=== PATIENT | female | born 1950 | race Caucasian/White ===

== ENCOUNTER 2018-07-04 13:58 | Inpatient (IN) | payer OTHER ==
--- NOTE | 2018-07-04 11:35 | R.PREADM ---
SCREENING DATE AND TIME 07/03/2018 14:09 (FORESTRY HUNTER) ANTICIPATED REHAB ADMISSION DATE 07/05/2018 REFERRING FACILITY [facility] REFERRAL DATE AND TIME 07/03/2018 14:09 (FORESTRY HUNTER) ACUTE ADMIT DATE 07/04/2018 Previous Rehabilitation(s): No. REFERRING PHYSICIAN Kosta Llanes REHAB FACILITY [facility] CLINICAL LIAISON Lisa Mojica PHYSICIAN REVIEWER Dr. Ramón Villafana M.D. MR# [id number] [id number] NAME RACHEL ROSA ADDRESS [address] [place] [address] [place] [address]IP [address] DATE OF 1950 AGE 68 SSN# [id number] GENDER female MARITAL STATUS RACE white ADMIT FROM 02 - [facility] PRE-HOSPITAL LIVING SETTING 01 - Home (private home/apt. board/care, assisted living, mcfp, transitional living) HOME TYPE AND DETAILS Type of home: single family house # of steps to enter the residence: 1 # of levels in the residence: 1 # of steps within the residence: 4 PRE-HOSPITAL LIVING WITH Other FAMILY SUPPORT No PHONE PRIMARY FAMILY CONTACT ON ADM.? no IS PRIMARY FAMILY CONTACT AUTH. REP.? no PHONE 1ST CONTACT ON ADM. no IS 1ST CONTACT AUTH. REP.? no PHONE 2ND CONTACT ON ADM.? no PATIENT EMPLOYMENT STATUS Retired (for age) PATIENT EMPLOYER No Employer PAYOR INFORMATION: 1ST PAYOR NAME MEDICARE 1ST PAYOR PHONE 1ST PAYOR INJURY/ILLNESS DUE TO ACCIDENT? No ANOTHER LIBERTARIAN RESPONSIBLE? 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 COMORBID REHAB/ACUTE DIAGNOSES: - N/A Anemia in Chronic illness SUMMARY OF ACUTE HOSPITALIZATION: Pt. is a 68 yo Right-handed white female. On 07/01/2018 Pt. presented to [facility] with sudden onset of left-side weakness. On 07/01/2018 she was admitted to [facility] with diagnosis right basal ganglia acute-subacute i nfarct involving the dorsal striatum. Her impairment category is Stroke 01 - Left Body (Right Brain) (01.1). Pre-morbidly, Pt. was independent/mod-I in Transfers Control, Communication, Social Cognition, Self-C are, Sphincter Control, and Locomotion; and she had good Sphincter Control. Currently, she has deficits of Transfers Control, Communication, Social Cognition, Balance, Self-Care , Endurance, Safety Awareness, and Locomotion. Pt. is now referred to [facility] for acute in-patient rehabilitation in order to maximize patient's functional independence in activities of daily living, strength, ROM, and mobi lity. Patient has realistic goal of being discharged at assistance level 6-Demario to reside at Home with [facility] er. PAST MEDICAL HISTORY Anemia in Chronic illness ovarian cancer PAST SURGICAL HISTORY: history of total hysterectomy MEDICATION ALLERGIES: adhesive tape-silicones and sulfa ENVIRONMENTAL ALLERGIES: - Substance Allergies None Known - Other Allergies None Known CODE STATUS: Full code WEIGHT/HEIGHT/BMI: WEIGHT 185 lbs HEIGHT 5' 7" BMI 29 DIET: - Diet Type Regular - Diet - Solid Texture Regular - Diet - Liquid Texture Regular - Tube Feed N/A REVIEW OF SYSTEMS: - Gen Alert and awake Lying in bed No apparent distress Oriented to: person, time, and place - CVS RRR VITAL SIGNS Temperature: 98.4 F SBP/DBP: 120/80 Pulse: 88 Resp: 20 Vital signs stable, afebrile CURRENT SPHINCTER CONTROL: Pre-hospital bladder status: continent # of bladder accidents in the last 7 days prior to screenin Pre-hospital bowel status: continent # of bowel accidents in the last 7 days prior to screenin Last Bowel Movement Date: 07/03/2018 DETAILED CURRENT FUNCTIONAL STATUS: - Bladder accident frequency: Ind - No accidents in the past 7 days - Bowel accident frequency: Ind - No accidents in the past 7 days - Walking score based on distance walked: 1(<=50ft) FUNCTIONAL STATUS: - Self-Care A. Eating Ind sup B. Grooming Ind sup C. Bathing Ind sup D. Dressing - Upper Ind sup E. Dressing - Lower Ind sup F. Toileting Ind sup - Sphincter Control G: Bladder control Ind Ind H: Bowel control Ind Ind - Transfers Control I. Bed/Chair/Wheelchair Ind Aliza J. Toilet Ind Aliza K. Tub/Shower Ind Aliza - Locomotion L. Walk/Wheelchair (B) Ind Dep M. Stairs Ind ADNO - Communication N. Comprehension (B) Ind sup O. Expression (B) Ind sup - Social Cognition P. Social Interaction Ind sup Q. Problem Solving Ind sup R. Memory Ind sup - Endurance Fair - Balance Fair - Safety Awareness Fair CURRENT FUNC. DEFICITS: Transfers Control, Communication, Social Cognition, Balance, Self-Care, Endurance, Safety Awareness, and Locomotion THERAPY NOTES FROM ACUTE CARE: Attached. SPECIAL NEEDS: - Safety Concerns Skin breakdown precautions needed due to skin breakdown risk PRECAUTIONS: - Weight Bearing Precaution WBAT left LE PATIENT NEEDS ACTIVE AND ONGOING THERAPEUTIC INTERVENTION OF MULTIPLE THERAPY DISCIPLINES, INCLUDING: - Occupational Therapy Evaluate and Treat. Cognitive Retraining. Visual Perceptual Training. - Speech Therapy Memory Strategies. Expressive Language Skills. Speech Intelligibility Training. Cognitive Training. R eceptive Language Skills. - Physical Therapy Evaluate and Treat. PATIENT NEEDS CLOSE MEDICAL SUPERVISION BY A REHABILITATION PHYSICIAN FOR: Bowel and Bladder Management Coordination of Treatment Team Medical and Co-Morbidity Management PATIENT REQUIRES 24X7 REHAB NURSING FOR MEDICAL AND FUNCTIONAL MGT. OF THE FOLLOWING DEFICITS: ADL's Ambulation Bowel and Bladder Management Cognition Communication Disease Management Medication Management Patient/Family Education Providing Safe Environment Transfers PATIENT REQUIRES INTENSIVE, COORDINATED INTERDISCIPLINARY APPROACH TO REHAB: Arranging Home Equipment/Services Discharge Planning Family Intervention/Training Foreign Language Stenographer/Case Management PATIENT REHAB POTENTIAL: Expected level of measurable improvement will be of a practical value to patient's functional capacit y or adaptations to impairments Has a viable Discharge Plan Medically appropriate; condition is sufficiently stable to participate in intensive rehab program Patient is able and expected to receive 3 hours of individualized therapy daily on at least 5 of ever y 7 days Patient's prognosis for significant practical improvement within a reasonable period of time appears Good DISCHARGE PLAN: - Estimated Length of Stay (days) 17. - Consensus on plan Discharge plan has been discussed with primary caregiver. Patient/Family is in agreement with the aaron n. Primary caregiver is in agreement with the plan. - Patient/Family Goals Return home with assistance. - Planned Living Setting Upon Discharge Home, to live with Other. RECOMMENDED CARE LEVEL: IRF RECOMMENDATION DETAILS: Recommended Admission to Comprehensive Rehabilitation Program to Increase Functional [place] SCREENER'S COMPLETENESS CONFIRMATION: - Screening Confirmation The patient data collection on this preadmission screening form is finished PHYSICIANS REVIEW AND ADMISSION DETERMINATION Admit - Based on my review of the Pre-Admission Screening results, in my medical judgment and experie nce, I concur with the findings and recommend admission to [facility], as this patient requires an IRF level of care. SIGNATURE PANEL: Clinical Liaison - [electronically] signed by Lisa Mojica on 07/04/2018 at 10:29 (FORESTRY HUNTER) Physician Reviewer - [electronically] signed by Dr. Ramón Villafana M.D. on 07/04/2018 at 11:35 (FORESTRY HUNTER )
--- OUTSIDE RECORDS SUMMARY | 2018-07-04 15:50 | XMS REPORT | Clinical Summary ---
:1950 Author Organization [facility] Address [address] [place] [id number] Care Team Providers Name Role Phone Asked, No Pcp Primary Care Provider Unavailable Allergies No Known Allergies Medications No known medications Active Problems Problem Noted Date Closed patellar sleeve fracture, right, with delayed healing, subsequent 10/01 encounter Closed displaced osteochondral fracture of right patella 05/06/2017 Encounters Date Type Specialty Care Team Description 10/01/2017 Office Visit Orthopedic Surgery Marty Rascon MD Chronic pain of right knee (Primary Dx); Impingement syndrome of left shoulder; Closed patellar sleeve fracture, right, with delayed healing, subsequent encounter 09/03/2017 Office Visit Orthopedic Surgery Marty Rascon MD Closed displaced osteochondral fracture of right patella with routine healing, subsequent encounter (Primary Dx) 08/06/2017 Office Visit Orthopedic Surgery Marty Rascon MD Closed displaced osteochondral fracture of right patella, initial encounter (Primary Dx ); Acute pain of right knee after 07/03/2017 Social History Tobacco Use Types Packs/Day Years Used Date Never Assessed Sex Assigned at Date Recorded Not on file Job Start Date Occupation Industry Not on file Not on file Not on file Travel History Travel Start Travel End No recent travel history available. Last Filed Vital Signs Not on file Plan of Treatment Health Maintenance Due Date Last Done Comments BREAST CANCER SCREENING 1999 COLON CANCER SCREENING 1999 SHINGLES VACCINES (1 of 2) 1999 PNEUMOCOCCAL POLYSACCHARIDE VACCINE AGE 65 AND OVER 2014 PNEUMOCOCCAL-13 2014 INFLUENZA VACCINE 02/05/2018 Procedures Procedure Name Priority Date/Time Associated Diagnosis Comments XR KNEE 1 OR 2 VW Routine 10/01/2017 1:49 Chronic pain of right Results for this RIGHT PM CDT knee procedure are in the results section. XR KNEE 1 OR 2 VW Routine 09/03/2017 1:16 Closed displaced Results for this RIGHT PM DECATIZER osteochondral fracture procedure are in of right patella with the results routine healing, section. subsequent encounter XR KNEE 4+ VW Routine 08/06/2017 1:11 Acute pain of right Results for this RIGHT PM DECATIZER knee procedure are in the results section. after 07/03/2017 Results XR Knee 1 Or 2 Vw Right (10/01/2017 1:49 PM CDT)Only the most recent of2 resultswithin the time period is included. 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 Performing Organization Address [facility] Phone Number [facility] [address] [place] [address] XR Knee 4+ Vw Right (08/06/2017 1:11 PM DECATIZER) Narrative Performed At [facility], lateral, oblique x-rays were done of the right knee.These x-rays [facility] demonstrate a delayed union, of the proximal transverse patella.There is some medial and lateral compartment arthritis. Performing Organization Address [facility] Phone Number [facility] [address] [place] [address] after 07/03/2017 Insurance Payer Benefit Plan / Group Subscriber ID Type Phone Address MEDICARE MEDICARE PART A AND B xxxxxxxxxx Medicare [place], [place] COMMERCIAL MISC MISC COMMERCIAL xxxxxxxx Commercial Advance Directives Patient has advance care planning documents on file. For more information, please contact:Hieu Cohen[address] [place] [address]
--- OUTSIDE RECORDS SUMMARY | 2018-07-04 15:50 | XMS REPORT ---
:1950 [facility] Address [address] [place] [address] Dr. Duron [address] [place] [id number] Care Team Providers Name Role Phone Unavailable Unavailable Unavailable Problems This patient has no known problems. Allergies, Adverse Reactions, Alerts This patient has no known allergies or adverse reactions. Medications This patient has no known medications.
[2018-07-04 16:16] LABS: Urine Appearance CLEAR; Urine Bilirubin NEGATIVE (NEG); Urine Blood NEGATIVE (NEG); Urine Color YELLOW; Urine Glucose NEGATIVE (NEG); Urine Protein NEGATIVE (NEG); Urine Specific Gravity <=1.005 (1.005-1.030); Urine Urobilinogen 0.2 mg/dL (0.2-1.0)
[2018-07-04 16:29] LABS: Urine RBC NONE SEEN /HPF (NONE SEEN)
[2018-07-04 16:30] LABS: Urine Bacteria NONE SEEN /HPF (<20); Urine Culture Reflex Order NOT NEEDED
[2018-07-04] MEDS: ENOXAPARIN 40 MG/0.4 ML SQ SCH (17:00)
--- NOTE | 2018-07-04 18:22 | R.HP ---
FACILITY: [facility] ENCOUNTER DATE AND TIME: 07/04/2018 18:16 (COORDINATOR OF PLACEMENT) MR#: [id number] NAME RACHEL ROSA ADDRESS: [address] [place] [address] RO[address] [facility] CITY: [place] ZIP [address] PHONE: DATE OF : 1950 AGE: 68 SSN# [id number] GENDER: Female DEXTERITY Right-handed MARITAL STATUS RACE White PRE-HOSPITAL LIVING SETTING 01 - Home (private home/apt. board/care, assisted living, chcf, transitional living) PRE-HOSPITAL LIVING WITH Other ENCOUNTER PHYSICIAN: Dr. Ramón Villafana M.D. 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 SECONDARY/COMORBID DIAGNOSES (TIERED): - N/A Anemia in Chronic illness HISTORY OF PRESENT ILLNESS (HPI): Pt. is a 68 yo Right-handed white female. On 07/01/2018 Pt. presented to [facility] with sudden onset of left-side weakness. On 07/01/2018 she was admitted to [facility] with diagnosis right basal ganglia acute-subacute i nfarct involving the dorsal striatum. Her impairment category is Stroke 01 - Left Body (Right Brain) (01.1). Pre-morbidly, Pt. was independent/mod-I in Transfers Control, Communication, Social Cognition, Self-C are, Sphincter Control, and Locomotion; and she had good Sphincter Control. Currently, she has deficits of Transfers Control, Communication, Social Cognition, Balance, Self-Care , Endurance, Safety Awareness, and Locomotion. Pt. is now referred to [facility] for acute in-patient rehabilitation in order to maximize patient's functional independence in activities of daily living, strength, ROM, and mobi lity. Patient has realistic goal of being discharged at assistance level 6-Demario to reside at Home with [facility] er. MEDICATION ALLERGIES: adhesive tape-silicones and sulfa ENVIRONMENTAL ALLERGIES: - Substance Allergies None Known - Other Allergies None Known PAST MEDICAL HISTORY: Anemia in Chronic illness ovarian cancer Nephrectomy 10 years ago. She has one kidney. PAST SURGICAL HISTORY: history of total hysterectomy FAMILY HISTORY: Family history is not contributory. REVIEW OF SYSTEMS: - Gen No Chills Fatigue No Fever - Eyes No Double Vision No itchiness - ENMT No Difficulty Swallowing - CVS No Chest Discomfort No Chest Pain Fatigue No Weight Gain - Resp No Cough No Shortness of Breath - GI Continent No Abdominal Pain No Constipation No Diarrhea - Continent No Kidney Pain No Painful Urination No Urinary Urgency - MSK No Joint Pain Muscle Cramps Stiffness - Skin No Itching No Rash No Suspicious Lesions - Neuro Coordination Difficulty No Difficulty with Concentration Memory Loss No Seizures Weakness - Psych No Anxiety No Depression No HIV Exposure No Persistent Infections No Seasonal Allergies - Endo No Cold/Heat Intolerance No Excessive Hunger No Excessive Thirst No Excessive Urination PHYSICAL EXAM - Gen Alert and awake Lying in bed No apparent distress Oriented to: person and place - Skin No breakdown Mild left facial numbness and weakness. - Eyes Right visual field deficit. - ENMT No abnormalities - Neck No abnormalities No cervical adenopathy - CVS RRR - Chest No abnormalities - Resp CTA bilaterally - Abd + bowel sounds - GI Soft Deferred - No abnormalities - Ext No significant edema. - MSK 4+/5 weakness in left upper and lower extremity - Neuro 4/5 strength left upper and lower extremities. - Psych No abnormalities VITAL SIGNS Temperature: 98.4 F SBP/DBP: 120/80 Pulse: 88 Resp: 20 NURSING: - Shower allowing shower - Bladder care per protocol - Skin care per protocol PRECAUTIONS: - Weight Bearing Precaution WBAT left LE ACTIVITIES OOB only with supervision FUNCTIONAL STATUS: - Self-Care A. Eating Ind sup B. Grooming Ind sup C. Bathing Ind sup D. Dressing - Upper Ind sup E. Dressing - Lower Ind sup F. Toileting Ind sup - Sphincter Control G: Bladder control Ind Ind H: Bowel control Ind Ind - Transfers Control I. Bed/Chair/Wheelchair Ind Aliza J. Toilet Ind Aliza K. Tub/Shower Ind Aliza - Locomotion L. Walk/Wheelchair (B) Ind Dep M. Stairs Ind ADNO - Communication N. Comprehension (B) Ind sup O. Expression (B) Ind sup - Social Cognition P. Social Interaction Ind sup Q. Problem Solving Ind sup R. Memory Ind sup - Endurance Fair - Balance Fair - Safety Awareness Fair CURRENT [facility]. DEFICITS: Transfers Control, Communication, Social Cognition, Balance, Self-Care, Endurance, Safety Awareness, and Locomotion ASSESSMENT: Pt. is a 68 yo Right-handed white female.On 07/01/2018 Pt. presented to [facility] with sudden o nset of left-side weakness.On 07/01/2018 she was admitted to [facility] with diagnosis right bas al ganglia acute-subacute infarct involving the dorsal striatum.Her impairment category is Stroke 01 - Left Body (Right Brain) (01.1).Pre-morbidly, Pt. was independent/mod-I in Transfers Control, Commu nication, Social Cognition, Self-Care, Sphincter Control, and Locomotion; and she had good Sphincter Control.Currently, she has deficits of Transfers Control, Communication, Social Cognition, Balance, S elf-Care, Endurance, Safety Awareness, and Locomotion.Pt. is now referred to [facility] for acute in-patient rehabilitation in order to maximize patient's functional independence in activities of daily living, strength, ROM, and mobility.- Rehab Goal Patient has realistic goal of being discharged at assistance level 6-Demario to reside at Home with [facility] er. REHAB PLAN: for Dementia, TBI, Stroke, or others - Physical Therapy Gait dysfunction - to improve, our physical therapists will perform initial evaluation of pt's status upon admission and devise an individualized program for Gait Training, and Wheel Chair mobility Inability to transfer - to improve, our physical therapists will perform initial evaluation of pt's s tatus upon admission and devise an individualized program for Bed mobility Need for home safety evaluation - to improve, our physical therapists will perform initial evaluation of pt's status upon admission and devise an individualized program for Home Evaluation Need in caregiver upon discharge - to improve, our physical therapists will perform initial evaluatio n of pt's status upon admission and devise an individualized program for Caregiver Training New precaution - to improve, our physical therapists will perform initial evaluation of pt's status u ana admission and devise an individualized program for Patient precaution education Edema - to improve, our physical therapists will perform initial evaluation of pt's status upon admi ssion and devise an individualized program for Elevation Training, and Lymphedema Therapy Poor balance - to improve, our physical therapists will perform initial evaluation of pt's status upo n admission and devise an individualized program for Balance Training Poor endurance - to improve, our physical therapists will perform initial evaluation of pt's status u ana admission and devise an individualized program for Endurance Training Weakness - to improve, our physical therapists will perform initial evaluation of pt's status upon ad mission and devise an individualized program for Aquatic Therapy, Neuromuscular Reeducation, and Stre ngthening Achieving independence - to improve, our physical therapists will perform initial evaluation of pt's status upon admission and devise an individualized program for Community Reintegration Activities - Occupational Therapy ADL deficits - to improve, our occupation therapists will perform initial evaluation of pt's status u ana admission and devise an individualized program for Bathing, Bed mobility, Community Reintegration , Cooking, Dressing, Eating, Fine Motor Skills, Grooming, Homemaking, Kitchen Mobility, Laundry, Linda ent Education, Safety Awareness, Splinting - Positioning, Transfers(Toilet, Tub, Shower), and Wheel C hair Management Cognitive deficits - to improve, our occupation therapists will perform initial evaluation of pt's st atus upon admission and devise an individualized program for Cognition - orientation Need for life care planner - to improve, our occupation therapists will perform initial evaluation of pt's s tatus upon admission and devise an individualized program for Caregiver Training Weakness - to improve, our occupation therapists will perform initial evaluation of pt's status upon admission and devise an individualized program for Aquatic Therapy, Balance, Endurance, UE ROM, and U E strengthening MEDICAL PLAN: - Diet Type Start Regular - Diet - Liquid Texture Start Regular - Tube Feed Start N/A - Bladder care per protocol - Weight Bearing Precaution WBAT left LE - Skin care per protocol - Diet - Solid Texture Regular - Shower shower DISCHARGE PLAN: - Estimated Length of Stay (days) 17. - Consensus on plan Discharge plan has been discussed with primary caregiver. Patient/Family is in agreement with the aaron n. Primary caregiver is in agreement with the plan. - Patient/Family Goals Return home with assistance. - Planned Living Setting Upon Discharge Home, to live with Other. SIGNATURE PANEL: (COORDINATOR OF PLACEMENT)
--- NOTE | 2018-07-04 18:23 | PAPE ---
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 Ramón Villafana M.D. 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 PATIENT NEEDS CLOSE MEDICAL SUPERVISION BY A REHABILITATION PHYSICIAN FOR: Bowel and Bladder Management Coordination of Treatment Team Medical and Co-Morbidity Management PATIENT REQUIRES 24X7 REHAB NURSING FOR MEDICAL AND FUNCTIONAL MGT. OF THE FOLLOWING DEFICITS: ADL's Ambulation Bowel and Bladder Management Cognition Communication Disease Management Medication Management Patient/Family Education Providing Safe Environment Transfers PATIENT REQUIRES INTENSIVE, COORDINATED INTERDISCIPLINARY APPROACH TO REHAB: Arranging Home Equipment/Services Discharge Planning Family Intervention/Training Box Car Bracer/Case Management LIST OF IDENTIFIED AND POTENTIAL PROBLEMS: Alteration in leisure activities Bladder, Incontinence Bowel, Incontinence Infection, Actual or Potential Mobility Impaired Pain, Alteration in Comfort Self Care Deficit Skin Integrity, Actual or Potential Urinary Tract Infection (UTI), Actual or Potential PATIENT COULD BE AT RISK FOR COMPLICATIONS FROM ADVERSE MEDICAL CONDITIONS DUE TO HIS/HER COMORBIDITI ES AND THE RIGORS OF THE INTENSIVE REHABILLITATION PROGRAM. METHODS OR INTERVENTIONS TO AVOID COMPLIC ATIONS INCLUDE: - Bleeding Stroke patients assessed for lethargy or change in status. - Infection Clinical staff to assess and manage the signs and symptoms of infection including fever, redness, war mth, etc. - Urinary Tract Infection - Aspiration Clinical staff will assess and manage coughing, drooling, congestion. - Falls Patient will be evaluated for Fall Precautions and will be placed on Fall Precautions as indicated pe r protocol. - Skin Breakdown Nursing will assess skin daily using assessment tool and will place on Skin Breakdown Precautions as indicated per protocol. - Pain Clinical staff may employ non-medication methods such as massage, distraction, decrease stimulus, etc . as needed. Clinical staff will assess patient's pain level every shift per protocol to assess and e nsure pain management effectiveness. Medications will be given and the pain level re-assessed. PRELIMINARY PLAN OF CARE: - Physical Therapy Patient needs Physical Therapy for a daily minimum of 1.5 hours at least 5 out of 7 days, to improve: Mobility, Strengthening, Transfers, Stretching, ROM, Endurance, Ability to manage stairs, Gait, and Balance. - Speech Therapy Patient needs Speech Therapy for a daily minimum of 0.5 hours at least 5 out of 7 days, to improve: S wallowing, Cognition, Language Skills, and Compensatory Strategies. - Rehabilitation Nursing Patient requires 24x7 Rehabilitation Nursing for: Pain Issues, Identifying and preventing risk factor s, Monitoring and reporting current medical conditions, Assisting with ambulation and transfer, Jevon ting with all ADL-s, Teaching patients about disease process and medications, Family teaching, Provid ing safe environment, Bowel and Bladder Issues, Skin Integrity, and Medication Management. Patient needs Box Car Bracer and/or Case Management for: Discharge Planning, Arranging Home Equipmen t or Services, and Family Interventions. - Dietary and Nutrition Services Patient needs Dietary and Nutrition Services for: Adequate Nutrition, Nutritional Supplements, and Nu tritional Education. - Occupational Therapy Patient needs Occupational Therapy for a daily minimum of 1.5 hours at least 5 out of 7 days, to impr ove Activities of Daily Living, including: Eating, Grooming, Bathing, Dressing, Toileting, Toilet Tra nsfers, Community Reintegration, Higher functional activities, Adaptive Equipment, Splinting, Househo ld Tasks, and Other activities as determined. POTENTIAL FUNCTIONAL GOALS FOR PATIENT TO ACHIEVE BY DISCHARGE: - Safety Precaution Patient will remain free from falls or injury at time of discharge. - Bed Mobility Patient will perform bed mobility at 4-Aliza level of assistance. - Transfers Patient will complete transfers from bed to chair at 4-Aliza level of assistance. - Mobility Patient will ambulate 150 ft with 4-Aliza level of assistance with RW. PATIENT REHAB POTENTIAL Expected level of measurable improvement will be of a practical value to patient's functional capacit y or adaptations to impairments Has a viable Discharge Plan Medically appropriate; condition is sufficiently stable to participate in intensive rehab program Patient is able and expected to receive 3 hours of individualized therapy daily on at least 5 of ever y 7 days Patient's prognosis for significant practical improvement within a reasonable period of time appears Good DISCHARGE PLAN: - Estimated Length of Stay (days) 17. - Consensus on plan Discharge plan has been discussed with primary caregiver. Patient/Family is in agreement with the aaron n. Primary caregiver is in agreement with the plan. - Patient/Family Goals Return home with assistance. - Planned Living Setting Upon Discharge Home, to live with Other. CONCLUSION ON REHABILITATION NECESSITY: I have evaluated patient's pre-admission functional status and, comparing it to the patient's post-ad mission functional status now, I conclude that the pre-admission assessment was accurate. Patient's c ondition on admission supports the medical necessity of admission to IRF. It is safe to proceed with patient's therapy program. SIGNATURE PANEL: (OPERATIONS EXPERT)
[2018-07-04] MEDS: MELATONIN 3 MG TABLET PO PRN (20:15)
[2018-07-04] MEDS: ATORVASTATIN 20 MG TAB PO SCH (20:15)
[2018-07-05 06:57] LABS: Absolute Lymphocytes (CBC) 0.5 K/uL (0.7-4.9); Absolute Monocytes 0.8 K/uL (0.1-1.3); Absolute Neutrophil 5.2 K/uL (1.8-8.0); Basophils % 0.6 % (0-1.3); Eosinophils % 0.1 % (0-4.4); Hematocrit 26.3 % (36.0-45.0); Lymphocytes % 8.1 % (15.3-44.8); MPV 8.2 fL (7.6-11.3); Monocytes % 12.7 % (3.3-12.3); RBC Red Blood Cell Count 3.68 M/uL (3.86-4.86)
[2018-07-05 07:06] LABS: Albumin 2.9 g/dL (3.4-5.0); Magnesium 2.3 mg/dL (1.8-2.4); Potassium 4.2 mmol/L (3.5-5.1); Prealbumin 10.1 mg/dL (20-40)
[2018-07-05] MEDS: FE SULF/FA/VIT B COMP & C TAB PO SCH (10:11)
[2018-07-05] MEDS: ASPIRIN 81 MG CHEWABLE TABLET PO SCH (10:11)
[2018-07-05] MEDS: AMLODIPINE 5 MG TAB PO SCH (10:11)
[2018-07-05] MEDS: FERROUS SULFATE 325 MG TAB PO SCH (10:11)
--- NOTE | 2018-07-05 14:49 | FAST ---
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 Ramón Villafana M.D. 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 EATING: EATING - STEP 1: Does the patient require the assistance of a person or device, or need extra time when eating? Yes. EATING - STEP 2: Does the patient require the assistance of a helper? Yes. EATING - STEP 3: Does the patient perform half or more of the eating tasks? Yes. EATING - STEP 4: Does the patient need only supervision, cuing, coaxing OR help to apply an orthosis OR help to cut fo od, open containers, pour liquids, or butter bread? Yes. EATING - SCORE: 5-SUP EATING - COMMENTS: Patient began coughing during lunch, nurse notified GROOMING: Comb/brush hair Oral care GROOMING - STEP 1: Does the patient require the assistance of a person or device, or need extra time when grooming? Yes. GROOMING - STEP 2: Does the patient require the assistance of a helper? No. The patient only requires an assistive devic e, OR takes more than reasonable time to groom, OR there is a concern for safety as the patient groom s GROOMING - SCORE: 6-TONNY BATHING: Activity did not occur on this shift BATHING - SCORE: 0-UNK DRESSING - UPPER BODY: Activity did not occur on this shift ARTICLES SCORE Total number of steps: 0 DRESSING - UPPER BODY - SCORE: 0-UNK DRESSING - LOWER BODY: Activity did not occur on this shift ARTICLES SCORE Total number of steps: 0 DRESSING - LOWER BODY - SCORE: 0-UNK TOILETING: TOILETING - STEP 1: Does the patient require the assistance of a person or device, or need extra time with toileting? Yes . TOILETING - STEP 2: Does the patient require the assistance of a helper? Yes. TOILETING - STEP 3: How much assistance does the patient require from the helper? Hands-on assistance from the helper TOILETING - STEP 4: Of the 3 tasks: 1) Adjusting clothing prior to use, 2) Cleansing of perineal area, 3) Adjusting clot rebekah after use; How many tasks does the patient perform WITHOUT assistance of the helper? Two tasks TOILETING - SCORE: 3-MOD BLADDER MANAGEMENT: Delton removes incontinent device (Depends, pull ups, etc.); cleans the patient after accident / inco ntinent episode; and, applies new incontinent device. BLADDER MANAGEMENT - SCORE: 1-DEP BLADDER MANAGEMENT - FREQUENCY OF ACCIDENTS: BLADDER MANAGEMENT(FA) - STEP 1: How many accidents has the patient had during the current shift? 2 BOWEL MANAGEMENT: Activity did not occur on this shift BOWEL MANAGEMENT - SCORE: 7-IND TRANSFERS: BED, CHAIR, WHEELCHAIR: TRANSFERS: BED, CHAIR, WHEELCHAIR - STEP 1: Does the patient require assistance of a person or device, or need extra time with bed, chair, or whe elchair transfers? Yes. TRANSFERS: BED, CHAIR, WHEELCHAIR - STEP 2: Does the patient require the assistance of a helper? Yes. TRANSFERS: BED, CHAIR, WHEELCHAIR - STEP 3: How much assistance does the patient require from the helper? Steadying/guiding assistance TRANSFERS: BED, CHAIR, WHEELCHAIR - SCORE: 4-MIN TRANSFERS: TOILET: TRANSFERS: TOILET - STEP 1: Does the patient require the assistance of a person or device, or need extra time with toilet transfe rs? Yes. TRANSFERS: TOILET - STEP 2: Does the patient require the assistance of a helper? Yes. TRANSFERS: TOILET - STEP 3: How much assistance does the patient require from the helper? Patient performs half or more of the tr ansferring tasks TRANSFERS: TOILET - STEP 4: Does the patient need only incidental help such as contact guard or steadying during toilet transfer? No. Patient needs more than incidental help TRANSFERS: TOILET - SCORE: 3-MOD TRANSFERS: SHOWER: Activity did not occur on this shift TRANSFERS: SHOWER - SCORE: 0-UNK TRANSFERS: TUB: Activity did not occur on this shift TRANSFERS: TUB - SCORE: 0-UNK LOCOMOTION: WALK: Activity did not occur on this shift LOCOMOTION: WALK - SCORE: 0-UNK LOCOMOTION: WHEELCHAIR: Activity did not occur on this shift LOCOMOTION: WHEELCHAIR - SCORE: 0-UNK COMPREHENSION: COMPREHENSION: TYPE: Both COMPREHENSION - STEP 1: Does the patient require help from a person or device, or need extra time to understand complex and a bstract ideas (such as current events, finances, discharge planning, medical issues, relationships, e tc)? Yes. COMPREHENSION - STEP 2: Does the patient require help to understand questions or statements about basic needs or ideas (such as hunger, thirst, sleep, safety, daily schedule, room location, or discomfort) half or more of the t agustin? Yes. COMPREHENSION - STEP 3: Is the patient basically able to understand and respond appropriately and consistently? Yes. COMPREHENSION - SCORE: 2-MAX EXPRESSION EXPRESSION: TYPE: Both EXPRESSION - STEP 1: Does the patient require help from a person or device, or need extra time expressing complex and abst ract ideas (such as current events, finances, discharge planning, medical issues, relationships, etc) ? Yes. EXPRESSION - STEP 2: Does the patient require help to express basic necessities or ideas (such as hunger, thirst, sleep, s afety, daily schedule, room location, or discomfort) half or more of the time? Yes. EXPRESSION - STEP 3: Is the patient basically unable to express or does s/he express inappropriately or inconsistently kellie pite prompting? No. EXPRESSION - SCORE: 2-MAX SOCIAL INTERACTION: SOCIAL INTERACTION - STEP 1: Does the patient require a helper to interact with others in social and therapeutic situations? Yes. SOCIAL INTERACTION - STEP 2: Does the patient interact appropriately half or more of the time? Yes. SOCIAL INTERACTION - STEP 3: How often does the patient need help to interact appropriately? 25-49% of the time SOCIAL INTERACTION - SCORE: 3-MOD PROBLEM SOLVING: PROBLEM SOLVING - STEP 1: Does the patient need help from a person or device, or need extra time to solve complex problems such as managing a checking account or confronting interpersonal problems? Yes. PROBLEM SOLVING - STEP 2: Does the patient solve basic routine problems half or more of the time? No. PROBLEM SOLVING - STEP 3: Does the patient need help to solve problems all the time or is s/he unable to solve problems? No. Pa tient can sometimes solve problems PROBLEM SOLVING - SCORE: 2-MAX MEMORY: MEMORY - STEP 1: Does the patient need help from a person or device, or need extra time to remember frequently encount ered people, daily routines, and executing requests? Yes. MEMORY - STEP 2: How often does the patient need help to remember frequently encountered people, daily routines, and e xecuting requests? More than 50% of the time MEMORY - STEP 3: Does the patient need help to remember all of the time OR does s/he not effectively recognize and rem ember? No. Patient does not need help all the time MEMORY - SCORE: 2-MAX SIGNATURE PANEL: The following modified sections: Eating - Score, Grooming - Score, Eating - Comments:, Bathing - Scor e, Dressing - Upper Body - Score, Dressing - Lower Body - Score, Toileting - Score, Bladder Managemen t - Score, Bowel Management - Score, Transfers: Bed, Chair, Wheelchair - Score, Transfers: Toilet - S core, Transfers: Shower - Score, Transfers: Tub - Score, Locomotion: Walk - Score, Locomotion: Wheelc hair - Score, Comprehension - Score, Expression - Score, Social Interaction - Score, Problem Solving - Score, Memory - Score were [electronically] signed by Scottie Mae on Sat Jul 05 2018 14:48:34 GMT-06 00 (Central Standard Time)
--- NOTE | 2018-07-05 16:00 | FAST ---
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 Ramón Villafana M.D. 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 EATING: Activity did not occur on this shift EATING - SCORE: 0-UNK GROOMING: Comb/brush hair Wash, rinse, and dry face Wash, rinse, and dry hands GROOMING - STEP 1: Does the patient require the assistance of a person or device, or need extra time when grooming? Yes. GROOMING - STEP 2: Does the patient require the assistance of a helper? Yes. GROOMING - STEP 3: How much assistance does the patient require from the helper? Incidental touching assistance from the helper while grooming GROOMING - SCORE: 4-MIN BATHING: Abdomen Buttocks Chest Left arm Left lower leg and foot Left upper leg Perineal area Right arm Right lower leg and foot Right upper leg BATHING - STEP 1: Does the patient require the assistance of a person or device, or need extra time when bathing? Yes. BATHING - STEP 2: Does the patient require the assistance of a helper? Yes. BATHING - STEP 3: How much assistance does the patient require from the helper? More than just incidental help BATHING - STEP 4: What percent of the body parts did the patient bathe WITHOUT the helper? Less than half of the body p arts BATHING - SCORE: 2-MAX DRESSING - UPPER BODY: Bra (three steps) T-shirt/pullover shirt (four steps) ARTICLES SCORE Total number of steps: 7 DRESSING - UPPER BODY - STEP 1: Does the patient require help from a person or device, or need extra time when dressing above the alejandra st? Yes. DRESSING - UPPER BODY - STEP 2: Does the patient require the assistance of a helper? Yes. DRESSING - UPPER BODY - STEP 3: Does the helper touch the patient while dressing? Yes. DRESSING - UPPER BODY - STEP 4: How many of the total steps does the patient complete on his/her own? 3 DRESSING - UPPER BODY - STEP 5: Does Patient require total assistance for dressing above the waist such as the helper holding clothin g and performing basically all the activities? No. DRESSING - UPPER BODY - SCORE: 2-MAX DRESSING - LOWER BODY: Elastic waist pants (three steps) Sock - Left foot (one step) Sock - Right foot (one step) Tied or buckled shoe - Left foot (two steps) Tied or buckled shoe - Right foot (two steps) Underwear (three steps) ARTICLES SCORE Total number of steps: 12 DRESSING - LOWER BODY - STEP 1: Does the patient require help from a person or device, or need extra time when dressing below the alejandra st? Yes. DRESSING - LOWER BODY - STEP 2: Does the patient require the assistance of a helper? Yes. DRESSING - LOWER BODY - STEP 3: Does the helper touch the patient while dressing? Yes. DRESSING - LOWER BODY - STEP 4: How many of the total steps does the patient complete on his/her own? 1 DRESSING - LOWER BODY - STEP 5: Does patient require total assistance for dressing below the waist such as the helper holding clothin g and performing basically all the activities? No. DRESSING - LOWER BODY - SCORE: 2-MAX TOILETING: Activity did not occur on this shift TOILETING - SCORE: 0-UNK BLADDER MANAGEMENT: Activity did not occur on this shift BLADDER MANAGEMENT - SCORE: 7-IND BOWEL MANAGEMENT: Activity did not occur on this shift BOWEL MANAGEMENT - SCORE: 7-IND TRANSFERS: BED, CHAIR, WHEELCHAIR: Activity did not occur on this shift TRANSFERS: BED, CHAIR, WHEELCHAIR - SCORE: 0-UNK TRANSFERS: TOILET: Activity did not occur on this shift TRANSFERS: TOILET - SCORE: 0-UNK TRANSFERS: SHOWER: TRANSFERS: SHOWER - STEP 1: Does the patient require the assistance of a person or device, or need extra time with shower transfe rs? Yes. TRANSFERS: SHOWER - STEP 2: Does the patient require the assistance of a helper? Yes. TRANSFERS: SHOWER - STEP 3: How much assistance does the patient require from the helper? More than incidental help TRANSFERS: SHOWER - STEP 4: How much more help does the patient require from the helper? Lifting the patient either up OR down fr om the wheelchair onto the shower chair TRANSFERS: SHOWER - SCORE: 3-MOD TRANSFERS: TUB: Activity did not occur on this shift TRANSFERS: TUB - SCORE: 0-UNK LOCOMOTION: WALK: Activity did not occur on this shift LOCOMOTION: WALK - SCORE: 0-UNK LOCOMOTION: WHEELCHAIR: Activity did not occur on this shift LOCOMOTION: WHEELCHAIR - SCORE: 0-UNK LOCOMOTION: STAIRS: Activity did not occur on this shift LOCOMOTION: STAIRS - SCORE: 0-UNK COMPREHENSION: COMPREHENSION: TYPE: Both COMPREHENSION - STEP 1: Does the patient require help from a person or device, or need extra time to understand complex and a bstract ideas (such as current events, finances, discharge planning, medical issues, relationships, e tc)? Yes. COMPREHENSION - STEP 2: Does the patient require help to understand questions or statements about basic needs or ideas (such as hunger, thirst, sleep, safety, daily schedule, room location, or discomfort) half or more of the t agustin? No. COMPREHENSION - STEP 3: How often does the patient need help to understand directions and conversation about basic needs? 10% - 24% of the time COMPREHENSION - SCORE: 4-MIN EXPRESSION EXPRESSION: TYPE: Vocal EXPRESSION - STEP 1: Does the patient require help from a person or device, or need extra time expressing complex and abst ract ideas (such as current events, finances, discharge planning, medical issues, relationships, etc) ? Yes. EXPRESSION - STEP 2: Does the patient require help to express basic necessities or ideas (such as hunger, thirst, sleep, s afety, daily schedule, room location, or discomfort) half or more of the time? No. EXPRESSION - STEP 3: How often does the patient need help to express directions and conversation about basic needs? 10-24% of the time EXPRESSION - SCORE: 4-MIN SOCIAL INTERACTION: SOCIAL INTERACTION - STEP 1: Does the patient require a helper to interact with others in social and therapeutic situations? No. SOCIAL INTERACTION - STEP 2: Does the patient need extra time in social situations, OR does s/he interact with staff, other patien ts, and family members ONLY in structured environments, OR does s/he require medication for social in teraction? No. SOCIAL INTERACTION - SCORE: 7-IND PROBLEM SOLVING: PROBLEM SOLVING - STEP 1: Does the patient need help from a person or device, or need extra time to solve complex problems such as managing a checking account or confronting interpersonal problems? Yes. PROBLEM SOLVING - STEP 2: Does the patient solve basic routine problems half or more of the time? Yes. PROBLEM SOLVING - STEP 3: How often does the patient need help to solve basic routine problems? 25%-49% of the time PROBLEM SOLVING - SCORE: 3-MOD MEMORY: MEMORY - STEP 1: Does the patient need help from a person or device, or need extra time to remember frequently encount ered people, daily routines, and executing requests? Yes. MEMORY - STEP 2: How often does the patient need help to remember frequently encountered people, daily routines, and e xecuting requests? 25% - 49% of the time MEMORY - SCORE: 3-MOD SIGNATURE PANEL: The following modified sections: Eating - Score, Grooming - Score, Bathing - Score, Dressing - Upper Body - Score, Dressing - Lower Body - Score, Toileting - Score, Transfers: Bed, Chair, Wheelchair - S core, Transfers: Toilet - Score, Transfers: Shower - Score, Transfers: Tub - Score, Comprehension - S core, Expression - Score, Social Interaction - Score, Problem Solving - Score, Memory - Score were [e lectronically] signed by Annie Real OT on Sat Jul 05 2018 15:59:22 GMT-0600 (Central Standard Ti ne)
[2018-07-05] MEDS: ENOXAPARIN 40 MG/0.4 ML SQ SCH (16:20)
[2018-07-05] MEDS: APIXABAN 2.5 MG TABLET PO SCH (20:33)
[2018-07-05] MEDS: ATORVASTATIN 20 MG TAB PO SCH (20:33)
[2018-07-05] MEDS: MELATONIN 3 MG TABLET PO PRN (20:33)
[2018-07-05] MEDS: ACETAMINOPHEN 500 MG TAB PO PRN (20:34)
[2018-07-06] MEDS: FE SULF/FA/VIT B COMP & C TAB PO SCH (08:01)
[2018-07-06] MEDS: ACETAMINOPHEN 500 MG TAB PO PRN ×2 (08:01→19:14)
[2018-07-06] MEDS: FERROUS SULFATE 325 MG TAB PO SCH (08:01)
[2018-07-06] MEDS: AMLODIPINE 5 MG TAB PO SCH (08:01)
[2018-07-06] MEDS: APIXABAN 2.5 MG TABLET PO SCH ×2 (08:02→20:34)
[2018-07-06] MEDS: ASPIRIN 81 MG CHEWABLE TABLET PO SCH (08:04)
[2018-07-06] MEDS: DULOXETINE 20 MG CAP PO SCH (11:00)
[2018-07-06] MEDS: CRANBERRY FRUIT EXTRACT 200 MG CAP PO SCH ×2 (11:00→20:34)
--- NOTE | 2018-07-06 12:17 | FAST ---
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 Ramón Villafana M.D. 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 EATING: EATING - STEP 1: Does the patient require the assistance of a person or device, or need extra time when eating? Yes. EATING - STEP 2: Does the patient require the assistance of a helper? Yes. EATING - STEP 3: Does the patient perform half or more of the eating tasks? Yes. EATING - STEP 4: Does the patient need only supervision, cuing, coaxing OR help to apply an orthosis OR help to cut fo od, open containers, pour liquids, or butter bread? Yes. EATING - SCORE: 5-SUP GROOMING: Comb/brush hair Oral care GROOMING - STEP 1: Does the patient require the assistance of a person or device, or need extra time when grooming? Yes. GROOMING - STEP 2: Does the patient require the assistance of a helper? No. The patient only requires an assistive devic e, OR takes more than reasonable time to groom, OR there is a concern for safety as the patient groom s GROOMING - SCORE: 6-TONNY BATHING: Activity did not occur on this shift BATHING - SCORE: 0-UNK DRESSING - UPPER BODY: T-shirt/pullover shirt (four steps) ARTICLES SCORE Total number of steps: 4 DRESSING - UPPER BODY - STEP 1: Does the patient require help from a person or device, or need extra time when dressing above the [address]? Yes. DRESSING - UPPER BODY - STEP 2: Does the patient require the assistance of a helper? Yes. DRESSING - UPPER BODY - STEP 3: Does the helper touch the patient while dressing? Yes. DRESSING - UPPER BODY - STEP 4: How many of the total steps does the patient complete on his/her own? 4 DRESSING - UPPER BODY - SCORE: 4-MIN DRESSING - LOWER BODY: ARTICLES SCORE Total number of steps: 3 DRESSING - LOWER BODY - STEP 1: Does the patient require help from a person or device, or need extra time when dressing below the [address]? Yes. DRESSING - LOWER BODY - STEP 2: Does the patient require the assistance of a helper? Yes. DRESSING - LOWER BODY - STEP 3: Does the helper touch the patient while dressing? Yes. DRESSING - LOWER BODY - STEP 4: How many of the total steps does the patient complete on his/her own? 3 DRESSING - LOWER BODY - SCORE: 4-MIN TOILETING: TOILETING - STEP 1: Does the patient require the assistance of a person or device, or need extra time with toileting? Yes . TOILETING - STEP 2: Does the patient require the assistance of a helper? Yes. TOILETING - STEP 3: How much assistance does the patient require from the helper? Hands-on assistance from the helper TOILETING - STEP 4: Of the 3 tasks: 1) Adjusting clothing prior to use, 2) Cleansing of perineal area, 3) Adjusting clot rebekah after use; How many tasks does the patient perform WITHOUT assistance of the helper? Two tasks TOILETING - SCORE: 3-MOD BLADDER MANAGEMENT: BLADDER MANAGEMENT - STEP 1: Does the patient control the bladder completely and intentionally without equipment or devices or med ications, and is always continent? No. BLADDER MANAGEMENT - STEP 2: Does the patient require the assistance of a helper? No, patient requires and independently uses an a ssistive device, such as a urinal, bedpan, bedside commode, catheter, absorbent pad, or collecting de vice BLADDER MANAGEMENT - SCORE: 6-TONNY BLADDER MANAGEMENT - FREQUENCY OF ACCIDENTS: BLADDER MANAGEMENT(FA) - STEP 1: How many accidents has the patient had during the current shift? 1 BOWEL MANAGEMENT: Activity did not occur on this shift BOWEL MANAGEMENT - SCORE: 7-IND TRANSFERS: BED, CHAIR, WHEELCHAIR: TRANSFERS: BED, CHAIR, WHEELCHAIR - STEP 1: Does the patient require assistance of a person or device, or need extra time with bed, chair, or whe elchair transfers? Yes. TRANSFERS: BED, CHAIR, WHEELCHAIR - STEP 2: Does the patient require the assistance of a helper? Yes. TRANSFERS: BED, CHAIR, WHEELCHAIR - STEP 3: How much assistance does the patient require from the helper? Steadying/guiding assistance TRANSFERS: BED, CHAIR, WHEELCHAIR - SCORE: 4-MIN TRANSFERS: TOILET: TRANSFERS: TOILET - STEP 1: Does the patient require the assistance of a person or device, or need extra time with toilet transfe rs? Yes. TRANSFERS: TOILET - STEP 2: Does the patient require the assistance of a helper? Yes. TRANSFERS: TOILET - STEP 3: How much assistance does the patient require from the helper? Patient performs half or more of the tr ansferring tasks TRANSFERS: TOILET - STEP 4: Does the patient need only incidental help such as contact guard or steadying during toilet transfer? Yes. TRANSFERS: TOILET - SCORE: 4-MIN TRANSFERS: SHOWER: Activity did not occur on this shift TRANSFERS: SHOWER - SCORE: 0-UNK TRANSFERS: TUB: Activity did not occur on this shift TRANSFERS: TUB - SCORE: 0-UNK LOCOMOTION: WALK: Activity did not occur on this shift LOCOMOTION: WALK - SCORE: 0-UNK LOCOMOTION: WHEELCHAIR: Activity did not occur on this shift LOCOMOTION: WHEELCHAIR - SCORE: 0-UNK COMPREHENSION: COMPREHENSION: TYPE: Both COMPREHENSION - STEP 1: Does the patient require help from a person or device, or need extra time to understand complex and a bstract ideas (such as current events, finances, discharge planning, medical issues, relationships, e tc)? Yes. COMPREHENSION - STEP 2: Does the patient require help to understand questions or statements about basic needs or ideas (such as hunger, thirst, sleep, safety, daily schedule, room location, or discomfort) half or more of the t agustin? No. COMPREHENSION - STEP 3: How often does the patient need help to understand directions and conversation about basic needs? 25% - 49% of the time COMPREHENSION - SCORE: 3-MOD EXPRESSION EXPRESSION: TYPE: Both EXPRESSION - STEP 1: Does the patient require help from a person or device, or need extra time expressing complex and abst ract ideas (such as current events, finances, discharge planning, medical issues, relationships, etc) ? Yes. EXPRESSION - STEP 2: Does the patient require help to express basic necessities or ideas (such as hunger, thirst, sleep, s afety, daily schedule, room location, or discomfort) half or more of the time? No. EXPRESSION - STEP 3: How often does the patient need help to express directions and conversation about basic needs? 25-49% of the time EXPRESSION - SCORE: 3-MOD SOCIAL INTERACTION: SOCIAL INTERACTION - STEP 1: Does the patient require a helper to interact with others in social and therapeutic situations? Yes. SOCIAL INTERACTION - STEP 2: Does the patient interact appropriately half or more of the time? Yes. SOCIAL INTERACTION - STEP 3: How often does the patient need help to interact appropriately? 25-49% of the time SOCIAL INTERACTION - SCORE: 3-MOD PROBLEM SOLVING: PROBLEM SOLVING - STEP 1: Does the patient need help from a person or device, or need extra time to solve complex problems such as managing a checking account or confronting interpersonal problems? Yes. PROBLEM SOLVING - STEP 2: Does the patient solve basic routine problems half or more of the time? Yes. PROBLEM SOLVING - STEP 3: How often does the patient need help to solve basic routine problems? 25%-49% of the time PROBLEM SOLVING - SCORE: 3-MOD MEMORY: MEMORY - STEP 1: Does the patient need help from a person or device, or need extra time to remember frequently encount ered people, daily routines, and executing requests? Yes. MEMORY - STEP 2: How often does the patient need help to remember frequently encountered people, daily routines, and e xecuting requests? More than 50% of the time MEMORY - STEP 3: Does the patient need help to remember all of the time OR does s/he not effectively recognize and rem ember? No. Patient does not need help all the time MEMORY - SCORE: 2-MAX SIGNATURE PANEL: The following modified sections: Eating - Score, Grooming - Score, Bathing - Score, Dressing - Upper Body - Score, Dressing - Lower Body - Score, Toileting - Score, Bladder Management - Score, Bowel Man agement - Score, Transfers: Bed, Chair, Wheelchair - Score, Transfers: Toilet - Score, Transfers: Lori wer - Score, Transfers: Tub - Score, Locomotion: Walk - Score, Locomotion: Wheelchair - Score, Compre hension - Score, Expression - Score, Social Interaction - Score, Problem Solving - Score, Memory - Sc ore were [electronically] signed by Scottie Mae on SatJul 06 2018 12:15:57 GMT-0600 (Central Standard Time)
[2018-07-06] MEDS: DOCUSATE NA/SENNA CONC 1 TAB PO PRN (20:34)
[2018-07-06] MEDS: MELATONIN 3 MG TABLET PO PRN (20:34)
[2018-07-06] MEDS: ATORVASTATIN 20 MG TAB PO SCH (20:34)
[2018-07-07] MEDS: DULOXETINE 20 MG CAP PO SCH (08:19)
[2018-07-07] MEDS: APIXABAN 2.5 MG TABLET PO SCH ×2 (08:20→19:19)
[2018-07-07] MEDS: ASPIRIN 81 MG CHEWABLE TABLET PO SCH (08:20)
[2018-07-07] MEDS: CRANBERRY FRUIT EXTRACT 200 MG CAP PO SCH ×2 (08:20→19:20)
[2018-07-07] MEDS: AMLODIPINE 5 MG TAB PO SCH (08:24)
[2018-07-07] MEDS: FERROUS SULFATE 325 MG TAB PO SCH (08:24)
[2018-07-07] MEDS: ACETAMINOPHEN 500 MG TAB PO PRN ×2 (08:24→19:20)
[2018-07-07] MEDS: FE SULF/FA/VIT B COMP & C TAB PO SCH (08:24)
--- NOTE | 2018-07-07 10:42 | RAD REPORT ---
EXAM DESCRIPTION: RAD - Chest Single View - 07/07/2018 7:15 am CLINICAL HISTORY: increase coughing Chest pain. COMPARISON: Chest Single View dated 07/18/2017 FINDINGS: Portable technique limits examination quality. The lungs are grossly clear. The heart is normal in size. No displaced fractures. IMPRESSION: No acute intrathoracic process suspected.
--- NOTE | 2018-07-07 14:25 | FAST ---
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 Ramón Villafana M.D. 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 EATING: Activity did not occur on this shift EATING - SCORE: 0-UNK GROOMING: Activity did not occur on this shift GROOMING - SCORE: 0-UNK BATHING: Activity did not occur on this shift BATHING - SCORE: 0-UNK DRESSING - UPPER BODY: Activity did not occur on this shift Patient is not dressing in public clothing ARTICLES SCORE Total number of steps: 0 DRESSING - UPPER BODY - SCORE: 0-UNK DRESSING - LOWER BODY: Activity did not occur on this shift Patient is not dressing in public clothing ARTICLES SCORE Total number of steps: 0 DRESSING - LOWER BODY - SCORE: 0-UNK TOILETING: Activity did not occur on this shift TOILETING - SCORE: 0-UNK BLADDER MANAGEMENT: Activity did not occur on this shift BLADDER MANAGEMENT - SCORE: 7-IND BOWEL MANAGEMENT: Activity did not occur on this shift BOWEL MANAGEMENT - SCORE: 7-IND TRANSFERS: BED, CHAIR, WHEELCHAIR: TRANSFERS: BED, CHAIR, WHEELCHAIR - STEP 1: Does the patient require assistance of a person or device, or need extra time with bed, chair, or whe elchair transfers? Yes. TRANSFERS: BED, CHAIR, WHEELCHAIR - STEP 2: Does the patient require the assistance of a helper? Yes. TRANSFERS: BED, CHAIR, WHEELCHAIR - STEP 3: How much assistance does the patient require from the helper? Only supervision TRANSFERS: BED, CHAIR, WHEELCHAIR - SCORE: 5-SUP TRANSFERS: TOILET: Activity did not occur on this shift TRANSFERS: TOILET - SCORE: 0-UNK TRANSFERS: SHOWER: Activity did not occur on this shift TRANSFERS: SHOWER - SCORE: 0-UNK TRANSFERS: TUB: Activity did not occur on this shift TRANSFERS: TUB - SCORE: 0-UNK LOCOMOTION: WALK: LOCOMOTION: WALK - STEP 1: Does the patient need help from a person or device, or need extra time to walk 150 feet? Yes. LOCOMOTION: WALK - STEP 2: How much assistance does the patient require to walk a minimum of 150 feet? Only supervision, cuing, or coaxing LOCOMOTION: WALK - SCORE: 5-SUP LOCOMOTION: WHEELCHAIR: Activity did not occur on this shift LOCOMOTION: WHEELCHAIR - SCORE: 0-UNK LOCOMOTION: STAIRS: LOCOMOTION: STAIRS - STEP 1: Does the patient need help to go up and down 12 to 14 stairs? Yes. LOCOMOTION: STAIRS - STEP 2: How much assistance does the patient need from the helper to go a minimum of 12 to 14 stairs? Only reece pervision, cuing, or coaxing LOCOMOTION: STAIRS - SCORE: 5-SUP COMPREHENSION: COMPREHENSION - SCORE: 0-UNK EXPRESSION EXPRESSION - SCORE: 0-UNK SOCIAL INTERACTION: SOCIAL INTERACTION - SCORE: 0-UNK PROBLEM SOLVING: PROBLEM SOLVING - SCORE: 0-UNK MEMORY: MEMORY - SCORE: 0-UNK SIGNATURE PANEL: The following modified sections: Transfers: Toilet - Score, Transfers: Bed, Chair, Wheelchair - Score , Locomotion: Walk - Score, Locomotion: Wheelchair - Score, Locomotion: Stairs - Score were [electron louie] signed by Rj Roe PT on SatJul 07 2018 14:25:01 GMT-0600 (Central Standard Time)
--- NOTE | 2018-07-07 16:54 | FAST ---
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 Ramón Villafana M.D. 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 EATING: EATING - STEP 1: Does the patient require the assistance of a person or device, or need extra time when eating? Yes. EATING - STEP 2: Does the patient require the assistance of a helper? Yes. EATING - STEP 3: Does the patient perform half or more of the eating tasks? Yes. EATING - STEP 4: Does the patient need only supervision, cuing, coaxing OR help to apply an orthosis OR help to cut fo od, open containers, pour liquids, or butter bread? Yes. EATING - SCORE: 5-SUP GROOMING: Comb/brush hair Wash, rinse, and dry face Wash, rinse, and dry hands GROOMING - STEP 1: Does the patient require the assistance of a person or device, or need extra time when grooming? Yes. GROOMING - STEP 2: Does the patient require the assistance of a helper? No. The patient only requires an assistive devic e, OR takes more than reasonable time to groom, OR there is a concern for safety as the patient groom s GROOMING - SCORE: 6-TONNY BATHING: Activity did not occur on this shift BATHING - SCORE: 0-UNK DRESSING - UPPER BODY: T-shirt/pullover shirt (four steps) ARTICLES SCORE Total number of steps: 4 DRESSING - UPPER BODY - STEP 1: Does the patient require help from a person or device, or need extra time when dressing above the [address]? Yes. DRESSING - UPPER BODY - STEP 2: Does the patient require the assistance of a helper? Yes. DRESSING - UPPER BODY - STEP 3: Does the helper touch the patient while dressing? Yes. DRESSING - UPPER BODY - STEP 4: How many of the total steps does the patient complete on his/her own? 3 DRESSING - UPPER BODY - SCORE: 4-MIN DRESSING - LOWER BODY: Elastic waist pants (three steps) ARTICLES SCORE Total number of steps: 3 DRESSING - LOWER BODY - STEP 1: Does the patient require help from a person or device, or need extra time when dressing below the [address]? Yes. DRESSING - LOWER BODY - STEP 2: Does the patient require the assistance of a helper? Yes. DRESSING - LOWER BODY - STEP 3: Does the helper touch the patient while dressing? Yes. DRESSING - LOWER BODY - STEP 4: How many of the total steps does the patient complete on his/her own? 3 DRESSING - LOWER BODY - SCORE: 4-MIN TOILETING: TOILETING - STEP 1: Does the patient require the assistance of a person or device, or need extra time with toileting? Yes . TOILETING - STEP 2: Does the patient require the assistance of a helper? Yes. TOILETING - STEP 3: How much assistance does the patient require from the helper? Hands-on assistance from the helper TOILETING - STEP 4: Of the 3 tasks: 1) Adjusting clothing prior to use, 2) Cleansing of perineal area, 3) Adjusting clot rebekah after use; How many tasks does the patient perform WITHOUT assistance of the helper? Two tasks TOILETING - SCORE: 3-MOD BLADDER MANAGEMENT: BLADDER MANAGEMENT - STEP 1: Does the patient control the bladder completely and intentionally without equipment or devices or med ications, and is always continent? No. BLADDER MANAGEMENT - STEP 2: Does the patient require the assistance of a helper? No, patient only requires extra time BLADDER MANAGEMENT - SCORE: 6-TONNY BLADDER MANAGEMENT - FREQUENCY OF ACCIDENTS: BLADDER MANAGEMENT(FA) - STEP 1: How many accidents has the patient had during the current shift? 0 BOWEL MANAGEMENT: Activity did not occur on this shift BOWEL MANAGEMENT - SCORE: 7-IND BOWEL MANAGEMENT - FREQUENCY OF ACCIDENTS: BOWEL MANAGEMENT(FA) - STEP 1: How many accidents has the patient had during the current shift? 0 TRANSFERS: BED, CHAIR, WHEELCHAIR: TRANSFERS: BED, CHAIR, WHEELCHAIR - STEP 1: Does the patient require assistance of a person or device, or need extra time with bed, chair, or whe elchair transfers? Yes. TRANSFERS: BED, CHAIR, WHEELCHAIR - STEP 2: Does the patient require the assistance of a helper? Yes. TRANSFERS: BED, CHAIR, WHEELCHAIR - STEP 3: How much assistance does the patient require from the helper? Steadying/guiding assistance TRANSFERS: BED, CHAIR, WHEELCHAIR - SCORE: 4-MIN TRANSFERS: TOILET: TRANSFERS: TOILET - STEP 1: Does the patient require the assistance of a person or device, or need extra time with toilet transfe rs? Yes. TRANSFERS: TOILET - STEP 2: Does the patient require the assistance of a helper? Yes. TRANSFERS: TOILET - STEP 3: How much assistance does the patient require from the helper? Patient performs half or more of the tr ansferring tasks TRANSFERS: TOILET - STEP 4: Does the patient need only incidental help such as contact guard or steadying during toilet transfer? Yes. TRANSFERS: TOILET - SCORE: 4-MIN TRANSFERS: SHOWER: Activity did not occur on this shift TRANSFERS: SHOWER - SCORE: 0-UNK TRANSFERS: TUB: Activity did not occur on this shift TRANSFERS: TUB - SCORE: 0-UNK LOCOMOTION: WALK: Activity did not occur on this shift LOCOMOTION: WALK - SCORE: 0-UNK LOCOMOTION: WHEELCHAIR: Activity did not occur on this shift LOCOMOTION: WHEELCHAIR - SCORE: 0-UNK COMPREHENSION: COMPREHENSION: TYPE: Both COMPREHENSION - STEP 1: Does the patient require help from a person or device, or need extra time to understand complex and a bstract ideas (such as current events, finances, discharge planning, medical issues, relationships, e tc)? Yes. COMPREHENSION - STEP 2: Does the patient require help to understand questions or statements about basic needs or ideas (such as hunger, thirst, sleep, safety, daily schedule, room location, or discomfort) half or more of the t agustin? No. COMPREHENSION - STEP 3: How often does the patient need help to understand directions and conversation about basic needs? 25% - 49% of the time COMPREHENSION - SCORE: 3-MOD EXPRESSION EXPRESSION: TYPE: Both EXPRESSION - STEP 1: Does the patient require help from a person or device, or need extra time expressing complex and abst ract ideas (such as current events, finances, discharge planning, medical issues, relationships, etc) ? Yes. EXPRESSION - STEP 2: Does the patient require help to express basic necessities or ideas (such as hunger, thirst, sleep, s afety, daily schedule, room location, or discomfort) half or more of the time? No. EXPRESSION - STEP 3: How often does the patient need help to express directions and conversation about basic needs? 25-49% of the time EXPRESSION - SCORE: 3-MOD SOCIAL INTERACTION: SOCIAL INTERACTION - STEP 1: Does the patient require a helper to interact with others in social and therapeutic situations? Yes. SOCIAL INTERACTION - STEP 2: Does the patient interact appropriately half or more of the time? Yes. SOCIAL INTERACTION - STEP 3: How often does the patient need help to interact appropriately? 25-49% of the time SOCIAL INTERACTION - SCORE: 3-MOD PROBLEM SOLVING: PROBLEM SOLVING - STEP 1: Does the patient need help from a person or device, or need extra time to solve complex problems such as managing a checking account or confronting interpersonal problems? Yes. PROBLEM SOLVING - STEP 2: Does the patient solve basic routine problems half or more of the time? Yes. PROBLEM SOLVING - STEP 3: How often does the patient need help to solve basic routine problems? 25%-49% of the time PROBLEM SOLVING - SCORE: 3-MOD MEMORY: MEMORY - STEP 1: Does the patient need help from a person or device, or need extra time to remember frequently encount ered people, daily routines, and executing requests? Yes. MEMORY - STEP 2: How often does the patient need help to remember frequently encountered people, daily routines, and e xecuting requests? More than 50% of the time MEMORY - STEP 3: Does the patient need help to remember all of the time OR does s/he not effectively recognize and rem ember? No. Patient does not need help all the time MEMORY - SCORE: 2-MAX SIGNATURE PANEL: The following modified sections: Eating - Score, Grooming - Score, Bathing - Score, Dressing - Upper Body - Score, Dressing - Lower Body - Score, Toileting - Score, Bladder Management - Score, Bowel Man agement - Score, Transfers: Bed, Chair, Wheelchair - Score, Transfers: Toilet - Score, Transfers: Lori wer - Score, Locomotion: Walk - Score, Locomotion: Wheelchair - Score, Comprehension - Score, Express ion - Score, Social Interaction - Score, Problem Solving - Score, Memory - Score, Transfers: Tub - Sc ore were [electronically] signed by Terri KirkNArnaldo on SatJul 07 2018 16:53:03 GMT-0600 (Cent[facility] [place] Standard Time)
[2018-07-07] MEDS ORDERED: TRAZODONE 50 MG TABLET PO PRN (17:42)
[2018-07-07 18:28] LABS: Absolute Lymphocytes (CBC) 0.7 K/uL (0.7-4.9); Absolute Monocytes 0.7 K/uL (0.1-1.3); Absolute Neutrophil 5.5 K/uL (1.8-8.0); Basophils % 0.7 % (0-1.3); Eosinophils % 0.5 % (0-4.4); Hematocrit 28.9 % (36.0-45.0); Lymphocytes % 9.7 % (15.3-44.8); MPV 7.9 fL (7.6-11.3); Monocytes % 9.6 % (3.3-12.3); RBC Red Blood Cell Count 3.98 M/uL (3.86-4.86)
[2018-07-07] MEDS: ATORVASTATIN 20 MG TAB PO SCH (19:19)
[2018-07-07] MEDS: MELATONIN 3 MG TABLET PO PRN (19:20)
--- NOTE | 2018-07-07 21:36 | RAD REPORT ---
EXAM DESCRIPTION: CT - Head Brain Wo Cont - 07/07/2018 8:16 pm CLINICAL HISTORY: Transient alteration of awareness COMPARISON: None. TECHNIQUE: Axial 5 mm thick images of the head were obtained without IV contrast. All CT scans are performed using dose optimization technique as appropriate and may include automated exposure control or mA/KV adjustment according to patient size. FINDINGS: No intracranial hemorrhage, mass, edema or shift of mid-line structures. No cortical edema or sulcal effacement. No acute cortical based infarction identifiable. Patient has moderate atrophy and prominent chronic ischemic change. There is prominent diminished attenuation in the right frontal deep periventricular white matter extending into the right basal ganglia. No history to indicate foc al neurologic deficit. No abnormal extra-axial fluid collections. Ventricles are in proportion to vol ume loss. Mastoid air cells are clear. No acute paranasal sinus finding. There is mucosal thickening or retenti on cyst along the floor the right maxillary sinus. No acute bony findings. IMPRESSION: No intracranial hemorrhage or mass. No edema seen. Moderate atrophy and prominent chronic ischemic changes are present with asymmetric diminished attenu ation in the right frontal lobe white matter extending into the right basal ganglia. No focal neurologic deficits history detailed. Nonhemorrhagic acute or subacute infarction is not exc luded. Follow-up MR imaging may be helpful. Chronic ischemic changes can mask nonhemorrhagic acute in farction.
[2018-07-08] MEDS ORDERED: TRAZODONE 50 MG TABLET PO ONE (00:30)
--- NOTE | 2018-07-08 01:06 | FAST ---
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 Ramón Villafana M.D. 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 EATING: Activity did not occur on this shift EATING - SCORE: 0-UNK GROOMING: Wash, rinse, and dry hands GROOMING - STEP 1: Does the patient require the assistance of a person or device, or need extra time when grooming? Yes. GROOMING - STEP 2: Does the patient require the assistance of a helper? Yes. GROOMING - STEP 3: How much assistance does the patient require from the helper? Cuing, coaxing, instructions, or encour agement for completion of grooming GROOMING - SCORE: 5-SUP BATHING: Activity did not occur on this shift BATHING - SCORE: 0-UNK DRESSING - UPPER BODY: Patient is not dressing in public clothing ARTICLES SCORE Total number of steps: 0 DRESSING - UPPER BODY - SCORE: 0-UNK DRESSING - LOWER BODY: Patient is not dressing in public clothing ARTICLES SCORE Total number of steps: 0 DRESSING - LOWER BODY - SCORE: 0-UNK TOILETING: TOILETING - STEP 1: Does the patient require the assistance of a person or device, or need extra time with toileting? Yes . TOILETING - STEP 2: Does the patient require the assistance of a helper? Yes. TOILETING - STEP 3: How much assistance does the patient require from the helper? Only supervision TOILETING - SCORE: 5-SUP BLADDER MANAGEMENT: BLADDER MANAGEMENT - STEP 1: Does the patient control the bladder completely and intentionally without equipment or devices or med ications, and is always continent? No. BLADDER MANAGEMENT - STEP 2: Does the patient require the assistance of a helper? Yes. BLADDER MANAGEMENT - STEP 3: How much assistance does the patient require from the helper? Only supervision, stand-by, cuing, or c oaxing BLADDER MANAGEMENT - SCORE: 5-SUP BOWEL MANAGEMENT: Activity did not occur on this shift BOWEL MANAGEMENT - SCORE: 7-IND TRANSFERS: BED, CHAIR, WHEELCHAIR: TRANSFERS: BED, CHAIR, WHEELCHAIR - STEP 1: Does the patient require assistance of a person or device, or need extra time with bed, chair, or whe elchair transfers? Yes. TRANSFERS: BED, CHAIR, WHEELCHAIR - STEP 2: Does the patient require the assistance of a helper? Yes. TRANSFERS: BED, CHAIR, WHEELCHAIR - STEP 3: How much assistance does the patient require from the helper? Steadying/guiding assistance TRANSFERS: BED, CHAIR, WHEELCHAIR - SCORE: 4-MIN TRANSFERS: TOILET: TRANSFERS: TOILET - STEP 1: Does the patient require the assistance of a person or device, or need extra time with toilet transfe rs? Yes. TRANSFERS: TOILET - STEP 2: Does the patient require the assistance of a helper? Yes. TRANSFERS: TOILET - STEP 3: How much assistance does the patient require from the helper? Only supervision, cuing, coaxing, OR he lp to set out transfer equipment or to lock brakes and/or lift foot rests TRANSFERS: TOILET - SCORE: 5-SUP TRANSFERS: SHOWER: Activity did not occur on this shift TRANSFERS: SHOWER - SCORE: 0-UNK TRANSFERS: TUB: Activity did not occur on this shift TRANSFERS: TUB - SCORE: 0-UNK LOCOMOTION: WALK: Activity did not occur on this shift LOCOMOTION: WALK - SCORE: 0-UNK LOCOMOTION: WHEELCHAIR: Activity did not occur on this shift LOCOMOTION: WHEELCHAIR - SCORE: 0-UNK COMPREHENSION: COMPREHENSION: TYPE: Both COMPREHENSION - STEP 1: Does the patient require help from a person or device, or need extra time to understand complex and a bstract ideas (such as current events, finances, discharge planning, medical issues, relationships, e tc)? Yes. COMPREHENSION - STEP 2: Does the patient require help to understand questions or statements about basic needs or ideas (such as hunger, thirst, sleep, safety, daily schedule, room location, or discomfort) half or more of the t agustin? No. COMPREHENSION - STEP 3: How often does the patient need help to understand directions and conversation about basic needs? 25% - 49% of the time COMPREHENSION - SCORE: 3-MOD EXPRESSION EXPRESSION: TYPE: Both EXPRESSION - STEP 1: Does the patient require help from a person or device, or need extra time expressing complex and abst ract ideas (such as current events, finances, discharge planning, medical issues, relationships, etc) ? Yes. EXPRESSION - STEP 2: Does the patient require help to express basic necessities or ideas (such as hunger, thirst, sleep, s afety, daily schedule, room location, or discomfort) half or more of the time? No. EXPRESSION - STEP 3: How often does the patient need help to express directions and conversation about basic needs? 25-49% of the time EXPRESSION - SCORE: 3-MOD SOCIAL INTERACTION: SOCIAL INTERACTION - STEP 1: Does the patient require a helper to interact with others in social and therapeutic situations? No. SOCIAL INTERACTION - STEP 2: Does the patient need extra time in social situations, OR does s/he interact with staff, other patien ts, and family members ONLY in structured environments, OR does s/he require medication for social in teraction? Yes, patient needs extra time SOCIAL INTERACTION - SCORE: 6-TONNY PROBLEM SOLVING: Patient requires bed/chair alarms due to attempts to get up unassisted when helper is needed. PROBLEM SOLVING - STEP 1: How often do the bed/chair alarms go off? All the time - the alarms are constantly going off PROBLEM SOLVING - SCORE: 1-DEP MEMORY: MEMORY - STEP 1: How often do the bed/chair alarms go off? All of the time - the alarms are constantly going off MEMORY - SCORE: 1-DEP SIGNATURE PANEL: The following modified sections: Eating - Score, Grooming - Score, Dressing - Upper Body - Score, Tommy ssing - Lower Body - Score, Toileting - Score, Bladder Management - Score, Bowel Management - Score, Transfers: Bed, Chair, Wheelchair - Score, Transfers: Toilet - Score, Transfers: Shower - Score, Andrews sfers: Tub - Score, Locomotion: Walk - Score, Locomotion: Wheelchair - Score, Comprehension - Score, Expression - Score, Social Interaction - Score, Problem Solving - Score, Memory - Score were [electro nically] signed by Indiana Méndez CNA on SatJul 08 2018 01:01:18 GMT-0600 (Central Standard Time)
[2018-07-08] MEDS: DULOXETINE 20 MG CAP PO SCH (08:55)
[2018-07-08] MEDS: FERROUS SULFATE 325 MG TAB PO SCH (08:55)
[2018-07-08] MEDS: ASPIRIN 81 MG CHEWABLE TABLET PO SCH (08:55)
[2018-07-08] MEDS: FE SULF/FA/VIT B COMP & C TAB PO SCH (08:56)
[2018-07-08] MEDS: ACETAMINOPHEN 500 MG TAB PO PRN ×2 (08:57→20:42)
[2018-07-08] MEDS: AMLODIPINE 5 MG TAB PO SCH (08:59)
[2018-07-08] MEDS: APIXABAN 2.5 MG TABLET PO SCH ×2 (09:01→20:40)
--- NOTE | 2018-07-08 09:56 | FAST ---
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 Ramón Villafana M.D. 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 EATING: EATING - STEP 1: Does the patient require the assistance of a person or device, or need extra time when eating? No. EATING - SCORE: 7-IND GROOMING: Comb/brush hair Oral care Wash, rinse, and dry face Wash, rinse, and dry hands GROOMING - STEP 1: Does the patient require the assistance of a person or device, or need extra time when grooming? No. GROOMING - SCORE: 7-IND BATHING: Abdomen Buttocks Chest Left arm Left lower leg and foot Left upper leg Perineal area Right arm Right lower leg and foot Right upper leg BATHING - STEP 1: Does the patient require the assistance of a person or device, or need extra time when bathing? Yes. BATHING - STEP 2: Does the patient require the assistance of a helper? Yes. BATHING - STEP 3: How much assistance does the patient require from the helper? Only incidental help such as placement of a wash cloth in his/her hand a few times as s/he bathes OR help to bathe just one or two areas of the body BATHING - SCORE: 4-MIN DRESSING - UPPER BODY: T-shirt/pullover shirt (four steps) ARTICLES SCORE Total number of steps: 4 DRESSING - UPPER BODY - STEP 1: Does the patient require help from a person or device, or need extra time when dressing above the [address]? Yes. DRESSING - UPPER BODY - STEP 2: Does the patient require the assistance of a helper? Yes. DRESSING - UPPER BODY - STEP 3: Does the helper touch the patient while dressing? No. DRESSING - UPPER BODY - STEP 4: How many of the total steps does the patient complete on his/her own? 4 DRESSING - UPPER BODY - SCORE: 5-SUP DRESSING - LOWER BODY: Elastic waist pants (three steps) Slip-on shoe - Left foot (one step) Slip-on shoe - Right foot (one step) Sock - Left foot (one step) Sock - Right foot (one step) Underwear (three steps) ARTICLES SCORE Total number of steps: 10 DRESSING - LOWER BODY - STEP 1: Does the patient require help from a person or device, or need extra time when dressing below the [address]? Yes. DRESSING - LOWER BODY - STEP 2: Does the patient require the assistance of a helper? Yes. DRESSING - LOWER BODY - STEP 3: Does the helper touch the patient while dressing? Yes. DRESSING - LOWER BODY - STEP 4: How many of the total steps does the patient complete on his/her own? 10 DRESSING - LOWER BODY - SCORE: 4-MIN TOILETING: Activity did not occur on this shift TOILETING - SCORE: 0-UNK BLADDER MANAGEMENT: Activity did not occur on this shift BLADDER MANAGEMENT - SCORE: 7-IND BOWEL MANAGEMENT: Activity did not occur on this shift BOWEL MANAGEMENT - SCORE: 7-IND TRANSFERS: BED, CHAIR, WHEELCHAIR: Activity did not occur on this shift TRANSFERS: BED, CHAIR, WHEELCHAIR - SCORE: 0-UNK TRANSFERS: TOILET: Activity did not occur on this shift TRANSFERS: TOILET - SCORE: 0-UNK TRANSFERS: SHOWER: TRANSFERS: SHOWER - STEP 1: Does the patient require the assistance of a person or device, or need extra time with shower transfe rs? Yes. TRANSFERS: SHOWER - STEP 2: Does the patient require the assistance of a helper? Yes. TRANSFERS: SHOWER - STEP 3: How much assistance does the patient require from the helper? Only incidental help such as contact gu arding or steadying during shower transfers, or help to lift one leg into the shower TRANSFERS: SHOWER - SCORE: 4-MIN TRANSFERS: TUB: Activity did not occur on this shift TRANSFERS: TUB - SCORE: 0-UNK LOCOMOTION: WALK: Activity did not occur on this shift LOCOMOTION: WALK - SCORE: 0-UNK LOCOMOTION: WHEELCHAIR: Activity did not occur on this shift LOCOMOTION: WHEELCHAIR - SCORE: 0-UNK LOCOMOTION: STAIRS: Activity did not occur on this shift LOCOMOTION: STAIRS - SCORE: 0-UNK COMPREHENSION: COMPREHENSION: TYPE: Both COMPREHENSION - STEP 1: Does the patient require help from a person or device, or need extra time to understand complex and a bstract ideas (such as current events, finances, discharge planning, medical issues, relationships, e tc)? Yes. COMPREHENSION - STEP 2: Does the patient require help to understand questions or statements about basic needs or ideas (such as hunger, thirst, sleep, safety, daily schedule, room location, or discomfort) half or more of the t agustin? No. COMPREHENSION - STEP 3: How often does the patient need help to understand directions and conversation about basic needs? Les s than 10% of the time COMPREHENSION - SCORE: 5-SUP EXPRESSION EXPRESSION: TYPE: Both EXPRESSION - STEP 1: Does the patient require help from a person or device, or need extra time expressing complex and abst ract ideas (such as current events, finances, discharge planning, medical issues, relationships, etc) ? Yes. EXPRESSION - STEP 2: Does the patient require help to express basic necessities or ideas (such as hunger, thirst, sleep, s afety, daily schedule, room location, or discomfort) half or more of the time? No. EXPRESSION - STEP 3: How often does the patient need help to express directions and conversation about basic needs? Less t landry 10% of the time EXPRESSION - SCORE: 5-SUP SOCIAL INTERACTION: SOCIAL INTERACTION - STEP 1: Does the patient require a helper to interact with others in social and therapeutic situations? No. SOCIAL INTERACTION - STEP 2: Does the patient need extra time in social situations, OR does s/he interact with staff, other patien ts, and family members ONLY in structured environments, OR does s/he require medication for social in teraction? Yes, patient needs extra time SOCIAL INTERACTION - SCORE: 6-TONNY PROBLEM SOLVING: PROBLEM SOLVING - STEP 1: Does the patient need help from a person or device, or need extra time to solve complex problems such as managing a checking account or confronting interpersonal problems? Yes. PROBLEM SOLVING - STEP 2: Does the patient solve basic routine problems half or more of the time? Yes. PROBLEM SOLVING - STEP 3: How often does the patient need help to solve basic routine problems? 25%-49% of the time PROBLEM SOLVING - SCORE: 3-MOD MEMORY: MEMORY - STEP 1: Does the patient need help from a person or device, or need extra time to remember frequently encount ered people, daily routines, and executing requests? Yes. MEMORY - STEP 2: How often does the patient need help to remember frequently encountered people, daily routines, and e xecuting requests? 25% - 49% of the time MEMORY - SCORE: 3-MOD SIGNATURE PANEL: The following modified sections: Eating - Score, Grooming - Score, Bathing - Score, Dressing - Upper Body - Score, Dressing - Lower Body - Score, Toileting - Score, Transfers: Bed, Chair, Wheelchair - S core, Transfers: Toilet - Score, Transfers: Tub - Score, Transfers: Shower - Score, Comprehension - S core, Expression - Score, Social Interaction - Score, Problem Solving - Score, Memory - Score were [e lectronically] signed by Danelle Sloan OT on SatJul 08 2018 09:55:31 GMT-0600 (Central Standard T agustin)
[2018-07-08] MEDS: CRANBERRY FRUIT EXTRACT 200 MG CAP PO SCH ×2 (12:31→20:41)
[2018-07-08] MEDS: ENSURE PUDDING 4 OZ CUP PO SCH ×2 (15:18→20:41)
[2018-07-08] MEDS: MELATONIN 3 MG TABLET PO PRN (20:40)
[2018-07-08] MEDS: MEGESTROL 40 MG TAB PO SCH (20:40)
[2018-07-08] MEDS: ATORVASTATIN 20 MG TAB PO SCH (20:40)
[2018-07-08] MEDS: PROMOD 30 ML DOSE PO SCH (20:41)
[2018-07-08] MEDS: TRAZODONE 50 MG TABLET PO PRN (22:15)
--- NOTE | 2018-07-09 02:32 | FAST ---
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 Ramón Villafana M.D. 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 EATING: Activity did not occur on this shift EATING - SCORE: 0-UNK GROOMING: Activity did not occur on this shift GROOMING - SCORE: 0-UNK BATHING: Activity did not occur on this shift BATHING - SCORE: 0-UNK DRESSING - UPPER BODY: Patient is not dressing in public clothing ARTICLES SCORE Total number of steps: 0 DRESSING - UPPER BODY - SCORE: 0-UNK DRESSING - LOWER BODY: Patient is not dressing in public clothing ARTICLES SCORE Total number of steps: 0 DRESSING - LOWER BODY - SCORE: 0-UNK TOILETING: TOILETING - STEP 1: Does the patient require the assistance of a person or device, or need extra time with toileting? Yes . TOILETING - STEP 2: Does the patient require the assistance of a helper? Yes. TOILETING - STEP 3: How much assistance does the patient require from the helper? Hands-on assistance from the helper TOILETING - STEP 4: Of the 3 tasks: 1) Adjusting clothing prior to use, 2) Cleansing of perineal area, 3) Adjusting clot rebekah after use; How many tasks does the patient perform WITHOUT assistance of the helper? Three tasks with steadying assistance from the helper TOILETING - SCORE: 4-MIN BLADDER MANAGEMENT: BLADDER MANAGEMENT - STEP 1: Does the patient control the bladder completely and intentionally without equipment or devices or med ications, and is always continent? No. BLADDER MANAGEMENT - STEP 2: Does the patient require the assistance of a helper? Yes. BLADDER MANAGEMENT - STEP 3: How much assistance does the patient require from the helper? Only supervision, stand-by, cuing, or c oaxing BLADDER MANAGEMENT - SCORE: 5-SUP BOWEL MANAGEMENT: Activity did not occur on this shift BOWEL MANAGEMENT - SCORE: 7-IND TRANSFERS: BED, CHAIR, WHEELCHAIR: TRANSFERS: BED, CHAIR, WHEELCHAIR - STEP 1: Does the patient require assistance of a person or device, or need extra time with bed, chair, or whe elchair transfers? Yes. TRANSFERS: BED, CHAIR, WHEELCHAIR - STEP 2: Does the patient require the assistance of a helper? Yes. TRANSFERS: BED, CHAIR, WHEELCHAIR - STEP 3: How much assistance does the patient require from the helper? Steadying/guiding assistance TRANSFERS: BED, CHAIR, WHEELCHAIR - SCORE: 4-MIN TRANSFERS: TOILET: TRANSFERS: TOILET - STEP 1: Does the patient require the assistance of a person or device, or need extra time with toilet transfe rs? Yes. TRANSFERS: TOILET - STEP 2: Does the patient require the assistance of a helper? Yes. TRANSFERS: TOILET - STEP 3: How much assistance does the patient require from the helper? Only supervision, cuing, coaxing, OR he lp to set out transfer equipment or to lock brakes and/or lift foot rests TRANSFERS: TOILET - SCORE: 5-SUP TRANSFERS: SHOWER: Activity did not occur on this shift TRANSFERS: SHOWER - SCORE: 0-UNK TRANSFERS: TUB: Activity did not occur on this shift TRANSFERS: TUB - SCORE: 0-UNK LOCOMOTION: WALK: Activity did not occur on this shift LOCOMOTION: WALK - SCORE: 0-UNK LOCOMOTION: WHEELCHAIR: Activity did not occur on this shift LOCOMOTION: WHEELCHAIR - SCORE: 0-UNK COMPREHENSION: COMPREHENSION: TYPE: Both COMPREHENSION - STEP 1: Does the patient require help from a person or device, or need extra time to understand complex and a bstract ideas (such as current events, finances, discharge planning, medical issues, relationships, e tc)? Yes. COMPREHENSION - STEP 2: Does the patient require help to understand questions or statements about basic needs or ideas (such as hunger, thirst, sleep, safety, daily schedule, room location, or discomfort) half or more of the t agustin? No. COMPREHENSION - STEP 3: How often does the patient need help to understand directions and conversation about basic needs? 25% - 49% of the time COMPREHENSION - SCORE: 3-MOD EXPRESSION EXPRESSION: TYPE: Both EXPRESSION - STEP 1: Does the patient require help from a person or device, or need extra time expressing complex and abst ract ideas (such as current events, finances, discharge planning, medical issues, relationships, etc) ? Yes. EXPRESSION - STEP 2: Does the patient require help to express basic necessities or ideas (such as hunger, thirst, sleep, s afety, daily schedule, room location, or discomfort) half or more of the time? No. EXPRESSION - STEP 3: How often does the patient need help to express directions and conversation about basic needs? 25-49% of the time EXPRESSION - SCORE: 3-MOD SOCIAL INTERACTION: SOCIAL INTERACTION - STEP 1: Does the patient require a helper to interact with others in social and therapeutic situations? No. SOCIAL INTERACTION - STEP 2: Does the patient need extra time in social situations, OR does s/he interact with staff, other patien ts, and family members ONLY in structured environments, OR does s/he require medication for social in teraction? Yes, patient needs extra time SOCIAL INTERACTION - SCORE: 6-TONNY PROBLEM SOLVING: Patient requires bed/chair alarms due to attempts to get up unassisted when helper is needed. PROBLEM SOLVING - STEP 1: How often do the bed/chair alarms go off? All the time - the alarms are constantly going off PROBLEM SOLVING - SCORE: 1-DEP MEMORY: MEMORY - STEP 1: How often do the bed/chair alarms go off? All of the time - the alarms are constantly going off MEMORY - SCORE: 1-DEP SIGNATURE PANEL: The following modified sections: Eating - Score, Grooming - Score, Dressing - Upper Body - Score, Tommy ssing - Lower Body - Score, Toileting - Score, Bladder Management - Score, Bowel Management - Score, Transfers: Bed, Chair, Wheelchair - Score, Transfers: Toilet - Score, Transfers: Shower - Score, Andrews sfers: Tub - Score, Locomotion: Walk - Score, Locomotion: Wheelchair - Score, Comprehension - Score, Expression - Score, Social Interaction - Score, Problem Solving - Score, Memory - Score were [electro nically] signed by Indiana Méndez CNA on SatJul 09 2018 02:20:35 GMT-0600 (Central Standard Time)
[2018-07-09] MEDS: PROMOD 30 ML DOSE PO SCH ×2 (08:00→19:40)
[2018-07-09] MEDS: FERROUS SULFATE 325 MG TAB PO SCH (08:23)
[2018-07-09] MEDS: FE SULF/FA/VIT B COMP & C TAB PO SCH (08:23)
[2018-07-09] MEDS: MEGESTROL 40 MG TAB PO SCH ×2 (08:23→19:33)
[2018-07-09] MEDS: DULOXETINE 20 MG CAP PO SCH (08:24)
[2018-07-09] MEDS: ASPIRIN 81 MG CHEWABLE TABLET PO SCH (08:24)
[2018-07-09] MEDS: APIXABAN 2.5 MG TABLET PO SCH ×2 (08:24→19:33)
[2018-07-09] MEDS: AMLODIPINE 5 MG TAB PO SCH (08:25)
[2018-07-09] MEDS: CRANBERRY FRUIT EXTRACT 200 MG CAP PO SCH ×2 (08:25→19:33)
[2018-07-09] MEDS: ENSURE PUDDING 4 OZ CUP PO SCH ×3 (08:26→19:42)
--- NOTE | 2018-07-09 15:24 | FAST ---
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 Ramón Villafana M.D. 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 EATING: EATING - STEP 1: Does the patient require the assistance of a person or device, or need extra time when eating? Yes. EATING - STEP 2: Does the patient require the assistance of a helper? Yes. EATING - STEP 3: Does the patient perform half or more of the eating tasks? Yes. EATING - STEP 4: Does the patient need only supervision, cuing, coaxing OR help to apply an orthosis OR help to cut fo od, open containers, pour liquids, or butter bread? Yes. EATING - SCORE: 5-SUP GROOMING: Comb/brush hair Oral care GROOMING - STEP 1: Does the patient require the assistance of a person or device, or need extra time when grooming? Yes. GROOMING - STEP 2: Does the patient require the assistance of a helper? No. The patient only requires an assistive devic e, OR takes more than reasonable time to groom, OR there is a concern for safety as the patient groom s GROOMING - SCORE: 6-TONNY BATHING: Activity did not occur on this shift BATHING - SCORE: 0-UNK DRESSING - UPPER BODY: Activity did not occur on this shift ARTICLES SCORE Total number of steps: 0 DRESSING - UPPER BODY - SCORE: 0-UNK DRESSING - LOWER BODY: Activity did not occur on this shift ARTICLES SCORE Total number of steps: 0 DRESSING - LOWER BODY - SCORE: 0-UNK TOILETING: TOILETING - STEP 1: Does the patient require the assistance of a person or device, or need extra time with toileting? Yes . TOILETING - STEP 2: Does the patient require the assistance of a helper? Yes. TOILETING - STEP 3: How much assistance does the patient require from the helper? Hands-on assistance from the helper TOILETING - STEP 4: Of the 3 tasks: 1) Adjusting clothing prior to use, 2) Cleansing of perineal area, 3) Adjusting clot rebekah after use; How many tasks does the patient perform WITHOUT assistance of the helper? Three tasks with steadying assistance from the helper TOILETING - SCORE: 4-MIN BLADDER MANAGEMENT: BLADDER MANAGEMENT - STEP 1: Does the patient control the bladder completely and intentionally without equipment or devices or med ications, and is always continent? No. BLADDER MANAGEMENT - STEP 2: Does the patient require the assistance of a helper? No, patient requires and independently uses an a ssistive device, such as a urinal, bedpan, bedside commode, catheter, absorbent pad, or collecting de vice BLADDER MANAGEMENT - SCORE: 6-TONNY BOWEL MANAGEMENT: Activity did not occur on this shift BOWEL MANAGEMENT - SCORE: 7-IND TRANSFERS: BED, CHAIR, WHEELCHAIR: TRANSFERS: BED, CHAIR, WHEELCHAIR - STEP 1: Does the patient require assistance of a person or device, or need extra time with bed, chair, or whe elchair transfers? Yes. TRANSFERS: BED, CHAIR, WHEELCHAIR - STEP 2: Does the patient require the assistance of a helper? Yes. TRANSFERS: BED, CHAIR, WHEELCHAIR - STEP 3: How much assistance does the patient require from the helper? Steadying/guiding assistance TRANSFERS: BED, CHAIR, WHEELCHAIR - SCORE: 4-MIN TRANSFERS: TOILET: TRANSFERS: TOILET - STEP 1: Does the patient require the assistance of a person or device, or need extra time with toilet transfe rs? Yes. TRANSFERS: TOILET - STEP 2: Does the patient require the assistance of a helper? Yes. TRANSFERS: TOILET - STEP 3: How much assistance does the patient require from the helper? Only supervision, cuing, coaxing, OR he lp to set out transfer equipment or to lock brakes and/or lift foot rests TRANSFERS: TOILET - SCORE: 5-SUP TRANSFERS: SHOWER: Activity did not occur on this shift TRANSFERS: SHOWER - SCORE: 0-UNK TRANSFERS: TUB: Activity did not occur on this shift TRANSFERS: TUB - SCORE: 0-UNK LOCOMOTION: WALK: Activity did not occur on this shift LOCOMOTION: WALK - SCORE: 0-UNK LOCOMOTION: WHEELCHAIR: Activity did not occur on this shift LOCOMOTION: WHEELCHAIR - SCORE: 0-UNK COMPREHENSION: COMPREHENSION: TYPE: Both COMPREHENSION - STEP 1: Does the patient require help from a person or device, or need extra time to understand complex and a bstract ideas (such as current events, finances, discharge planning, medical issues, relationships, e tc)? Yes. COMPREHENSION - STEP 2: Does the patient require help to understand questions or statements about basic needs or ideas (such as hunger, thirst, sleep, safety, daily schedule, room location, or discomfort) half or more of the t agustin? No. COMPREHENSION - STEP 3: How often does the patient need help to understand directions and conversation about basic needs? Les s than 10% of the time COMPREHENSION - SCORE: 5-SUP EXPRESSION EXPRESSION: TYPE: Both EXPRESSION - STEP 1: Does the patient require help from a person or device, or need extra time expressing complex and abst ract ideas (such as current events, finances, discharge planning, medical issues, relationships, etc) ? Yes. EXPRESSION - STEP 2: Does the patient require help to express basic necessities or ideas (such as hunger, thirst, sleep, s afety, daily schedule, room location, or discomfort) half or more of the time? No. EXPRESSION - STEP 3: How often does the patient need help to express directions and conversation about basic needs? Less t landry 10% of the time EXPRESSION - SCORE: 5-SUP SOCIAL INTERACTION: SOCIAL INTERACTION - STEP 1: Does the patient require a helper to interact with others in social and therapeutic situations? Yes. SOCIAL INTERACTION - STEP 2: Does the patient interact appropriately half or more of the time? Yes. SOCIAL INTERACTION - STEP 3: How often does the patient need help to interact appropriately? Less than 10% of the time SOCIAL INTERACTION - SCORE: 5-SUP PROBLEM SOLVING: PROBLEM SOLVING - STEP 1: Does the patient need help from a person or device, or need extra time to solve complex problems such as managing a checking account or confronting interpersonal problems? Yes. PROBLEM SOLVING - STEP 2: Does the patient solve basic routine problems half or more of the time? Yes. PROBLEM SOLVING - STEP 3: How often does the patient need help to solve basic routine problems? Less than 10% of the time PROBLEM SOLVING - SCORE: 5-SUP MEMORY: MEMORY - STEP 1: Does the patient need help from a person or device, or need extra time to remember frequently encount ered people, daily routines, and executing requests? Yes. MEMORY - STEP 2: How often does the patient need help to remember frequently encountered people, daily routines, and e xecuting requests? Less than 10% of the time MEMORY - SCORE: 5-SUP SIGNATURE PANEL: The following modified sections: Eating - Score, Grooming - Score, Bathing - Score, Dressing - Upper Body - Score, Dressing - Lower Body - Score, Toileting - Score, Bladder Management - Score, Bowel Man agement - Score, Transfers: Bed, Chair, Wheelchair - Score, Transfers: Toilet - Score, Transfers: Lori wer - Score, Transfers: Tub - Score, Locomotion: Walk - Score, Locomotion: Wheelchair - Score, Expres keiko - Score, Comprehension - Score, Social Interaction - Score, Problem Solving - Score, Memory - Sc ore were [electronically] signed by Scottie Mae on SatJul 09 2018 15:23:23 GMT-0600 (Central Standard Time)
--- NOTE | 2018-07-09 15:26 | FAST ---
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 Ramón Villafana M.D. 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 EATING: Activity did not occur on this shift EATING - SCORE: 0-UNK GROOMING: Activity did not occur on this shift GROOMING - SCORE: 0-UNK BATHING: Activity did not occur on this shift BATHING - SCORE: 0-UNK DRESSING - UPPER BODY: Activity did not occur on this shift Patient is not dressing in public clothing ARTICLES SCORE Total number of steps: 0 DRESSING - UPPER BODY - SCORE: 0-UNK DRESSING - LOWER BODY: Activity did not occur on this shift Patient is not dressing in public clothing ARTICLES SCORE Total number of steps: 0 DRESSING - LOWER BODY - SCORE: 0-UNK TOILETING: Activity did not occur on this shift TOILETING - SCORE: 0-UNK BLADDER MANAGEMENT: Activity did not occur on this shift BLADDER MANAGEMENT - SCORE: 7-IND BOWEL MANAGEMENT: Activity did not occur on this shift BOWEL MANAGEMENT - SCORE: 7-IND TRANSFERS: BED, CHAIR, WHEELCHAIR: TRANSFERS: BED, CHAIR, WHEELCHAIR - STEP 1: Does the patient require assistance of a person or device, or need extra time with bed, chair, or whe elchair transfers? Yes. TRANSFERS: BED, CHAIR, WHEELCHAIR - STEP 2: Does the patient require the assistance of a helper? Yes. TRANSFERS: BED, CHAIR, WHEELCHAIR - STEP 3: How much assistance does the patient require from the helper? Only supervision TRANSFERS: BED, CHAIR, WHEELCHAIR - SCORE: 5-SUP TRANSFERS: TOILET: Activity did not occur on this shift TRANSFERS: TOILET - SCORE: 0-UNK TRANSFERS: SHOWER: Activity did not occur on this shift TRANSFERS: SHOWER - SCORE: 0-UNK TRANSFERS: TUB: Activity did not occur on this shift TRANSFERS: TUB - SCORE: 0-UNK LOCOMOTION: WALK: LOCOMOTION: WALK - STEP 1: Does the patient need help from a person or device, or need extra time to walk 150 feet? Yes. LOCOMOTION: WALK - STEP 2: How much assistance does the patient require to walk a minimum of 150 feet? Only supervision, cuing, or coaxing LOCOMOTION: WALK - SCORE: 5-SUP LOCOMOTION: WHEELCHAIR: LOCOMOTION: WHEELCHAIR - STEP 1: Does the patient need help to go 150 feet in a wheelchair? Yes. LOCOMOTION: WHEELCHAIR - STEP 2: How much assistance does the patient need from the helper? Only supervision, cuing, or coaxing LOCOMOTION: WHEELCHAIR - SCORE: 5-SUP LOCOMOTION: STAIRS: LOCOMOTION: STAIRS - STEP 1: Does the patient need help to go up and down 12 to 14 stairs? Yes. LOCOMOTION: STAIRS - STEP 2: How much assistance does the patient need from the helper to go a minimum of 12 to 14 stairs? Only reece pervision, cuing, or coaxing LOCOMOTION: STAIRS - SCORE: 5-SUP COMPREHENSION: COMPREHENSION - SCORE: 0-UNK EXPRESSION EXPRESSION - SCORE: 0-UNK SOCIAL INTERACTION: SOCIAL INTERACTION - SCORE: 0-UNK PROBLEM SOLVING: PROBLEM SOLVING - SCORE: 0-UNK MEMORY: MEMORY - SCORE: 0-UNK SIGNATURE PANEL: The following modified sections: Transfers: Bed, Chair, Wheelchair - Score, Transfers: Toilet - Score , Locomotion: Walk - Score, Locomotion: Wheelchair - Score, Locomotion: Stairs - Score were [audrey palma] signed by Andrey Phillip PTA on SatJul 09 2018 15:25:57 GMT-0600 (Central Standard Time)
--- NOTE | 2018-07-09 16:27 | FAST ---
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 Ramón Villafana M.D. 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 EATING: EATING - STEP 1: Does the patient require the assistance of a person or device, or need extra time when eating? No. EATING - SCORE: 7-IND GROOMING: Comb/brush hair Oral care Wash, rinse, and dry face Wash, rinse, and dry hands GROOMING - STEP 1: Does the patient require the assistance of a person or device, or need extra time when grooming? No. GROOMING - SCORE: 7-IND BATHING: Abdomen Buttocks Chest Left arm Left lower leg and foot Left upper leg Perineal area Right arm Right lower leg and foot Right upper leg BATHING - STEP 1: Does the patient require the assistance of a person or device, or need extra time when bathing? Yes. BATHING - STEP 2: Does the patient require the assistance of a helper? Yes. BATHING - STEP 3: How much assistance does the patient require from the helper? More than just incidental help BATHING - STEP 4: What percent of the body parts did the patient bathe WITHOUT the helper? Half or more of the body par ts BATHING - SCORE: 3-MOD DRESSING - UPPER BODY: T-shirt/pullover shirt (four steps) ARTICLES SCORE Total number of steps: 4 DRESSING - UPPER BODY - STEP 1: Does the patient require help from a person or device, or need extra time when dressing above the [address]? Yes. DRESSING - UPPER BODY - STEP 2: Does the patient require the assistance of a helper? Yes. DRESSING - UPPER BODY - STEP 3: Does the helper touch the patient while dressing? No. DRESSING - UPPER BODY - SCORE: 5-SUP DRESSING - LOWER BODY: Elastic waist pants (three steps) Sock - Left foot (one step) Sock - Right foot (one step) Underwear (three steps) ARTICLES SCORE Total number of steps: 8 DRESSING - LOWER BODY - STEP 1: Does the patient require help from a person or device, or need extra time when dressing below the [address]? Yes. DRESSING - LOWER BODY - STEP 2: Does the patient require the assistance of a helper? Yes. DRESSING - LOWER BODY - STEP 3: Does the helper touch the patient while dressing? Yes. DRESSING - LOWER BODY - STEP 4: How many of the total steps does the patient complete on his/her own? 0 DRESSING - LOWER BODY - STEP 5: Does patient require total assistance for dressing below the waist such as the helper holding clothin g and performing basically all the activities? Yes. DRESSING - LOWER BODY - SCORE: 1-DEP TOILETING: Activity did not occur on this shift TOILETING - SCORE: 0-UNK BLADDER MANAGEMENT: Activity did not occur on this shift BLADDER MANAGEMENT - SCORE: 7-IND BOWEL MANAGEMENT: Activity did not occur on this shift BOWEL MANAGEMENT - SCORE: 7-IND TRANSFERS: BED, CHAIR, WHEELCHAIR: TRANSFERS: BED, CHAIR, WHEELCHAIR - STEP 1: Does the patient require assistance of a person or device, or need extra time with bed, chair, or whe elchair transfers? Yes. TRANSFERS: BED, CHAIR, WHEELCHAIR - STEP 2: Does the patient require the assistance of a helper? Yes. TRANSFERS: BED, CHAIR, WHEELCHAIR - STEP 3: How much assistance does the patient require from the helper? Steadying/guiding assistance TRANSFERS: BED, CHAIR, WHEELCHAIR - SCORE: 4-MIN TRANSFERS: TOILET: TRANSFERS: TOILET - STEP 1: Does the patient require the assistance of a person or device, or need extra time with toilet transfe rs? Yes. TRANSFERS: TOILET - STEP 2: Does the patient require the assistance of a helper? Yes. TRANSFERS: TOILET - STEP 3: How much assistance does the patient require from the helper? Patient performs half or more of the tr ansferring tasks TRANSFERS: TOILET - STEP 4: Does the patient need only incidental help such as contact guard or steadying during toilet transfer? No. Patient needs more than incidental help TRANSFERS: TOILET - SCORE: 3-MOD TRANSFERS: SHOWER: Activity did not occur on this shift TRANSFERS: SHOWER - SCORE: 0-UNK TRANSFERS: TUB: TRANSFERS: TUB - STEP 1: Does the patient require the assistance of a person or device, or need extra time with tub transfers? Yes. TRANSFERS: TUB - STEP 2: Does the patient require the assistance of a helper? Yes. TRANSFERS: TUB - STEP 3: How much assistance does the patient require from the helper? More than incidental help TRANSFERS: TUB - STEP 4: How much more help does the patient require from the helper? [place] lifts the patient either up OR do wn TRANSFERS: TUB - SCORE: 3-MOD LOCOMOTION: WALK: Activity did not occur on this shift LOCOMOTION: WALK - SCORE: 0-UNK LOCOMOTION: WHEELCHAIR: Activity did not occur on this shift LOCOMOTION: WHEELCHAIR - SCORE: 0-UNK LOCOMOTION: STAIRS: Activity did not occur on this shift LOCOMOTION: STAIRS - SCORE: 0-UNK COMPREHENSION: COMPREHENSION: TYPE: Both COMPREHENSION - STEP 1: Does the patient require help from a person or device, or need extra time to understand complex and a bstract ideas (such as current events, finances, discharge planning, medical issues, relationships, e tc)? No. COMPREHENSION - STEP 2: Does the patient need extra time, require an assistive device (such as glasses for visual comprehensi on or a hearing aid for auditory comprehension) or does s/he have mild difficulty understanding compl ex and abstract information? No. COMPREHENSION - SCORE: 7-IND EXPRESSION EXPRESSION: TYPE: Both EXPRESSION - STEP 1: Does the patient require help from a person or device, or need extra time expressing complex and abst ract ideas (such as current events, finances, discharge planning, medical issues, relationships, etc) ? No. EXPRESSION - STEP 2: Does the patient need extra time, require an assistive device (such as augmentive communication syste m or a communication board), OR does s/he have mild difficulty expressing complex and abstract ideas (including mild dysarthria or mild word-find problems)? No. EXPRESSION - SCORE: 7-IND SOCIAL INTERACTION: SOCIAL INTERACTION - STEP 1: Does the patient require a helper to interact with others in social and therapeutic situations? No. SOCIAL INTERACTION - STEP 2: Does the patient need extra time in social situations, OR does s/he interact with staff, other patien ts, and family members ONLY in structured environments, OR does s/he require medication for social in teraction? No. SOCIAL INTERACTION - SCORE: 7-IND PROBLEM SOLVING: PROBLEM SOLVING - STEP 1: Does the patient need help from a person or device, or need extra time to solve complex problems such as managing a checking account or confronting interpersonal problems? No. PROBLEM SOLVING - STEP 2: Does the patient require extra time to make decisions or solve problems, OR does s/he have slight dif ficulty reading, initiating, or self-correcting in unfamiliar situations? No. PROBLEM SOLVING - SCORE: 7-IND MEMORY: MEMORY - STEP 1: Does the patient need help from a person or device, or need extra time to remember frequently encount ered people, daily routines, and executing requests? No. MEMORY - STEP 2: Does the patient have slight difficulty recognizing frequently encountered people, daily routines, or executing requests without the need for repetition or using self-initiated or environmental cues to remember? No. MEMORY - SCORE: 7-IND SIGNATURE PANEL: The following modified sections: Eating - Score, Grooming - Score, Bathing - Score, Dressing - Upper Body - Score, Dressing - Lower Body - Score, Toileting - Score, Transfers: Bed, Chair, Wheelchair - S core, Transfers: Toilet - Score, Transfers: Shower - Score, Transfers: Tub - Score, Comprehension - S core, Expression - Score, Social Interaction - Score, Problem Solving - Score, Memory - Score were [e lectronically] signed by Danelle Sloan OT on SatJul 09 2018 16:26:29 GMT-0600 (Central Standard T agustin)
--- NOTE | 2018-07-09 18:20 | R.PN ---
ENCOUNTER DATE AND TIME: 07/09/2018 18:15 (IT INTEGRATION ARCHITECT) NAME RACHEL ROSA DATE OF : 1950 DATE OF ADMISSION: 07/04/2018 15:48 (IT INTEGRATION ARCHITECT) right basal ganglia acute-subacute infarct involving the dorsal striatumCHIEF COMPLAINT: Right basal ganglia stroke. SUBJECTIVE: Pt denied any depression. Pt denied any Shortness of Breath. Ambulated 1000' without an assistive device. Up and down 15 steps with standby assistance. Working w ell with speech therapy. Ambulated 350' with standby assistance using a rolling walker. VITAL SIGNS Temperature: 98.4 F SBP/DBP: 141/63 Pulse: 65 Resp: 16 MEDICATION ALLERGIES: adhesive tape-silicones and sulfa ENVIRONMENTAL ALLERGIES: - Substance Allergies None Known - Other Allergies None Known NURSING: - Shower allowing shower - Bladder care per protocol - Skin care per protocol PRECAUTIONS: - Weight Bearing Precaution WBAT left LE ACTIVITIES OOB only with supervision THERAPIES: - Occupational Therapy Evaluate and Treat. Cognitive Retraining. Visual Perceptual Training. - Speech Therapy Memory Strategies. Expressive Language Skills. Speech Intelligibility Training. Cognitive Training. R eceptive Language Skills. - Physical Therapy Evaluate and Treat. PHYSICAL EXAM - Gen Alert and awake Lying in bed No apparent distress Oriented to: person and place - Skin No breakdown Mild left facial numbness and weakness. - Eyes Right visual field deficit. - ENMT No abnormalities - Neck No abnormalities No cervical adenopathy - CVS RRR - Chest No abnormalities - Resp CTA bilaterally - Abd + bowel sounds - GI Soft Deferred - No abnormalities - Ext No significant edema. - MSK 4+/5 weakness in left upper and lower extremity - Neuro 4/5 strength left upper and lower extremities. - Psych No abnormalities ASSESSMENT: Pt. is a 68 yo Right-handed white female.On 07/01/2018 Pt. presented to [facility] with sudden o nset of left-side weakness.On 07/01/2018 she was admitted to [facility] with diagnosis right bas al ganglia acute-subacute infarct involving the dorsal striatum.Her impairment category is Stroke 01 - Left Body (Right Brain) (01.1).Pre-morbidly, Pt. was independent/mod-I in Transfers Control, Commu nication, Social Cognition, Self-Care, Sphincter Control, and Locomotion; and she had good Sphincter Control.Currently, she has deficits of Transfers Control, Communication, Social Cognition, Balance, S elf-Care, Endurance, Safety Awareness, and Locomotion.Pt. is now referred to [facility] for acute in-patient rehabilitation in order to maximize patient's functional independence in activities of daily living, strength, ROM, and mobility.- Rehab Goal Patient has realistic goal of being discharged at assistance level 6-Demario to reside at Home with [facility] er. MDM/PLAN: - Physical Therapy Gait dysfunction - to improve, our physical therapists will perform initial evaluation of pt's statu s upon admission and devise an individualized program for Gait Training, and Wheel Chair mobility Inability to transfer - to improve, our physical therapists will perform initial evaluation of pt's status upon admission and devise an individualized program for Bed mobility Need for home safety evaluation - to improve, our physical therapists will perform initial evaluatio n of pt's status upon admission and devise an individualized program for Home Evaluation Need in caregiver upon discharge - to improve, our physical therapists will perform initial evaluati on of pt's status upon admission and devise an individualized program for Caregiver Training Edema - to improve, our physical therapists will perform initial evaluation of pt's status upon admis keiko and devise an individualized program for Elevation Training, and Lymphedema Therapy New precaution - to improve, our physical therapists will perform initial evaluation of pt's status upon admission and devise an individualized program for Patient precaution education Poor balance - to improve, our physical therapists will perform initial evaluation of pt's status up on admission and devise an individualized program for Balance Training Poor endurance - to improve, our physical therapists will perform initial evaluation of pt's status upon admission and devise an individualized program for Endurance Training Weakness - to improve, our physical therapists will perform initial evaluation of pt's status upon a dmission and devise an individualized program for Aquatic Therapy, Neuromuscular Reeducation, and Str engthening Achieving independence - to improve, our physical therapists will perform initial evaluation of pt's status upon admission and devise an individualized program for Community Reintegration Activities - Occupational Therapy ADL deficits - to improve, our occupation therapists will perform initial evaluation of pt's status upon admission and devise an individualized program for Bathing, Bed mobility, Community Reintegratio n, Cooking, Dressing, Eating, Fine Motor Skills, Grooming, Homemaking, Kitchen Mobility, Laundry, Pat ient Education, Safety Awareness, Splinting - Positioning, Transfers(Toilet, Tub, Shower), and Wheel Chair Management Cognitive deficits - to improve, our occupation therapists will perform initial evaluation of pt's s tatus upon admission and devise an individualized program for Cognition - orientation Need for long term care administrator - to improve, our occupation therapists will perform initial evaluation of pt's status upon admission and devise an individualized program for Caregiver Training Weakness - to improve, our occupation therapists will perform initial evaluation of pt's status upon admission and devise an individualized program for Aquatic Therapy, Balance, Endurance, UE ROM, and UE strengthening - Diet Type Continue Regular - Diet - Liquid Texture Continue Regular - Tube Feed Continue N/A - Bladder care per protocol - Weight Bearing Precaution WBAT left LE - Skin care per protocol - Diet - Solid Texture Continue Regular - Shower allowing shower for Dementia, TBI, Stroke, or others FUNCTIONAL STATUS: UPDATED AT WEEKLY TEAM CONFERENCE - Bladder Same accident frequency: 7-Ind - No accidents in the past 7 days - Bowel Same accident frequency: 7-Ind - No accidents in the past 7 days - Walking Same score based on distance walked: 1(<=50ft) FUNCTIONAL STATUS: - Self-Care A. Eating sup B. Grooming sup C. Bathing sup D. Dressing - Upper sup E. Dressing - Lower sup F. Toileting sup - Sphincter Control G: Bladder control Ind H: Bowel control Ind - Transfers Control I. Bed/Chair/Wheelchair Aliza J. Toilet Aliza K. Tub/Shower Aliza - Locomotion L. Walk/Wheelchair (B) Dep M. Stairs ADNO - Communication N. Comprehension (B) sup O. Expression (B) sup - Social Cognition P. Social Interaction sup Q. Problem Solving sup R. Memory sup - Endurance Fair - Balance Fair - Safety Awareness Fair CURRENT FUNC. DEFICITS: Transfers Control, Communication, Social Cognition, Balance, Self-Care, Endurance, Safety Awareness, and Locomotion SIGNATURE PANEL: (IT INTEGRATION ARCHITECT)
[2018-07-09] MEDS: ATORVASTATIN 20 MG TAB PO SCH (19:33)
[2018-07-09] MEDS: TRAZODONE 50 MG TABLET PO PRN (19:33)
[2018-07-09] MEDS: MELATONIN 3 MG TABLET PO PRN (19:35)
[2018-07-10] MEDS: PROMOD 30 ML DOSE PO SCH ×2 (08:00→20:00)
[2018-07-10] MEDS: APIXABAN 2.5 MG TABLET PO SCH ×2 (08:25→20:45)
[2018-07-10] MEDS: FE SULF/FA/VIT B COMP & C TAB PO SCH (08:25)
[2018-07-10] MEDS: AMLODIPINE 5 MG TAB PO SCH (08:25)
[2018-07-10] MEDS: CRANBERRY FRUIT EXTRACT 200 MG CAP PO SCH ×2 (08:26→20:44)
[2018-07-10] MEDS: FERROUS SULFATE 325 MG TAB PO SCH (08:26)
[2018-07-10] MEDS: MEGESTROL 40 MG TAB PO SCH ×2 (08:26→20:45)
[2018-07-10] MEDS: ASPIRIN 81 MG CHEWABLE TABLET PO SCH (08:26)
[2018-07-10] MEDS: DULOXETINE 20 MG CAP PO SCH (08:27)
[2018-07-10] MEDS: ENSURE PUDDING 4 OZ CUP PO SCH ×3 (08:28→20:46)
--- NOTE | 2018-07-10 11:00 | FAST ---
SHIFT START DATE/TIME: 07/10/2018 07:00 (EXCEL ANALYST) SHIFT END DATE/TIME: 07/10/2018 19:00 (EXCEL ANALYST) NAME RACHEL ROSA DATE OF : 1950 DATE OF ADMISSION: 07/04/2018 15:48 (EXCEL ANALYST) PHONE: AGE: 68 N# [id number] GENDER: Female ENCOUNTER PHYSICIAN: Dr. Ramón Villafana M.D. 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 EATING: EATING - STEP 1: Does the patient require the assistance of a person or device, or need extra time when eating? Yes. EATING - STEP 2: Does the patient require the assistance of a helper? Yes. EATING - STEP 3: Does the patient perform half or more of the eating tasks? Yes. EATING - STEP 4: Does the patient need only supervision, cuing, coaxing OR help to apply an orthosis OR help to cut fo od, open containers, pour liquids, or butter bread? Yes. EATING - SCORE: 5-SUP GROOMING: Comb/brush hair Oral care GROOMING - STEP 1: Does the patient require the assistance of a person or device, or need extra time when grooming? Yes. GROOMING - STEP 2: Does the patient require the assistance of a helper? Yes. GROOMING - STEP 3: How much assistance does the patient require from the helper? Cuing, coaxing, instructions, or encour agement for completion of grooming GROOMING - SCORE: 5-SUP BATHING: Activity did not occur on this shift BATHING - SCORE: 0-UNK DRESSING - UPPER BODY: Bra (three steps) T-shirt/pullover shirt (four steps) ARTICLES SCORE Total number of steps: 7 DRESSING - UPPER BODY - STEP 1: Does the patient require help from a person or device, or need extra time when dressing above the [address]? Yes. DRESSING - UPPER BODY - STEP 2: Does the patient require the assistance of a helper? Yes. DRESSING - UPPER BODY - STEP 3: Does the helper touch the patient while dressing? Yes. DRESSING - UPPER BODY - STEP 4: How many of the total steps does the patient complete on his/her own? 4 DRESSING - UPPER BODY - SCORE: 3-MOD DRESSING - LOWER BODY: ARTICLES SCORE Total number of steps: 7 DRESSING - LOWER BODY - STEP 1: Does the patient require help from a person or device, or need extra time when dressing below the ale[address] st? Yes. DRESSING - LOWER BODY - STEP 2: Does the patient require the assistance of a helper? Yes. DRESSING - LOWER BODY - STEP 3: Does the helper touch the patient while dressing? Yes. DRESSING - LOWER BODY - STEP 4: How many of the total steps does the patient complete on his/her own? 5 DRESSING - LOWER BODY - SCORE: 3-MOD TOILETING: TOILETING - STEP 1: Does the patient require the assistance of a person or device, or need extra time with toileting? Yes . TOILETING - STEP 2: Does the patient require the assistance of a helper? Yes. TOILETING - STEP 3: How much assistance does the patient require from the helper? Hands-on assistance from the helper TOILETING - STEP 4: Of the 3 tasks: 1) Adjusting clothing prior to use, 2) Cleansing of perineal area, 3) Adjusting clot rebekah after use; How many tasks does the patient perform WITHOUT assistance of the helper? Two tasks TOILETING - SCORE: 3-MOD BLADDER MANAGEMENT: BLADDER MANAGEMENT - STEP 1: Does the patient control the bladder completely and intentionally without equipment or devices or med ications, and is always continent? No. BLADDER MANAGEMENT - STEP 2: Does the patient require the assistance of a helper? Yes. BLADDER MANAGEMENT - STEP 3: How much assistance does the patient require from the helper? Only supervision, stand-by, cuing, or c oaxing BLADDER MANAGEMENT - SCORE: 5-SUP BOWEL MANAGEMENT: Activity did not occur on this shift BOWEL MANAGEMENT - SCORE: 7-IND TRANSFERS: BED, CHAIR, WHEELCHAIR: TRANSFERS: BED, CHAIR, WHEELCHAIR - STEP 1: Does the patient require assistance of a person or device, or need extra time with bed, chair, or whe elchair transfers? Yes. TRANSFERS: BED, CHAIR, WHEELCHAIR - STEP 2: Does the patient require the assistance of a helper? Yes. TRANSFERS: BED, CHAIR, WHEELCHAIR - STEP 3: How much assistance does the patient require from the helper? Steadying/guiding assistance TRANSFERS: BED, CHAIR, WHEELCHAIR - SCORE: 4-MIN TRANSFERS: TOILET: TRANSFERS: TOILET - STEP 1: Does the patient require the assistance of a person or device, or need extra time with toilet transfe rs? Yes. TRANSFERS: TOILET - STEP 2: Does the patient require the assistance of a helper? Yes. TRANSFERS: TOILET - STEP 3: How much assistance does the patient require from the helper? Patient performs half or more of the tr ansferring tasks TRANSFERS: TOILET - STEP 4: Does the patient need only incidental help such as contact guard or steadying during toilet transfer? Yes. TRANSFERS: TOILET - SCORE: 4-MIN TRANSFERS: SHOWER: Activity did not occur on this shift TRANSFERS: SHOWER - SCORE: 0-UNK TRANSFERS: TUB: Activity did not occur on this shift TRANSFERS: TUB - SCORE: 0-UNK LOCOMOTION: WALK: Activity did not occur on this shift LOCOMOTION: WALK - SCORE: 0-UNK LOCOMOTION: WHEELCHAIR: Activity did not occur on this shift LOCOMOTION: WHEELCHAIR - SCORE: 0-UNK COMPREHENSION: COMPREHENSION: TYPE: Both COMPREHENSION - STEP 1: Does the patient require help from a person or device, or need extra time to understand complex and a bstract ideas (such as current events, finances, discharge planning, medical issues, relationships, e tc)? Yes. COMPREHENSION - STEP 2: Does the patient require help to understand questions or statements about basic needs or ideas (such as hunger, thirst, sleep, safety, daily schedule, room location, or discomfort) half or more of the t agustin? No. COMPREHENSION - STEP 3: How often does the patient need help to understand directions and conversation about basic needs? 25% - 49% of the time COMPREHENSION - SCORE: 3-MOD EXPRESSION EXPRESSION: TYPE: Both EXPRESSION - STEP 1: Does the patient require help from a person or device, or need extra time expressing complex and abst ract ideas (such as current events, finances, discharge planning, medical issues, relationships, etc) ? Yes. EXPRESSION - STEP 2: Does the patient require help to express basic necessities or ideas (such as hunger, thirst, sleep, s afety, daily schedule, room location, or discomfort) half or more of the time? No. EXPRESSION - STEP 3: How often does the patient need help to express directions and conversation about basic needs? 25-49% of the time EXPRESSION - SCORE: 3-MOD SOCIAL INTERACTION: SOCIAL INTERACTION - STEP 1: Does the patient require a helper to interact with others in social and therapeutic situations? Yes. SOCIAL INTERACTION - STEP 2: Does the patient interact appropriately half or more of the time? Yes. SOCIAL INTERACTION - STEP 3: How often does the patient need help to interact appropriately? 10-24% of the time SOCIAL INTERACTION - SCORE: 4-MIN PROBLEM SOLVING: PROBLEM SOLVING - STEP 1: Does the patient need help from a person or device, or need extra time to solve complex problems such as managing a checking account or confronting interpersonal problems? Yes. PROBLEM SOLVING - STEP 2: Does the patient solve basic routine problems half or more of the time? Yes. PROBLEM SOLVING - STEP 3: How often does the patient need help to solve basic routine problems? 25%-49% of the time PROBLEM SOLVING - SCORE: 3-MOD MEMORY: MEMORY - STEP 1: Does the patient need help from a person or device, or need extra time to remember frequently encount ered people, daily routines, and executing requests? Yes. MEMORY - STEP 2: How often does the patient need help to remember frequently encountered people, daily routines, and e xecuting requests? More than 50% of the time MEMORY - STEP 3: Does the patient need help to remember all of the time OR does s/he not effectively recognize and rem ember? No. Patient does not need help all the time MEMORY - SCORE: 2-MAX SIGNATURE PANEL: The following modified sections: Eating - Score, Grooming - Score, Bathing - Score, Dressing - Upper Body - Score, Dressing - Lower Body - Score, Toileting - Score, Bladder Management - Score, Bowel Man agement - Score, Transfers: Bed, Chair, Wheelchair - Score, Transfers: Toilet - Score, Transfers: Lori wer - Score, Transfers: Tub - Score, Locomotion: Walk - Score, Locomotion: Wheelchair - Score, Compre hension - Score, Expression - Score, Social Interaction - Score, Problem Solving - Score, Memory - Sc ore were [electronically] signed by Scottie Mae on SatJul 10 2018 10:59:26 GMT-0600 (Central Standard Time)
--- NOTE | 2018-07-10 15:08 | FAST ---
ENCOUNTER DATE AND TIME: 07/10/2018 08:00 (EM PHYSICIAN) NAME RACHEL ROSA DATE OF : 1950 DATE OF ADMISSION: 07/04/2018 15:48 (EM PHYSICIAN) PHONE: AGE: 68 SSN# [id number] GENDER: Female ENCOUNTER PHYSICIAN: Dr. Ramón Villafana M.D. 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 EATING: Activity did not occur on this shift EATING - SCORE: 0-UNK GROOMING: Activity did not occur on this shift GROOMING - SCORE: 0-UNK BATHING: Activity did not occur on this shift BATHING - SCORE: 0-UNK DRESSING - UPPER BODY: Activity did not occur on this shift Patient is not dressing in public clothing ARTICLES SCORE Total number of steps: 0 DRESSING - UPPER BODY - SCORE: 0-UNK DRESSING - LOWER BODY: Activity did not occur on this shift Patient is not dressing in public clothing ARTICLES SCORE Total number of steps: 0 DRESSING - LOWER BODY - SCORE: 0-UNK TOILETING: Activity did not occur on this shift TOILETING - SCORE: 0-UNK BLADDER MANAGEMENT: Activity did not occur on this shift BLADDER MANAGEMENT - SCORE: 7-IND BOWEL MANAGEMENT: Activity did not occur on this shift BOWEL MANAGEMENT - SCORE: 7-IND TRANSFERS: BED, CHAIR, WHEELCHAIR: TRANSFERS: BED, CHAIR, WHEELCHAIR - STEP 1: Does the patient require assistance of a person or device, or need extra time with bed, chair, or whe elchair transfers? Yes. TRANSFERS: BED, CHAIR, WHEELCHAIR - STEP 2: Does the patient require the assistance of a helper? Yes. TRANSFERS: BED, CHAIR, WHEELCHAIR - STEP 3: How much assistance does the patient require from the helper? Only supervision TRANSFERS: BED, CHAIR, WHEELCHAIR - SCORE: 5-SUP TRANSFERS: TOILET: Activity did not occur on this shift TRANSFERS: TOILET - SCORE: 0-UNK TRANSFERS: SHOWER: Activity did not occur on this shift TRANSFERS: SHOWER - SCORE: 0-UNK TRANSFERS: TUB: Activity did not occur on this shift TRANSFERS: TUB - SCORE: 0-UNK LOCOMOTION: WALK: LOCOMOTION: WALK - STEP 1: Does the patient need help from a person or device, or need extra time to walk 150 feet? Yes. LOCOMOTION: WALK - STEP 2: How much assistance does the patient require to walk a minimum of 150 feet? Only supervision, cuing, or coaxing LOCOMOTION: WALK - SCORE: 5-SUP LOCOMOTION: WHEELCHAIR: Activity did not occur on this shift LOCOMOTION: WHEELCHAIR - SCORE: 0-UNK LOCOMOTION: STAIRS: LOCOMOTION: STAIRS - STEP 1: Does the patient need help to go up and down 12 to 14 stairs? Yes. LOCOMOTION: STAIRS - STEP 2: How much assistance does the patient need from the helper to go a minimum of 12 to 14 stairs? Only reece pervision, cuing, or coaxing LOCOMOTION: STAIRS - SCORE: 5-SUP COMPREHENSION: COMPREHENSION - SCORE: 0-UNK EXPRESSION EXPRESSION - SCORE: 0-UNK SOCIAL INTERACTION: SOCIAL INTERACTION - SCORE: 0-UNK PROBLEM SOLVING: PROBLEM SOLVING - SCORE: 0-UNK MEMORY: MEMORY - SCORE: 0-UNK SIGNATURE PANEL: The following modified sections: Transfers: Bed, Chair, Wheelchair - Score, Transfers: Toilet - Score , Locomotion: Walk - Score, Locomotion: Wheelchair - Score, Locomotion: Stairs - Score were [audrey [email or web address]] signed by Andrey Phillip PTA on SatJul 10 2018 15:08:12 GMT-0600 (Central Standard Time)
[2018-07-10 17:43] LABS: Absolute Lymphocytes (CBC) 0.5 K/uL (0.7-4.9); Absolute Monocytes 0.5 K/uL (0.1-1.3); Absolute Neutrophil 11.1 K/uL (1.8-8.0); Basophils % 0.7 % (0-1.3); Eosinophils % 0.2 % (0-4.4); Hematocrit 29.9 % (36.0-45.0); Lymphocytes % 3.8 % (15.3-44.8); MPV 8.2 fL (7.6-11.3); Monocytes % 3.9 % (3.3-12.3); RBC Red Blood Cell Count 4.14 M/uL (3.86-4.86)
[2018-07-10 18:04] LABS: Potassium 4.2 mmol/L (3.5-5.1)
[2018-07-10 18:09] LABS: Albumin 3.2 g/dL (3.4-5.0); Magnesium 2.1 mg/dL (1.8-2.4); Prealbumin 12.7 mg/dL (20-40)
[2018-07-10 18:16] LABS: Platelet Estimate INCR; Platelets, Giant NOTED; Urine White Blood Cell Casts OK
[2018-07-10 18:17] LABS: Anisocytosis 2+; Blood Morphology Comment NOTED (NOT SEEN); Hypochromasia 1+
--- NOTE | 2018-07-10 18:40 | R.PN ---
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 SUBJECTIVE: Pt denied any depression. Pt denied any Shortness of Breath. Ambulated 500' without an assistive device. Up and down 15 steps with standby assistance. Working we ll with speech therapy. Ambulated 350' with standby assistance using a rolling walker. VITAL SIGNS Temperature: 99.9 F SBP/DBP: 141/53 Pulse: 80 Resp: 16 Patient has low grade temperature, procalcitonin on 07-07-18 of 0.64 and increased WBC of 12.1 with 9 1.4 % neutrophils. Will recheck procalcitonin and lactic acid, chest x-ray, blood cultures x 2. Start Levaquin 500 mg daily. MEDICATION ALLERGIES: adhesive tape-silicones and sulfa ENVIRONMENTAL ALLERGIES: - Substance Allergies None Known - Other Allergies None Known NURSING: - Shower allowing shower - Bladder care per protocol - Skin care per protocol PRECAUTIONS: - Weight Bearing Precaution WBAT left LE ACTIVITIES OOB only with supervision THERAPIES: - Occupational Therapy Evaluate and Treat. Cognitive Retraining. Visual Perceptual Training. - Speech Therapy Memory Strategies. Expressive Language Skills. Speech Intelligibility Training. Cognitive Training. R eceptive Language Skills. - Physical Therapy Evaluate and Treat. PHYSICAL EXAM - Gen Alert and awake Lying in bed No apparent distress Oriented to: person and place - Skin No breakdown Mild left facial numbness and weakness. - Eyes Right visual field deficit. - ENMT No abnormalities - Neck No abnormalities No cervical adenopathy - CVS RRR - Chest No abnormalities - Resp CTA bilaterally - Abd + bowel sounds - GI Soft Deferred - No abnormalities - Ext No significant edema. - MSK 4+/5 weakness in left upper and lower extremity - Neuro 4/5 strength left upper and lower extremities. - Psych No abnormalities ASSESSMENT: Pt. is a 68 yo Right-handed white female.On 07/01/2018 Pt. presented to [facility] with sudden o nset of left-side weakness.On 07/01/2018 she was admitted to [facility] with diagnosis right bas al ganglia acute-subacute infarct involving the dorsal striatum.Her impairment category is Stroke 01 - Left Body (Right Brain) (01.1).Pre-morbidly, Pt. was independent/mod-I in Transfers Control, Commu nication, Social Cognition, Self-Care, Sphincter Control, and Locomotion; and she had good Sphincter Control.Currently, she has deficits of Transfers Control, Communication, Social Cognition, Balance, S elf-Care, Endurance, Safety Awareness, and Locomotion.Pt. is now referred to [facility] for acute in-patient rehabilitation in order to maximize patient's functional independence in activities of daily living, strength, ROM, and mobility.- Rehab Goal Patient has realistic goal of being discharged at assistance level 6-Demario to reside at Home with [facility] er. MDM/PLAN: - Physical Therapy Gait dysfunction - to improve, our physical therapists will perform initial evaluation of pt's statu s upon admission and devise an individualized program for Gait Training, and Wheel Chair mobility Inability to transfer - to improve, our physical therapists will perform initial evaluation of pt's status upon admission and devise an individualized program for Bed mobility Need for home safety evaluation - to improve, our physical therapists will perform initial evaluatio n of pt's status upon admission and devise an individualized program for Home Evaluation Need in caregiver upon discharge - to improve, our physical therapists will perform initial evaluati on of pt's status upon admission and devise an individualized program for Caregiver Training Edema - to improve, our physical therapists will perform initial evaluation of pt's status upon admi ssion and devise an individualized program for Elevation Training, and Lymphedema Therapy New precaution - to improve, our physical therapists will perform initial evaluation of pt's status upon admission and devise an individualized program for Patient precaution education Poor balance - to improve, our physical therapists will perform initial evaluation of pt's status up on admission and devise an individualized program for Balance Training Poor endurance - to improve, our physical therapists will perform initial evaluation of pt's status upon admission and devise an individualized program for Endurance Training Weakness - to improve, our physical therapists will perform initial evaluation of pt's status upon a dmission and devise an individualized program for Aquatic Therapy, Neuromuscular Reeducation, and Str engthening Achieving independence - to improve, our physical therapists will perform initial evaluation of pt's status upon admission and devise an individualized program for Community Reintegration Activities - Occupational Therapy ADL deficits - to improve, our occupation therapists will perform initial evaluation of pt's status upon admission and devise an individualized program for Bathing, Bed mobility, Community Reintegratio n, Cooking, Dressing, Eating, Fine Motor Skills, Grooming, Homemaking, Kitchen Mobility, Laundry, Pat ient Education, Safety Awareness, Splinting - Positioning, Transfers(Toilet, Tub, Shower), and Wheel Chair Management Cognitive deficits - to improve, our occupation therapists will perform initial evaluation of pt's s tatus upon admission and devise an individualized program for Cognition - orientation Need for child daycare worker - to improve, our occupation therapists will perform initial evaluation of pt's status upon admission and devise an individualized program for Caregiver Training Weakness - to improve, our occupation therapists will perform initial evaluation of pt's status upon admission and devise an individualized program for Aquatic Therapy, Balance, Endurance, UE ROM, and UE strengthening - Diet Type Continue Regular - Diet - Liquid Texture Continue Regular - Tube Feed Continue N/A - Bladder care per protocol - Weight Bearing Precaution WBAT left LE - Skin care per protocol - Diet - Solid Texture Continue Regular - Shower allowing shower for Dementia, TBI, Stroke, or others FUNCTIONAL STATUS: UPDATED AT WEEKLY TEAM CONFERENCE - Bladder Same accident frequency: 7-Ind - No accidents in the past 7 days - Bowel Same accident frequency: 7-Ind - No accidents in the past 7 days - Walking Same score based on distance walked: 1(<=50ft) FUNCTIONAL STATUS: - Self-Care A. Eating sup B. Grooming sup C. Bathing sup D. Dressing - Upper sup E. Dressing - Lower sup F. Toileting sup - Sphincter Control G: Bladder control Ind H: Bowel control Ind - Transfers Control I. Bed/Chair/Wheelchair Aliza J. Toilet Aliza K. Tub/Shower Aliza - Locomotion L. Walk/Wheelchair (B) Dep M. Stairs ADNO - Communication N. Comprehension (B) sup O. Expression (B) sup - Social Cognition P. Social Interaction sup Q. Problem Solving sup R. Memory sup - Endurance Fair - Balance Fair - Safety Awareness Fair CURRENT FUNC. DEFICITS: Transfers Control, Communication, Social Cognition, Balance, Self-Care, Endurance, Safety Awareness, and Locomotion SIGNATURE PANEL: (DATA COLLECTION ASSOCIATE)
--- NOTE | 2018-07-10 18:47 | RAD REPORT ---
EXAM DESCRIPTION: Ney Single View07/10/2018 6:34 pm CLINICAL HISTORY: Chest pain COMPARISON: June 2018 FINDINGS: The lungs appear clear of acute infiltrate. The heart is normal size IMPRESSION: No acute abnormalities displayed
[2018-07-10] MEDS: ATORVASTATIN 20 MG TAB PO SCH (20:45)
[2018-07-10] MEDS: TRAZODONE 50 MG TABLET PO PRN (20:45)
[2018-07-10] MEDS: MELATONIN 3 MG TABLET PO PRN (20:45)
[2018-07-10] MEDS: levoFLOXacin 500 MG TAB PO SCH (20:45)
[2018-07-10] MEDS: ACETAMINOPHEN 500 MG TAB PO PRN (20:50)
[2018-07-10 22:50] LABS: Urine Appearance CLEAR; Urine Bilirubin NEGATIVE (NEG); Urine Blood NEGATIVE (NEG); Urine Color YELLOW; Urine Glucose NEGATIVE (NEG); Urine Protein NEGATIVE (NEG); Urine Urobilinogen 0.2 mg/dL (0.2-1.0); Urine pH 6.5 (5.0-7.0)
[2018-07-10 22:55] LABS: Urine Microscopic Reflex NO UMIC
[2018-07-11] MEDS: PROMOD 30 ML DOSE PO SCH ×2 (08:00→19:14)
[2018-07-11] MEDS: CRANBERRY FRUIT EXTRACT 200 MG CAP PO SCH ×2 (08:00→19:13)
[2018-07-11] MEDS: ENSURE PUDDING 4 OZ CUP PO SCH ×3 (09:00→19:14)
--- NOTE | 2018-07-11 09:47 | P.RH.PN ---
Estimated Length of Stay: 12 Expected Discharge Date: 07/15/18 Discharge Disposition Plan: Home Family Support: Yes [facility] Goal: Mobility, Transfers, Self Care Vital Signs: Last Vital Signs Temp 99.1 F 07/10/18 22:10 Pulse 81 07/10/18 22:10 Resp 17 07/10/18 22:10 BP 156/82 H 07/10/18 22:10 Pulse Ox 96 07/10/18 22:10 Laboratory: Laboratory Last Values WBC 12.1 K/uL (4.3-10.9) H D 07/10/18 17:29 RBC 4.14 M/uL (3.86-4.86) 07/10/18 17:29 Hgb 9.3 g/dL (12.0-15.0) L 07/10/18 17:29 Hct 29.9 % (36.0-45.0) L 07/10/18 17:29 MCV 72.3 fL (80-100) L 07/10/18 17:29 MCH 22.5 pg (27.0-35.0) L 07/10/18 17:29 MCHC 31.1 g/dL (32.0-36.0) L 07/10/18 17:29 RDW 17.8 % (12.1-15.2) H 07/10/18 17:29 Plt Count 434 K/uL (152-406) H 07/10/18 17:29 MPV 8.2 fL (7.6-11.3) 07/10/18 17:29 Neutrophils % 91.4 % (41.7-73.7) H 07/10/18 17:29 Lymphocytes % 3.8 % (15.3-44.8) L 07/10/18 17:29 Monocytes % 3.9 % (3.3-12.3) 07/10/18 17:29 Eosinophils % 0.2 % (0-4.4) 07/10/18 17:29 Basophils % 0.7 % (0-1.3) 07/10/18 17:29 Absolute Neutrophils 11.1 K/uL (1.8-8.0) H 07/10/18 17:29 Absolute Lymphocytes 0.5 K/uL (0.7-4.9) L 07/10/18 17:29 Absolute Monocytes 0.5 K/uL (0.1-1.3) 07/10/18 17:29 Absolute Eosinophils 0.0 K/uL (0-0.5) 07/10/18 17:29 Absolute Basophils 0.1 K/uL (0-0.5) 07/10/18 17:29 Giant Platelets Noted 07/10/18 17:29 Hypochromasia 1+ 07/10/18 17:29 Anisocytosis 2+ 07/10/18 17:29 Morphology Comment Noted (NOT SEEN) 07/10/18 17:29 Sodium 134 mmol/L (136-145) L 07/10/18 17:29 Potassium 4.2 mmol/L (3.5-5.1) 07/10/18 17: Chloride 102 mmol/L (98-107) 07/10/18 17:29 Carbon Dioxide 26 mmol/L (21-32) 07/10/18 17:29 BUN 13 mg/dL (7-18) 07/10/18 17:29 Creatinine 1.02 mg/dL (0.55-1.3) 07/10/18 17:29 Estimated GFR 54 mL/min (=/>90) L 07/10/18 17:29 Glucose 148 mg/dL (74-106) H 07/10/18 17:29 Calcium 10.5 mg/dL (8.5-10.1) H 07/10/18 17:29 Magnesium 2.1 mg/dL (1.8-2.4) 07/10/18 17:29 Lactate Dehydrogenase 170 U/L (84-246) 07/10/18 17:29 Albumin 3.2 g/dL (3.4-5.0) L 07/10/18 17:29 Prealbumin 12.7 mg/dL (20-40) L 07/10/18 17:29 Procalcitonin 0.56 ng/mL (<0.50) H 07/10/18 17:29 Urine Color Yellow 07/10/18 22:25 Urine Appearance Clear 07/10/18 22:25 Urine pH 6.5 (5.0-7.0) 07/10/18 22:25 Ur Specific [place] 1.010 (1.005-1.030) 07/10/18 22:25 Urine Ketones Negative (NEG) 07/10/18 22:25 Urine Blood Negative (NEG) 07/10/18 22:25 Urine Nitrite Negative (NEG) 07/10/18 22:25 Urine Bilirubin Negative (NEG) 07/10/18 22:25 Urine Urobilinogen 0.2 mg/dL (0.2-1.0) 07/10/18 22:25 Ur Leukocyte Esterase Negative (NEG) 07/10/18 22:25 Urine RBC None seen /HPF (NONE SEEN) 07/04/18 15:55 Urine WBC None seen /HPF (<5) 07/04/18 15:55 Ur Squamous Epith Cells <5 /HPF (NONE SEEN) 07/04/18 15:55 Urine Bacteria None seen /HPF (<20) 07/04/18 15:55 Urine Culture Reflexed Not needed 07/04/18 15:55 Urine Glucose Negative (NEG) 07/10/18 22:25 Urine Total Protein Negative (NEG) 07/10/18 22:25 Weight: 173 lb 8 oz Wound Present: No Closed Surgical Incision Present: No Negative Pressure Wound Therapy Present: No Physician Update: She had a low grade feaver yesterday with mildly increased WBC. Her chest x-ray is unremarkable. Blood cultures are pending. Temp today is afebrile. Her procalcitonin is mildly increased but lower than on 07-07-18. She is doing well with physical therapy. She is recovering well with speech but needs continued help with cognition due to . Medical Issues: Eliquis 2.5mg BID PO Functional Improvement: Patient is physically performing tasks w/ Supervision at this time, however continues to present w/ memory and cognition issues. Functional Improvement Occupational Therapy: Patient has met all STG as set in POC, which are now updated. Patient is currently at a supervision level with most BADL tasks, and will have 24/7 supervision and assistance at home after d/ c. Continues to benefit from further OT to improve current level of function before a safe d/c home with family. Speech Therapy Update: Pt requires MAX A for auditory comprehension, MOD A for verbal expression, SUPV for social interaction, MAX A for problem solving, and MAX A for memory. Pt with reduced ability to sustain attention, comprehend/ recall simplified instruction resulting in frequent errors and inability to self -correct. Pt requires close supervision for safety awareness and problem solving. Pt's verbal expression is a relative strength for her, but she occasional exhibits word-finding issues which typically resolve with extra processing time. Summary: Patient's care plan and senior living goals have been reviewed and revised as necessary. Please see the Rehabilitation Signature page for all necessary signatures.
[2018-07-11] MEDS: FERROUS SULFATE 325 MG TAB PO SCH (09:59)
[2018-07-11] MEDS: MEGESTROL 40 MG TAB PO SCH ×2 (09:59→19:13)
[2018-07-11] MEDS: ACETAMINOPHEN 500 MG TAB PO PRN (09:59)
[2018-07-11] MEDS: levoFLOXacin 500 MG TAB PO SCH (10:00)
[2018-07-11] MEDS: APIXABAN 2.5 MG TABLET PO SCH ×2 (10:00→19:13)
[2018-07-11] MEDS: DULOXETINE 20 MG CAP PO SCH (10:00)
[2018-07-11] MEDS: FE SULF/FA/VIT B COMP & C TAB PO SCH (10:00)
[2018-07-11] MEDS: AMLODIPINE 5 MG TAB PO SCH (10:00)
[2018-07-11] MEDS: ASPIRIN 81 MG CHEWABLE TABLET PO SCH (10:00)
[2018-07-11 15:15] LABS: Absolute Lymphocytes (CBC) 0.9 K/uL (0.7-4.9); Absolute Monocytes 0.7 K/uL (0.1-1.3); Absolute Neutrophil 5.4 K/uL (1.8-8.0); Basophils % 0.6 % (0-1.3); Eosinophils % 0.4 % (0-4.4); Lymphocytes % 12.6 % (15.3-44.8); MPV 8.4 fL (7.6-11.3); Monocytes % 9.9 % (3.3-12.3); RBC Red Blood Cell Count 3.41 M/uL (3.86-4.86)
[2018-07-11 15:39] LABS: Hematocrit 24.5 % (36.0-45.0)
[2018-07-11] MEDS: MELATONIN 3 MG TABLET PO PRN (19:13)
[2018-07-11] MEDS: DOCUSATE NA/SENNA CONC 1 TAB PO PRN (19:13)
[2018-07-11] MEDS: ATORVASTATIN 20 MG TAB PO SCH (21:58)
[2018-07-11] MEDS: TRAZODONE 50 MG TABLET PO PRN (22:55)
--- NOTE | 2018-07-12 02:27 | FAST ---
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 Ramón Villafana M.D. 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 EATING: Activity did not occur on this shift EATING - SCORE: 0-UNK GROOMING: Oral care GROOMING - STEP 1: Does the patient require the assistance of a person or device, or need extra time when grooming? Yes. GROOMING - STEP 2: Does the patient require the assistance of a helper? Yes. GROOMING - STEP 3: How much assistance does the patient require from the helper? Only prior equipment preparation/set up from the helper GROOMING - SCORE: 5-SUP BATHING: Activity did not occur on this shift BATHING - SCORE: 0-UNK DRESSING - UPPER BODY: Patient is not dressing in public clothing ARTICLES SCORE Total number of steps: 0 DRESSING - UPPER BODY - SCORE: 0-UNK DRESSING - LOWER BODY: Patient is not dressing in public clothing ARTICLES SCORE Total number of steps: 0 DRESSING - LOWER BODY - SCORE: 0-UNK TOILETING: TOILETING - STEP 1: Does the patient require the assistance of a person or device, or need extra time with toileting? Yes . TOILETING - STEP 2: Does the patient require the assistance of a helper? Yes. TOILETING - STEP 3: How much assistance does the patient require from the helper? Only supervision TOILETING - SCORE: 5-SUP BLADDER MANAGEMENT: BLADDER MANAGEMENT - STEP 1: Does the patient control the bladder completely and intentionally without equipment or devices or med ications, and is always continent? No. BLADDER MANAGEMENT - STEP 2: Does the patient require the assistance of a helper? Yes. BLADDER MANAGEMENT - STEP 3: How much assistance does the patient require from the helper? Only set-up of equipment - such as plac ing it within reach of the patient or emptying a device - to maintain either satisfactory voiding pat tern or managing an external device, such as an absorbent pad, ileal device, or catheter BLADDER MANAGEMENT - SCORE: 5-SUP BOWEL MANAGEMENT: Activity did not occur on this shift BOWEL MANAGEMENT - SCORE: 7-IND TRANSFERS: BED, CHAIR, WHEELCHAIR: TRANSFERS: BED, CHAIR, WHEELCHAIR - STEP 1: Does the patient require assistance of a person or device, or need extra time with bed, chair, or whe elchair transfers? Yes. TRANSFERS: BED, CHAIR, WHEELCHAIR - STEP 2: Does the patient require the assistance of a helper? Yes. TRANSFERS: BED, CHAIR, WHEELCHAIR - STEP 3: How much assistance does the patient require from the helper? Steadying/guiding assistance TRANSFERS: BED, CHAIR, WHEELCHAIR - SCORE: 4-MIN TRANSFERS: TOILET: TRANSFERS: TOILET - STEP 1: Does the patient require the assistance of a person or device, or need extra time with toilet transfe rs? Yes. TRANSFERS: TOILET - STEP 2: Does the patient require the assistance of a helper? Yes. TRANSFERS: TOILET - STEP 3: How much assistance does the patient require from the helper? Only supervision, cuing, coaxing, OR he lp to set out transfer equipment or to lock brakes and/or lift foot rests TRANSFERS: TOILET - SCORE: 5-SUP TRANSFERS: SHOWER: Activity did not occur on this shift TRANSFERS: SHOWER - SCORE: 0-UNK TRANSFERS: TUB: Activity did not occur on this shift TRANSFERS: TUB - SCORE: 0-UNK LOCOMOTION: WALK: Activity did not occur on this shift LOCOMOTION: WALK - SCORE: 0-UNK LOCOMOTION: WHEELCHAIR: Activity did not occur on this shift LOCOMOTION: WHEELCHAIR - SCORE: 0-UNK COMPREHENSION: COMPREHENSION: TYPE: Both COMPREHENSION - STEP 1: Does the patient require help from a person or device, or need extra time to understand complex and a bstract ideas (such as current events, finances, discharge planning, medical issues, relationships, e tc)? Yes. COMPREHENSION - STEP 2: Does the patient require help to understand questions or statements about basic needs or ideas (such as hunger, thirst, sleep, safety, daily schedule, room location, or discomfort) half or more of the t agustin? No. COMPREHENSION - STEP 3: How often does the patient need help to understand directions and conversation about basic needs? Les s than 10% of the time COMPREHENSION - SCORE: 5-SUP EXPRESSION EXPRESSION: TYPE: Both EXPRESSION - STEP 1: Does the patient require help from a person or device, or need extra time expressing complex and abst ract ideas (such as current events, finances, discharge planning, medical issues, relationships, etc) ? Yes. EXPRESSION - STEP 2: Does the patient require help to express basic necessities or ideas (such as hunger, thirst, sleep, s afety, daily schedule, room location, or discomfort) half or more of the time? No. EXPRESSION - STEP 3: How often does the patient need help to express directions and conversation about basic needs? Less t landry 10% of the time EXPRESSION - SCORE: 5-SUP SOCIAL INTERACTION: SOCIAL INTERACTION - STEP 1: Does the patient require a helper to interact with others in social and therapeutic situations? No. SOCIAL INTERACTION - STEP 2: Does the patient need extra time in social situations, OR does s/he interact with staff, other patien ts, and family members ONLY in structured environments, OR does s/he require medication for social in teraction? Yes, patient needs extra time SOCIAL INTERACTION - SCORE: 6-TONNY PROBLEM SOLVING: PROBLEM SOLVING - STEP 1: Does the patient need help from a person or device, or need extra time to solve complex problems such as managing a checking account or confronting interpersonal problems? Yes. PROBLEM SOLVING - STEP 2: Does the patient solve basic routine problems half or more of the time? Yes. PROBLEM SOLVING - STEP 3: How often does the patient need help to solve basic routine problems? Less than 10% of the time PROBLEM SOLVING - SCORE: 5-SUP MEMORY: MEMORY - STEP 1: Does the patient need help from a person or device, or need extra time to remember frequently encount ered people, daily routines, and executing requests? Yes. MEMORY - STEP 2: How often does the patient need help to remember frequently encountered people, daily routines, and e xecuting requests? 10% - 24% of the time MEMORY - SCORE: 4-MIN
[2018-07-12 05:51] VITALS: BMI 29.2
[2018-07-12] MEDS: FE SULF/FA/VIT B COMP & C TAB PO SCH (09:01)
[2018-07-12] MEDS: DULOXETINE 20 MG CAP PO SCH (09:01)
[2018-07-12] MEDS: FERROUS SULFATE 325 MG TAB PO SCH (09:02)
[2018-07-12] MEDS: CRANBERRY FRUIT EXTRACT 200 MG CAP PO SCH ×2 (09:02→20:49)
[2018-07-12] MEDS: levoFLOXacin 500 MG TAB PO SCH (09:02)
[2018-07-12] MEDS: APIXABAN 2.5 MG TABLET PO SCH ×2 (09:03→20:49)
[2018-07-12] MEDS: ASPIRIN 81 MG CHEWABLE TABLET PO SCH (09:03)
[2018-07-12] MEDS: MEGESTROL 40 MG TAB PO SCH ×2 (09:03→20:50)
[2018-07-12] MEDS: AMLODIPINE 5 MG TAB PO SCH (09:03)
[2018-07-12] MEDS: ENSURE PUDDING 4 OZ CUP PO SCH ×3 (09:04→20:51)
[2018-07-12] MEDS: PROMOD 30 ML DOSE PO SCH ×2 (09:04→20:51)
--- NOTE | 2018-07-12 16:11 | FAST ---
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 Ramón Villafana M.D. 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 EATING: EATING - STEP 1: Does the patient require the assistance of a person or device, or need extra time when eating? Yes. EATING - STEP 2: Does the patient require the assistance of a helper? Yes. EATING - STEP 3: Does the patient perform half or more of the eating tasks? Yes. EATING - STEP 4: Does the patient need only supervision, cuing, coaxing OR help to apply an orthosis OR help to cut fo od, open containers, pour liquids, or butter bread? Yes. EATING - SCORE: 5-SUP GROOMING: Comb/brush hair Wash, rinse, and dry face Wash, rinse, and dry hands GROOMING - STEP 1: Does the patient require the assistance of a person or device, or need extra time when grooming? Yes. GROOMING - STEP 2: Does the patient require the assistance of a helper? Yes. GROOMING - STEP 3: How much assistance does the patient require from the helper? Cuing, coaxing, instructions, or encour agement for completion of grooming GROOMING - SCORE: 5-SUP BATHING: Activity did not occur on this shift BATHING - SCORE: 0-UNK DRESSING - UPPER BODY: Bra (three steps) T-shirt/pullover shirt (four steps) ARTICLES SCORE Total number of steps: 7 DRESSING - UPPER BODY - STEP 1: Does the patient require help from a person or device, or need extra time when dressing above the [address]? Yes. DRESSING - UPPER BODY - STEP 2: Does the patient require the assistance of a helper? Yes. DRESSING - UPPER BODY - STEP 3: Does the helper touch the patient while dressing? Yes. DRESSING - UPPER BODY - STEP 4: How many of the total steps does the patient complete on his/her own? 4 DRESSING - UPPER BODY - SCORE: 3-MOD DRESSING - LOWER BODY: Elastic waist pants (three steps) Slip-on shoe - Left foot (one step) Slip-on shoe - Right foot (one step) ARTICLES SCORE Total number of steps: 5 DRESSING - LOWER BODY - STEP 1: Does the patient require help from a person or device, or need extra time when dressing below the [address]? Yes. DRESSING - LOWER BODY - STEP 2: Does the patient require the assistance of a helper? Yes. DRESSING - LOWER BODY - STEP 3: Does the helper touch the patient while dressing? Yes. DRESSING - LOWER BODY - STEP 4: How many of the total steps does the patient complete on his/her own? 5 DRESSING - LOWER BODY - SCORE: 4-MIN TOILETING: TOILETING - STEP 1: Does the patient require the assistance of a person or device, or need extra time with toileting? Yes . TOILETING - STEP 2: Does the patient require the assistance of a helper? Yes. TOILETING - STEP 3: How much assistance does the patient require from the helper? Hands-on assistance from the helper TOILETING - STEP 4: Of the 3 tasks: 1) Adjusting clothing prior to use, 2) Cleansing of perineal area, 3) Adjusting clot rebekah after use; How many tasks does the patient perform WITHOUT assistance of the helper? Three tasks with steadying assistance from the helper TOILETING - SCORE: 4-MIN BLADDER MANAGEMENT: BLADDER MANAGEMENT - STEP 1: Does the patient control the bladder completely and intentionally without equipment or devices or med ications, and is always continent? No. BLADDER MANAGEMENT - STEP 2: Does the patient require the assistance of a helper? Yes. BLADDER MANAGEMENT - STEP 3: How much assistance does the patient require from the helper? Only supervision, stand-by, cuing, or c oaxing BLADDER MANAGEMENT - SCORE: 5-SUP BLADDER MANAGEMENT - FREQUENCY OF ACCIDENTS: BLADDER MANAGEMENT(FA) - STEP 1: How many accidents has the patient had during the current shift? 0 BOWEL MANAGEMENT: Activity did not occur on this shift BOWEL MANAGEMENT - SCORE: 7-IND BOWEL MANAGEMENT - FREQUENCY OF ACCIDENTS: BOWEL MANAGEMENT(FA) - STEP 1: How many accidents has the patient had during the current shift? 0 TRANSFERS: BED, CHAIR, WHEELCHAIR: TRANSFERS: BED, CHAIR, WHEELCHAIR - STEP 1: Does the patient require assistance of a person or device, or need extra time with bed, chair, or whe elchair transfers? Yes. TRANSFERS: BED, CHAIR, WHEELCHAIR - STEP 2: Does the patient require the assistance of a helper? Yes. TRANSFERS: BED, CHAIR, WHEELCHAIR - STEP 3: How much assistance does the patient require from the helper? Steadying/guiding assistance TRANSFERS: BED, CHAIR, WHEELCHAIR - SCORE: 4-MIN TRANSFERS: TOILET: TRANSFERS: TOILET - STEP 1: Does the patient require the assistance of a person or device, or need extra time with toilet transfe rs? Yes. TRANSFERS: TOILET - STEP 2: Does the patient require the assistance of a helper? Yes. TRANSFERS: TOILET - STEP 3: How much assistance does the patient require from the helper? Patient performs half or more of the tr ansferring tasks TRANSFERS: TOILET - STEP 4: Does the patient need only incidental help such as contact guard or steadying during toilet transfer? Yes. TRANSFERS: TOILET - SCORE: 4-MIN TRANSFERS: SHOWER: Activity did not occur on this shift TRANSFERS: SHOWER - SCORE: 0-UNK TRANSFERS: TUB: Activity did not occur on this shift TRANSFERS: TUB - SCORE: 0-UNK LOCOMOTION: WALK: Activity did not occur on this shift LOCOMOTION: WALK - SCORE: 0-UNK LOCOMOTION: WHEELCHAIR: Activity did not occur on this shift LOCOMOTION: WHEELCHAIR - SCORE: 0-UNK COMPREHENSION: COMPREHENSION: TYPE: Both COMPREHENSION - STEP 1: Does the patient require help from a person or device, or need extra time to understand complex and a bstract ideas (such as current events, finances, discharge planning, medical issues, relationships, e tc)? Yes. COMPREHENSION - STEP 2: Does the patient require help to understand questions or statements about basic needs or ideas (such as hunger, thirst, sleep, safety, daily schedule, room location, or discomfort) half or more of the t agustin? No. COMPREHENSION - STEP 3: How often does the patient need help to understand directions and conversation about basic needs? 25% - 49% of the time COMPREHENSION - SCORE: 3-MOD EXPRESSION EXPRESSION: TYPE: Both EXPRESSION - STEP 1: Does the patient require help from a person or device, or need extra time expressing complex and abst ract ideas (such as current events, finances, discharge planning, medical issues, relationships, etc) ? Yes. EXPRESSION - STEP 2: Does the patient require help to express basic necessities or ideas (such as hunger, thirst, sleep, s afety, daily schedule, room location, or discomfort) half or more of the time? No. EXPRESSION - STEP 3: How often does the patient need help to express directions and conversation about basic needs? 25-49% of the time EXPRESSION - SCORE: 3-MOD SOCIAL INTERACTION: SOCIAL INTERACTION - STEP 1: Does the patient require a helper to interact with others in social and therapeutic situations? Yes. SOCIAL INTERACTION - STEP 2: Does the patient interact appropriately half or more of the time? Yes. SOCIAL INTERACTION - STEP 3: How often does the patient need help to interact appropriately? Less than 10% of the time SOCIAL INTERACTION - SCORE: 5-SUP PROBLEM SOLVING: PROBLEM SOLVING - STEP 1: Does the patient need help from a person or device, or need extra time to solve complex problems such as managing a checking account or confronting interpersonal problems? Yes. PROBLEM SOLVING - STEP 2: Does the patient solve basic routine problems half or more of the time? Yes. PROBLEM SOLVING - STEP 3: How often does the patient need help to solve basic routine problems? Less than 10% of the time PROBLEM SOLVING - SCORE: 5-SUP MEMORY: MEMORY - STEP 1: Does the patient need help from a person or device, or need extra time to remember frequently encount ered people, daily routines, and executing requests? Yes. MEMORY - STEP 2: How often does the patient need help to remember frequently encountered people, daily routines, and e xecuting requests? More than 50% of the time MEMORY - STEP 3: Does the patient need help to remember all of the time OR does s/he not effectively recognize and rem ember? No. Patient does not need help all the time MEMORY - SCORE: 2-MAX SIGNATURE PANEL: The following modified sections: Eating - Score, Grooming - Score, Bathing - Score, Dressing - Upper Body - Score, Dressing - Lower Body - Score, Toileting - Score, Bladder Management - Score, Bowel Man agement - Score, Transfers: Bed, Chair, Wheelchair - Score, Transfers: Toilet - Score, Transfers: Lori wer - Score, Transfers: Tub - Score, Locomotion: Walk - Score, Locomotion: Wheelchair - Score, Compre hension - Score, Expression - Score, Social Interaction - Score, Problem Solving - Score, Memory - Sc ore were [electronically] signed by Brittanie Moody C.N.A. on Sat Jul 12 2018 16:10:36 GMT-0600 (Cent[facility] Standard Time)
--- NOTE | 2018-07-12 18:39 | FAST ---
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 Ramón Villafana M.D. 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 EATING: Activity did not occur on this shift EATING - SCORE: 0-UNK GROOMING: Wash, rinse, and dry hands GROOMING - STEP 1: Does the patient require the assistance of a person or device, or need extra time when grooming? Yes. GROOMING - STEP 2: Does the patient require the assistance of a helper? Yes. GROOMING - STEP 3: How much assistance does the patient require from the helper? Cuing, coaxing, instructions, or encour agement for completion of grooming GROOMING - SCORE: 5-SUP BATHING: Activity did not occur on this shift BATHING - SCORE: 0-UNK DRESSING - UPPER BODY: Sweater (four steps) T-shirt/pullover shirt (four steps) ARTICLES SCORE Total number of steps: 8 DRESSING - UPPER BODY - STEP 1: Does the patient require help from a person or device, or need extra time when dressing above the [address]? Yes. DRESSING - UPPER BODY - STEP 2: Does the patient require the assistance of a helper? Yes. DRESSING - UPPER BODY - STEP 3: Does the helper touch the patient while dressing? Yes. DRESSING - UPPER BODY - STEP 4: How many of the total steps does the patient complete on his/her own? 6 DRESSING - UPPER BODY - SCORE: 4-MIN DRESSING - LOWER BODY: Elastic waist pants (three steps) Sock - Left foot (one step) Sock - Right foot (one step) ARTICLES SCORE Total number of steps: 5 DRESSING - LOWER BODY - STEP 1: Does the patient require help from a person or device, or need extra time when dressing below the [address]? Yes. DRESSING - LOWER BODY - STEP 2: Does the patient require the assistance of a helper? Yes. DRESSING - LOWER BODY - STEP 3: Does the helper touch the patient while dressing? Yes. DRESSING - LOWER BODY - STEP 4: How many of the total steps does the patient complete on his/her own? 4 DRESSING - LOWER BODY - SCORE: 4-MIN TOILETING: TOILETING - STEP 1: Does the patient require the assistance of a person or device, or need extra time with toileting? Yes . TOILETING - STEP 2: Does the patient require the assistance of a helper? Yes. TOILETING - STEP 3: How much assistance does the patient require from the helper? Hands-on assistance from the helper TOILETING - STEP 4: Of the 3 tasks: 1) Adjusting clothing prior to use, 2) Cleansing of perineal area, 3) Adjusting clot rebekah after use; How many tasks does the patient perform WITHOUT assistance of the helper? Three tasks with steadying assistance from the helper TOILETING - SCORE: 4-MIN BLADDER MANAGEMENT: Activity did not occur on this shift BLADDER MANAGEMENT - SCORE: 7-IND BOWEL MANAGEMENT: Activity did not occur on this shift BOWEL MANAGEMENT - SCORE: 7-IND TRANSFERS: BED, CHAIR, WHEELCHAIR: Activity did not occur on this shift TRANSFERS: BED, CHAIR, WHEELCHAIR - SCORE: 0-UNK TRANSFERS: TOILET: TRANSFERS: TOILET - STEP 1: Does the patient require the assistance of a person or device, or need extra time with toilet transfe rs? Yes. TRANSFERS: TOILET - STEP 2: Does the patient require the assistance of a helper? Yes. TRANSFERS: TOILET - STEP 3: How much assistance does the patient require from the helper? Patient performs half or more of the tr ansferring tasks TRANSFERS: TOILET - STEP 4: Does the patient need only incidental help such as contact guard or steadying during toilet transfer? Yes. TRANSFERS: TOILET - SCORE: 4-MIN TRANSFERS: SHOWER: Activity did not occur on this shift TRANSFERS: SHOWER - SCORE: 0-UNK TRANSFERS: TUB: Activity did not occur on this shift TRANSFERS: TUB - SCORE: 0-UNK LOCOMOTION: WALK: Activity did not occur on this shift LOCOMOTION: WALK - SCORE: 0-UNK LOCOMOTION: WHEELCHAIR: Activity did not occur on this shift LOCOMOTION: WHEELCHAIR - SCORE: 0-UNK LOCOMOTION: STAIRS: Activity did not occur on this shift LOCOMOTION: STAIRS - SCORE: 0-UNK COMPREHENSION: COMPREHENSION: TYPE: Both COMPREHENSION - STEP 1: Does the patient require help from a person or device, or need extra time to understand complex and a bstract ideas (such as current events, finances, discharge planning, medical issues, relationships, e tc)? Yes. COMPREHENSION - STEP 2: Does the patient require help to understand questions or statements about basic needs or ideas (such as hunger, thirst, sleep, safety, daily schedule, room location, or discomfort) half or more of the t agustin? No. COMPREHENSION - STEP 3: How often does the patient need help to understand directions and conversation about basic needs? 25% - 49% of the time COMPREHENSION - SCORE: 3-MOD EXPRESSION EXPRESSION: TYPE: Vocal EXPRESSION - STEP 1: Does the patient require help from a person or device, or need extra time expressing complex and abst ract ideas (such as current events, finances, discharge planning, medical issues, relationships, etc) ? Yes. EXPRESSION - STEP 2: Does the patient require help to express basic necessities or ideas (such as hunger, thirst, sleep, s afety, daily schedule, room location, or discomfort) half or more of the time? No. EXPRESSION - STEP 3: How often does the patient need help to express directions and conversation about basic needs? 25-49% of the time EXPRESSION - SCORE: 3-MOD SOCIAL INTERACTION: SOCIAL INTERACTION - STEP 1: Does the patient require a helper to interact with others in social and therapeutic situations? Yes. SOCIAL INTERACTION - STEP 2: Does the patient interact appropriately half or more of the time? Yes. SOCIAL INTERACTION - STEP 3: How often does the patient need help to interact appropriately? Less than 10% of the time SOCIAL INTERACTION - SCORE: 5-SUP PROBLEM SOLVING: PROBLEM SOLVING - STEP 1: Does the patient need help from a person or device, or need extra time to solve complex problems such as managing a checking account or confronting interpersonal problems? Yes. PROBLEM SOLVING - STEP 2: Does the patient solve basic routine problems half or more of the time? No. PROBLEM SOLVING - STEP 3: Does the patient need help to solve problems all the time or is s/he unable to solve problems? No. Pa tient can sometimes solve problems PROBLEM SOLVING - SCORE: 2-MAX MEMORY: MEMORY - STEP 1: Does the patient need help from a person or device, or need extra time to remember frequently encount ered people, daily routines, and executing requests? Yes. MEMORY - STEP 2: How often does the patient need help to remember frequently encountered people, daily routines, and e xecuting requests? More than 50% of the time MEMORY - STEP 3: Does the patient need help to remember all of the time OR does s/he not effectively recognize and rem ember? No. Patient does not need help all the time MEMORY - SCORE: 2-MAX SIGNATURE PANEL: The following modified sections: Eating - Score, Grooming - Score, Bathing - Score, Dressing - Upper Body - Score, Dressing - Lower Body - Score, Toileting - Score, Transfers: Bed, Chair, Wheelchair - S core, Transfers: Toilet - Score, Transfers: Shower - Score, Transfers: Tub - Score, Comprehension - S core, Expression - Score, Social Interaction - Score, Problem Solving - Score, Memory - Score were [e lectronically] signed by Annie Real OT on Sat Jul 12 2018 18:38:21 GMT-0600 ([place] Standard [place])
[2018-07-12] MEDS: TRAZODONE 50 MG TABLET PO PRN (20:50)
[2018-07-12] MEDS: ATORVASTATIN 20 MG TAB PO SCH (20:50)
--- NOTE | 2018-07-13 02:06 | FAST ---
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 Ramón Villafana M.D. 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 EATING: Activity did not occur on this shift EATING - SCORE: 0-UNK GROOMING: Wash, rinse, and dry hands GROOMING - STEP 1: Does the patient require the assistance of a person or device, or need extra time when grooming? Yes. GROOMING - STEP 2: Does the patient require the assistance of a helper? Yes. GROOMING - STEP 3: How much assistance does the patient require from the helper? Only prior equipment preparation/set up from the helper GROOMING - SCORE: 5-SUP BATHING: Activity did not occur on this shift BATHING - SCORE: 0-UNK DRESSING - UPPER BODY: Patient is not dressing in public clothing ARTICLES SCORE Total number of steps: 0 DRESSING - UPPER BODY - SCORE: 0-UNK DRESSING - LOWER BODY: Patient is not dressing in public clothing ARTICLES SCORE Total number of steps: 0 DRESSING - LOWER BODY - SCORE: 0-UNK TOILETING: TOILETING - STEP 1: Does the patient require the assistance of a person or device, or need extra time with toileting? Yes . TOILETING - STEP 2: Does the patient require the assistance of a helper? Yes. TOILETING - STEP 3: How much assistance does the patient require from the helper? Only supervision TOILETING - SCORE: 5-SUP BLADDER MANAGEMENT: BLADDER MANAGEMENT - STEP 1: Does the patient control the bladder completely and intentionally without equipment or devices or med ications, and is always continent? No. BLADDER MANAGEMENT - STEP 2: Does the patient require the assistance of a helper? Yes. BLADDER MANAGEMENT - STEP 3: How much assistance does the patient require from the helper? Only supervision, stand-by, cuing, or c oaxing BLADDER MANAGEMENT - SCORE: 5-SUP BOWEL MANAGEMENT: Activity did not occur on this shift BOWEL MANAGEMENT - SCORE: 7-IND TRANSFERS: BED, CHAIR, WHEELCHAIR: TRANSFERS: BED, CHAIR, WHEELCHAIR - STEP 1: Does the patient require assistance of a person or device, or need extra time with bed, chair, or whe elchair transfers? Yes. TRANSFERS: BED, CHAIR, WHEELCHAIR - STEP 2: Does the patient require the assistance of a helper? Yes. TRANSFERS: BED, CHAIR, WHEELCHAIR - STEP 3: How much assistance does the patient require from the helper? Steadying/guiding assistance TRANSFERS: BED, CHAIR, WHEELCHAIR - SCORE: 4-MIN TRANSFERS: TOILET: TRANSFERS: TOILET - STEP 1: Does the patient require the assistance of a person or device, or need extra time with toilet transfe rs? Yes. TRANSFERS: TOILET - STEP 2: Does the patient require the assistance of a helper? Yes. TRANSFERS: TOILET - STEP 3: How much assistance does the patient require from the helper? Only supervision, cuing, coaxing, OR he lp to set out transfer equipment or to lock brakes and/or lift foot rests TRANSFERS: TOILET - SCORE: 5-SUP TRANSFERS: SHOWER: Activity did not occur on this shift TRANSFERS: SHOWER - SCORE: 0-UNK TRANSFERS: TUB: Activity did not occur on this shift TRANSFERS: TUB - SCORE: 0-UNK LOCOMOTION: WALK: Activity did not occur on this shift LOCOMOTION: WALK - SCORE: 0-UNK LOCOMOTION: WHEELCHAIR: Activity did not occur on this shift LOCOMOTION: WHEELCHAIR - SCORE: 0-UNK COMPREHENSION: COMPREHENSION: TYPE: Both COMPREHENSION - STEP 1: Does the patient require help from a person or device, or need extra time to understand complex and a bstract ideas (such as current events, finances, discharge planning, medical issues, relationships, e tc)? Yes. COMPREHENSION - STEP 2: Does the patient require help to understand questions or statements about basic needs or ideas (such as hunger, thirst, sleep, safety, daily schedule, room location, or discomfort) half or more of the t agustin? Yes. COMPREHENSION - STEP 3: Is the patient basically able to understand and respond appropriately and consistently? Yes. COMPREHENSION - SCORE: 2-MAX EXPRESSION EXPRESSION: TYPE: Both EXPRESSION - STEP 1: Does the patient require help from a person or device, or need extra time expressing complex and abst ract ideas (such as current events, finances, discharge planning, medical issues, relationships, etc) ? Yes. EXPRESSION - STEP 2: Does the patient require help to express basic necessities or ideas (such as hunger, thirst, sleep, s afety, daily schedule, room location, or discomfort) half or more of the time? Yes. EXPRESSION - STEP 3: Is the patient basically unable to express or does s/he express inappropriately or inconsistently kellie pite prompting? No. EXPRESSION - SCORE: 2-MAX SOCIAL INTERACTION: SOCIAL INTERACTION - STEP 1: Does the patient require a helper to interact with others in social and therapeutic situations? No. SOCIAL INTERACTION - STEP 2: Does the patient need extra time in social situations, OR does s/he interact with staff, other patien ts, and family members ONLY in structured environments, OR does s/he require medication for social in teraction? Yes, patient needs extra time SOCIAL INTERACTION - SCORE: 6-TONNY PROBLEM SOLVING: Patient requires bed/chair alarms due to attempts to get up unassisted when helper is needed. PROBLEM SOLVING - STEP 1: How often do the bed/chair alarms go off? Most of the time - the alarms go off about 75% of the time PROBLEM SOLVING - SCORE: 2-MAX MEMORY: MEMORY - STEP 1: How often do the bed/chair alarms go off? Most of the time - the alarms go off about 75% of the time MEMORY - SCORE: 2-MAX SIGNATURE PANEL: The following modified sections: Eating - Score, Grooming - Score, Dressing - Upper Body - Score, Tommy ssing - Lower Body - Score, Toileting - Score, Bladder Management - Score, Bowel Management - Score, Transfers: Bed, Chair, Wheelchair - Score, Transfers: Toilet - Score, Transfers: Shower - Score, Andrews sfers: Tub - Score, Locomotion: Walk - Score, Locomotion: Wheelchair - Score, Comprehension - Score, Expression - Score, Social Interaction - Score, Problem Solving - Score, Memory - Score were [electro nically] signed by Indiana Méndez CNA on SatJul 13 2018 01:58:00 GMT-0600 (Central Standard Time)
[2018-07-13] MEDS: levoFLOXacin 500 MG TAB PO SCH (08:35)
[2018-07-13] MEDS: FE SULF/FA/VIT B COMP & C TAB PO SCH (08:35)
[2018-07-13] MEDS: MEGESTROL 40 MG TAB PO SCH ×2 (08:35→20:27)
[2018-07-13] MEDS: APIXABAN 2.5 MG TABLET PO SCH ×2 (08:35→20:26)
[2018-07-13] MEDS: FERROUS SULFATE 325 MG TAB PO SCH (08:35)
[2018-07-13] MEDS: CRANBERRY FRUIT EXTRACT 200 MG CAP PO SCH ×2 (08:35→20:26)
[2018-07-13] MEDS: ASPIRIN 81 MG CHEWABLE TABLET PO SCH (08:35)
[2018-07-13] MEDS: AMLODIPINE 5 MG TAB PO SCH (08:35)
[2018-07-13] MEDS: DULOXETINE 20 MG CAP PO SCH (08:35)
[2018-07-13] MEDS: PROMOD 30 ML DOSE PO SCH ×2 (08:36→20:00)
[2018-07-13] MEDS: ENSURE PUDDING 4 OZ CUP PO SCH ×3 (09:00→20:27)
--- NOTE | 2018-07-13 10:35 | FAST ---
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 Ramón Villafana M.D. 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 EATING: EATING - STEP 1: Does the patient require the assistance of a person or device, or need extra time when eating? Yes. EATING - STEP 2: Does the patient require the assistance of a helper? Yes. EATING - STEP 3: Does the patient perform half or more of the eating tasks? Yes. EATING - STEP 4: Does the patient need only supervision, cuing, coaxing OR help to apply an orthosis OR help to cut fo od, open containers, pour liquids, or butter bread? Yes. EATING - SCORE: 5-SUP GROOMING: Comb/brush hair Wash, rinse, and dry face Wash, rinse, and dry hands GROOMING - STEP 1: Does the patient require the assistance of a person or device, or need extra time when grooming? Yes. GROOMING - STEP 2: Does the patient require the assistance of a helper? Yes. GROOMING - STEP 3: How much assistance does the patient require from the helper? Cuing, coaxing, instructions, or encour agement for completion of grooming GROOMING - SCORE: 5-SUP BATHING: Activity did not occur on this shift BATHING - SCORE: 0-UNK DRESSING - UPPER BODY: Activity did not occur on this shift ARTICLES SCORE Total number of steps: 0 DRESSING - UPPER BODY - SCORE: 0-UNK DRESSING - LOWER BODY: Activity did not occur on this shift ARTICLES SCORE Total number of steps: 0 DRESSING - LOWER BODY - SCORE: 0-UNK TOILETING: TOILETING - STEP 1: Does the patient require the assistance of a person or device, or need extra time with toileting? Yes . TOILETING - STEP 2: Does the patient require the assistance of a helper? Yes. TOILETING - STEP 3: How much assistance does the patient require from the helper? Hands-on assistance from the helper TOILETING - STEP 4: Of the 3 tasks: 1) Adjusting clothing prior to use, 2) Cleansing of perineal area, 3) Adjusting clot rebekah after use; How many tasks does the patient perform WITHOUT assistance of the helper? Three tasks with steadying assistance from the helper TOILETING - SCORE: 4-MIN BLADDER MANAGEMENT: BLADDER MANAGEMENT - STEP 1: Does the patient control the bladder completely and intentionally without equipment or devices or med ications, and is always continent? No. BLADDER MANAGEMENT - STEP 2: Does the patient require the assistance of a helper? Yes. BLADDER MANAGEMENT - STEP 3: How much assistance does the patient require from the helper? Only supervision, stand-by, cuing, or c oaxing BLADDER MANAGEMENT - SCORE: 5-SUP BLADDER MANAGEMENT - FREQUENCY OF ACCIDENTS: BLADDER MANAGEMENT(FA) - STEP 1: How many accidents has the patient had during the current shift? 0 BOWEL MANAGEMENT: BOWEL MANAGEMENT - STEP 1: Does the patient control bowels completely and intentionally without equipment devices or medications AND is always continent? No. BOWEL MANAGEMENT - STEP 2: Does the patient require the assistance of a helper? Yes. BOWEL MANAGEMENT - STEP 3: How much assistance does the patient require from the helper? Patient requires supervision, stand by, cueing, coaxing, or setup of equipment - placing within reach of patient and emptying device / bedpa nd or BSC bucket - to maintain either satisfactory bowel pattern or managing an external device such as an absorbent pad, colostomy bag / ileostomy bag BOWEL MANAGEMENT - SCORE: 5-SUP BOWEL MANAGEMENT - FREQUENCY OF ACCIDENTS: BOWEL MANAGEMENT(FA) - STEP 1: How many accidents has the patient had during the current shift? 0 TRANSFERS: BED, CHAIR, WHEELCHAIR: TRANSFERS: BED, CHAIR, WHEELCHAIR - STEP 1: Does the patient require assistance of a person or device, or need extra time with bed, chair, or whe elchair transfers? Yes. TRANSFERS: BED, CHAIR, WHEELCHAIR - STEP 2: Does the patient require the assistance of a helper? Yes. TRANSFERS: BED, CHAIR, WHEELCHAIR - STEP 3: How much assistance does the patient require from the helper? Steadying/guiding assistance TRANSFERS: BED, CHAIR, WHEELCHAIR - SCORE: 4-MIN TRANSFERS: TOILET: TRANSFERS: TOILET - STEP 1: Does the patient require the assistance of a person or device, or need extra time with toilet transfe rs? Yes. TRANSFERS: TOILET - STEP 2: Does the patient require the assistance of a helper? Yes. TRANSFERS: TOILET - STEP 3: How much assistance does the patient require from the helper? Patient performs half or more of the tr ansferring tasks TRANSFERS: TOILET - STEP 4: Does the patient need only incidental help such as contact guard or steadying during toilet transfer? Yes. TRANSFERS: TOILET - SCORE: 4-MIN TRANSFERS: SHOWER: Activity did not occur on this shift TRANSFERS: SHOWER - SCORE: 0-UNK TRANSFERS: TUB: Activity did not occur on this shift TRANSFERS: TUB - SCORE: 0-UNK LOCOMOTION: WALK: Activity did not occur on this shift LOCOMOTION: WALK - SCORE: 0-UNK LOCOMOTION: WHEELCHAIR: Activity did not occur on this shift LOCOMOTION: WHEELCHAIR - SCORE: 0-UNK COMPREHENSION: COMPREHENSION: TYPE: Both COMPREHENSION - STEP 1: Does the patient require help from a person or device, or need extra time to understand complex and a bstract ideas (such as current events, finances, discharge planning, medical issues, relationships, e tc)? Yes. COMPREHENSION - STEP 2: Does the patient require help to understand questions or statements about basic needs or ideas (such as hunger, thirst, sleep, safety, daily schedule, room location, or discomfort) half or more of the t agustin? No. COMPREHENSION - STEP 3: How often does the patient need help to understand directions and conversation about basic needs? 25% - 49% of the time COMPREHENSION - SCORE: 3-MOD EXPRESSION EXPRESSION: TYPE: Both EXPRESSION - STEP 1: Does the patient require help from a person or device, or need extra time expressing complex and abst ract ideas (such as current events, finances, discharge planning, medical issues, relationships, etc) ? Yes. EXPRESSION - STEP 2: Does the patient require help to express basic necessities or ideas (such as hunger, thirst, sleep, s afety, daily schedule, room location, or discomfort) half or more of the time? No. EXPRESSION - STEP 3: How often does the patient need help to express directions and conversation about basic needs? 25-49% of the time EXPRESSION - SCORE: 3-MOD SOCIAL INTERACTION: SOCIAL INTERACTION - STEP 1: Does the patient require a helper to interact with others in social and therapeutic situations? Yes. SOCIAL INTERACTION - STEP 2: Does the patient interact appropriately half or more of the time? Yes. SOCIAL INTERACTION - STEP 3: How often does the patient need help to interact appropriately? Less than 10% of the time SOCIAL INTERACTION - SCORE: 5-SUP PROBLEM SOLVING: PROBLEM SOLVING - STEP 1: Does the patient need help from a person or device, or need extra time to solve complex problems such as managing a checking account or confronting interpersonal problems? Yes. PROBLEM SOLVING - STEP 2: Does the patient solve basic routine problems half or more of the time? Yes. PROBLEM SOLVING - STEP 3: How often does the patient need help to solve basic routine problems? Less than 10% of the time PROBLEM SOLVING - SCORE: 5-SUP MEMORY: MEMORY - STEP 1: Does the patient need help from a person or device, or need extra time to remember frequently encount ered people, daily routines, and executing requests? Yes. MEMORY - STEP 2: How often does the patient need help to remember frequently encountered people, daily routines, and e xecuting requests? More than 50% of the time MEMORY - STEP 3: Does the patient need help to remember all of the time OR does s/he not effectively recognize and rem ember? No. Patient does not need help all the time MEMORY - SCORE: 2-MAX SIGNATURE PANEL: The following modified sections: Eating - Score, Grooming - Score, Bathing - Score, Dressing - Upper Body - Score, Dressing - Lower Body - Score, Toileting - Score, Bowel Management - Score, Transfers: Bed, Chair, Wheelchair - Score, Transfers: Toilet - Score, Transfers: Shower - Score, Transfers: Tub - Score, Locomotion: Walk - Score, Locomotion: Wheelchair - Score, Comprehension - Score, Social Inte raction - Score, Problem Solving - Score, Memory - Score, Expression - Score, Bladder Management - Sc ore were [electronically] signed by Brittanie Moody C.N.A. on SatJul 13 2018 10:34:08 GMT-0600 (Cent[facility] Standard Time)
[2018-07-13] MEDS: ATORVASTATIN 20 MG TAB PO SCH (20:26)
[2018-07-13] MEDS: TRAZODONE 50 MG TABLET PO PRN (20:27)
--- NOTE | 2018-07-14 02:13 | FAST ---
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 Ramón Villafana M.D. 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 EATING: Activity did not occur on this shift EATING - SCORE: 0-UNK GROOMING: Wash, rinse, and dry hands GROOMING - STEP 1: Does the patient require the assistance of a person or device, or need extra time when grooming? Yes. GROOMING - STEP 2: Does the patient require the assistance of a helper? Yes. GROOMING - STEP 3: How much assistance does the patient require from the helper? Only prior equipment preparation/set up from the helper GROOMING - SCORE: 5-SUP BATHING: Activity did not occur on this shift BATHING - SCORE: 0-UNK DRESSING - UPPER BODY: Patient is not dressing in public clothing ARTICLES SCORE Total number of steps: 0 DRESSING - UPPER BODY - SCORE: 0-UNK DRESSING - LOWER BODY: Patient is not dressing in public clothing ARTICLES SCORE Total number of steps: 0 DRESSING - LOWER BODY - SCORE: 0-UNK TOILETING: TOILETING - STEP 1: Does the patient require the assistance of a person or device, or need extra time with toileting? Yes . TOILETING - STEP 2: Does the patient require the assistance of a helper? Yes. TOILETING - STEP 3: How much assistance does the patient require from the helper? Only supervision TOILETING - SCORE: 5-SUP BLADDER MANAGEMENT: BLADDER MANAGEMENT - STEP 1: Does the patient control the bladder completely and intentionally without equipment or devices or med ications, and is always continent? Yes. BLADDER MANAGEMENT - SCORE: 7-IND BOWEL MANAGEMENT: Activity did not occur on this shift BOWEL MANAGEMENT - SCORE: 7-IND TRANSFERS: BED, CHAIR, WHEELCHAIR: TRANSFERS: BED, CHAIR, WHEELCHAIR - STEP 1: Does the patient require assistance of a person or device, or need extra time with bed, chair, or whe elchair transfers? Yes. TRANSFERS: BED, CHAIR, WHEELCHAIR - STEP 2: Does the patient require the assistance of a helper? Yes. TRANSFERS: BED, CHAIR, WHEELCHAIR - STEP 3: How much assistance does the patient require from the helper? Steadying/guiding assistance TRANSFERS: BED, CHAIR, WHEELCHAIR - SCORE: 4-MIN TRANSFERS: TOILET: TRANSFERS: TOILET - STEP 1: Does the patient require the assistance of a person or device, or need extra time with toilet transfe rs? Yes. TRANSFERS: TOILET - STEP 2: Does the patient require the assistance of a helper? Yes. TRANSFERS: TOILET - STEP 3: How much assistance does the patient require from the helper? Only supervision, cuing, coaxing, OR he lp to set out transfer equipment or to lock brakes and/or lift foot rests TRANSFERS: TOILET - SCORE: 5-SUP TRANSFERS: SHOWER: Activity did not occur on this shift TRANSFERS: SHOWER - SCORE: 0-UNK TRANSFERS: TUB: Activity did not occur on this shift TRANSFERS: TUB - SCORE: 0-UNK LOCOMOTION: WALK: Activity did not occur on this shift LOCOMOTION: WALK - SCORE: 0-UNK LOCOMOTION: WHEELCHAIR: Activity did not occur on this shift LOCOMOTION: WHEELCHAIR - SCORE: 0-UNK COMPREHENSION: COMPREHENSION: TYPE: Both COMPREHENSION - STEP 1: Does the patient require help from a person or device, or need extra time to understand complex and a bstract ideas (such as current events, finances, discharge planning, medical issues, relationships, e tc)? Yes. COMPREHENSION - STEP 2: Does the patient require help to understand questions or statements about basic needs or ideas (such as hunger, thirst, sleep, safety, daily schedule, room location, or discomfort) half or more of the t agustin? No. COMPREHENSION - STEP 3: How often does the patient need help to understand directions and conversation about basic needs? 25% - 49% of the time COMPREHENSION - SCORE: 3-MOD EXPRESSION EXPRESSION: TYPE: Both EXPRESSION - STEP 1: Does the patient require help from a person or device, or need extra time expressing complex and abst ract ideas (such as current events, finances, discharge planning, medical issues, relationships, etc) ? No. EXPRESSION - STEP 2: Does the patient need extra time, require an assistive device (such as augmentive communication syste m or a communication board), OR does s/he have mild difficulty expressing complex and abstract ideas (including mild dysarthria or mild word-find problems)? Yes. EXPRESSION - SCORE: 6-TONNY SOCIAL INTERACTION: SOCIAL INTERACTION - STEP 1: Does the patient require a helper to interact with others in social and therapeutic situations? No. SOCIAL INTERACTION - STEP 2: Does the patient need extra time in social situations, OR does s/he interact with staff, other patien ts, and family members ONLY in structured environments, OR does s/he require medication for social in teraction? Yes, patient needs extra time SOCIAL INTERACTION - SCORE: 6-TONNY PROBLEM SOLVING: Patient requires bed/chair alarms due to attempts to get up unassisted when helper is needed. PROBLEM SOLVING - STEP 1: How often do the bed/chair alarms go off? Most of the time - the alarms go off about 75% of the time PROBLEM SOLVING - SCORE: 2-MAX MEMORY: MEMORY - STEP 1: How often do the bed/chair alarms go off? Most of the time - the alarms go off about 75% of the time MEMORY - SCORE: 2-MAX SIGNATURE PANEL: The following modified sections: Eating - Score, Grooming - Score, Dressing - Upper Body - Score, Tommy ssing - Lower Body - Score, Toileting - Score, Bladder Management - Score, Bowel Management - Score, Transfers: Bed, Chair, Wheelchair - Score, Transfers: Toilet - Score, Transfers: Shower - Score, Andrews sfers: Tub - Score, Locomotion: Walk - Score, Locomotion: Wheelchair - Score, Comprehension - Score, Expression - Score, Social Interaction - Score, Problem Solving - Score, Memory - Score were [electro nically] signed by Indiana Méndez CNA on SatJul 14 2018 02:11:47 GMT-0600 (Central Standard Time)
[2018-07-14] MEDS: PROMOD 30 ML DOSE PO SCH ×2 (08:00→20:09)
[2018-07-14] MEDS: ENSURE PUDDING 4 OZ CUP PO SCH ×3 (09:00→20:13)
[2018-07-14] MEDS: FERROUS SULFATE 325 MG TAB PO SCH (09:01)
[2018-07-14] MEDS: MEGESTROL 40 MG TAB PO SCH ×2 (09:01→20:09)
[2018-07-14] MEDS: CRANBERRY FRUIT EXTRACT 200 MG CAP PO SCH ×2 (09:01→20:09)
[2018-07-14] MEDS: FE SULF/FA/VIT B COMP & C TAB PO SCH (09:01)
[2018-07-14] MEDS: APIXABAN 2.5 MG TABLET PO SCH ×2 (09:01→20:09)
[2018-07-14] MEDS: levoFLOXacin 500 MG TAB PO SCH (09:01)
[2018-07-14] MEDS: ASPIRIN 81 MG CHEWABLE TABLET PO SCH (09:01)
[2018-07-14] MEDS: DULOXETINE 20 MG CAP PO SCH (09:02)
[2018-07-14] MEDS: AMLODIPINE 5 MG TAB PO SCH (09:02)
--- NOTE | 2018-07-14 10:45 | FAST ---
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 Ramón Villafana M.D. 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 EATING: Activity did not occur on this shift EATING - SCORE: 0-UNK GROOMING: Activity did not occur on this shift GROOMING - SCORE: 0-UNK BATHING: Activity did not occur on this shift BATHING - SCORE: 0-UNK DRESSING - UPPER BODY: Activity did not occur on this shift Patient is not dressing in public clothing ARTICLES SCORE Total number of steps: 0 DRESSING - UPPER BODY - SCORE: 0-UNK DRESSING - LOWER BODY: Activity did not occur on this shift Patient is not dressing in public clothing ARTICLES SCORE Total number of steps: 0 DRESSING - LOWER BODY - SCORE: 0-UNK TOILETING: Activity did not occur on this shift TOILETING - SCORE: 0-UNK BLADDER MANAGEMENT: Activity did not occur on this shift BLADDER MANAGEMENT - SCORE: 7-IND BOWEL MANAGEMENT: Activity did not occur on this shift BOWEL MANAGEMENT - SCORE: 7-IND TRANSFERS: BED, CHAIR, WHEELCHAIR: TRANSFERS: BED, CHAIR, WHEELCHAIR - STEP 1: Does the patient require assistance of a person or device, or need extra time with bed, chair, or whe elchair transfers? Yes. TRANSFERS: BED, CHAIR, WHEELCHAIR - STEP 2: Does the patient require the assistance of a helper? Yes. TRANSFERS: BED, CHAIR, WHEELCHAIR - STEP 3: How much assistance does the patient require from the helper? Only supervision TRANSFERS: BED, CHAIR, WHEELCHAIR - SCORE: 5-SUP TRANSFERS: TOILET: Activity did not occur on this shift TRANSFERS: TOILET - SCORE: 0-UNK TRANSFERS: SHOWER: Activity did not occur on this shift TRANSFERS: SHOWER - SCORE: 0-UNK TRANSFERS: TUB: Activity did not occur on this shift TRANSFERS: TUB - SCORE: 0-UNK LOCOMOTION: WALK: LOCOMOTION: WALK - STEP 1: Does the patient need help from a person or device, or need extra time to walk 150 feet? Yes. LOCOMOTION: WALK - STEP 2: How much assistance does the patient require to walk a minimum of 150 feet? Only supervision, cuing, or coaxing LOCOMOTION: WALK - SCORE: 5-SUP LOCOMOTION: WHEELCHAIR: Activity did not occur on this shift LOCOMOTION: WHEELCHAIR - SCORE: 0-UNK LOCOMOTION: STAIRS: Activity did not occur on this shift LOCOMOTION: STAIRS - SCORE: 0-UNK COMPREHENSION: COMPREHENSION - SCORE: 0-UNK EXPRESSION EXPRESSION - SCORE: 0-UNK SOCIAL INTERACTION: SOCIAL INTERACTION - SCORE: 0-UNK PROBLEM SOLVING: PROBLEM SOLVING - SCORE: 0-UNK MEMORY: MEMORY - SCORE: 0-UNK SIGNATURE PANEL: The following modified sections: Transfers: Bed, Chair, Wheelchair - Score, Transfers: Toilet - Score , Locomotion: Walk - Score, Locomotion: Wheelchair - Score, Locomotion: Stairs - Score were [electron icallvick] signed by Rj Roe PT on SatJul 14 2018 10:44:49 T-0600 (Central Standard Time)
--- NOTE | 2018-07-14 11:24 | FAST ---
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 Ramón Villafana M.D. 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 EATING: EATING - STEP 1: Does the patient require the assistance of a person or device, or need extra time when eating? Yes. EATING - STEP 2: Does the patient require the assistance of a helper? Yes. EATING - STEP 3: Does the patient perform half or more of the eating tasks? Yes. EATING - STEP 4: Does the patient need only supervision, cuing, coaxing OR help to apply an orthosis OR help to cut fo od, open containers, pour liquids, or butter bread? Yes. EATING - SCORE: 5-SUP GROOMING: Comb/brush hair Oral care GROOMING - STEP 1: Does the patient require the assistance of a person or device, or need extra time when grooming? Yes. GROOMING - STEP 2: Does the patient require the assistance of a helper? Yes. GROOMING - STEP 3: How much assistance does the patient require from the helper? Cuing, coaxing, instructions, or encour agement for completion of grooming GROOMING - SCORE: 5-SUP BATHING: Activity did not occur on this shift BATHING - SCORE: 0-UNK DRESSING - UPPER BODY: Activity did not occur on this shift ARTICLES SCORE Total number of steps: 0 DRESSING - UPPER BODY - SCORE: 0-UNK DRESSING - LOWER BODY: Activity did not occur on this shift ARTICLES SCORE Total number of steps: 0 DRESSING - LOWER BODY - SCORE: 0-UNK TOILETING: TOILETING - STEP 1: Does the patient require the assistance of a person or device, or need extra time with toileting? Yes . TOILETING - STEP 2: Does the patient require the assistance of a helper? Yes. TOILETING - STEP 3: How much assistance does the patient require from the helper? Hands-on assistance from the helper TOILETING - STEP 4: Of the 3 tasks: 1) Adjusting clothing prior to use, 2) Cleansing of perineal area, 3) Adjusting clot rebekah after use; How many tasks does the patient perform WITHOUT assistance of the helper? Two tasks TOILETING - SCORE: 3-MOD BLADDER MANAGEMENT: BLADDER MANAGEMENT - STEP 1: Does the patient control the bladder completely and intentionally without equipment or devices or med ications, and is always continent? No. BLADDER MANAGEMENT - STEP 2: Does the patient require the assistance of a helper? No, patient requires and independently uses an a ssistive device, such as a urinal, bedpan, bedside commode, catheter, absorbent pad, or collecting de vice BLADDER MANAGEMENT - SCORE: 6-TONNY BLADDER MANAGEMENT - FREQUENCY OF ACCIDENTS: BLADDER MANAGEMENT(FA) - STEP 1: How many accidents has the patient had during the current shift? 1 BOWEL MANAGEMENT: Activity did not occur on this shift BOWEL MANAGEMENT - SCORE: 7-IND TRANSFERS: BED, CHAIR, WHEELCHAIR: TRANSFERS: BED, CHAIR, WHEELCHAIR - STEP 1: Does the patient require assistance of a person or device, or need extra time with bed, chair, or whe elchair transfers? Yes. TRANSFERS: BED, CHAIR, WHEELCHAIR - STEP 2: Does the patient require the assistance of a helper? Yes. TRANSFERS: BED, CHAIR, WHEELCHAIR - STEP 3: How much assistance does the patient require from the helper? Steadying/guiding assistance TRANSFERS: BED, CHAIR, WHEELCHAIR - SCORE: 4-MIN TRANSFERS: TOILET: TRANSFERS: TOILET - STEP 1: Does the patient require the assistance of a person or device, or need extra time with toilet transfe rs? Yes. TRANSFERS: TOILET - STEP 2: Does the patient require the assistance of a helper? Yes. TRANSFERS: TOILET - STEP 3: How much assistance does the patient require from the helper? Patient performs half or more of the tr ansferring tasks TRANSFERS: TOILET - STEP 4: Does the patient need only incidental help such as contact guard or steadying during toilet transfer? Yes. TRANSFERS: TOILET - SCORE: 4-MIN TRANSFERS: SHOWER: Activity did not occur on this shift TRANSFERS: SHOWER - SCORE: 0-UNK TRANSFERS: TUB: Activity did not occur on this shift TRANSFERS: TUB - SCORE: 0-UNK LOCOMOTION: WALK: Activity did not occur on this shift LOCOMOTION: WALK - SCORE: 0-UNK LOCOMOTION: WHEELCHAIR: Activity did not occur on this shift LOCOMOTION: WHEELCHAIR - SCORE: 0-UNK COMPREHENSION: COMPREHENSION: TYPE: Both COMPREHENSION - STEP 1: Does the patient require help from a person or device, or need extra time to understand complex and a bstract ideas (such as current events, finances, discharge planning, medical issues, relationships, e tc)? Yes. COMPREHENSION - STEP 2: Does the patient require help to understand questions or statements about basic needs or ideas (such as hunger, thirst, sleep, safety, daily schedule, room location, or discomfort) half or more of the t agustin? No. COMPREHENSION - STEP 3: How often does the patient need help to understand directions and conversation about basic needs? 25% - 49% of the time COMPREHENSION - SCORE: 3-MOD EXPRESSION EXPRESSION: TYPE: Both EXPRESSION - STEP 1: Does the patient require help from a person or device, or need extra time expressing complex and abst ract ideas (such as current events, finances, discharge planning, medical issues, relationships, etc) ? Yes. EXPRESSION - STEP 2: Does the patient require help to express basic necessities or ideas (such as hunger, thirst, sleep, s afety, daily schedule, room location, or discomfort) half or more of the time? No. EXPRESSION - STEP 3: How often does the patient need help to express directions and conversation about basic needs? 25-49% of the time EXPRESSION - SCORE: 3-MOD SOCIAL INTERACTION: SOCIAL INTERACTION - STEP 1: Does the patient require a helper to interact with others in social and therapeutic situations? Yes. SOCIAL INTERACTION - STEP 2: Does the patient interact appropriately half or more of the time? Yes. SOCIAL INTERACTION - STEP 3: How often does the patient need help to interact appropriately? 10-24% of the time SOCIAL INTERACTION - SCORE: 4-MIN PROBLEM SOLVING: PROBLEM SOLVING - STEP 1: Does the patient need help from a person or device, or need extra time to solve complex problems such as managing a checking account or confronting interpersonal problems? Yes. PROBLEM SOLVING - STEP 2: Does the patient solve basic routine problems half or more of the time? Yes. PROBLEM SOLVING - STEP 3: How often does the patient need help to solve basic routine problems? 25%-49% of the time PROBLEM SOLVING - SCORE: 3-MOD MEMORY: MEMORY - STEP 1: Does the patient need help from a person or device, or need extra time to remember frequently encount ered people, daily routines, and executing requests? Yes. MEMORY - STEP 2: How often does the patient need help to remember frequently encountered people, daily routines, and e xecuting requests? 25% - 49% of the time MEMORY - SCORE: 3-MOD SIGNATURE PANEL: The following modified sections: Eating - Score, Grooming - Score, Bathing - Score, Dressing - Upper Body - Score, Dressing - Lower Body - Score, Toileting - Score, Bladder Management - Score, Bowel Man agement - Score, Transfers: Bed, Chair, Wheelchair - Score, Transfers: Toilet - Score, Transfers: Lori wer - Score, Transfers: Tub - Score, Locomotion: Walk - Score, Locomotion: Wheelchair - Score, Compre hension - Score, Expression - Score, Social Interaction - Score, Problem Solving - Score, Memory - Sc ore were [electronically] signed by Scottie Mae on SatJul 14 2018 11:23:17 GMT-0600 (Central Standard Time)
[2018-07-14] MEDS: ACETAMINOPHEN 500 MG TAB PO PRN ×2 (12:46→20:12)
--- NOTE | 2018-07-14 13:44 | FAST ---
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 Ramón Villafana M.D. 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 EATING: Activity did not occur on this shift EATING - SCORE: 0-UNK GROOMING: Comb/brush hair Wash, rinse, and dry face Wash, rinse, and dry hands GROOMING - STEP 1: Does the patient require the assistance of a person or device, or need extra time when grooming? Yes. GROOMING - STEP 2: Does the patient require the assistance of a helper? Yes. GROOMING - STEP 3: How much assistance does the patient require from the helper? Only prior equipment preparation/set up from the helper GROOMING - SCORE: 5-SUP BATHING: Abdomen Buttocks Chest Left arm Left lower leg and foot Left upper leg Perineal area Right arm Right lower leg and foot Right upper leg BATHING - STEP 1: Does the patient require the assistance of a person or device, or need extra time when bathing? Yes. BATHING - STEP 2: Does the patient require the assistance of a helper? Yes. BATHING - STEP 3: How much assistance does the patient require from the helper? Only supervision, cuing, coaxing, instr uctions, encouragement BATHING - SCORE: 5-SUP DRESSING - UPPER BODY: Bra (three steps) T-shirt/pullover shirt (four steps) ARTICLES SCORE Total number of steps: 7 DRESSING - UPPER BODY - STEP 1: Does the patient require help from a person or device, or need extra time when dressing above the [address]? Yes. DRESSING - UPPER BODY - STEP 2: Does the patient require the assistance of a helper? Yes. DRESSING - UPPER BODY - STEP 3: Does the helper touch the patient while dressing? No. DRESSING - UPPER BODY - SCORE: 5-SUP DRESSING - LOWER BODY: Elastic waist pants (three steps) Sock - Left foot (one step) Sock - Right foot (one step) Tied or buckled shoe - Left foot (two steps) Tied or buckled shoe - Right foot (two steps) Underwear (three steps) ARTICLES SCORE Total number of steps: 12 DRESSING - LOWER BODY - STEP 1: Does the patient require help from a person or device, or need extra time when dressing below the [address]? Yes. DRESSING - LOWER BODY - STEP 2: Does the patient require the assistance of a helper? Yes. DRESSING - LOWER BODY - STEP 3: Does the helper touch the patient while dressing? No. DRESSING - LOWER BODY - SCORE: 5-SUP TOILETING: Activity did not occur on this shift TOILETING - SCORE: 0-UNK BLADDER MANAGEMENT: Activity did not occur on this shift BLADDER MANAGEMENT - SCORE: 7-IND BOWEL MANAGEMENT: Activity did not occur on this shift BOWEL MANAGEMENT - SCORE: 7-IND TRANSFERS: BED, CHAIR, WHEELCHAIR: Activity did not occur on this shift TRANSFERS: BED, CHAIR, WHEELCHAIR - SCORE: 0-UNK TRANSFERS: TOILET: Activity did not occur on this shift TRANSFERS: TOILET - SCORE: 0-UNK TRANSFERS: SHOWER: TRANSFERS: SHOWER - STEP 1: Does the patient require the assistance of a person or device, or need extra time with shower transfe rs? Yes. TRANSFERS: SHOWER - STEP 2: Does the patient require the assistance of a helper? Yes. TRANSFERS: SHOWER - STEP 3: How much assistance does the patient require from the helper? Only supervision, cuing, coaxing, or he lp to set out transfer equipment or to lock brakes and/or lift foot rests TRANSFERS: SHOWER - SCORE: 5-SUP TRANSFERS: TUB: Activity did not occur on this shift TRANSFERS: TUB - SCORE: 0-UNK LOCOMOTION: WALK: Activity did not occur on this shift LOCOMOTION: WALK - SCORE: 0-UNK LOCOMOTION: WHEELCHAIR: Activity did not occur on this shift LOCOMOTION: WHEELCHAIR - SCORE: 0-UNK LOCOMOTION: STAIRS: Activity did not occur on this shift LOCOMOTION: STAIRS - SCORE: 0-UNK COMPREHENSION: COMPREHENSION - SCORE: 0-UNK EXPRESSION EXPRESSION - SCORE: 0-UNK SOCIAL INTERACTION: SOCIAL INTERACTION - SCORE: 0-UNK PROBLEM SOLVING: PROBLEM SOLVING - SCORE: 0-UNK MEMORY: MEMORY - SCORE: 0-UNK SIGNATURE PANEL: The following modified sections: Eating - Score, Grooming - Score, Bathing - Score, Dressing - Upper Body - Score, Dressing - Lower Body - Score, Toileting - Score, Transfers: Bed, Chair, Wheelchair - S core, Transfers: Toilet - Score, Transfers: Shower - Score, Transfers: Tub - Score, Comprehension - S core, Expression - Score, Social Interaction - Score, Problem Solving - Score, Memory - Score were [e lectronically] signed by MIMI Hernandez on SatJul 14 2018 13:43:10 [facility]-0600 ([address] Time)
--- NOTE | 2018-07-14 15:22 | FAST ---
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 Ramón Villafana M.D. 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 EATING: Activity did not occur on this shift EATING - SCORE: 0-UNK GROOMING: Activity did not occur on this shift GROOMING - SCORE: 0-UNK BATHING: Activity did not occur on this shift BATHING - SCORE: 0-UNK DRESSING - UPPER BODY: Activity did not occur on this shift Patient is not dressing in public clothing ARTICLES SCORE Total number of steps: 0 DRESSING - UPPER BODY - SCORE: 0-UNK DRESSING - LOWER BODY: Activity did not occur on this shift Patient is not dressing in public clothing ARTICLES SCORE Total number of steps: 0 DRESSING - LOWER BODY - SCORE: 0-UNK TOILETING: Activity did not occur on this shift TOILETING - SCORE: 0-UNK BLADDER MANAGEMENT: Activity did not occur on this shift BLADDER MANAGEMENT - SCORE: 7-IND BOWEL MANAGEMENT: Activity did not occur on this shift BOWEL MANAGEMENT - SCORE: 7-IND TRANSFERS: BED, CHAIR, WHEELCHAIR: TRANSFERS: BED, CHAIR, WHEELCHAIR - STEP 1: Does the patient require assistance of a person or device, or need extra time with bed, chair, or whe elchair transfers? No. TRANSFERS: BED, CHAIR, WHEELCHAIR - SCORE: 7-IND TRANSFERS: TOILET: Activity did not occur on this shift TRANSFERS: TOILET - SCORE: 0-UNK TRANSFERS: SHOWER: Activity did not occur on this shift TRANSFERS: SHOWER - SCORE: 0-UNK TRANSFERS: TUB: Activity did not occur on this shift TRANSFERS: TUB - SCORE: 0-UNK LOCOMOTION: WALK: LOCOMOTION: WALK - STEP 1: Does the patient need help from a person or device, or need extra time to walk 150 feet? No. LOCOMOTION: WALK - STEP 2: Does the patient need an assistive device (such as an orthosis, prosthesis, crutches, or walker) to g o 150 feet, OR does s/he take more than reasonable time, OR is there a concern for safety? No. LOCOMOTION: WALK - SCORE: 7-IND LOCOMOTION: WHEELCHAIR: Activity did not occur on this shift LOCOMOTION: WHEELCHAIR - SCORE: 0-UNK LOCOMOTION: STAIRS: LOCOMOTION: STAIRS - STEP 1: Does the patient need help to go up and down 12 to 14 stairs? No. LOCOMOTION: STAIRS - STEP 2: Does the patient require an assistive device - such as handrails or cane - to go up and down one flig ht of stairs, OR does s/he take more than reasonable time, OR is there a concern for safety? Yes, the patient requires an assistive device LOCOMOTION: STAIRS - SCORE: 6-TONNY COMPREHENSION: COMPREHENSION - SCORE: 0-UNK EXPRESSION EXPRESSION - SCORE: 0-UNK SOCIAL INTERACTION: SOCIAL INTERACTION - SCORE: 0-UNK PROBLEM SOLVING: PROBLEM SOLVING - SCORE: 0-UNK MEMORY: MEMORY - SCORE: 0-UNK SIGNATURE PANEL: The following modified sections: Transfers: Bed, Chair, Wheelchair - Score, Transfers: Toilet - Score , Locomotion: Walk - Score, Locomotion: Wheelchair - Score, Locomotion: Stairs - Score were [electron ically] signed by Rj Roe PT on SatJul 14 2018 15:21:21 GMT-0600 (Central Standard Time)
[2018-07-14] MEDS: ATORVASTATIN 20 MG TAB PO SCH (20:09)
[2018-07-14] MEDS: TRAZODONE 50 MG TABLET PO PRN (20:09)
--- NOTE | 2018-07-14 22:38 | R.PN ---
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 SUBJECTIVE: Pt denied any depression. Pt denied any Shortness of Breath. Ambulated 1000' without an assistive device. Up and down 15 steps with standby assistance. Working w ell with speech therapy. VITAL SIGNS Temperature: 98 F SBP/DBP: 125/59 Pulse: 64 Resp: 16 MEDICATION ALLERGIES: adhesive tape-silicones and sulfa ENVIRONMENTAL ALLERGIES: - Substance Allergies None Known - Other Allergies None Known NURSING: - Shower allowing shower - Bladder care per protocol - Skin care per protocol PRECAUTIONS: - Weight Bearing Precaution WBAT left LE ACTIVITIES OOB only with supervision THERAPIES: - Occupational Therapy Evaluate and Treat. Cognitive Retraining. Visual Perceptual Training. - Speech Therapy Memory Strategies. Expressive Language Skills. Speech Intelligibility Training. Cognitive Training. R eceptive Language Skills. - Physical Therapy Evaluate and Treat. PHYSICAL EXAM - Gen Alert and awake Lying in bed No apparent distress Oriented to: person and place - Skin No breakdown Mild left facial numbness and weakness. - Eyes Right visual field deficit. - ENMT No abnormalities - Neck No abnormalities No cervical adenopathy - CVS RRR - Chest No abnormalities - Resp CTA bilaterally - Abd + bowel sounds - GI Soft Deferred - No abnormalities - Ext No significant edema. - MSK 4+/5 weakness in left upper and lower extremity - Neuro 4/5 strength left upper and lower extremities. - Psych No abnormalities ASSESSMENT: Pt. is a 68 yo Right-handed white female.On 07/01/2018 Pt. presented to [facility] with sudden o nset of left-side weakness.On 07/01/2018 she was admitted to [facility] with diagnosis right bas al ganglia acute-subacute infarct involving the dorsal striatum.Her impairment category is Stroke 01 - Left Body (Right Brain) (01.1).Pre-morbidly, Pt. was independent/mod-I in Transfers Control, Commu nication, Social Cognition, Self-Care, Sphincter Control, and Locomotion; and she had good Sphincter Control.Currently, she has deficits of Transfers Control, Communication, Social Cognition, Balance, S elf-Care, Endurance, Safety Awareness, and Locomotion.Pt. is now referred to [facility] for acute in-patient rehabilitation in order to maximize patient's functional independence in activities of daily living, strength, ROM, and mobility.- Rehab Goal Patient has realistic goal of being discharged at assistance level 6-Demraio to reside at Home with [facility] er. MDM/PLAN: - Physical Therapy Gait dysfunction - to improve, our physical therapists will perform initial evaluation of pt's statu s upon admission and devise an individualized program for Gait Training, and Wheel Chair mobility Inability to transfer - to improve, our physical therapists will perform initial evaluation of pt's status upon admission and devise an individualized program for Bed mobility Need for home safety evaluation - to improve, our physical therapists will perform initial evaluatio n of pt's status upon admission and devise an individualized program for Home Evaluation Need in caregiver upon discharge - to improve, our physical therapists will perform initial evaluati on of pt's status upon admission and devise an individualized program for Caregiver Training Edema - to improve, our physical therapists will perform initial evaluation of pt's status upon admi ssion and devise an individualized program for Elevation Training, and Lymphedema Therapy New precaution - to improve, our physical therapists will perform initial evaluation of pt's status upon admission and devise an individualized program for Patient precaution education Poor balance - to improve, our physical therapists will perform initial evaluation of pt's status up on admission and devise an individualized program for Balance Training Poor endurance - to improve, our physical therapists will perform initial evaluation of pt's status upon admission and devise an individualized program for Endurance Training Weakness - to improve, our physical therapists will perform initial evaluation of pt's status upon a dmission and devise an individualized program for Aquatic Therapy, Neuromuscular Reeducation, and Str engthening Achieving independence - to improve, our physical therapists will perform initial evaluation of pt's status upon admission and devise an individualized program for Community Reintegration Activities - Occupational Therapy ADL deficits - to improve, our occupation therapists will perform initial evaluation of pt's status upon admission and devise an individualized program for Bathing, Bed mobility, Community Reintegratio n, Cooking, Dressing, Eating, Fine Motor Skills, Grooming, Homemaking, Kitchen Mobility, Laundry, Pat ient Education, Safety Awareness, Splinting - Positioning, Transfers(Toilet, Tub, Shower), and Wheel Chair Management Cognitive deficits - to improve, our occupation therapists will perform initial evaluation of pt's s tatus upon admission and devise an individualized program for Cognition - orientation Need for professional healthcare representative - to improve, our occupation therapists will perform initial evaluation of pt's status upon admission and devise an individualized program for Caregiver Training Weakness - to improve, our occupation therapists will perform initial evaluation of pt's status upon admission and devise an individualized program for Aquatic Therapy, Balance, Endurance, UE ROM, and UE strengthening - Diet Type Continue Regular - Diet - Liquid Texture Continue Regular - Tube Feed Continue N/A - Bladder care per protocol - Weight Bearing Precaution WBAT left LE - Skin care per protocol - Diet - Solid Texture Continue Regular - Shower allowing shower for Dementia, TBI, Stroke, or others FUNCTIONAL STATUS: UPDATED AT WEEKLY TEAM CONFERENCE - Bladder Same accident frequency: 7-Ind - No accidents in the past 7 days - Bowel Same accident frequency: 7-Ind - No accidents in the past 7 days - Walking Same score based on distance walked: 1(<=50ft) FUNCTIONAL STATUS: - Self-Care A. Eating sup B. Grooming sup C. Bathing sup D. Dressing - Upper sup E. Dressing - Lower sup F. Toileting sup - Sphincter Control G: Bladder control Ind H: Bowel control Ind - Transfers Control I. Bed/Chair/Wheelchair Aliza J. Toilet Aliza K. Tub/Shower Aliza - Locomotion L. Walk/Wheelchair (B) Dep M. Stairs ADNO - Communication N. Comprehension (B) sup O. Expression (B) sup - Social Cognition P. Social Interaction sup Q. Problem Solving sup R. Memory sup - Endurance Fair - Balance Fair - Safety Awareness Fair CURRENT FUNC. DEFICITS: Transfers Control, Communication, Social Cognition, Balance, Self-Care, Endurance, Safety Awareness, and Locomotion SIGNATURE PANEL: (DECK MOLDER)
--- NOTE | 2018-07-15 02:05 | FAST ---
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 Ramón Villafana M.D. 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 EATING: Activity did not occur on this shift EATING - SCORE: 0-UNK GROOMING: Activity did not occur on this shift GROOMING - SCORE: 0-UNK BATHING: Activity did not occur on this shift BATHING - SCORE: 0-UNK DRESSING - UPPER BODY: Activity did not occur on this shift ARTICLES SCORE Total number of steps: 0 DRESSING - UPPER BODY - SCORE: 0-UNK DRESSING - LOWER BODY: Activity did not occur on this shift ARTICLES SCORE Total number of steps: 0 DRESSING - LOWER BODY - SCORE: 0-UNK TOILETING: TOILETING - STEP 1: Does the patient require the assistance of a person or device, or need extra time with toileting? Yes . TOILETING - STEP 2: Does the patient require the assistance of a helper? Yes. TOILETING - STEP 3: How much assistance does the patient require from the helper? Only supervision TOILETING - SCORE: 5-SUP BLADDER MANAGEMENT: BLADDER MANAGEMENT - STEP 1: Does the patient control the bladder completely and intentionally without equipment or devices or med ications, and is always continent? No. BLADDER MANAGEMENT - STEP 2: Does the patient require the assistance of a helper? Yes. BLADDER MANAGEMENT - STEP 3: How much assistance does the patient require from the helper? Only supervision, stand-by, cuing, or c oaxing BLADDER MANAGEMENT - SCORE: 5-SUP BOWEL MANAGEMENT: Activity did not occur on this shift BOWEL MANAGEMENT - SCORE: 7-IND TRANSFERS: BED, CHAIR, WHEELCHAIR: TRANSFERS: BED, CHAIR, WHEELCHAIR - STEP 1: Does the patient require assistance of a person or device, or need extra time with bed, chair, or whe elchair transfers? Yes. TRANSFERS: BED, CHAIR, WHEELCHAIR - STEP 2: Does the patient require the assistance of a helper? Yes. TRANSFERS: BED, CHAIR, WHEELCHAIR - STEP 3: How much assistance does the patient require from the helper? Only supervision TRANSFERS: BED, CHAIR, WHEELCHAIR - SCORE: 5-SUP TRANSFERS: TOILET: TRANSFERS: TOILET - STEP 1: Does the patient require the assistance of a person or device, or need extra time with toilet transfe rs? Yes. TRANSFERS: TOILET - STEP 2: Does the patient require the assistance of a helper? Yes. TRANSFERS: TOILET - STEP 3: How much assistance does the patient require from the helper? Only supervision, cuing, coaxing, OR he lp to set out transfer equipment or to lock brakes and/or lift foot rests TRANSFERS: TOILET - SCORE: 5-SUP TRANSFERS: SHOWER: Activity did not occur on this shift TRANSFERS: SHOWER - SCORE: 0-UNK TRANSFERS: TUB: Activity did not occur on this shift TRANSFERS: TUB - SCORE: 0-UNK LOCOMOTION: WALK: Activity did not occur on this shift LOCOMOTION: WALK - SCORE: 0-UNK LOCOMOTION: WHEELCHAIR: Activity did not occur on this shift LOCOMOTION: WHEELCHAIR - SCORE: 0-UNK COMPREHENSION: COMPREHENSION: TYPE: Both COMPREHENSION - STEP 1: Does the patient require help from a person or device, or need extra time to understand complex and a bstract ideas (such as current events, finances, discharge planning, medical issues, relationships, e tc)? Yes. COMPREHENSION - STEP 2: Does the patient require help to understand questions or statements about basic needs or ideas (such as hunger, thirst, sleep, safety, daily schedule, room location, or discomfort) half or more of the t agustin? Yes. COMPREHENSION - STEP 3: Is the patient basically able to understand and respond appropriately and consistently? Yes. COMPREHENSION - SCORE: 2-MAX EXPRESSION EXPRESSION: TYPE: Both EXPRESSION - STEP 1: Does the patient require help from a person or device, or need extra time expressing complex and abst ract ideas (such as current events, finances, discharge planning, medical issues, relationships, etc) ? Yes. EXPRESSION - STEP 2: Does the patient require help to express basic necessities or ideas (such as hunger, thirst, sleep, s afety, daily schedule, room location, or discomfort) half or more of the time? Yes. EXPRESSION - STEP 3: Is the patient basically unable to express or does s/he express inappropriately or inconsistently kellie pite prompting? No. EXPRESSION - SCORE: 2-MAX SOCIAL INTERACTION: SOCIAL INTERACTION - STEP 1: Does the patient require a helper to interact with others in social and therapeutic situations? No. SOCIAL INTERACTION - STEP 2: Does the patient need extra time in social situations, OR does s/he interact with staff, other patien ts, and family members ONLY in structured environments, OR does s/he require medication for social in teraction? Yes, patient needs extra time SOCIAL INTERACTION - SCORE: 6-TONNY PROBLEM SOLVING: Patient requires bed/chair alarms due to attempts to get up unassisted when helper is needed. PROBLEM SOLVING - STEP 1: How often do the bed/chair alarms go off? All the time - the alarms are constantly going off PROBLEM SOLVING - SCORE: 1-DEP MEMORY: MEMORY - STEP 1: How often do the bed/chair alarms go off? All of the time - the alarms are constantly going off MEMORY - SCORE: 1-DEP SIGNATURE PANEL: The following modified sections: Eating - Score, Grooming - Score, Bathing - Score, Dressing - Upper Body - Score, Dressing - Lower Body - Score, Toileting - Score, Bladder Management - Score, Bowel Man agement - Score, Transfers: Bed, Chair, Wheelchair - Score, Transfers: Toilet - Score, Transfers: Lori wer - Score, Transfers: Tub - Score, Locomotion: Walk - Score, Locomotion: Wheelchair - Score, Compre hension - Score, Expression - Score, Social Interaction - Score, Problem Solving - Score, Memory - Sc ore were [electronically] signed by Terese eLmus RN on SatJul 15 2018 02:04:38 GMT-0600 (Central Stand haris Time)
[2018-07-15] MEDS: PROMOD 30 ML DOSE PO SCH (08:00)
[2018-07-15] MEDS: FE SULF/FA/VIT B COMP & C TAB PO SCH (08:33)
[2018-07-15] MEDS: APIXABAN 2.5 MG TABLET PO SCH (08:33)
[2018-07-15] MEDS: ASPIRIN 81 MG CHEWABLE TABLET PO SCH (08:33)
[2018-07-15] MEDS: AMLODIPINE 5 MG TAB PO SCH (08:33)
[2018-07-15] MEDS: levoFLOXacin 500 MG TAB PO SCH (08:33)
[2018-07-15] MEDS: CRANBERRY FRUIT EXTRACT 200 MG CAP PO SCH (08:33)
[2018-07-15] MEDS: FERROUS SULFATE 325 MG TAB PO SCH (08:33)
[2018-07-15] MEDS: DULOXETINE 20 MG CAP PO SCH (08:33)
[2018-07-15 08:34] VITALS: BP 141/65
[2018-07-15] MEDS: MEGESTROL 40 MG TAB PO SCH (08:34)
[2018-07-15] MEDS: ENSURE PUDDING 4 OZ CUP PO SCH (08:39)
[2018-07-15 08:56] VITALS: TEMP 98.2
--- NOTE | 2018-07-15 09:05 | FAST ---
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 Ramón Villafana M.D. 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 EATING: EATING - STEP 1: Does the patient require the assistance of a person or device, or need extra time when eating? Yes. EATING - STEP 2: Does the patient require the assistance of a helper? Yes. EATING - STEP 3: Does the patient perform half or more of the eating tasks? Yes. EATING - STEP 4: Does the patient need only supervision, cuing, coaxing OR help to apply an orthosis OR help to cut fo od, open containers, pour liquids, or butter bread? Yes. EATING - SCORE: 5-SUP GROOMING: Comb/brush hair Oral care GROOMING - STEP 1: Does the patient require the assistance of a person or device, or need extra time when grooming? Yes. GROOMING - STEP 2: Does the patient require the assistance of a helper? Yes. GROOMING - STEP 3: How much assistance does the patient require from the helper? Cuing, coaxing, instructions, or encour agement for completion of grooming GROOMING - SCORE: 5-SUP BATHING: Activity did not occur on this shift BATHING - SCORE: 0-UNK DRESSING - UPPER BODY: Bra (three steps) T-shirt/pullover shirt (four steps) ARTICLES SCORE Total number of steps: 7 DRESSING - UPPER BODY - STEP 1: Does the patient require help from a person or device, or need extra time when dressing above the [address]? Yes. DRESSING - UPPER BODY - STEP 2: Does the patient require the assistance of a helper? Yes. DRESSING - UPPER BODY - STEP 3: Does the helper touch the patient while dressing? No. DRESSING - UPPER BODY - SCORE: 5-SUP DRESSING - LOWER BODY: ARTICLES SCORE Total number of steps: 9 DRESSING - LOWER BODY - STEP 1: Does the patient require help from a person or device, or need extra time when dressing below the [address] st? Yes. DRESSING - LOWER BODY - STEP 2: Does the patient require the assistance of a helper? Yes. DRESSING - LOWER BODY - STEP 3: Does the helper touch the patient while dressing? Yes. DRESSING - LOWER BODY - STEP 4: How many of the total steps does the patient complete on his/her own? 5 DRESSING - LOWER BODY - SCORE: 3-MOD TOILETING: TOILETING - STEP 1: Does the patient require the assistance of a person or device, or need extra time with toileting? Yes . TOILETING - STEP 2: Does the patient require the assistance of a helper? Yes. TOILETING - STEP 3: How much assistance does the patient require from the helper? Hands-on assistance from the helper TOILETING - STEP 4: Of the 3 tasks: 1) Adjusting clothing prior to use, 2) Cleansing of perineal area, 3) Adjusting clot rebekah after use; How many tasks does the patient perform WITHOUT assistance of the helper? Three tasks with steadying assistance from the helper TOILETING - SCORE: 4-MIN BLADDER MANAGEMENT: BLADDER MANAGEMENT - STEP 1: Does the patient control the bladder completely and intentionally without equipment or devices or med ications, and is always continent? Yes. BLADDER MANAGEMENT - SCORE: 7-IND BOWEL MANAGEMENT: Activity did not occur on this shift BOWEL MANAGEMENT - SCORE: 7-IND TRANSFERS: BED, CHAIR, WHEELCHAIR: TRANSFERS: BED, CHAIR, WHEELCHAIR - STEP 1: Does the patient require assistance of a person or device, or need extra time with bed, chair, or whe elchair transfers? Yes. TRANSFERS: BED, CHAIR, WHEELCHAIR - STEP 2: Does the patient require the assistance of a helper? Yes. TRANSFERS: BED, CHAIR, WHEELCHAIR - STEP 3: How much assistance does the patient require from the helper? Steadying/guiding assistance TRANSFERS: BED, CHAIR, WHEELCHAIR - SCORE: 4-MIN TRANSFERS: TOILET: TRANSFERS: TOILET - STEP 1: Does the patient require the assistance of a person or device, or need extra time with toilet transfe rs? Yes. TRANSFERS: TOILET - STEP 2: Does the patient require the assistance of a helper? Yes. TRANSFERS: TOILET - STEP 3: How much assistance does the patient require from the helper? Patient performs half or more of the tr ansferring tasks TRANSFERS: TOILET - STEP 4: Does the patient need only incidental help such as contact guard or steadying during toilet transfer? Yes. TRANSFERS: TOILET - SCORE: 4-MIN TRANSFERS: SHOWER: Activity did not occur on this shift TRANSFERS: SHOWER - SCORE: 0-UNK TRANSFERS: TUB: Activity did not occur on this shift TRANSFERS: TUB - SCORE: 0-UNK LOCOMOTION: WALK: Activity did not occur on this shift LOCOMOTION: WALK - SCORE: 0-UNK LOCOMOTION: WHEELCHAIR: Activity did not occur on this shift LOCOMOTION: WHEELCHAIR - SCORE: 0-UNK COMPREHENSION: COMPREHENSION: TYPE: Both COMPREHENSION - STEP 1: Does the patient require help from a person or device, or need extra time to understand complex and a bstract ideas (such as current events, finances, discharge planning, medical issues, relationships, e tc)? Yes. COMPREHENSION - STEP 2: Does the patient require help to understand questions or statements about basic needs or ideas (such as hunger, thirst, sleep, safety, daily schedule, room location, or discomfort) half or more of the t agustin? No. COMPREHENSION - STEP 3: How often does the patient need help to understand directions and conversation about basic needs? 25% - 49% of the time COMPREHENSION - SCORE: 3-MOD EXPRESSION EXPRESSION: TYPE: Both EXPRESSION - STEP 1: Does the patient require help from a person or device, or need extra time expressing complex and abst ract ideas (such as current events, finances, discharge planning, medical issues, relationships, etc) ? Yes. EXPRESSION - STEP 2: Does the patient require help to express basic necessities or ideas (such as hunger, thirst, sleep, s afety, daily schedule, room location, or discomfort) half or more of the time? No. EXPRESSION - STEP 3: How often does the patient need help to express directions and conversation about basic needs? 25-49% of the time EXPRESSION - SCORE: 3-MOD SOCIAL INTERACTION: SOCIAL INTERACTION - STEP 1: Does the patient require a helper to interact with others in social and therapeutic situations? Yes. SOCIAL INTERACTION - STEP 2: Does the patient interact appropriately half or more of the time? Yes. SOCIAL INTERACTION - STEP 3: How often does the patient need help to interact appropriately? 25-49% of the time SOCIAL INTERACTION - SCORE: 3-MOD PROBLEM SOLVING: PROBLEM SOLVING - STEP 1: Does the patient need help from a person or device, or need extra time to solve complex problems such as managing a checking account or confronting interpersonal problems? Yes. PROBLEM SOLVING - STEP 2: Does the patient solve basic routine problems half or more of the time? Yes. PROBLEM SOLVING - STEP 3: How often does the patient need help to solve basic routine problems? 25%-49% of the time PROBLEM SOLVING - SCORE: 3-MOD MEMORY: MEMORY - STEP 1: Does the patient need help from a person or device, or need extra time to remember frequently encount ered people, daily routines, and executing requests? Yes. MEMORY - STEP 2: How often does the patient need help to remember frequently encountered people, daily routines, and e xecuting requests? More than 50% of the time MEMORY - STEP 3: Does the patient need help to remember all of the time OR does s/he not effectively recognize and rem ember? No. Patient does not need help all the time MEMORY - SCORE: 2-MAX SIGNATURE PANEL: The following modified sections: Eating - Score, Grooming - Score, Bathing - Score, Dressing - Upper Body - Score, Dressing - Lower Body - Score, Toileting - Score, Bladder Management - Score, Bowel Man agement - Score, Transfers: Bed, Chair, Wheelchair - Score, Transfers: Toilet - Score, Transfers: Lori wer - Score, Transfers: Tub - Score, Locomotion: Walk - Score, Locomotion: Wheelchair - Score, Compre hension - Score, Expression - Score, Social Interaction - Score, Problem Solving - Score, Memory - Sc ore were [electronically] signed by Scottie Mae on SatJul 15 2018 09:05:30 GMT-0600 (Central Standard Time)
--- NOTE | 2018-07-15 11:50 | FAST ---
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 Ramón Villafana M.D. 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 EATING: Activity did not occur on this shift EATING - SCORE: 0-UNK GROOMING: Activity did not occur on this shift GROOMING - SCORE: 0-UNK BATHING: Activity did not occur on this shift BATHING - SCORE: 0-UNK DRESSING - UPPER BODY: Activity did not occur on this shift Patient is not dressing in public clothing ARTICLES SCORE Total number of steps: 0 DRESSING - UPPER BODY - SCORE: 0-UNK DRESSING - LOWER BODY: Activity did not occur on this shift Patient is not dressing in public clothing ARTICLES SCORE Total number of steps: 0 DRESSING - LOWER BODY - SCORE: 0-UNK TOILETING: Activity did not occur on this shift TOILETING - SCORE: 0-UNK BLADDER MANAGEMENT: Activity did not occur on this shift BLADDER MANAGEMENT - SCORE: 7-IND BOWEL MANAGEMENT: Activity did not occur on this shift BOWEL MANAGEMENT - SCORE: 7-IND TRANSFERS: BED, CHAIR, WHEELCHAIR: TRANSFERS: BED, CHAIR, WHEELCHAIR - STEP 1: Does the patient require assistance of a person or device, or need extra time with bed, chair, or whe elchair transfers? Yes. TRANSFERS: BED, CHAIR, WHEELCHAIR - STEP 2: Does the patient require the assistance of a helper? Yes. TRANSFERS: BED, CHAIR, WHEELCHAIR - STEP 3: How much assistance does the patient require from the helper? Only supervision TRANSFERS: BED, CHAIR, WHEELCHAIR - SCORE: 5-SUP TRANSFERS: TOILET: Activity did not occur on this shift TRANSFERS: TOILET - SCORE: 0-UNK TRANSFERS: SHOWER: Activity did not occur on this shift TRANSFERS: SHOWER - SCORE: 0-UNK TRANSFERS: TUB: Activity did not occur on this shift TRANSFERS: TUB - SCORE: 0-UNK LOCOMOTION: WALK: LOCOMOTION: WALK - STEP 1: Does the patient need help from a person or device, or need extra time to walk 150 feet? Yes. LOCOMOTION: WALK - STEP 2: How much assistance does the patient require to walk a minimum of 150 feet? Only supervision, cuing, or coaxing LOCOMOTION: WALK - SCORE: 5-SUP LOCOMOTION: WHEELCHAIR: Activity did not occur on this shift LOCOMOTION: WHEELCHAIR - SCORE: 0-UNK LOCOMOTION: STAIRS: LOCOMOTION: STAIRS - STEP 1: Does the patient need help to go up and down 12 to 14 stairs? Yes. LOCOMOTION: STAIRS - STEP 2: How much assistance does the patient need from the helper to go a minimum of 12 to 14 stairs? Only reece pervision, cuing, or coaxing LOCOMOTION: STAIRS - SCORE: 5-SUP COMPREHENSION: COMPREHENSION - SCORE: 0-UNK EXPRESSION EXPRESSION - SCORE: 0-UNK SOCIAL INTERACTION: SOCIAL INTERACTION - SCORE: 0-UNK PROBLEM SOLVING: PROBLEM SOLVING - SCORE: 0-UNK MEMORY: MEMORY - SCORE: 0-UNK SIGNATURE PANEL: The following modified sections: Transfers: Bed, Chair, Wheelchair - Score, Transfers: Toilet - Score , Locomotion: Walk - Score, Locomotion: Wheelchair - Score, Locomotion: Stairs - Score were [audrey palma] signed by Andrey Phillip PTA on SatJul 15 2018 11:49:45 GMT-0600 (Central Standard Time)
--- NOTE | 2018-07-15 15:16 | FAST ---
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 Ramón Villafana M.D. 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 EATING: Activity did not occur on this shift EATING - SCORE: 0-UNK GROOMING: Activity did not occur on this shift GROOMING - SCORE: 0-UNK BATHING: Activity did not occur on this shift BATHING - SCORE: 0-UNK DRESSING - UPPER BODY: Activity did not occur on this shift Patient is not dressing in public clothing ARTICLES SCORE Total number of steps: 0 DRESSING - UPPER BODY - SCORE: 0-UNK DRESSING - LOWER BODY: Activity did not occur on this shift Patient is not dressing in public clothing ARTICLES SCORE Total number of steps: 0 DRESSING - LOWER BODY - SCORE: 0-UNK TOILETING: Activity did not occur on this shift TOILETING - SCORE: 0-UNK BLADDER MANAGEMENT: Activity did not occur on this shift BLADDER MANAGEMENT - SCORE: 7-IND BOWEL MANAGEMENT: Activity did not occur on this shift BOWEL MANAGEMENT - SCORE: 7-IND TRANSFERS: BED, CHAIR, WHEELCHAIR: TRANSFERS: BED, CHAIR, WHEELCHAIR - STEP 1: Does the patient require assistance of a person or device, or need extra time with bed, chair, or whe elchair transfers? Yes. TRANSFERS: BED, CHAIR, WHEELCHAIR - STEP 2: Does the patient require the assistance of a helper? Yes. TRANSFERS: BED, CHAIR, WHEELCHAIR - STEP 3: How much assistance does the patient require from the helper? Only supervision TRANSFERS: BED, CHAIR, WHEELCHAIR - SCORE: 5-SUP TRANSFERS: TOILET: Activity did not occur on this shift TRANSFERS: TOILET - SCORE: 0-UNK TRANSFERS: SHOWER: Activity did not occur on this shift TRANSFERS: SHOWER - SCORE: 0-UNK TRANSFERS: TUB: Activity did not occur on this shift TRANSFERS: TUB - SCORE: 0-UNK LOCOMOTION: WALK: LOCOMOTION: WALK - STEP 1: Does the patient need help from a person or device, or need extra time to walk 150 feet? No. LOCOMOTION: WALK - STEP 2: Does the patient need an assistive device (such as an orthosis, prosthesis, crutches, or walker) to g o 150 feet, OR does s/he take more than reasonable time, OR is there a concern for safety? No. LOCOMOTION: WALK - SCORE: 7-IND LOCOMOTION: WHEELCHAIR: Activity did not occur on this shift LOCOMOTION: WHEELCHAIR - SCORE: 0-UNK LOCOMOTION: STAIRS: LOCOMOTION: STAIRS - STEP 1: Does the patient need help to go up and down 12 to 14 stairs? No. LOCOMOTION: STAIRS - STEP 2: Does the patient require an assistive device - such as handrails or cane - to go up and down one flig ht of stairs, OR does s/he take more than reasonable time, OR is there a concern for safety? Yes, the patient requires an assistive device LOCOMOTION: STAIRS - SCORE: 6-TONNY COMPREHENSION: COMPREHENSION - SCORE: 0-UNK EXPRESSION EXPRESSION - SCORE: 0-UNK SOCIAL INTERACTION: SOCIAL INTERACTION - SCORE: 0-UNK PROBLEM SOLVING: PROBLEM SOLVING - SCORE: 0-UNK MEMORY: MEMORY - SCORE: 0-UNK SIGNATURE PANEL: The following modified sections: Transfers: Bed, Chair, Wheelchair - Score, Transfers: Toilet - Score , Locomotion: Walk - Score, Locomotion: Wheelchair - Score, Locomotion: Stairs - Score were [audrey palma] signed by Andrey Phillip PTA on SatJul 15 2018 15:15:03 GMT-0600 (Central Standard Time)
== END 2018-07-15 11:45 | disposition home health service (06) | DRG 57 ==
LOC: 5TH 15:48
PROVIDERS: ADMIT Psychiatry & Neurology Neurology with Special Qualifications in Child Neurology; ATTEND Psychiatry & Neurology Neurology with Special Qualifications in Child Neurology
DX: I69.354 Hemiplegia and hemiparesis following cerebral infarction affecting left non-dominant side (principal); D63.8 Anemia in other chronic diseases classified elsewhere
CPT/HCPCS: 36415; 70450; 71045; 80048; 81001; 81003; 82040; 83615; 83735; 84134; 84145; 85018; 85025; 87040; 87086; 87088; 92507; 92523; 92526; 92610; 97110; 97112; 97116; 97163; 97167; 97530; 97542; J1650

== ENCOUNTER 2018-08-22 16:59 | Emergency (ER) | payer OTHER ==
--- OUTSIDE RECORDS SUMMARY | 2018-08-22 17:02 | XMS REPORT ---
:1950 Author Organization [employer] Care Team Providers Name Role Phone Shade Coffman Provider Role Unavailable Allergies, Adverse Reactions, Alerts Substance Reaction Event Type dye Info Not Available Non Drug Allergy Problems Problem Type Condition Code Onset Dates Condition Status Assessment Chronic anemia D64.9 Active Assessment Cerebrovascular accident (CVA), I63.9 Active unspecified mechanism Problem History of kidney cancer Z85.528 Active Problem Chronic anemia D64.9 Active Problem History of ovarian cancer Z85.43 Active Problem Stage 1 chronic kidney disease N18.1 Active Problem Essential (primary) hypertension I10 Active Problem Cerebrovascular accident (CVA), I63.9 Active unspecified mechanism Problem Hyperlipidemia, unspecified E78.5 Active hyperlipidemia type Assessment Stage 1 chronic kidney disease N18.1 Active Assessment Essential (primary) hypertension I10 Active Assessment Hyperlipidemia, unspecified E78.5 Active hyperlipidemia type Assessment Hyperglycemia R73.9 Active Assessment History of kidney cancer Z85.528 Active Medications Medication Code Code Instructions Start End Status Dosage System Date Date ASA [facility] 0 81 -chewable January Active 1 tab Oral daily 2018 Lisinopril [facility] 96384788349 5 MG Orally Jul 28, Active 1 tablet Once a day 2018 Melatonin [facility] [address]-81 3 MG Orally Active 2 tablet Once a day at bedtime as needed with food Cranberry [facility] 75305870195 400 MG Orally Active 1 capsule Twice a day with meals Norvasc [facility] 88763292121 5 MG Orally Inactive 1 tablet Once a day Hemocyte Plus [facility] 74232093873 106-1 MG Orally Active 1 capsule Once a day with breakfast Cymbalta [facility] 39128178037 20 MG Orally Active 1 capsule Once a day Senokot S [facility] 38288863117 8.6-50 MG Active 2 tablet Orally Once a in the day evening as needed Bactrim DS [facility] 67482204459 800-160 MG Jul 24, Active 1 tablet Orally BID 2018 atorvastatin [facility] 57892432492 20mg orally January Active 1 tablet bedtime 20, by mouth 2019 at bedtime Results No Known Results Summary Purpose [employer] Submission
--- OUTSIDE RECORDS SUMMARY | 2018-08-22 17:02 | XMS REPORT ---
:1950 [facility] Address [address] [place] [address] Dr. Duron [address] [place] [id number] Care Team Providers Name Role Phone Unavailable Unavailable Unavailable Problems This patient has no known problems. Allergies, Adverse Reactions, Alerts This patient has no known allergies or adverse reactions. Medications This patient has no known medications.
--- OUTSIDE RECORDS SUMMARY | 2018-08-22 17:02 | XMS REPORT | Clinical Summary ---
:1950 Author Organization [facility] Address [address] [place] [id number] Care Team Providers Name Role Phone Asked, [...] with routine healing, subsequent encounter (Primary Dx) after 08/21/2017 Social History Tobacco Use Types Packs/Day Years [...] Closed displaced Results for this RIGHT PM [employer]ES [employer]IVE osteochondral fracture procedure are in of right patella with the results routine healing, section. subsequent encounter after 08/21/2017 Results XR Knee 1 Or 2 Vw Right (10/01/2017 1:49 PM CDT)Only the most recent of2 resultswithin the time period is included. 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 Performing Organization Address City/State/Zipcode Phone Number [facility] [address] [place] [address] after 08/21/2017 Insurance Payer Benefit Plan / Group Subscriber ID Type Phone Address MEDICARE MEDICARE PART A AND B xxxxxxxxxx Medicare [place], [place] COMMERCIAL MISC MISC COMMERCIAL xxxxxxxx Commercial Guarantor Name Account Type Relation to Date of Phone Billing Patient Address Desiree Ahumada Personal/Family Self 1950 [phone] [address] [facility] (Home) [address] [place] [address] Advance Directives Patient has advance care planning documents on file. For more information, please contact:Hagen [id number] [place] [address]
[2018-08-22 17:54] LABS: Protime INR 1.14
[2018-08-22 18:10] LABS: ALT/SGPT 16 U/L (12-78); AST/SGOT 14 U/L (15-37); Albumin 3.1 g/dL (3.4-5.0); Alkaline Phosphatase 103 U/L (45-117); BUN Blood Urea Nitrogen 9 mg/dL (7-18); Bicarbonate 26 mmol/L (21-32); Bilirubin Direct 0.2 mg/dL (0-0.2); Bilirubin Total 0.5 mg/dL (0.2-1.0); Creatine Phosphokinase 11 U/L (26-192); Glucose Level 125 mg/dL (74-106); Potassium 4.1 mmol/L (3.5-5.1); Protein, Total 7.1 g/dL (6.4-8.2); Sodium Level 137 mmol/L (136-145); Troponin (Emerg Dept Use Only) < 0.02 ng/mL (0.0-0.045)
--- NOTE | 2018-08-22 18:14 | RAD REPORT ---
EXAM DESCRIPTION: Ney Single View08/22/2018 5:58 pm CLINICAL HISTORY: Fever COMPARISON: July 2018 FINDINGS: The lungs appear clear of acute infiltrate. The heart is normal size IMPRESSION: No acute abnormalities displayed
[2018-08-22 18:22] LABS: Absolute Lymphocytes (CBC) 0.3 K/uL (0.7-4.9); Absolute Monocytes 0.3 K/uL (0.1-1.3); Absolute Neutrophil 9.2 K/uL (1.8-8.0); Basophils % 0.4 % (0-1.3); Hematocrit 27.6 % (36.0-45.0); Lymphocytes % 3.5 % (15.3-44.8); MPV 7.7 fL (7.6-11.3); Monocytes % 2.8 % (3.3-12.3); RBC Red Blood Cell Count 3.77 M/uL (3.86-4.86)
[2018-08-22 18:47] LABS: Anisocytosis SLIGHT; Blood Morphology Comment NOTED (NOT SEEN); Platelet Estimate INCR; Urine White Blood Cell Casts OK
[2018-08-22 18:48] LABS: Elliptocytes 1+
[2018-08-22 19:03] LABS: Urine Bacteria <20 /HPF (<20); Urine Culture Reflex Order NOT NEEDED; Urine Mucus 2+ /HPF (NONE SEEN); Urine RBC <5 /HPF (NONE SEEN)
[2018-08-22] MEDS ORDERED: CEFTRIAXONE/SWI 1gm 1 GM/10 ML SYR ONE (19:15)
[2018-08-22] MEDS ORDERED: NA CHLORIDE 0.9% 1,000 ML ONE (19:35)
[2018-08-22] MEDS ORDERED: ACETAMINOPHEN 500 MG TAB ONE (19:35)
--- NOTE | 2018-08-22 20:01 | RAD REPORT ---
EXAM DESCRIPTION: CT - Abdomen Pelvis W Contrast - 08/22/2018 7:49 pm CLINICAL HISTORY: Abdominal pain COMPARISON: none. TECHNIQUE: Computed axial tomography of the abdomen pelvis was obtained. 100 cc Isovue-300 was admin istered intravenously. Oral contrast was not requested which limits evaluation of bowel. All CT scans are performed using dose optimization technique as appropriate and may include automated exposure control or mA/KV adjustment according to patient size. FINDINGS: The liver, spleen, pancreas, adrenal and right kidney appear unremarkable. Left kidney has been resected. 5 centimeter cecal mass is suspected. There may be involvement of the terminal ileum. Mild stranding within the adjacent fat. A hysterectomy has been performed. An adnexal mass is not noted. There is no evidence of diverticulit is IMPRESSION: 5 centimeter cecal mass. Direct visualization recommend
[2018-08-22 20:10] LABS: Urine Blood NEGATIVE (NEG); Urine Glucose NEGATIVE (NEG); Urine Protein TRACE (NEG); Urine pH 6.5 (5.0-7.0)
[2018-08-22] MEDS ORDERED: METRONIDAZOLE 500mg IVPB 500 MG/100 ML BAG IV ONE (20:44)
--- NOTE | 2018-08-22 21:11 | EDPHYS ---
Physician Documentation [facility] Name: Desiree Ahumada Age: 68 yrs Sex: Female : 1950 Arrival Date: 08/22/2018 Time: 17:01 Bed 24 Private MD: ED Physician Fabio Anderson HPI: 08/22 17:22 This 68 yrs old Female presents to ER via Wheelchair with complaints of jr8 Shaking, Fever. 17:22 Onset: The symptoms/episode began/occurred acutely, today. Associated signs and jr8 symptoms: Pertinent positives: general weakness, nausea, and more confused then normal . Modifying factors: The patient symptoms are alleviated by nothing, the patient symptoms are aggravated by nothing. The patient has not experienced similar symptoms in the past. The patient has not recently seen a physician. Historical: - Allergies: 17:07 No Known Allergies; sv - PMHx: 17:07 ovarian cancer; CVA; sv - PSHx: 17:07 Hysterectomy; left kidney removed; sv - Social history:: Smoking status: Patient/guardian denies using tobacco. - Ebola Screening: : No symptoms or risks identified at this time. ROS: 17:41 Eyes: Negative for injury, pain, redness, and discharge, ENT: Negative for injury, jr8 pain, and discharge, Neck: Negative for injury, pain, and swelling, Cardiovascular: Negative for chest pain, palpitations, and edema, Respiratory: Negative for shortness of breath, cough, wheezing, and pleuritic chest pain, Abdomen/GI: Negative for abdominal pain, vomiting, diarrhea, and constipation. Positive for nausea Back: Negative for injury and pain. 17:41 Constitutional: Positive for fatigue. 17:41 Neuro: Positive for altered mental status, headache, Negative for seizure activity, syncope. Exam: 17:41 Eyes: Pupils equal round and reactive to light, extra-ocular motions intact. Lids and jr8 lashes normal. Conjunctiva and sclera are non-icteric and not injected. Cornea within normal limits. Periorbital areas with no swelling, redness, or edema. ENT: Nares patent. No nasal discharge, no septal abnormalities noted. Tympanic membranes are normal and external auditory canals are clear. Oropharynx with no redness, swelling, or masses, exudates, or evidence of obstruction, uvula midline. Mucous membranes moist. Neck: Trachea midline, no thyromegaly or masses palpated, and no cervical lymphadenopathy. Supple, full range of motion without nuchal rigidity, or vertebral point tenderness. No Meningismus. Cardiovascular: Regular rate and rhythm with a normal S1 and S2. No gallops, murmurs, or rubs. Normal PMI, no JVD. No pulse deficits. Respiratory: Lungs have equal breath sounds bilaterally, clear to auscultation and percussion. No rales, rhonchi or wheezes noted. No increased work of breathing, no retractions or nasal flaring. Abdomen/GI: Soft, non-tender, with normal bowel sounds. No distension or tympany. No guarding or rebound. No evidence of tenderness throughout. Back: No spinal tenderness. No costovertebral tenderness. Full range of motion. Skin: Warm, dry with normal turgor. Normal color with no rashes, no lesions, and no evidence of cellulitis. MS/ Extremity: Pulses equal, no cyanosis. Neurovascular intact. Full, normal range of motion. Neuro: Awake and alert, GCS 15, oriented to person, place, time, and situation. Cranial nerves II-XII grossly intact. Motor strength 5/5 in all extremities. Sensory grossly intact. Cerebellar exam normal. Normal gait. Vital Signs: 17:06 BP 132 / 64; Pulse 109; Resp 20; Temp 99.4(O); Pulse Ox 100% ; sv 17:45 BP 109 / 55; Pulse 96; Resp 19; Pulse Ox 98% on R/A; ca1 18:20 BP 130 / 80; Pulse 93; Resp 18; Pulse Ox 100% on R/A; ca1 19:13 BP 159 / 56; Pulse 93; Resp 19; Pulse Ox 99% on R/A; ca1 19:50 BP 129 / 53; Pulse 87; Resp 19; Pulse Ox 98% on R/A; ca1 20:40 BP 124 / 94; Pulse 88; Resp 19; Pulse Ox 99% on R/A; ca1 22:07 BP 120 / 54; Pulse 82; Resp 21; Temp 98.5; Pulse Ox 96% on R/A; Weight 71.21 kg; Height ca1 5 ft. 7 in. (170.18 cm); 22:54 BP 123 / 65; Pulse 83; Resp 19; Pulse Ox 100% on R/A; ca1 22:07 Body Mass Index 24.59 (71.21 kg, 170.18 cm) ca1 MDM: 17:11 Patient medically screened. jr8 20:48 Data reviewed: vital signs, nurses notes, lab test result(s), EKG, radiologic studies, jr8 CT scan, plain films. Data interpreted: Pulse oximetry: on room air is 99 %. Interpretation: normal. Counseling: I had a detailed discussion with the patient and/or guardian regarding: the historical points, exam findings, and any diagnostic results supporting the discharge/admit diagnosis, lab results, radiology results, the need to transfer to another facility, [facility] does not immediately have the required specialist. 21:08 ED course: Dr. Jaimes consulted at [facility] and accepted patient along with jrIsadora there GI consulting on case since we do not have GI on this weekend at our facility . 08/22 17:24 Order name: Basic Metabolic Panel; Complete Time: 18:17 8 08/22 17:24 Order name: Blood Culture Adult (2) 08/22 17:24 Order name: CBC with Diff; Complete Time: 18:55 jr8 08/22 17:24 Order name: CPK; Complete Time: 18:17 jr8 08/22 17:24 Order name: Lactate; Complete Time: 18:07 [facility] 08/22 17:24 Order name: LFT's; Complete Time: 18:17 jr8 08/22 17:24 Order name: Procalcitonin; Complete Time: 18:55 8 08/22 17:24 Order name: Protime (+inr); Complete Time: 18:07 08/22 17:24 Order name: Troponin (emerg Dept Use Only); Complete Time: 18:17 jr8 08/22 17:24 Order name: Urine Microscopic Only; Complete Time: 19:15 jr08/22 17:41 Order name: Glucose, Ancillary Testing; Complete Time: 17:55 EDMS 08/22 18:18 Order name: Influenza Screen (a \T\ B); Complete Time: 19:57 jr8 08/22 18:29 Order name: CBC Smear Scan; Complete Time: 18:55 EDMS 08/22 18:30 Order name: Urine Dipstick--Ancillary (enter results); Complete Time: 20:34 08/22 17:24 Order name: Cath; Complete Time: 18:13 8 08/22 17:24 Order name: Chest Single View XRAY; Complete Time: 18:17 08/22 17:24 Order name: Accucheck; Complete Time: 17:44 08/22 17:24 Order name: Cardiac monitoring; Complete Time: 17:44 jr8 08/22 17:24 Order name: EKG - Nurse/Tech; Complete Time: 17:44 08/22 17:24 Order name: IV Saline Lock - Large Bore; Complete Time: 17:44 08/22 17:24 Order name: Labs collected and sent; Complete Time: 17:44 08/22 17:24 Order name: O2 Per Protocol; Complete Time: 17:44 08/22 17:24 Order name: O2 Sat Monitoring; Complete Time: 17:44 08/22 17:24 Order name: Urine Dipstick-Ancillary (obtain specimen); Complete Time: 18:13 8 08/22 17:30 Order name: EKG Electrocardiogram; Complete Time: 18:15 [facility] 08/22 19:21 Order name: CT Abd/Pelvis - W/Contrast; Complete Time: 20:11 Administered Medications: 19:05 Drug: Rocephin 1 grams Route: IV; Rate: calculated rate; Site: right antecubital; ca1 21:00 Follow up: Response: No adverse reaction; IV Status: Completed infusion ca1 19:20 Drug: NS 0.9% 1000 ml Route: IV; Rate: 1000 ml; Site: right antecubital; ca1 22:56 Follow up: IV Status: Completed infusion ca1 19:20 Drug: Tylenol 1000 mg Route: PO; ca1 20:40 Follow up: Response: No adverse reaction ca1 20:35 Drug: Flagyl 500 mg Volume: 100 ml; Route: IVPB; Rate: 200 ml/hr; Infused Over: 30 ca1 mins; Site: right antecubital; 21:10 Follow up: Response: No adverse reaction; IV Status: Completed infusion ca1 Disposition: 08/22/18 21:10 Transfer ordered to [facility]. Diagnosis are Anemia, Gastrointestinal hemorrhage, unspecified, Cecal Mass , Bacteremia. - Reason for transfer: Higher level of care. - Accepting physician is Dr. Jaimes . - Condition is Stable. - Problem is new. - Symptoms are unchanged. Addendum: 08/25/2018 05:41 Co-signature as Attending Physician, Fabio Anderson MD I agree with the assessment and c galindo plan of care. Signatures: Dispatcher [employer] Carine Francisco, RN RN Fabio Mcdonnell MD MD cha Roszak, Josh, PA PA jr8 Jayjay Rivera RN RN mg2 Emeli Egan RN RN ca1 Corrections: (The following items were deleted from the chart) 08/22 23:03 21:10 08/22/2018 21:10 Transfer ordered to [facility]. Diagnosis is mg2 Anemia; Gastrointestinal hemorrhage, unspecified; Cecal Mass ; Bacteremia. Reason for transfer: Higher level of care. Accepting physician is Dr. Jaimes . Condition is Stable. Problem is new. Symptoms are unchanged. jr8
--- NOTE | 2018-08-22 21:11 | ER ---
Nurse's Notes [facility] Name: Desiree Ahumada Age: 68 yrs Sex: Female : 1950 Arrival Date: 08/22/2018 Time: 17:01 Bed 24 Private MD: Diagnosis: Anemia;Gastrointestinal hemorrhage, unspecified;Cecal Mass ;Bacteremia Presentation: 08/22 17:06 Presenting complaint: states: increase AMS, c/o shaking and fever at home. sv Transition of care: patient was not received from another setting of care. Onset of symptoms was August 22, 2018. Care prior to arrival: None. 17:06 Method Of Arrival: Wheelchair sv 17:06 Acuity: LIA 3 sv 17:15 Risk Assessment: Do you want to hurt yourself or someone else? Patient reports no ca1 desire to harm self or others. 17:15 Initial Sepsis Screen: Does the patient meet any 2 criteria? No. Patient's initial ca1 sepsis screen is negative. Does the patient have a suspected source of infection? Yes:. Historical: - Allergies: 17:07 No Known Allergies; sv - PMHx: 17:07 ovarian cancer; CVA; sv - PSHx: 17:07 Hysterectomy; left kidney removed; sv - Social history:: Smoking status: Patient/guardian denies using tobacco. - Ebola Screening: : No symptoms or risks identified at this time. Screenin:15 Abuse screen: Denies threats or abuse. Denies injuries from another. Nutritional ca1 screening: No deficits noted. Tuberculosis screening: No symptoms or risk factors identified. Fall Risk Secondary diagnosis (15 points) CVA, IV access (20 points). Ambulatory Aid-. Assessment: 17:15 General: Appears in no apparent distress. comfortable, Behavior is calm, cooperative, ca1 appropriate for age. General: Reports chills for 0-12 hours, fever for 0-12 hours. Pain: Denies pain. Neuro: Level of Consciousness is awake, alert, obeys commands, Oriented to person, place, Rubber Tubing Splicer are equal bilaterally Moves all extremities. Speech is normal, Facial symmetry appears normal. Cardiovascular: Heart tones S1 S2 present Capillary refill < 3 seconds Patient's skin is warm and dry. Respiratory: Airway is patent Trachea midline Respiratory effort is even, unlabored, Respiratory pattern is regular, agonal Breath sounds are clear bilaterally. GI: Abdomen is flat, non-distended, Bowel sounds present X 4 quads. Abd is soft and non tender X 4 quads. Parent/caregiver reports the patient having nausea, this morning. : No signs and/or symptoms were reported regarding the genitourinary system. EENT: No signs and/or symptoms were reported regarding the EENT system. Derm: Skin is intact, is fragile, Skin is pink, warm \T\ dry. Musculoskeletal: Circulation, motion, and sensation intact. Capillary refill < 3 seconds. 18:16 Reassessment: Patient appears in no apparent distress at this time. Patient and/or ca1 family updated on plan of care and expected duration. Pain level reassessed. Patient is alert, oriented x 3, equal unlabored respirations, skin warm/dry/pink. 19:10 Reassessment: Patient appears in no apparent distress at this time. Patient and/or ca1 family updated on plan of care and expected duration. Pain level reassessed. Patient is alert, oriented x 3, equal unlabored respirations, skin warm/dry/pink. BIBIANA Yepez at bedside. 19:25 Reassessment: Pt to CT scan. ca1 19:50 Reassessment: Patient appears in no apparent distress at this time. Patient and/or ca1 family updated on plan of care and expected duration. Pain level reassessed. Patient is alert, oriented x 3, equal unlabored respirations, skin warm/dry/pink. PT back from CT scan. 20:31 Reassessment: BIBIANA Yepez at bedside. ca1 20:40 Reassessment: Patient appears in no apparent distress at this time. Patient and/or ca1 family updated on plan of care and expected duration. Pain level reassessed. Patient is alert, oriented x 3, equal unlabored respirations, skin warm/dry/pink. 21:15 Reassessment: Patient appears in no apparent distress at this time. Patient and/or ca1 family updated on plan of care and expected duration. Pain level reassessed. Patient is alert, oriented x 3, equal unlabored respirations, skin warm/dry/pink. Jorje Presley at bedside to explain CT scan result. 21:50 Reassessment: Called transfer center for report. They will call back. ca1 21:55 Reassessment: Assisted pt to restroom to urinate. ca1 22:07 Reassessment: Called report to Kolby Jarrett RN at [facility]. ca1 22:54 Reassessment: Patient appears in no apparent distress at this time. Patient is alert, ca1 oriented x 3, equal unlabored respirations, skin warm/dry/pink. Hand off to [facility]. Vital Signs: 17:06 BP 132 / 64; Pulse 109; Resp 20; Temp 99.4(O); Pulse Ox 100% ; sv 17:45 BP 109 / 55; Pulse 96; Resp 19; Pulse Ox 98% on R/A; ca1 18:20 BP 130 / 80; Pulse 93; Resp 18; Pulse Ox 100% on R/A; ca1 19:13 BP 159 / 56; Pulse 93; Resp 19; Pulse Ox 99% on R/A; ca1 19:50 BP 129 / 53; Pulse 87; Resp 19; Pulse Ox 98% on R/A; ca1 20:40 BP 124 / 94; Pulse 88; Resp 19; Pulse Ox 99% on R/A; ca1 22:07 BP 120 / 54; Pulse 82; Resp 21; Temp 98.5; Pulse Ox 96% on R/A; Weight 71.21 kg; Height ca1 5 ft. 7 in. (170.18 cm); 22:54 BP 123 / 65; Pulse 83; Resp 19; Pulse Ox 100% on R/A; ca1 22:07 Body Mass Index 24.59 (71.21 kg, 170.18 cm) ca1 ED Course: 16:35 Initial lab(s) drawn, by me, sent to lab. Inserted saline lock: 22 gauge in right tm3 antecubital area, using aseptic technique. 16:35 First set of blood cultures drawn by me. tm3 17:01 Patient arrived in ED. mr 17:07 Triage completed. sv 17:08 Arm band placed on. sv 17:11 Emeli Egan, ILYA is Primary Nurse. ca1 17:11 Jorje Presley PA is PHCP. jr8 17:11 Fabio Anderson MD is Attending Physician. jr8 17:15 Patient has correct armband on for positive identification. Placed in gown. Bed in low ca1 position. Call light in reach. Side rails up X2. patient monitor on. Pulse ox on. NIBP on. Warm blanket given. 17:50 EKG done, by water and fire technician. reviewed by Jorje MCCARTY. sm3 17:59 Chest Single View XRAY In Process Unspecified. EDMS 18:00 Second set of blood cultures drawn by me. tm3 18:13 Straight cath inserted, using sterile technique, 16 Fr. Specimen obtained. Returned ca1 dhruv urine. Patient tolerated well. 19:48 CT Abd/Pelvis - W/Contrast In Process Unspecified. EDMS 22:52 No provider procedures requiring assistance completed. Patient transferred, IV remains ca1 in place. Administered Medications: 19:05 Drug: Rocephin 1 grams Route: IV; Rate: calculated rate; Site: right antecubital; ca1 21:00 Follow up: Response: No adverse reaction; IV Status: Completed infusion ca1 19:20 Drug: NS 0.9% 1000 ml Route: IV; Rate: 1000 ml; Site: right antecubital; ca1 22:56 Follow up: IV Status: Completed infusion ca1 19:20 Drug: Tylenol 1000 mg Route: PO; ca1 20:40 Follow up: Response: No adverse reaction ca1 20:35 Drug: Flagyl 500 mg Volume: 100 ml; Route: IVPB; Rate: 200 ml/hr; Infused Over: 30 ca1 mins; Site: right antecubital; 21:10 Follow up: Response: No adverse reaction; IV Status: Completed infusion ca1 Outcome: 21:10 ER care complete, transfer ordered by MD. sanderson 22:52 Transferred by ground EMS to [facility], Transfer form completed. ca1 X-rays sent w/ patient. 22:52 Condition: stable 22:52 Instructed on the need for transfer, Demonstrated understanding of instructions. 23:03 Patient left the ED. mg2 Signatures: Dispatcher [employer] EDRI Ino Sonii 3 Carine Triplett RN RN sv Rivera, Misti Preslye, BIBIANA Recinos jr8 Jayjay Rivera RN RN mg2 Yazmin Lama 3 Emeli Egan RN RN ca1 Corrections: (The following items were deleted from the chart) 17:08 17:06 Temp 99.4F Oral; sv sv 17:49 17:44 Inserted saline lock: 22 gauge in right antecubital area, using aseptic 3 technique. tm3 17:49 17:44 Initial lab(s) drawn, by me, sent to lab. tm3 tm3 19:31 19:13 Reassessment: ca1 ca1
[2018-08-22 23:54] VITALS: TEMP 98.5
[2018-08-22 23:55] VITALS: BP 123/65; O2SAT 100
--- NOTE | 2018-08-25 08:53 | EKG ---
Test Date: 2018-08-22 Test Time: 17:37:18 Senior Counsel: ELLIE MEASUREMENT RESULTS: Intervals: Rate: 91 MO: 136 QRSD: 74 QT: 330 QTc: 405 [place]: P: 73 MO: 136 QRS: 76 T: 68 INTERPRETIVE STATEMENTS: Normal sinus rhythm with sinus arrhythmia Normal ECG Compared to ECG 07/18/2017 23:59:32 Sinus tachycardia no longer present Fusion complex(es) no longer present ST (T wave) deviation no longer present Electronically Signed On 08-25-18 08:52:11 [employer] by Magdaleno So
== END 2018-08-22 23:03 | disposition short-term general hospital (02) ==
LOC: ER 16:59
DX: D64.9 Anemia, unspecified (principal); R78.81 Bacteremia; K92.2 Gastrointestinal hemorrhage, unspecified; K63.89 Other specified diseases of intestine; Z85.43 Personal history of malignant neoplasm of ovary
CPT/HCPCS: 36415; 51702; 71045; 74177; 80048; 80076; 82550; 82962; 83605; 84145; 84484; 85025; 85610; 87040 ×2; 87804 ×2; 93005; 96361; 96365; 99285; J0696; J7030; Q9967; 81003; 81015

== ENCOUNTER 2020-03-19 00:22 | Emergency (ER) | payer OTHER ==
--- OUTSIDE RECORDS SUMMARY | 2020-03-19 00:24 | XMS REPORT | Clinical Summary ---
:1950 Author Organization [facility] Address [address] [place] [address] Care Team Providers Name Role Phone Asked, Pcp Primary Care Provider Unavailable Allergies No Known Allergies Medications No known medications Active Problems Problem Noted Date Closed patellar sleeve fracture, right, with delayed h ealing, subsequent 10/01/2017 encounter Closed displaced osteochondral fracture of right witt la 05/06/2017 Social History Tobacco Use Types Packs/Day Years [...] Last Done Comments BREAST CANCER SCREENING 1999 COLONOSCOPY SCREENING 1999 SHINGLES VACCINES (#1) 1999 65+ PNEUMOCOCCAL VACCINE (1 of 2 - PCV13) 2014 INFLUENZA VACCINE 04/07/2020 Results Not on fileafter 03/19/2019 Insurance Payer Benefit Plan / Subscriber ID Effective Phone Address T ype Group Dates MEDICARE MEDICARE PART A xxxxxxxxxx 2014-Pre [place], [place] Medicare AND B sent COMMERCIAL MISC MISC COMMERCIAL xxxxxxxx 2017-Pres Commercial ent Advance Directives For more information, please contact: [phone] Type Date Recorded Patient Sorority Mother Explanati on Advance Directives, Living Will and Medical Power of Baller Tender
--- OUTSIDE RECORDS SUMMARY | 2020-03-19 00:25 | XMS REPORT | Clinical Summary ---
:1950 Author Organization [facility] Address [address] [place] [address] Care Team Providers Name Role Phone Pcp Primary Care Provider Unavailable Allergies No Known Allergies Medications Medication Sig Dispensed Refills Start Date End Date Status aspirin 81 MG Take 81 mg by 0 Ac tive chewable tablet mouth daily. lisinopril Take 5 mg by 0 Active (PRINIVIL,ZESTRIL) mouth 2 (two) 5 MG tablet times daily. cranberry 400 mg Take 1 0 Act lyla Cap capsule by mouth 2 (two) times daily. DULoxetine Take 20 mg by 0 Activ e (CYMBALTA) 20 MG mouth daily. capsule memantine (NAMENDA) Take 10 mg by 0 Active 10 MG tablet mouth 2 (two) times daily. carbinoxamine Take 4 mg by 0 Act lyla maleate 4 mg Tab mouth daily. atorvastatin Take 20 mg by 0 Act lyla (LIPITOR) 20 MG mouth daily. tablet ferrous sulfate 325 Take 325 mg 0 Active (65 FE) MG tablet by mouth daily with breakfast. fluticasone 1 spray by 0 Active propionate Nasal route (FLONASE) 50 daily. mcg/actuation nasal spray ferrous sulfate 325 Take 325 mg 0 08/20/19 20 Discontinued (65 FE) MG tablet by mouth daily with breakfast. senna-docusate Take 1 tablet 0 08/20/2019 Discontinued (SENNOSIDES-DOCUSAT by mouth E SODIUM) 8.6-50 mg daily. per tablet atorvastatin Take 20 mg by 0 08/20/2019 Di scontinued (LIPITOR) 20 MG mouth tablet nightly. iron-folic acid-mv, Take 1 0 08/20/2019 Discontinued min cmb#15 capsule by (HEMOCYTE-PLUS) 106 mouth daily. mg iron- 1 mg Cap amLODIPine Take 1 tablet 30 tablet 2 09/06/2018 08/20/2019 Dis continued (NORVASC) 5 MG (5 mg total) tablet by mouth daily. gabapentin Take 1 30 capsule 2 09/06/2018 08/20/2019 Discon tinued (NEURONTIN) 100 MG capsule (100 capsule mg total) by mouth nightly. simvastatin (ZOCOR) Take 20 mg by 0 2019 Discontinued 20 MG tablet mouth nightly. atorvastatin Take 10 mg by 0 08/20/2019 Di scontinued (LIPITOR) 10 MG mouth daily. tablet Active Problems Problem Noted Date Sepsis 08/23/2018 Colonic mass 08/23/2018 Encounters Date Type Specialty Care Team Description 08/24/2019 Surgery Qi Koenig, COLONOSCOPY,P OLYPECT MD [facility] 08/24/2019 Anesthesia Event Silvana Perez, JESSICA 08/24/2019 Hospital Encounter Qi Koenig MD 08/20/2019 Hospital Encounter Pre-Admission Testing 07/17/2019 Hospital Encounter Computed Tomography Manuel Barron Cecal cancer (HCC) MD Stephanie [facility], [facility] Room 07/17/2019 Hospital Encounter Computed Tomography Manuel Barron Cecal cancer (HCC) MD Stephanie 1, [facility] Room 06/01/2019 Outside Orders Central Scheduling Manuel Barron cancer (HCC) MD Stephanie (Primary Dx) 04/11/2019 Outside Orders Central Scheduling Manuel Barron cancer (HCC) MD Stephanie (Primary Dx) after 03/19/2019 Social History Tobacco Use Types Packs/Day Years Used Date Never Smoker Smokeless Tobacco: Never Used Alcohol Use Drinks/Week oz/Week Comments Yes seldom Sex Assigned at Date Recorded Not on file Job Start Date Occupation Industry Not on file Not on file Not on file Travel History Travel Start Travel End No recent travel history available. Last Filed Vital Signs Vital Sign Reading Time Taken Blood Pressure 143/68 08/24/2019 12:55 PM PRODUCT COORDINATOR Pulse 66 08/24/2019 12:55 PM PRODUCT COORDINATOR Temperature 36.8 C (98.3 F) 08/24/2019 12:30 PM PRODUCT COORDINATOR Respiratory Rate 16 08/24/2019 12:55 PM PRODUCT COORDINATOR Oxygen Saturation 99% 08/24/2019 12:55 PM PRODUCT COORDINATOR Inhaled Oxygen Concentration - - Weight 64.9 kg (143 lb) 08/24/2019 10:53 AM PRODUCT COORDINATOR Height 157.5 cm (5' 2") 08/24/2019 10:53 AM PRODUCT COORDINATOR Body Mass Index 26.16 08/24/2019 10:53 AM PRODUCT COORDINATOR Plan of Treatment Not on file Procedures Procedure Name Priority Date/Time Associated Comments Diagnosis REPORT OF PROCEDURE 08/24/2019 12:37 - ENDOSCOPY URL PM PRODUCT COORDINATOR COLONOSCOPY,POLYPEC 08/24/2019 12:30 Malignant neoplas m NARESH PM PRODUCT COORDINATOR of ascending colon (HCC) TISSUE EXAM AP Routine 08/24/2019 12:23 Results for this PM PRODUCT COORDINATOR procedure are i n the results section. CT ABDOMEN/PELVIS Routine 07/17/2019 11:18 Cecal cancer (HCC) Results for this WITH IV CONTRAST AM PRODUCT COORDINATOR procedure a re in the results section. CT CHEST WITH IV Routine 07/17/2019 11:18 Cecal cancer (HCC) R esults for this CONTRAST AM PRODUCT COORDINATOR procedure are i n the results section. POCT-CREATININE Routine 07/17/2019 10:56 Results for this AM PRODUCT COORDINATOR procedure are i n the results section. after 03/19/2019 Results REPORT OF PROCEDURE - ENDOSCOPY URL (08/24/2019 12:37 PM PRODUCT COORDINATOR) Narrative Performed At This result has an attachment that is no t available. Tissue Exam (08/24/2019 12:23 PM PRODUCT COORDINATOR) Case Report Surgical Pathology Report Case: [id number] [facility] Authorizing Provider:Qi Neumann MDCollected: 08/24/2019 1223 [facility]ENTER Ordering Location: [facility] ENDOSCOPY Received:08/24/2019 1414 SERVICES Pathologist: Amanda Landers MD Specimens: A) - Polyp, C olon - Left/Descending, taken by hot snare n frcp B) - Polyp, Colon - Transverse, taken by hot snare, posimal DIAGNOSIS A. POLYP COLON - HOT SNARE POLYPECTOMY: [facility] - SERRATED ADENOMA WITH CAUTERY ARTIFACT, FAV ORS SESSILE SERRATED ADENOMA [facility] B. TRANSVERSE COLON POLYP, HOT SNARE POLYPECTOMY : - FRAGMENTS OF SESSILE SERRATED ADENOMA/ POLY P/ LESION SJ/pl Signing Pathologist Direct Phone Line: [phone] COMMENT Endoscopic report reviewed. [facility] CPT Code(s) 22098 x2 [facility] CLINICAL HISTORY Pre and postop diagnosis: Ma lignant neoplasm of ascending colon [facility] Procedure: colonoscopy, polypectomy MEDICAL CENTER SPECIMEN SOURCE A. Polyp, colon - left [facility] descending. Taken by [facility] snare and frcp; B. Polyp, colon - transverse, Taken by hot snare, proximal GROSS DESCRIPTION A. The specimen is received in formalin labeled with the patient's information and "polyp, colon - left/descending tissue" and consists of multiple fernandez-pink mucosal-covered pieces of tissue in aggregate [facility] ranging from 0.2 x 0.2 x 0. 2 to 0.2 x 0.1 x 0.1 and 0.1 x 0.1 x 0.1 cm. The specimen is submitted entirely from filtration in cassette A1. [facility]ENTER B. Received in formalin labe led with the patient's name, accession number and "polyp, colon - transverse tissue" and consists of multiple fernandez-pink fragments mucosal-covered pieces of tissue, 0.1 x 0.1 x 0.1 cm each in aggregate. [facility] specimen is submitted entirely following filtration in cassette B1. HS/pl MICROSCOPIC DESCRIPTION Performed [facility] Specimen Tissue - Polyp, Colon - Left/Descending Tissue - Polyp, Colon - Transverse Performing Organization Address City/State/Zipcode Phone Number [facility] [address] [place] [address] Abdomen/Pelvis with IV Contrast (07/17/2019 11:18 AM PRODUCT COORDINATOR) Specimen Narrative Performed At FINAL REPORT [facility] CT scan of the chest, abdomen and pelvis . MEDICAL HISTORY: Cecal cancer. Comparison study: Plain film of the abdo men dated September 02, [address] scan of the chest, abdomen and pe lvis dated August 24, 2018. TECHNIQUE: Contiguous helical slices wer e acquired through the chest, abdomen and pelvis post administration o f intravenous contrast. No oral contrast was administered. This exa m was performed according to our department dose optimization program which includes automated exposure control, adjustment of the mA a nd/or kV according to the patient's size and/or use of iterative r econstruction technique. FINDINGS: The mediastinum demonstrates a therosclerosis but no suspicious masses or adenopathy. There i s trace pericardial fluid. No pleural effusion is seen The tracheobronchial tree is clear with no endobronchial lesions. The pulmonary parenchyma demonstrates a 2 mm nodule in the left lung apex on image 12, not clearly present on the previous study. A stable 2 mm nodule is seen in the right upper lobe o n image 29. There is a 2 mm nodule in the right upper lobe on image 28, not clearly seen on the previous study. A stable 3 mm nodule see n in the right upper lobe on image 30. The liver, spleen, pancreas, adrenal gla nds and right kidney are unremarkable. The left kidney has been r esected. The gallbladder and biliary tree are unremarkable. No dilated loops of bowel are seen sugge st obstruction. There has been right-sided colectomy. No residual recurrent disease is seen. There is no free fluid or free air. No s uspicious adenopathy is seen. The uterus has been resected. The aorta is normal in caliber. Atherosclerosis is identified. Bone windows demonstrate degenerative ch anges. A Schmorl's node is seen on the superior endplate of T10. IMPRESSION: 1. Status post left nephrectomy, right h emicolectomy and hysterectomy. 2. Several punctate pulmonary nodules, s ome not clearly seen on the previous study. This could be related to slice selection and is amenable to follow-up. Signed: Antonio Morris MD Report Verified Date/Time:07/17/2019 11:59:41 Reading Location: [address] Reading Room Procedure Note Interface, External Ris In - 07/17/2019 12:01 PM PRODUCT COORDINATOR FINAL REPORT CT scan of the chest, abdomen and pelvis . MEDICAL HISTORY: Cecal cancer. Comparison study: Plain film of the abdo men dated September 02, [address] scan of the chest, abdomen and pe lvis dated August 24, 2018. TECHNIQUE: Contiguous helical slices wer e acquired through the chest, abdomen and pelvis post administration o f intravenous contrast. No oral contrast was administered. This exa m was performed according to our department dose optimization program which includes automated exposure control, adjustment of the mA a nd/or kV according to the patient's size and/or use of iterative r econstruction technique. FINDINGS: The mediastinum demonstrates a therosclerosis but no suspicious masses or adenopathy. There i s trace pericardial fluid. No pleural effusion is seen The tracheobronchial tree is clear with no endobronchial lesions. The pulmonary parenchyma demonstrates a 2 mm nodule in the left lung apex on image 12, not clearly present on the previous study. A stable 2 mm nodule is seen in the right upper lobe o n image 29. There is a 2 mm nodule in the right upper lobe on image 28, not clearly seen on the previous study. A stable 3 mm nodule see n in the right upper lobe on image 30. The liver, spleen, pancreas, adrenal gla nds and right kidney are unremarkable. The left kidney has been r esected. The gallbladder and biliary tree are unremarkable. No dilated loops of bowel are seen sugge st obstruction. There has been right-sided colectomy. No residual recurrent disease is seen. There is no free fluid or free air. No s uspicious adenopathy is seen. The uterus has been resected. The aorta is normal in caliber. Atherosclerosis is identified. Bone windows demonstrate degenerative ch anges. A Schmorl's node is seen on the superior endplate of T10. IMPRESSION: 1. Status post left nephrectomy, right h emicolectomy and hysterectomy. 2. Several punctate pulmonary nodules, s ome not clearly seen on the previous study. This could be related to slice selection and is amenable to follow-up. Signed: Antonio Morris MD Report Verified Date/Time: 07/17/2019 1 1:59:41 Reading Location: [facility] C013T [facility] Reading Room Performing Organization Address City/State/Zipcode Phone Number K[facility]u CT Chest with IV Contrast (07/17/2019 11:18 AM PRODUCT COORDINATOR) Specimen Narrative Performed At FINAL REPORT Ketsu CT scan of the chest, abdomen and pelvis . MEDICAL HISTORY: Cecal cancer. Comparison study: Plain film of the abdo men dated September 02, [address] scan of the chest, abdomen and pe lvis dated August 24, 2018. TECHNIQUE: Contiguous helical slices wer e acquired through the chest, abdomen and pelvis post administration o f intravenous contrast. No oral contrast was administered. This exa m was performed according to our department dose optimization program which includes automated exposure control, adjustment of the mA a nd/or kV according to the patient's size and/or use of iterative r econstruction technique. FINDINGS: The mediastinum demonstrates a therosclerosis but no suspicious masses or adenopathy. There i s trace pericardial fluid. No pleural effusion is seen The tracheobronchial tree is clear with no endobronchial lesions. The pulmonary parenchyma demonstrates a 2 mm nodule in the left lung apex on image 12, not clearly present on the previous study. A stable 2 mm nodule is seen in the right upper lobe o n image 29. There is a 2 mm nodule in the right upper lobe on image 28, not clearly seen on the previous study. A stable 3 mm nodule see n in the right upper lobe on image 30. The liver, spleen, pancreas, adrenal gla nds and right kidney are unremarkable. The left kidney has been r esected. The gallbladder and biliary tree are unremarkable. No dilated loops of bowel are seen sugge st obstruction. There has been right-sided colectomy. No residual recurrent disease is seen. There is no free fluid or free air. No s uspicious adenopathy is seen. The uterus has been resected. The aorta is normal in caliber. Atherosclerosis is identified. Bone windows demonstrate degenerative ch anges. A Schmorl's node is seen on the superior endplate of T10. IMPRESSION: 1. Status post left nephrectomy, right h emicolectomy and hysterectomy. 2. Several punctate pulmonary nodules, s ome not clearly seen on the previous study. This could be related to slice selection and is amenable to follow-up. Signed: Antonio Morris MD Report Verified Date/Time:07/17/2019 11:59:41 Reading Location: [address] Reading Room Procedure Note Interface, External Ris In - 07/17/2019 12:01 PM PRODUCT COORDINATOR FINAL REPORT CT scan of the chest, abdomen and pelvis . MEDICAL HISTORY: Cecal cancer. Comparison study: Plain film of the abdo men dated September 02, [address] scan of the chest, abdomen and pe lvis dated August 24, 2018. TECHNIQUE: Contiguous helical slices wer e acquired through the chest, abdomen and pelvis post administration o f intravenous contrast. No oral contrast was administered. This exa m was performed according to our department dose optimization program which includes automated exposure control, adjustment of the mA a nd/or kV according to the patient's size and/or use of iterative r econstruction technique. FINDINGS: The mediastinum demonstrates a therosclerosis but no suspicious masses or adenopathy. There i s trace pericardial fluid. No pleural effusion is seen The tracheobronchial tree is clear with no endobronchial lesions. The pulmonary parenchyma demonstrates a 2 mm nodule in the left lung apex on image 12, not clearly present on the previous study. A stable 2 mm nodule is seen in the right upper lobe o n image 29. There is a 2 mm nodule in the right upper lobe on image 28, not clearly seen on the previous study. A stable 3 mm nodule see n in the right upper lobe on image 30. The liver, spleen, pancreas, adrenal gla nds and right kidney are unremarkable. The left kidney has been r esected. The gallbladder and biliary tree are unremarkable. No dilated loops of bowel are seen sugge st obstruction. There has been right-sided colectomy. No residual recurrent disease is seen. There is no free fluid or free air. No s uspicious adenopathy is seen. The uterus has been resected. The aorta is normal in caliber. Atherosclerosis is identified. Bone windows demonstrate degenerative ch anges. A Schmorl's node is seen on the superior endplate of T10. IMPRESSION: 1. Status post left nephrectomy, right h emicolectomy and hysterectomy. 2. Several punctate pulmonary nodules, s ome not clearly seen on the previous study. This could be related to slice selection and is amenable to follow-up. Signed: Antonio Morris MD Report Verified Date/Time: 07/17/2019 1 1:59:41 Reading Location: [address] Reading Room Performing Organization Address City/State/Zipcode Phone Number GE RIS POC-Creatinine (07/17/2019 10:56 AM PRODUCT COORDINATOR) POC-Creatinine 1.0Comment: TESTED AT [facility] 0.6 - 1.3 mg/dL [facility] [address] [facility] [facility] [address] POC-EGFR 55 mL/min/1.73M2 [facility] Specimen Blood Performing Organization Address City/State/Zipcode Phone Number [facility] MEDICAL [address] [place] [address] CENTER after 03/19/2019 Insurance Payer Benefit Plan / Group Subscriber ID Type Phone A ddress MEDICARE MEDICARE A B xxxxxxxxxxx Medicare MCR SUPPLEMENT/[employer] [place] xxxxxxxx Med[employer]ap (Home) [address] [place] [address] Advance Directives For more information, please contact:[address] [phone] Code Status Date Activated Date Inactivated Comments Full Code 08/23/2018 1:12 AM 09/08/2018 7:55 PM This code status was determined by: Patient
--- OUTSIDE RECORDS SUMMARY | 2020-03-19 00:30 | XMS REPORT ---
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 Active Problem Memory loss or impairment R41.3 Ac tive Problem Essential (primary) hypertension I10 Active Problem Stage 1 chronic kidney disease N18.1 Active Problem Iron deficiency anemia, unspecified D50.9 Active iron deficiency anemia type Problem Hyperlipidemia, unspecified E78.5 Active hyperlipidemia type Medications Medication Code Code Instructions Start End Status Dosage System Date Date Cymbalta [facility] 29620295070 20 MG Orally Active 1 caps ule Once a day Fluticasone ND 62284650660 50 MCG/ACT January 05, Active 1 sp ray in Propionate Nasally Once a 2019 each day nostril Albuterol [facility] 24393075667 108 (90 Base) May 27, Active 2 pu ffs as Sulfate HFA MCG/ACT 2019 needed Inhalation every 6 hrs Hemocyte Plus [facility] 61410500314 106-1 MG Orally Active 1 capsule Once a day with breakfast Lisinopril [facility] 44900007150 5 MG Orally Active 1 tab let Once a day Atorvastatin [facility] 42460287281 20 MG Orally Active TA KE 1 Calcium Once a day TABLET BY MOUTH AT BEDTIME Vitamin D3 [facility] 64917219057 5000 UNIT Active 1 capsu le Maximum Strength Orally Once a day Zyrtec Allergy [facility] 67592589526 10 MG Orally Active 1 tablet Once a day Melatonin ND 60112627097 5 MG Orally Active 2 tabl et Once a day at bedtime as needed with food Namenda [facility] 69474386469 10 MG Orally Active 1 table t Twice a day Results Name Result Date Reference Range Unit Abnormali ty Flag CBC With Differential/Platelet ----Lymphs 27 [id number] Not Estab. % ----Neutrophils 62 [id number] Not Estab. % ----Baso (Absolute) 0.0 [id number] 0.0-0.2 x10E3/uL ----Hemoglobin 14.7 93841479 11.1-15.9 g/dL ----Eos (Absolute) 0.0 [id number] 0.0-0.4 x10E3/uL ----Hematocrit 42.3 63420976 34.0-46.6 % ----Monocytes(Absolute) 0.4 [id number] 0.1-0.9 x10E3/uL ----MCV 95 53934816 79-97 fL ----Lymphs (Absolute) 1.2 [id number] 0.7-3.1 x10E3/uL ----MCH 32.9 [id number] 26.6-33.0 pg ----Neutrophils (Absolute) 2.8 [id number] 1.4-7.0 x10E3/uL ----MCHC 34.8 95336170 31.5-35.7 g/dL ----Immature Granulocytes 0 [id number] Not Estab. % ----Basos 1 [id number] Not Estab. % ----RDW 12.0 [id number] 11.7-15.4 % ----Immature Grans (Abs) 0.0 [id number] 0.0-0.1 x10E3/uL ----Eos 1 [id number] Not Estab. % ----WBC 4.4 [id number] 3.4-10.8 x10E3/uL ----Platelets 239 [id number] 150-450 x10E3/uL ----RBC 4.47 [id number] 3.77-5.28 x10E6/uL ----Monocytes 9 [id number] Not Estab. % Folate (Folic Acid), Serum ----Folate (Folic Acid), >20.0 [id number] >3.0 ng/mL Serum Iron and TIBC ----Iron Saturation 29 [id number] 15-55 % ----UIBC 238 [id number] 118-369 ug/dL ----Iron 95 20200229 27-139 ug/dL ----Iron Bind.Cap.(TIBC) 333 20200229 250-450 ug/dL Summary Purpose [employer]ClinicalWorks Submission
--- OUTSIDE RECORDS SUMMARY | 2020-03-19 00:30 | XMS REPORT ---
:1950 Author Organization [employer] Care Team Providers Name Role Phone Daija Wilson Provider Role Unavailable Allergies, Adverse Reactions, Alerts Substance Reaction Event Type dye Info Not Available Non Drug Allergy Problems Problem Type Condition Code Onset Dates Condition Statu s Assessment Medicare annual wellness visit, Z00.00 Active subsequent Problem Cough R05 Active Problem History of [...] Start End Status Dosage System Date Date Albuterol [facility] 16263638027 108 (90 Base) May 27, Active 2 pu ffs as Sulfate HFA MCG/ACT 2018 needed Inhalation every 6 hrs Melatonin ND 80740656943 5 MG Orally Active 2 tabl et Once a day at bedtime as needed with food Cymbalta [facility] 89494116703 20 MG Orally Active 1 caps ule Once a day Lisinopril ND 19735605766 5 MG Orally Active 1 tab let Once a day Fluticasone ND 91348108198 50 MCG/ACT January 05, Active 1 sp ray in Propionate Nasally Once a 2019 each day nostril Vitamin D3 [facility] 46608215797 5000 UNIT Active 1 capsu le Maximum Strength Orally Once a day Atorvastatin ND 27044885979 20 MG Orally Active TA KE 1 Calcium Once a day TABLET BY MOUTH AT BEDTIME Hemocyte Plus [facility] 61529878455 106-1 MG Orally Active 1 capsule Once a day with breakfast Namenda [facility] 20447217611 10 MG Orally Active 1 table t Twice a day Zyrtec Allergy [facility] 56180035767 10 MG Orally Active 1 tablet Once a day Results No Known Results Summary Purpose [employer]ClinicalWorks Submission
--- OUTSIDE RECORDS SUMMARY | 2020-03-19 00:30 | XMS REPORT | Continuity of Care Document ---
:1950 Author Organization [facility] t Address [address] [place] [address] Care Team Providers Name Role Phone Asked, Pcp Primary Care Physician Unavailable LIBERTY Attending Clinician Unavailable Liberty TRAMMELL Attending Clinician Ana LOPEZ Attending Clinician Stephanie Barron MD Attending Clinician [address] Room Attending Clinician Unavailable Stephanie BARRON Attending Clinician Unavailable HOMA CARPENTER Attending Clinician Unavailable LIBERTY Admitting Clinician Unavailable HOMA CARPENTER Admitting Clinician Unavailable Payers Payer Name Policy Policy Number Effective Expiration Source Type Date Date MEDICAREMEDICARE A xxxxxxxxxxx [facility] MCR xxxxxxxx [facility]INDIVIDUALMUT [facility] Medical OMAHAxxxxxxxxMedigap Cent er Problems Condition Condition Condition Status Onset Resolution Last Treating Co mments Source Name Details Category Date Date Treatment Clinician Date Sepsis Sepsis Disease Active [facility] - [facility]: Medical 00 [place] Colonic Colonic Disease Active [facility] mass mass 2-16 [facility] 00 Center Closed Closed Disease Active [place] patellar patellar 3-27 Method i sleeve sleeve 00:00: st fracture, fracture, 00 right, right, with with delayed delayed healing, healing, subsequent subsequent encounter encounter Closed Closed Disease Active 2016-07 [place] displaced displaced 0-30 Meth genny osteochond osteochond 00:00: st ral ral 00 fracture fracture of right of right patella patella Stage 1 Stage [address] chronic chronic [facility] - kidney kidney Memoria disease disease l Outpati ent Clinics Essential Essential Problem Active [facility] (primary) (primary) Luke s - hypertensi hypertensi Me moria on on l Outpati ent Clinics Hyperlipid Hyperlipid Problem Active [facility] emia, emia, [facility] - unspecifie unspecifie Me moria d d l hyperlipid hyperlipid Ou tpati emia type emia type ent Clinics Iron Iron Problem Active [facility] deficiency deficiency [facility] - anemia, anemia, Memoria unspecifie unspecifie l d iron d iron Outpati deficiency deficiency en t anemia anemia Clinics type type 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 Memory Memory Problem Active [facility] loss or loss or [facility] - impairment impairment Me moria l [facility] Allergies, Adverse Reactions, Alerts Allergy Allergy Status Severity Reaction(s) Onset Inactive Treating Comm ents Source Name Type Date Date Clinician dye Adverse Active Info Not [facility] Reaction Available [facility] Social History Social Habit Start Date Stop Date Quantity Comments Source Sex Assigned At [facility] Alcohol Comment 2019-08-20 2019-08-20 seldom [facility] - 00:00:00 00:00:00 [facility] Smoking Status Start Date Stop Date Source Never smoker [facility] Medications Ordered Filled Start Stop Current Ordering Indication Dosage Frequency Signature Comments Components Source Medication Medication Date Date Medication? Clinician (SIG) Name Name ferrous 2019- Yes 325mg Take 325 [facility] S t sulfate 325 2-13 mg by [facility]ukes - (65 FE) MG 14:45: mouth Medica l tablet 06 daily with Center breakfast. fluticasone Yes 1{spray QD 1 spray by [facility] propionate 2-13 } Nasal [facility] - (FLONASE) 14:45: route Medical 50 06 daily. [place] mcg/actuati on nasal spray atorvastati Yes 20mg QD Take [address] n (LIPITOR) 2-13 by mouth Luke s - 20 MG 14:44: daily. Medical tablet 13 [place] senna-docus 2019- No 1{tbl} QD Take [address] ate -20 08- tablet by [facility] - (SENNOSIDES 14:44: 00:00 mouth Medi cali -DOCUSATE 06 :00 daily. [place] SODIUM) 8.6-50 mg per tablet simvastatin 2019- No 20mg QD Take [address] (ZOCOR) 20 2- 02-13 by mouth Luke s - MG tablet 14:43: 00:00 nightly. Med ical 55 :00 [place] atorvastati 2019- No 10mg QD Take [address] n (LIPITOR) -20 08- by mouth Rajesh es - 10 MG 14:43: 00:00 daily. Medical tablet 34 :00 [place] carbinoxami Yes 4mg QD Take [address] ne maleate 2-13 by mouth [facility] - 4 mg Tab 14:40: daily. Medical 39 [place] memantine Yes 10mg Q.5D Take [address] (NAMENDA) 2-13 by mouth 2 Luke s - 10 MG 14:39: (two) Medical tablet 38 times Center daily. atorvastati 2019- No 20mg QD Take [address] n (LIPITOR) - 02-13 by mouth Rajesh es - 20 MG 14:34: 00:00 nightly. Medical tablet 38 :00 [place] iron-folic 2020- No 1{capsu QD Take [address] acid-mv, 2-20 08-13 le} capsule by Luke s - min cmb#15 14:28: 00:00 mouth Medic al (HEMOCYTE-P 10 :00 daily. [place] DERRICK) 106 mg iron- 1 mg Cap ferrous 2019- No 325mg Take [address] sulfate 325 2- 02-13 mg by [facility]ukes - (65 FE) MG 14:27: 00:00 mouth Medic al tablet 59 :00 daily with Center breakfast. Albuterol Albuterol 2018-07 Yes Daija [address] Sulfate HFA Sulfate HFA 1-20 [place] needed [facility] - 00:00: Memoria 00 l [facility] Fluticasone Fluticasone Yes Daija [address] Propionate Propionate 7-01 [place] each [facility] - 00:00: nostril Memoria 00 l [facility] Clin[facility] amLODIPine 2020- No 5mg QD Take [address] (NORVASC) 5 09-06-13 tablet (5 [facility]es - MG tablet 00:00: 00:00 mg total) Me dical 00 :00 by mouth Center daily. gabapentin 2019- No 100mg QD Take [address] (NEURONTIN) 3-13 capsule Luke s - 100 MG 00:00: 00:00 (100 mg Medical capsule 00 :00 total) by Center mouth nightly. cranberry Yes 1{capsu Q.5D Take [address] 400 mg Cap 2-16 le} capsule by Rajesh es - 01:03: mouth 2 Medical 42 (two) Center times daily. DULoxetine Yes 20mg QD Take [address] (CYMBALTA) 2-16 by mouth [facility]ukes - 20 MG 01:03: daily. Medical capsule 42 [place] aspirin 81 Yes 81mg QD Take [address] MG chewable 2-16 by mouth Luke s - tablet 01:03: daily. Medical 41 Center lisinopril Yes 5mg Q.5D Take [address] (PRINIVIL,Z 2-16 by mouth 2 [facility] - ESTRIL) 5 01:03: (two) Medical MG tablet 41 times Center daily. Hemocyte Hemocyte Yes Daija [address] Plus Plus [place] [facility] - Memoria l [facility] Cymbalta Cymbalta Yes Daija [address] [place] [facility] - Memoria l [facility] Melatonin Melatonin Yes Daija [address] [place] at bedtime [facility]ukes - as needed Memoria with food l [facility] Vitamin D3 Vitamin D3 Yes Daija [address] Maximum Maximum [place] [facility] - Strength Strength Memoria l [facility] Clin[facility] Lisinopril Lisinopril Yes Daija [address] [place] [facility] - Memoria l [facility] ent Clinics Namenda Namenda Yes Daija [address] [place] kes - Memoria l [facility] ent Clinics Atorvastati Atorvastati Yes Daija TAKE [address] [facility] n Calcium n Calcium [place] TABLET BY [facility]ukes - MOUTH AT [facility] BEDTIME l [facility] Clinics [facility] Yes Daija [address] Allergy Allergy [place] [facility] - Memoria l [facility] ent [facility] Vital Signs Vital Name Observation Time Observation Value Comments Source Systolic blood 2019-08-24 12:55:00 143 mm[Hg] [facility] Diastolic blood 2019-08-24 12:55:00 68 mm[Hg] [facility] Heart rate 2019-08-24 12:55:00 66 /min [facility] Respiratory rate 2019-08-24 12:55:00 16 /min [facility] Oxygen saturation in 2019-08-24 12:55:00 99 /min [facility] Arterial blood by Medical Ce nter Pulse oximetry Body temperature 2019-08-24 12:30:00 36.83 May [facility] Body height 2019-08-24 10:53:00 157.5 cm [facility] Body weight Measured 2019-08-24 10:53:00 64.864 kg [facility] BMI 2019-08-24 10:53:00 26.16 kg/m2 [facility] Procedures Procedure Date / Time Performed Performing Clinician [facility] REPORT OF PROCEDURE - 2019-08-24 12:37:28 [facility] COLONOSCOPY,POLYPECTOM 2019-08-24 12:30:[address] [facility] TISSUE EXAM 2019-08-24 12:23:00 [facility] CHEST WITH IV 2019-07-17 11:18:[address] [facility] CONTRAST [facility] ABDOMEN/PELVIS WITH 2019-07-17 11:18:[address] [facility] IV [facility] POCT-CREATININE 2019-07-17 10:56:00 Manuel Barron [facility] Plan of Care Planned Activity Planned Date Details Comments Source Future Scheduled 2020-04-07 INFLUENZA VACCINE [place] [facility] 00:00:00 [code = INFLUENZA VACCINE] Future Scheduled 2014 65+ PNEUMOCOCCAL [place] [facility] 00:00:00 VACCINE (1 of 2 - PCV13) [code = 65+ PNEUMOCOCCAL VACCINE (1 of 2 - PCV13)] Future Scheduled 1999 BREAST CANCER [place] [facility] Test 00:00:00 SCREENING [code = BREAST CANCER SCREENING] Future Scheduled 1999 COLONOSCOPY SCREENING [place] [facility] 00:00:00 [code = COLONOSCOPY SCREENING] Future Scheduled 1999 SHINGLES VACCINES (#1) [place] [facility] 00:00:00 [code = SHINGLES VACCINES (#1)] Encounters Start End Encounter Admission Attending Care Care Encounter Source Date/Time Date/Time Type Type Clinicians Facility Department ID 2020-02-29 2020-02-29 [facility] [id number] 15:[facility]00 15:00:00 [facility] Family Medicine l Medicine Outpati ent Clinics 2020-02-29 2020-02-29 [facility] [id number] 13:20:00 13:20:00 [facility] l Medicine Outpati ent Clinics 2020-02-23 2020-02-23 [facility] [id number] [address] 09:40:00 09:40:00 [facility] Family Medicine l Medicine Outpati ent Clinics 2020-02-22 2020-02-22 [facility] [id number] 09:13:00 09:13:00 [facility] Family Medicine l Medicine Outpati ent Clinics 2019-10-14 2019-10-14 [facility] [id number] 09:52:00 09:52:00 [facility] Medicine l Medicine Outpati ent Clinics 2019-09-01 2019-09-01 [facility] [id number] 11:40:00 11:40:00 t [facility] Medicine Medicine Outpati ent Clinics 2019-07-27 2019-07-27 [facility] [id number] 08:42:00 08:42:00 t [facility] Medicine Medicine Outpati ent Clinics 2019-07-03 2019-07-03 [facility] [id number] 10:13:00 10:13:00 t [facility] Medicine Medicine Outpati ent Clinics 2019-06-02 2019-06-02 [facility] [id number] 09:26:00 09:26:00 t [facility] Medicine Medicine Outpati ent Clinics 2019-05-27 2019-05-27 [facility] [id number] 11:00:00 11:00:00 [facility] Medicine Medicine Outpati ent Clinics 2019-02-16 2019-02-16 [facility] [id number] 11:00:00 11:00:00 t [facility] Medicine Medicine Outpati ent Clinics 2019-01-05 2019-01-05 [facility] [id number] 15:15:00 15:15:00 [facility] Medicine Medicine Outpati ent Clinics 2018-10-16 2018-10-16 [facility] [id number] 14:19:00 14:19:00 [facility] Medicine Medicine Outpati ent Clinics 2018-09-25 2018-09-25 [facility] [id number] 10:00:00 10:00:00 [facility] Medicine Medicine Outpati ent Clinics 2018-07-28 2018-07-28 [facility] [id number] 10:15:00 10:15:00 [facility] Medicine Medicine Outpati ent Clinics Results Test Description Test Time Test Comments Results Result Comments Source Tissue Exam 2019-08-25 10:56:00 Test Item Value Reference Range Interpretation Comme nts Case Report (test code = 104) Surgical Pathology Report Case: [id number] Authorizing Provider: Qi Koenig MD Collected: 08/24/2019 1223 Ordering Location: [facility] END[facility] Received: 08/24/2019 1414 SERVICES Pathologist: Amanda Landers MD Specimens: A) - Polyp, Colon - Left/Descending, taken by hot snare n frcp B) - Polyp, Colon - Transverse, taken by hot snare, posimal DIAGNOSIS (test code = 3220) u4ywsOJyFEFte3tgJANodIHfZnRuIjEkIkMiVo pcdW UfTVilsxVhOKrpe7NpQ1FiWgKyQNrpbdHrEPOyXnph suwoVIYaMTC0neCvFWTsZVkyITAnVEtmNp1rgTQucK ryPqWnPOPde2uzgaHVqyhbhQd8x2tmVMNmFxQ2mQFm PJuyQ1bvqiPalILtSHDsCNc3iO09KEJqiK4lkCMxJU ktmiIaGxO4FRvaHNUbPbB5YMBdvMKuNRGmM1xeJDKy OBuqYOLaNHyamXWqOSB4pYnhj0O9sMBxiOLvcFvjWy DpXvHyXTPOs3InFWr5cNbvY0PiIMGiPgZ4mCMwGTHh EVrqAKVnUBOoekF7cI01GAfwuqK1hMTuu2Wkk10kb8 18aF6eoFTuCGK5UHPxPRXleCZvAOIpRGD4ONSqvDIm N3s2JtVurZZcQ8V4ExJlxKAjA3O0AhScsGLbQ9Z6Hh OwyLDgKPXddVTzZa5blSEznCGcer2xco53QGY4e3Ig mTmkYFA9UEN6VnRpAp1erJHiRPAyLP0wUkDadIWaLY Xjcf68gKdkLLptoqSdiB9sQoDkAODjzAQwKXDgIZ9v oJKuTLZyoB7athabOSIfCdBvsiofNQVuwObreeRmHr 2vfMngCHE1WFnkK3lcwZ7cCkD8BLbrC9oovQ6xPEr5 JLkxcCW8SVOabQ4sFL3kjlwct0viCkEyMO8ytqujx8 nxFkFbLB5jcyi1q7ybGjDhHZ5qvhqag3wkOsNlHSnk IAFieijiRHDnw7UdrgyhPUCky7CoR6BgwWhmV28qcM bvQ24cDWVyzUwgvO0azEuqcX6mGmCoAgHeZPuvpYnx qLWqobhrIEfteiFiDEttihpeHQYkSBlcX4xbIcVwDK TmdLqqPXtix2PqELIsUQUdCeDtWG2nEK0NLSKeO44V N76uLVXRL4UbN76SFaCkSA6PADSLR3RVDYr1JVMmck SyNFXcAQCIAuAJCYILFYVKAR9WSAReG3nPSARDKDEB WKLKUICNVJiBJEKLKWUDKMHRYcYxV1GWM7cLGGRKLC EVBWWGCPGLHYBFO27ZXCGzhmmnJQCuNw1fAIENDpSQ JXENNTVMD6fWJrOCA3kHTDmpOT4HNZPSSTIUDICDIT hTPYUKE62OZqtzZBTiVVVaKBVLLcSVCUDFPDJyY7Kg N2JEY3oRVHKPLGJDDYVOLTCBRFPCV69IMaPEW0xANS 4iAYLARV4JEAUuzbpmGAUyP4nuqVxlaZLouRbwiuVk SFurz8NcZDonLLIfES6egUtgVDXrAY3uLWUoQ7speN 8msqq6PdPmSIHzVmN4GQAllnX4Amh5LLWbAHamc5sj b1LtECEsEQd2xOxcMfKcXMMft4knkwIlHpYyGRCuBS XdCPIwkVLeF775g4all6gygaNigVS1JJJtZPX5OMtk xsWxozH7WSgsxRJfFdS2WQvztcHaMVwgfiZhddOvUv t4JGVrY132HWF4vXrqk8ddTUT8CXFjBHRsWpOqKa1x oVBuT223UQKsAQSNNXYuaWl9KOMeauDuyiIykWPEb5 17S224h1mjIWQozuXirHuVqhmmr3ybB689BOFktUNx svXzBpLaQRHcxOGcfCS7OKVsBB9bwayjWHepXQgmCO OtpyQ1PYNqtVUbU2MoCXAeIH5ghuhfKPA3DSpxQKOn ETK5LwGjARKjg6Nslrq1KqLlhz7avo22VZA4i7CssD qiCIV5HFC5HkVoAa5ghJOhBQRoOO2gCuXnxUFnTEYo cz08aZanHLdaTTA6MDYbcjLkk5Fhn9esFmLpimBuI7 ciE7QbRQGrFATjVPYeLnSanwRpx8Leq6MjxIIxsUr5 t6fsMPEbHKYbzAhut8erIWD2ZNMpiBHiQ4pzeV2eJM AhYH4tmbtml2gaPBncVOtoMJYsySD4grL3NTQiyBJr H3ImhZ1dYVDjSZfiDVIqfjf0ZeZkCy8lkAIixXnuFV xzYmtwYWdlXHBnbmNvbnRccGduZGVjXHBsYWluXHBs YWluXGYwXGZzMjRccWxcbGFuZzEwMzNcaGljaFxmMV wqChWgPYYyTFgmY6nbVbDvUiLuWwk8QRSyzRXuCOTv Sez5YDSkkWXvMDJMhZkvzX3fALMvtMtraH1hvUW1UP GwofZhqBYNpS8bDHRMmG1tTqE9TiQfXoG5YUIyLKyp cGFyfX0= COMMENT (test code = 3359) x4mmpMDgZRHqmFMwDcDkMMGiIKNtm2gtAZSvsHOu Zz OmTpQlYcOmIxjhoKFfJNEgGmFyo6cau141uPAkp4hy UUOxWqP3aXPeSSPneUBtJ783RLDmILukt9dnu2YuAX UscJWlw9Z0LPPTfvcpuYr3fIopY43fw9A2FymjA0rl MNZaFOgaKUYdAQcfiNMjJZX3IWJkKFN2CHeuaqVktc G2UEvwuBEkIcO8RTi2y4lbdPfqBWPeXTG9d3kzHQuh kyEjII5ppq2dyQa0m1bcyhCeWSSxWEHofHCLQAGnC2 IjzOwsIc1coRa3hObgRidiQGQ6Jqb1UV2jph93dea3 xQvxOWSpxbwsVrS7VUzcKRHozzjgRBu6XWguZPVgjJ cyMFxtYXJncjcyMFxtYXJndDcyMFxtYXJnYjcyMFxo VYGcWXP2EFcgw010ULE7EYzwg2urp4tqeAIuBdu9YO ZvQhGjHjuhTBfas2Jrc9ukXZXvyk6nEMX8bNVukWlt y3E1cEAsXMMtrWSqeuNfRKQqUuF4IDjfNP3msm29ZH JpBQB9bu9riGDfzWhodhSwmDNuKYiwH8MnZKTvb024 SGFmZ4OePGJqp2H7okQaUfNqRCXcnFM7ipA1ULCrCL j1bMKcxsQ0oiDcjOGmZ6bnyU19IgYncEJcC0VabA56 CuHrqFWbY8DhpE23QsHiuYRnP6DtoT90NuQjsSByOA YqqRTmPt5xiMCgfMHxr3GioNQaZTrwK66yk761QNMz egHyS0uufNMcwbbhvCOorsikRZkmrxNgWLXdWYGlCS atNTNaCVYtQrWkkSwcdI7iUxUmQnNfCVUZgjSro0Kb bJliPLDbjT9lfFPlSPWkZUsiDE4wRVBjxi6= CPT Code(s) (test code = 3357) l0dgeXMfLZQpoHEnPxBhKOIgCRGwo1daXKOc bGFuZz DaEvPmOiDgHyogeQHiOAKtQgWnc5kwb153jLTqy9qb ISUzAbK5wDQxRNEldPVoZ409d4tqp6fcblBypSS5YR JvGIX8OFznhiXnbnA3WGnrgKMtQmH4SPnxtxKyUFex erNpckVnHhc1AUNaC196DFE9vXqew8puXHE5XGIbBQ NqXmVtQy3nyFEsR405JECfXXYYPKNewQv4OHUrhcXa zaHjgZMRn015K653q6clJYSeouCxhDcXlsceq9oaO8 43HLOgiPJyqfNyBsUqQWDnfXGjcVU8ZZXpYC9jsonz WpWjJS7rcprfWaVeWP0notz6DfDmBQ0vbbcgPiYiIT ezMHJzsfjeBFFhi8BsogqsIL9dS1Jfb5Y7uY8enCAd XECsySKhEfNiNEYvdn0cmGGkQEulz3LuAJV0fsX5dG KvvSYdWWPvUE12Idizj7OoGxzsGEO4QDQiflWku7Cq k4nxVwPkxaAfY3eeQ2VnPSYnEFCfLZFxQlCiamSrt4 Smk1MncNQrkOg4f7rnDOGiROBjqTdzj4miIOM0GNRk R1J9wGKzk1flSMtsARYhpEI3okesCMqeMFUwwlK4mu eqFYvvUBBnwTV5xjbpIPtySIWjTkN4hvoaUKsdYCAx OSK4VZels142GHU2FUdgIviyOIueKKHnskGblqYmwL duZGVjXHBsYWluXHBsYWluXGYwXGZzMjRccWxccGxh jE7vIyUyIfAvKLgiFS2nJYHgF3zibHSrBWNkWMJnE5 gtIsFegY3rdFnzYZdhibRlWJc3TuB2NDmcQSFaso1= CLINICAL HISTORY (test code = 3356) g5xtnOGjQPVszCQsXmFmXRQzMAFe m6npCOBjfXFrEm QpEoXjFqAoFwcbpXYuXISlLtQic1nwt467uWHdt1gn FLFgYrH1aSBdBPEnqDXpH724ONFnPKqpp4nud5OdFD RcdVPuo3C9ZGBBbusqdCd9bOqhE21lj5N4YkmyY2iy GKFvVLdtGLRaNHrzmRSdGNP5QKGaZAY8OQqceyPqgo P9BJwvnRKgZkL5KCr4s1yajLsgOVEkLBH6b0wlKPpa lhUcEZ7lcd8ueZf9w7zbezGgHLGkTPBjnPWCTKKdW1 MkaLcqUh9ewQx2zVwoWgxeUXV0Wwn9KF6kbx63wug3 vRfxRKHtakprUdU1QMebGLLdmbxbDPf9MLiaYMVmdC cyMFxtYXJncjcyMFxtYXJndDcyMFxtYXJnYjcyMFxo LZJyDCA5IFeiq171CQH2YFcgo5koi3ujgEMoGlm9CC OcCtNtUmppYZlmh9Mbi3zkJOCmuh9jXKA5qNYndJdn g6B4pARcSUBqrWThjyWtFBZgBhR3IZheNE5sne77DK TrPHH3dn3mxBMsuDpwlgCorBBkPLzlB4PsXPIra533 PBKeD5OoTRXpt5A7ppSdPiZmWWBaiYZ4buD9XKVvRH r7dGEewhX9qzQyvKPbJ0tezN96PzGehBOoK2KkzD14 SaSycBIyR8WejZ23OmXjjVWyJ8DckT41SqYawNYcKD LagDJqRl6tdMEdtKMxj1ZlnWIyHTtpW75we560MZIq afZxZ0ldzSWeyeyyjORywcnoSClvueYyCFYqUMYeGW bdTFGkTEVjVvGreTvvaV3zSfTjCxBsKBGNrjRlSE0d PTObt8XygTEsiWMrxi0uaLX3GK4fuCuodbHvfNVrDF 8tiYJwpUYxAjVgk4HagyOgmjksR10nn90kbZYjKJNe c8QsIOOgGAkoX87xf03jh6CwnVpaVYBuiJksXDH4i8 47MVEbrq3= SPECIMEN SOURCE (test code = 3377) t4zivCDlKFHisPQdUzWtNPFaVOXmg0qf ZGVmbGFuZz JiInOuFtMkFwuplUHjJJVzVaOzv6zml406lNCxd0ll YXBuUyQ2fMGtNMAxxCGwM610QCLrGMkkn7yfl8UkBV OoeVWqa3T7YKTTfssbnZq7bCzxJ48xw1H5VizrP8hv NBUhVUxpPHZmVZvqbJMkHUF2CRLyWVY9DLqfpmJply Z4YRgffKDvNzS9TPe4s6kldBygGQLjCIJ7i9hrJPas kzCeAD2itx3qdQa3r0lzxnJwPMYkTESufBCQRDKaM1 PbxAorVz4bfZh1zKsbZqvsHXD0Pkg8YA4djk38tuw6 bYhdIKJajhbwXpO0VGigIESgfiryTDj0WBhiMVRvtC cyMFxtYXJncjcyMFxtYXJndDcyMFxtYXJnYjcyMFxo TZVcRFX2KElfq022ITY2VDwld9pwx7mkaZZxNmx2WU WrWlKxYikxWItnu1Lqj8xgTLReak3aTFV8cNPxsXvy b8Y8nSVbBOZnpLZqolRrEVIuWzI0ZXflEB3xej15LD EnWZW6tq8jfQTkaBztuuOwlNUoJNjxR4OpMFBfj093 LIIaI9OwCGAgw1C6wrJkRhSaKNHxrVO1bdE2JJGhBH r0jBCyuzV1xlEqrNGrY4nxwG58TrHjeTRfU0RlaN27 VqIdrFGvU0WspJ70TkOvaVRzR8GgbA68WdQnjYTyIH EqtHCdSl1vpYTpsMCzr8MbtVXtWHckA00ho534EJMh spCkP5fwwGUabkokhCYzvwiuXNwrnjFeXTQzHMWnHM azLBBoCOTkLqOcgAeiaJ0uOrNcMkKfBVWHSdUdeIqm gL2uUwLeJuDkCSMRe3b4qAagH75pk21hUKherETbzv jyMUizzgIhMYAhQGZ7NJNru6RyewWeevzrBJKno4Mj WFD5VKarrQQpxuCwVSLfdvQnLkHuqMtoFf9fKXSaAN rdFTWvEOUoGtGrNA5xzXJjAETsdR0eGK9fdBgitV1n GqMxMaVbLQVbxWUkvrY3UEIzYQzsEPUkAX3kDxfrbM 19QHKiHTGaBNKgyg46bX1tjUnuWJZ8 GROSS DESCRIPTION (test code = 3366) t4cgnMBoZCSsaDQsUeRpHBK qJODgs4bmUCCojMApCd SyWnKgQzLuQndhgIBgWJXhDeSlk6gtc777qKBhf2lw PZOwXzY5sOOuQKJlnMRsB251LKGjXLggz9jgy1XiPV RpeUOpg5J4HIHDcfvftEy0fMbpO41pn3H6BfmbT3tb XRRsITskICDjVWeklSBxOGY1FTOrWLO0DRlsxqLzbp A3SOcttYCjRpS5ULo8b6gcaQdqOZLuEHD1v4bkXFem ouDbVA0thw8xoOa2m0sugpKfIWBiAVNkkKGWLZOvD6 NttOksUb0luLu8dZckGncpTBU1Xho9IW0ota35wqw6 pSnoNXGvzclyJfV2BRexGEQczpcgHWd8CUegQDGfwD cyMFxtYXJncjcyMFxtYXJndDcyMFxtYXJnYjcyMFxo FITtTDG2ZTupd300LNQ8DUjkl6uay0cnbFDcEmu5ZQ WuOiKgYuubODtus1Whp1omRJEich6iWJA1jOKxiZar p9D4dDRxSHOaxOBwtbFbMNIrOwK4HAlcHY9nty20AU ZjLPP0nb7swVPucOqvcxAcvEYpFPojH0WqRKGgw155 IZGwD9CyOLJsn1K4cpLkRqOiGXGgdEL6evV7YUMyZX l6yPRaqrA9imEupRAyI5oezL05MxCtbAHtE6MnxW78 XuGdvCQqK6LnvF76ApOxtRFkM1MmpG95UbFtuDKbUW ZtkCXjSu4ufYGljWDwj1SnvWKrHFdqH47st316FAYe ncJzY4xueWTwkwxjsMZdojprFWfhadRbLUQfERIiSC vkGMLsJHFlJrTnxFpvhF7sBkYrXxVuQWUNAsYFyCSi d1IdC7ljYR3ejVBjneKrRYt4MKGldW5jJr0txRQpwZ 7eyYOtKUrhTSY8gYUkAJQvCMIeQAWbJS08I8FkxO7t n4VsLNFpz76hKY9eLVWhw3i8yDtxI28gg25nEDNoHJ Q6H3Abv6WhctRfqfrueQfbi6EnMsIseaEeJ45pz3yt oDKkz6MgrYMnlCxjlGJafCLlWYVlzuaxCMJcUBziCO NaFDIfKlGodHLrs6KkjB9dd5OqnpEdIRFqDBokOZUr UHXhLqXgSMYfQLGdrvTxVuE1dYKulJEirP3zEKqsgq VnYXRlIFxwbGFpblxmMVxmczIwIHJhbmdpbmdccGxh dI9dXgGrSqHqRIXyUfLasYSyEoPxkHFeIyAxeULjRk EerP3sFY6qGOwxMS5dEXoyNZ2oOSXhTZUjUwBjnFUq SaFszCXhVfMcY11yGPNfISYulIJvfF7xjcXqjfFrhX zlkS5kOzWrTyVdONOhsBJnqNH1KGPmqCukyC1hOdYr KbIpTMUnVM88yKZwfGgwJjAchSNacXs4nmU2tR9pTC dnIWLav6AzcZOyWIFkTbEooVWzIMXdqgCBEmWnrPbt dM0lWyJxEcOhIGDPSCGrhKCdVLSrwmQqx3CmASgmcf FrHOFjnNPdHRtfqXwgsTbpVFRiaIohhnHaelUcTH6h HDZhK1Llz7Kab66krsHwWaXaAKPuFDivxNHdeqkwFO gulbLuLCBpgF3szSEsXWNjrI1lYS2nBRThYTrnKTBp DVBsZiFbfCGvydX3KUOvBDpmwOHreevdPMqbawAiXE X5eFNgxXUyWGBiTPOkm63buLE7niDcDiOscOt8dJFa MDT0XU1oeZyplxIdwyPauZIxjNFlEMFhWBhcUKIiFB XlApXbeSAzb5WgoC4tu2UsxwNgPLGcAIxwLRFvAXSe SuRnDAIiGXGdmfDsBkH5tEVdhCHlMLYuCRI8KXFmKM L2DBZrIFYxtMBdNQRyODnfNVFjZ4LcS6V5EE3gUObi WBIcCDUomUJpDOlaZWxzcQAgmkktTPhpjqWkSAI5Nj 1pdHRlZFxwbGFpblxmMFxmczIwICBlbnRpcmVseSBm k5yzn1whscnwMgjujDYnpMedqkXynnOoCTJgDCO6VT YOKI9aIBdGH2QpXLYhjl4= MICROSCOPIC DESCRIPTION (test code = r6gbeOVfEKDjcLTeLlRiHYZ aNWSqw2mvNWCrdZOeGq 3371) VkWhDrYyDjUgxonJPsLYOyBbZhl0xwq095xXTbh0ev LEViZcS1cUFtVMCvwOJpQ831i0sve3ogomCvnYY4VV CyFAT0JZztazMuflA3RGuosLKoPcL9XKubjiUvNRgf wsHfakBgWus4CHEhF904OUX0eCqjg1flHMI9FSFoUH WnXjGnZj2ahEXyJ282PNFyBDZPWMDfyHz7WUDroxUi iaLapEKRt891X117g6cjJXRwelPafZlJfexti2ztK2 74JOTbcMZqubPvEbCcSNImyFLxsCF1PYBuCQ7bfyqp LtGkRB1nyqtfAeAnYK9lvfl6StNyEX7wovaeDnRkFX ukBSVwmkgmQZRlm7UfgksiXI6eH0Jlv1T2eX4nyUXu AHBtbVMzYvTkXDGmaz0ixWBhDJgte2FbPYP6hwY4cS LriCPvDJFuDC94Pgybr6DqSbxcQVD3RHFovwAgi1Du p5qoStFgyxFaC0kbH2QeARObWMZxBZIdJaEbhsUdf4 Dtt6VduWUhvXq1p5itPPDyMVGxdLetf8zuHIQ3THFg M7N7vPIuw7nwBCdgOGLhxHZ3cxiwSVhqUNPnxlU6dw acWQejHGJglAK2pavyBYqwLVPpFtZ0zdjyVJreFYOc ZWQ5PNixw069FPW8CIrzPuswUFncASVrerMvkzXfoX duZGVjXHBsYWluXHBsYWluXGYwXGZzMjRccWxccGxh lI7iZtJpAgBiVTsnYM1uNOCyV1rhvQPvITUsCVWkC3 asVgOosM3ysGlpPQwocaLsQLVpxfHjxi1sDUHxzNSf fQ== [id number] 10:56:00Surgical Pathology Report Case: [id number] Authorizing Provider: Qi Koenig MD Collected: 08/24/2019 1223 Ordering Location: [facility] Received: 08/24/2019 1414 SERVICES Pathologist: Amanda Landers MD Specimens: A) - Polyp, Colon - Left/Descending, taken by hot snare n frcp B) -Polyp, Colon - Transverse, taken by hot snare, posimal A. POLYP COLON - HOTSNARE POLYPECTOMY: - SERRATED ADENOMA WITH CAUTERY ARTIFACT, FAVORS SESSILE SERRATED ADENOMAB. TRANSVERSE COLON POLYP, HOT SNARE POLYPECTOMY: - FRAGMENTS OF SESSILE SERRATED ADENOMA/ POLYP/ LESIONSJ/pl Signing Pathologist Direct Phone Line: [phone] signed by Amanda Landers MD on 08/25/2019 at 10:56 AMEndoscopic report reviewed. [id number] x2Pre and postop diagnosis: Malignant neoplasm of ascending colonProcedure: colonoscopy, polypectomyA. Polyp, colon - left descending. Taken by hot snare and frcp; B. Polyp, colon - transverse, Taken by hot snare, proximalA. The specimen is received in formalin labeled with the patient's information and "polyp, colon - left/descending tissue"and consists of multiple fernandez-pink mucosal-covered pieces of tissue in aggregate ranging from 0.2 x 0.2 x 0.2 to 0.2 x 0.1 x 0.1 and 0.1 x 0.1 x 0.1 cm. The specimen is submitted entirely from filtration in cassette A1. B. Received in formalin labeled with the patient's name, accession number and "polyp, colon - transverse tissue" and consists of multiple fernandez-pink fragments mucosal-covered pieces of tissue, 0.1 x 0.1 x 0.1 cm each in aggregate. The specimen is submitted entirely following filtration in cassette B1. HS/plPerformedCT, CHEST, WITH IV [id number] 11:59:00FINAL REPORT CT scan of the chest, abdomen and pelvis. MEDICAL HISTORY: Cecalcancer. Comparison study: Plain film of the abdomen dated September 02, [address] scan of the chest, abdomen and pelvis dated August 24, 2018. TECHNIQUE: Contiguous helical slices were acquired through the chest, abdomen and pelvis post administration of intravenous contrast. No oral contrast was ad ministered. This exam was performed according to our department dose optimization program which includes automated exposure control, adjustment of the mA and/or kV according to the patient's size and/or use of iterative reconstruction technique. FINDINGS: The mediastinum demonstrates atherosclerosis but no suspicious masses or adenopathy. There is trace pericardial fluid. No pleural effusion is seen The tracheobronchial tree is clear with no endobronchial lesions. The pulmonary parenchyma demonstrates a 2 mm nodule in the left lung apex on image 12, not clearly present on the previous study. A stable 2 mm nodule is seen in the right upper lobe on image 29. There is a 2 mm nodule in the right upperlobe on image 28, not clearly seen on the previous study. A stable 3 mm nodule seen in the right upper lobe on image 30. The liver, spleen, pancreas, adrenal glands and right kidney are unremarkable. The left kidney has been resected. The gallbladder and biliary tree are unremarkable. No dilated loopsof bowel are seen suggest obstruction. There has been right-sided colectomy. No residual recurrent disease is seen. There is no free fluid or free air. No suspicious adenopathy is seen. The uterus has been resected. The aorta is normal in caliber. Atherosclerosis is identified. Bone windows demonstrate degenerative changes. A Schmorl's node is seen on the superior endplate of T10. IMPRESSION:1. Status post left nephrectomy, right hemicolectomy and hysterectomy.2. Several punctate pulmonary nodules, some not clearly seen on the previous study. This could be related to slice selection and is amenableto follow-up. Signed: Antonio Morris MDReport Verified Date/Time: 07/17/2019 11:59:41 Reading Location: [address] Reading Room CT, ABDOMEN 2019-07-17 11:59:[id number] colon cancer s/p surgery in August 2018. On surveillance, please compare to prior from [id number] for Exam:->Cecal cancerFINAL REPORT CT scan of the chest, abdomen and pelvis. MEDICAL HISTORY: Cecalcancer. Comparison study: Plain film of the abdomen dated September 02, [address] scan of the chest, abdomen and pelvis dated August 24, 2018. TECHNIQUE: Contiguous helical slices were acquired through the chest, abdomen and pelvis post administration of intravenous contrast. No oral contrast was administered. This exam was performed according to our department dose optimization program which includes automated exposure control, adjustment of the mA and/or kV according to the patient's size and/or use of iterative reconstruction technique. FINDINGS: The mediastinum demonstrates atherosclerosis but no suspicious masses or adenopathy. There is trace pericardial fluid. No pleural effusion is seen The tracheobronchial tree is clear with no endobronchial lesions. The pulmonary parenchyma demonstrates a 2 mm nodule in the left lung apex on image 12, not clearly present on the previous study. A stable 2 mm nodule is seen in the right upper lobe on image 29. There is a 2 mm nodule in the right upperlobe on image 28, not clearly seen on the previous study. A stable 3 mm nodule seen in the right upper lobe on image 30. The liver, spleen, pancreas, adrenal glands and right kidney are unremarkable. The left kidney has been resected. The gallbladder and biliary tree are unremarkable. No dilated loopsof bowel are seen suggest obstruction. There has been right-sided colectomy. No residual recurrent disease is seen. There is no free fluid or free air. No suspicious adenopathy is seen. The uterus has been resected. The aorta is normal in caliber. Atherosclerosis is identified. Bone windows demonstrate degenerative changes. A Schmorl's node is seen on the superior endplate of T10. IMPRESSION:1. Status post left nephrectomy, right hemicolectomy and hysterectomy.2. Several punctate pulmonary nodules, some not clearly seen on the previous study. This could be related to slice selection and is amenableto follow-up. Signed: Antonio Morris MDReport Verified Date/Time: 07/17/2019 11:59:41 Reading Location: [address] Transitional Reading Room CT Chest with IV [id number] 11:59:00Interface, External Ris In - 07/17/2019 12:[address] scan of the chest, abdomen and pelvis. MEDICAL HISTORY: Cecal cancer. Comparison study: Plain film of the abdomen dated September 02, [address] scan of the chest, abdomen and pelvis dated August 24, 2018. TECHNIQUE: Contiguous helical slices were acquired through the chest, abdomen and pelvis post administration of intravenous contrast. No oral contrast was administered. This exam was performed according [facility] department dose optimization program which includes automated exposure control, adjustment of the mA and/or kV according to the patient's size and/or use of iterative reconstruction technique. FINDINGS: The mediastinum demonstrates atherosclerosis but no suspicious masses or adenopathy. There is trace pericardial fluid. No pleural effusion is seen The tracheobronchial tree is clear with no endobronchial lesions. The pulmonary parenchyma demonstrates a 2 mm nodule in the left lung apex on image 12, not clearly present on the previous study. A stable 2 mm nodule is seen in the right upper lobe onimage 29. There is a 2 mm nodule in the right upper lobe on image 28, not clearly seen on the previous study. A stable 3 mm nodule seen in the right upper lobe on image 30. The liver, spleen, pancreas,adrenal glands and right kidney are unremarkable. The left kidney has been resected. The gallbladderand biliary tree are unremarkable. No dilated loops of bowel are seen suggest obstruction. There hasbeen right-sided colectomy. No residual recurrent disease is seen. There is no free fluid or free air. No suspicious adenopathy is seen. The uterus has been resected. The aorta is normal in caliber. Ath erosclerosis is identified. Bone windows demonstrate degenerative changes. A Schmorl's node is seen on the superior endplate of T10. IMPRESSION:1. Status post left nephrectomy, right hemicolectomy and hysterectomy.2. Several punctate pulmonary nodules, some not clearly seen on the previous study. Thiscould be related to slice selection and is amenable to follow-up. Signed: Antonio Morris MDReport Verified Date/Time: 07/17/2019 11:59:41 Reading Location: [facility] C013T [facility]itional [facility] [id number] 11:59:00Interface, External Ris In - 07/17/2019 12:[address] scan of the chest, abdomen and pelvis. MEDICAL HISTORY: Cecal cancer. Comparison study: Plain film of the abdomen dated September 02, [address] scan of the chest, abdomen and pelvis dated August 24, 2018. TECHNIQUE: Contiguous helical slices were acquired through the chest, abdomen and pelvis post administration of intravenous contrast. No oral contrast was administered. This exam was performed according [facility] department dose optimization program which includes automated exposure control, adjustment of the mA and/or kV according to the patient's size and/or use of iterative reconstruction technique. FINDINGS: The mediastinum demonstrates atherosclerosis but no suspicious masses or adenopathy. There is trace pericardial fluid. No pleural effusion is seen The tracheobronchial tree is clear with no endobro nchial lesions. The pulmonary parenchyma demonstrates a 2 mm nodule in the left lung apex on image 12, not clearly present on the previous study. A stable 2 mm nodule is seen in the right upper lobe onimage 29. There is a 2 mm nodule in the right upper lobe on image 28, not clearly seen on the previous study. A stable 3 mm nodule seen in the right upper lobe on image 30. The liver, spleen, pancreas, adrenal glands and right kidney are unremarkable. The left kidney has been resected. The gallbladderand biliary tree are unremarkable. No dilated loops of bowel are seen suggest obstruction. There hasbeen right-sided colectomy. No residual recurrent disease is seen. There is no free fluid or free air. No suspicious adenopathy is seen. The uterus has been resected. The aorta is normal in caliber. Atherosclerosis is identified. Bone windows demonstrate degenerative changes. A Schmorl's node is seen on the superior endplate of T10. IMPRESSION:1. Status post left nephrectomy, right hemicolectomy and hysterectomy.2. Several punctate pulmonary nodules, some not clearly seen on the previous study. This could be related to slice selection and is amenable to follow-up. Signed: Antonio Morris MDReport Verified Date/Time: 07/17/2019 11:59:41 Reading Location: [address] Transitional Reading Room [facility] [id number] 11:00:00 Test Item Value Reference Range Interpretation Comments POC-Creatinine (test 1.0 mg/dL 0.6-1.3 TESTED AT [facility] 7200 code = 1859) [facility] 7703 0 POC-EGFR (test code 55 mL/min/1.73M2 = 1860) [id number] 11:00:00 Test Item Value Reference Range Interpretation Comments POC-CREATININE 1.0 mg/dL 0.6-1.3 TESTED AT [facility] 7200 (BEAKER) (test KRANTHI BLD G A code = 1859) [facility] 7703 0 POC-EGFR 55 mL/min/1.73M2 (BEAKER) (test code = 1860) TISSUE [id number] 17:06:00Surgical Pathology Report Case: [id number] Authorizing Provider: José Luis Soni MD Collected: 09/01/2018 1258 Ordering Location: [address] Received: 09/01/2018 1308 Service Pathologist: Lesley Pastrana MD Specimens: A) -Small Bowel, NOS, SMALL BOWEL IMPLANT B) - Large Intestine, Colon - Right/Ascending, RIGHT COLON C) - Ileum, ADDITIONAL ILEUM This addendum is issued toreport the result of immunostain CDX-2 on B9. The test was done as per the request of the clinician:- STRONG POSITIVEThe interpretation of this case included the use of immunohistochemistry or special stains. LAY6Sriqtexkrscofmhdmdxl technical testing was performed at [facility], Pathology Laboratory where it was developed and its performance characteristics were determined. It has not been cleared or approved by the U.S. Food and Drug Administration. The FDA has determined that such clearance or approval is not necessary. The test is used for clinical purposes. It should not be regarded as investigational or for research. This laboratory is certified under the Clinical Laboratory Improvement Amendments of 1988 (CLIA-88) as qualified to perform high complexity clinical laboratory testing.CPT CODE: 27063Miyypcds electronically signed by Lesley Pastrana MD on 10/06/2018 at 5:06 PMA. TISSUE SUBMITTED SMALL BOWEL IMPLANT: - CALCIFICATION - NO MALIGNANT CELLS SEENB. 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 ADDITIONAL ILEUM: -SMALL BOWEL WALL WITH NO DYSPLASIA OR MALIGNANCY Signing Pathologist Direct Phone Line: [phone] signed by Lesley Pastrana MD on 09/04/2018 at 3:56 PMCOLON AND RECTUM: R esection, Including Transanal Disk Excision of Rectal Neoplasms (Colon Res - All Specimens)SPECIMEN Procedure: Right hemicolectomy TUMOR Tumor Site: Cecum Histologic Type: Adenocarcinoma Histologic Grade: G2: Moderately differentiated Tumor Size: Greatest dimension in Centimeters (cm): 6.5 Centimeters (cm) Additional Dimension in Centimeters (cm): 5 Centimeters (cm) Additional Dimension in Centimeters (cm): 4 Centimeters (cm) Tumor Deposits: Not identified Tumor Extent: Tumor Extension: Tumor directly invades adjacent structures: terminal ileum Macroscopic Tumor Perforation: Not identified Accessory Findings: Lymphovascular Invasion: Not identified Perineural Invasion: Not identified Treatment Effect: No known presurgical therapy MARGINS Margins: Proximal Margin: Uninvolved by invasive carcinoma Distance of Tumor from Margin: 10 Centimeters (cm) Distal Margin: Uninvolved by invasive carcinoma Distance of Tumor from Margin: 18.5 Centimeters (cm) Radial or Mesenteric Margin: Uninvolved by invasive carcinoma Distance of Tumor from Margin: 4 Centimeters (cm) : Other Margin: Margin Status: Cannot be assessed LYMPH NODESNumber of Lymph Nodes Involved: 0 Number of Lymph Nodes Examined: 12 PATHOLOGIC STAGE CLASSIFICATION (pTNM, AJCC 8th Edition) TNM Descriptors: Not applicable Primary Tumor (pT): pT4b Regional Lymph Nodes (pN): pN0 ADDITIONAL FINDINGS Additional Pathologic Findings: Other polyps: tubulovillous adenoma with high grade dysplasia 00735; 50913; 92364; [id number] massA. Small bowel implant; B. Right colon; C. Additional ileumPart A. Received fresh for intraoperative consultation and labeled "small bowel implant" is a 0.5 x 0.3 x 0.2 cm aggregate of small fernandez-white fibrous nodule. Touch preparations are made and the specimen is submitted its entirety for frozen evaluation as FSA1. JY /plPart B is received in formalin labeled "right colon" and consists of a right hemicolectomy measuring 22 cm in length x 7.4 cm in circumference, terminal ileum measuring 17 cm in length x 4 cm in circumference. The appendix has been previously resected. Pericolonic fat has a thickness of 2.5 cm. Thecolon and terminal ileum are opened to reveal a polypoid lesion in the ascending colon measuring 4 x 3 x 0.8 cm located 13.5 cm from the distal margin. Grossly no invasion is seen. A fernandez hemorrhagic firm cecal mass measuring 5 x 6.5 x 4 cm, grossly also involving the terminal ileum and is 10 cm fromthe proximal margin is seen 2.5 cm from the above described polyp. It is 18.5 cm from the distal margin. The mass deeply invades the muscularis propria and grossly appears to be within the serosa. The mass is 4 cm from the mesenteric margin. The mass grossly extends into the small bowel mucosa. The adipose tissue is sectioned, yields 14 lymph nodes ranging from off white to black measuring up to 1 cm. Section code: B1, proximal and distal resection margins en face; B2, mesenteric margin perpendicular section; B3 through B8, entire polyp; B9 to B11, one continuous section of small bowel and mass; B12 through 14, one continuous section of small bowel and mass; B15 and B16, healthcare sales representative section ofcecum and mass; B17, four posssible lymph nodes; B18, five possible lymph node; B19, five possible lymph nodes. Part C is labeled "additional ileum" and consists of a segment of small bowel measuring 9 cm in length x 3.5 cm in circumference. Serosa is blue-purple and dull with adhesions. There are noareas of suspicion. Section code: C1, resection margin; C2 and C3, random sections of small bowel. CG/pl A1FS: SMALL BOWEL IMPLANT: - CALCIFICATION - NO MALIGNANCY SEENThese results are verbally reported to Dr. Soni by Dr. Pastrana at 1:27 p.m. A-C: PERFORMEDPOCT-GLUCOSE [id number] 18:25:00 Test Item Value Reference Range Interpretation Comments POC-GLUCOSE METER 147 mg/dL 70-110 H TESTED AT [facility] [address] [facility] (test code = [place] 1538) [id number] POCT-GLUCOSE [id number] 09:43:00 Test Item Value Reference Range Interpretation Comments POC-GLUCOSE METER 128 mg/dL 70-110 H TESTED AT [facility] 6720 (BEAKER) (test code = [place] 1538) [id number] 07:05:00 Test Item Value Reference Range Interpretation Comments PHOSPHORUS (BEAKER) (test code = 3.2 mg/dL 2.3-4.7 604) [id number] 07:05:00 Test Item Value Reference Range Interpretation Comments MAGNESIUM (BEAKER) (test code = 1.8 mg/dL 1.6-2.6 627) BASIC METABOLIC [id number] 07:05:00 Test Item Value Reference Range Interpretation Comments SODIUM (BEAKER) 138 meq/L 136-145 (test code = 381) POTASSIUM (BEAKER) 3.8 meq/L 3.5-5.1 (test code = 379) CHLORIDE (BEAKER) 106 meq/L 98-107 (test code = 382) CO2 (BEAKER) (test 23 meq/L 22-29 code = 355) BLOOD UREA NITROGEN 14 mg/dL 7-21 (BEAKER) (test code = 354) CREATININE (BEAKER) 0.76 mg/dL 0.57-1.25 (test code = 358) GLUCOSE RANDOM 99 mg/dL 70-105 (BEAKER) (test code = 652) CALCIUM (BEAKER) 10.5 mg/dL 8.4-10.2 H (test code = 697) EGFR (BEAKER) (test 75 mL/min/1.73 ESTIMA MAX GFR IS code = 1092) sq m NOT ACCURATE CREATININE CLEARANCE IN PREDICTING GLOMERULAR FILTRATION RATE . ESTIMATED GFR I S NOT APPLICABLE FOR DIALYSIS PATIEN TS. CBC W/PLT COUNT & AUTO [id number] 06:31:00 Test Item Value Reference Range Interpretation Comments WHITE BLOOD CELL COUNT (BEAKER) 4.9 K/ L 3.5-10.5 (test code = 775) RED BLOOD CELL COUNT (BEAKER) 3.45 M/ L 3.93-5.22 L (test code = 761) HEMOGLOBIN (BEAKER) (test code = 8.7 GM/DL 11.2-15.7 L 410) HEMATOCRIT (BEAKER) (test code = 28.3 % 34.1-44.9 L 411) MEAN CORPUSCULAR VOLUME (BEAKER) 82.0 fL 79.4-94.8 (test code = 753) MEAN CORPUSCULAR HEMOGLOBIN 25.2 pg 25.6-32.2 L (BEAKER) (test code = 751) MEAN CORPUSCULAR HEMOGLOBIN CONC 30.7 GM/DL 32.2-35.5 L (BEAKER) (test code = 752) RED CELL DISTRIBUTION WIDTH 20.8 % 11.7-14.4 H (BEAKER) (test code = 412) PLATELET COUNT (BEAKER) (test 455 K/CU MM 150-450 H code = 756) MEAN PLATELET VOLUME (BEAKER) 9.7 fL 9.4-12.3 (test code = 754) NUCLEATED RED BLOOD CELLS 0 /100 WBC 0-0 (BEAKER) (test code = 413) NEUTROPHILS RELATIVE PERCENT 65 % (BEAKER) (test code = 429) LYMPHOCYTES RELATIVE PERCENT 16 % (BEAKER) (test code = 430) MONOCYTES RELATIVE PERCENT 11 % (BEAKER) (test code = 431) EOSINOPHILS RELATIVE PERCENT 6 % (BEAKER) (test code = 432) BASOPHILS RELATIVE PERCENT 1 % (BEAKER) (test code = 437) NEUTROPHILS ABSOLUTE COUNT 3.18 K/ L 1.56-6.13 (BEAKER) (test code = 670) LYMPHOCYTES ABSOLUTE COUNT 0.80 K/ L 1.18-3.74 L (BEAKER) (test code = 414) MONOCYTES ABSOLUTE COUNT (BEAKER) 0.51 K/ L 0.24-0.36 H (test code = 415) EOSINOPHILS ABSOLUTE COUNT 0.30 K/ L 0.04-0.36 (BEAKER) (test code = 416) BASOPHILS ABSOLUTE COUNT (BEAKER) 0.06 K/ L 0.01-0.08 (test code = 417) IMMATURE GRANULOCYTES-RELATIVE 0 % 0-1 PERCENT (BEAKER) (test code = 2809) POCT-GLUCOSE [id number] 22:24:00 Test Item Value Reference Range Interpretation Comments POC-GLUCOSE METER 143 mg/dL 70-110 H TESTED AT [facility] 6720 (BEAKER) (test code = [place] 1538) [id number] POCT-GLUCOSE [id number] 17:08:00 Test Item Value Reference Range Interpretation Comments POC-GLUCOSE METER 143 mg/dL 70-110 H TESTED AT [facility] 6720 (BEAKER) (test code = [place] [facility] 1538) [id number] POCT-GLUCOSE [id number] 13:52:00 Test Item Value Reference Range Interpretation Comments POC-GLUCOSE METER 162 mg/dL 70-110 H TESTED AT [facility] 6720 (BEAKER) (test code = RAM[place] [facility] 1538) [id number] 07:39:00 Test Item Value Reference Range Interpretation Comments PHOSPHORUS (BEAKER) (test code = 3.5 mg/dL 2.3-4.7 604) [id number] 07:39:00 Test Item Value Reference Range Interpretation Comments MAGNESIUM (BEAKER) (test code = 1.9 mg/dL 1.6-2.6 627) BASIC METABOLIC [id number] 07:39:00 Test Item Value Reference Range Interpretation Comments SODIUM (BEAKER) 138 meq/L 136-145 (test code = 381) POTASSIUM (BEAKER) 3.7 meq/L 3.5-5.1 (test code = 379) CHLORIDE (BEAKER) 107 meq/L 98-107 (test code = 382) CO2 (BEAKER) (test 26 meq/L 22-29 code = 355) BLOOD UREA NITROGEN 16 mg/dL 7-21 (BEAKER) (test code = 354) CREATININE (BEAKER) 0.72 mg/dL 0.57-1.25 (test code = 358) GLUCOSE RANDOM 101 mg/dL 70-105 (BEAKER) (test code = 652) CALCIUM (BEAKER) 10.5 mg/dL 8.4-10.2 H (test code = 697) EGFR (BEAKER) (test 80 mL/min/1.73 ESTIMA MAX GFR IS code = 1092) sq m NOT ACCURATE CREATININE CLEARANCE IN PREDICTING GLOMERULAR FILTRATION RATE . ESTIMATED GFR I S NOT APPLICABLE FOR DIALYSIS PATIEN TS. CBC W/PLT COUNT & AUTO [id number] 07:10:00 Test Item Value Reference Range Interpretation Comments WHITE BLOOD CELL COUNT (BEAKER) 5.1 K/ L 3.5-10.5 (test code = 775) RED BLOOD CELL COUNT (BEAKER) 3.31 M/ L 3.93-5.22 L (test code = 761) HEMOGLOBIN (BEAKER) (test code = 8.3 GM/DL 11.2-15.7 L 410) HEMATOCRIT (BEAKER) (test code = 26.8 % 34.1-44.9 L 411) MEAN CORPUSCULAR VOLUME (BEAKER) 81.0 fL 79.4-94.8 (test code = 753) MEAN CORPUSCULAR HEMOGLOBIN 25.1 pg 25.6-32.2 L (BEAKER) (test code = 751) MEAN CORPUSCULAR HEMOGLOBIN CONC 31.0 GM/DL 32.2-35.5 L (BEAKER) (test code = 752) RED CELL DISTRIBUTION WIDTH 20.8 % 11.7-14.4 H (BEAKER) (test code = 412) PLATELET COUNT (BEAKER) (test 480 K/CU MM 150-450 H code = 756) MEAN PLATELET VOLUME (BEAKER) 9.9 fL 9.4-12.3 (test code = 754) NUCLEATED RED BLOOD CELLS 0 /100 WBC 0-0 (BEAKER) (test code = 413) NEUTROPHILS RELATIVE PERCENT 67 % (BEAKER) (test code = 429) LYMPHOCYTES RELATIVE PERCENT 16 % (BEAKER) (test code = 430) MONOCYTES RELATIVE PERCENT 10 % (BEAKER) (test code = 431) EOSINOPHILS RELATIVE PERCENT 5 % (BEAKER) (test code = 432) BASOPHILS RELATIVE PERCENT 1 % (BEAKER) (test code = 437) NEUTROPHILS ABSOLUTE COUNT 3.41 K/ L 1.56-6.13 (BEAKER) (test code = 670) LYMPHOCYTES ABSOLUTE COUNT 0.80 K/ L 1.18-3.74 L (BEAKER) (test code = 414) MONOCYTES ABSOLUTE COUNT (BEAKER) 0.52 K/ L 0.24-0.36 H (test code = 415) EOSINOPHILS ABSOLUTE COUNT 0.27 K/ L 0.04-0.36 (BEAKER) (test code = 416) BASOPHILS ABSOLUTE COUNT (BEAKER) 0.05 K/ L 0.01-0.08 (test code = 417) IMMATURE GRANULOCYTES-RELATIVE 1 % 0-1 PERCENT (BEAKER) (test code = 2801) POCT-GLUCOSE [id number] 06:25:00 Test Item Value Reference Range Interpretation Comments POC-GLUCOSE METER 126 mg/dL 70-110 H TESTED AT [facility] 6720 (BEAKER) (test code = [place] 1538) [id number] POCT-GLUCOSE [id number] 23:24:00 Test Item Value Reference Range Interpretation Comments POC-GLUCOSE METER 136 mg/dL 70-110 H TESTED AT [place] [address] [facility] (test code = [place] [facility] 1538) [address] POCT-GLUCOSE [id number] 18:50:00 Test Item Value Reference Range Interpretation Comments POC-GLUCOSE METER 147 mg/dL 70-110 H TESTED AT [place] [address] ([facility] (test code = [place] [facility] 1538) [id number] POCT-GLUCOSE [id number] 12:13:00 Test Item Value Reference Range Interpretation Comments POC-GLUCOSE METER 194 mg/dL 70-110 H TESTED AT [place] [address] ([facility]) (test code = [place] [facility] 1538) [address] CBC W/PLT COUNT & AUTO [id number] 06:59:00 Test Item Value Reference Range Interpretation Comments WHITE BLOOD CELL COUNT (BEAKER) 5.6 K/ L 3.5-10.5 (test code = 775) RED BLOOD CELL COUNT (BEAKER) 3.01 M/ L 3.93-5.22 L (test code = 761) HEMOGLOBIN (BEAKER) (test code = 7.4 GM/DL 11.2-15.7 L 410) HEMATOCRIT (BEAKER) (test code = 24.5 % 34.1-44.9 L 411) MEAN CORPUSCULAR VOLUME (BEAKER) 81.4 fL 79.4-94.8 (test code = 753) MEAN CORPUSCULAR HEMOGLOBIN 24.6 pg 25.6-32.2 L (BEAKER) (test code = 751) MEAN CORPUSCULAR HEMOGLOBIN CONC 30.2 GM/DL 32.2-35.5 L (BEAKER) (test code = 752) RED CELL DISTRIBUTION WIDTH 20.6 % 11.7-14.4 H (BEAKER) (test code = 412) PLATELET COUNT (BEAKER) (test 417 K/CU MM 150-450 code = 756) MEAN PLATELET VOLUME (BEAKER) 10.3 fL 9.4-12.3 (test code = 754) NUCLEATED RED BLOOD CELLS 0 /100 WBC 0-0 (BEAKER) (test code = 413) NEUTROPHILS RELATIVE PERCENT 74 % (BEAKER) (test code = 429) LYMPHOCYTES RELATIVE PERCENT 15 % (BEAKER) (test code = 430) MONOCYTES RELATIVE PERCENT 7 % (BEAKER) (test code = 431) EOSINOPHILS RELATIVE PERCENT 3 % (BEAKER) (test code = 432) BASOPHILS RELATIVE PERCENT 1 % (BEAKER) (test code = 437) NEUTROPHILS ABSOLUTE COUNT 4.08 K/ L 1.56-6.13 (BEAKER) (test code = 670) LYMPHOCYTES ABSOLUTE COUNT 0.82 K/ L 1.18-3.74 L (BEAKER) (test code = 414) MONOCYTES ABSOLUTE COUNT (BEAKER) 0.40 K/ L 0.24-0.36 H (test code = 415) EOSINOPHILS ABSOLUTE COUNT 0.18 K/ L 0.04-0.36 (BEAKER) (test code = 416) BASOPHILS ABSOLUTE COUNT (BEAKER) 0.04 K/ L 0.01-0.08 (test code = 417) IMMATURE GRANULOCYTES-RELATIVE 1 % 0-1 PERCENT (BEAKER) (test code = 2801) POCT-GLUCOSE [id number] 06:28:00 Test Item Value Reference Range Interpretation Comments POC-GLUCOSE METER 153 mg/dL 70-110 H TESTED AT [facility] 6720 (BEAKER) (test code = RAMONA Deleon [place] 1538) [address] [id number] 05:48:00 Test Item Value Reference Range Interpretation Comments PHOSPHORUS (BEAKER) (test code = 2.9 mg/dL 2.3-4.7 604) [id number] 05:48:00 Test Item Value Reference Range Interpretation Comments MAGNESIUM (BEAKER) (test code = 2.1 mg/dL 1.6-2.6 627) BASIC METABOLIC [id number] 05:48:00 Test Item Value Reference Range Interpretation Comments SODIUM (BEAKER) 138 meq/L 136-145 (test code = 381) POTASSIUM (BEAKER) 3.5 meq/L 3.5-5.1 (test code = 379) CHLORIDE (BEAKER) 107 meq/L 98-107 (test code = 382) CO2 (BEAKER) (test 25 meq/L 22-29 code = 355) BLOOD UREA NITROGEN 21 mg/dL 7-21 (BEAKER) (test code = 354) CREATININE (BEAKER) 0.65 mg/dL 0.57-1.25 (test code = 358) GLUCOSE RANDOM 132 mg/dL 70-105 H ([facility]) (test code = 652) CALCIUM (BEAKER) 10.1 mg/dL 8.4-10.2 (test code = 697) EGFR ([facility]) (test 90 mL/min/1.73 ESTIMA MAX GFR IS code = 1092) sq m NOT ACCURATE CREATININE CLEARANCE IN PREDICTING GLOMERULAR FILTRATION RATE . ESTIMATED GFR I S NOT APPLICABLE FOR DIALYSIS PATIEN TS. POCT-GLUCOSE [id number] 23:42:00 Test Item Value Reference Range Interpretation Comments POC-GLUCOSE METER 162 mg/dL 70-110 H TESTED AT [place] [address] ([facility]) (test code = [facility] 1538) [address] POCT-GLUCOSE [id number] 18:09:00 Test Item Value Reference Range Interpretation Comments POC-GLUCOSE METER 184 mg/dL 70-110 H TESTED AT [place] [address] ([facility]) (test code = [facility] 1538) [address] HEMOGLOBIN AND [id number] 16:04:00 Test Item Value Reference Range Interpretation Comments HEMOGLOBIN (BEAKER) (test code = 8.4 GM/DL 11.2-15.7 L 410) HEMATOCRIT (BEAKER) (test code = 27.3 % 34.1-44.9 L 411) POCT-GLUCOSE [id number] 12:48:00 Test Item Value Reference Range Interpretation Comments POC-GLUCOSE METER 223 mg/dL 70-110 H TESTED AT [place] [address] ([facility]) (test code = [facility] 1538) [address] CBC W/PLT COUNT & AUTO [id number] 07:06:00 Test Item Value Reference Range Interpretation Comments WHITE BLOOD CELL COUNT ([facility]) 5.6 K/ L 3.5-10.5 (test code = 775) RED BLOOD CELL COUNT (AKER) 2.94 M/ L 3.93-5.22 L (test code = 761) HEMOGLOBIN (BEAKER) (test code = 7.2 GM/DL 11.2-15.7 L 410) HEMATOCRIT (BEAKER) (test code = 23.6 % 34.1-44.9 L 411) MEAN CORPUSCULAR VOLUME (BEAKER) 80.3 fL 79.4-94.8 (test code = 753) MEAN CORPUSCULAR HEMOGLOBIN 24.5 pg 25.6-32.2 L (BEAKER) (test code = 751) MEAN CORPUSCULAR HEMOGLOBIN CONC 30.5 GM/DL 32.2-35.5 L (BEAKER) (test code = 752) RED CELL DISTRIBUTION WIDTH 20.4 % 11.7-14.4 H (BEAKER) (test code = 412) PLATELET COUNT (BEAKER) (test 387 K/CU MM 150-450 code = 756) MEAN PLATELET VOLUME (BEAKER) 10.2 fL 9.4-12.3 (test code = 754) NUCLEATED RED BLOOD CELLS 0 /100 WBC 0-0 (BEAKER) (test code = 413) NEUTROPHILS RELATIVE PERCENT 71 % (BEAKER) (test code = 429) LYMPHOCYTES RELATIVE PERCENT 16 % (BEAKER) (test code = 430) MONOCYTES RELATIVE PERCENT 7 % (BEAKER) (test code = 431) EOSINOPHILS RELATIVE PERCENT 5 % (BEAKER) (test code = 432) BASOPHILS RELATIVE PERCENT 1 % (BEAKER) (test code = 437) NEUTROPHILS ABSOLUTE COUNT 4.01 K/ L 1.56-6.13 (BEAKER) (test code = 670) LYMPHOCYTES ABSOLUTE COUNT 0.88 K/ L 1.18-3.74 L (BEAKER) (test code = 414) MONOCYTES ABSOLUTE COUNT (BEAKER) 0.37 K/ L 0.24-0.36 H (test code = 415) EOSINOPHILS ABSOLUTE COUNT 0.25 K/ L 0.04-0.36 (BEAKER) (test code = 416) BASOPHILS ABSOLUTE COUNT (BEAKER) 0.05 K/ L 0.01-0.08 (test code = 417) IMMATURE GRANULOCYTES-RELATIVE 1 % 0-1 PERCENT (BEAKER) (test code = 2801) [id number] 06:48:00 Test Item Value Reference Range Interpretation Comments PHOSPHORUS (BEAKER) (test code = 2.8 mg/dL 2.3-4.7 604) [id number] 06:48:00 Test Item Value Reference Range Interpretation Comments MAGNESIUM (BEAKER) (test code = 2.1 mg/dL 1.6-2.6 627) BASIC METABOLIC [id number] 06:48:00 Test Item Value Reference Range Interpretation Comments SODIUM (BEAKER) 138 meq/L 136-145 (test code = 381) POTASSIUM (BEAKER) 3.7 meq/L 3.5-5.1 (test code = 379) CHLORIDE (BEAKER) 109 meq/L 98-107 H (test code = 382) CO2 (BEAKER) (test 24 meq/L 22-29 code = 355) BLOOD UREA NITROGEN 24 mg/dL 7-21 H (BEAKER) (test code = 354) CREATININE (BEAKER) 0.65 mg/dL 0.57-1.25 (test code = 358) GLUCOSE RANDOM 131 mg/dL 70-105 H (BEAKER) (test code = 652) CALCIUM (BEAKER) 9.6 mg/dL 8.4-10.2 (test code = 697) EGFR (BEAKER) (test 90 mL/min/1.73 ESTIMA MAX GFR IS code = 1092) sq m NOT ACCURATE CREATININE CLEARANCE IN PREDICTING GLOMERULAR FILTRATION RATE . ESTIMATED GFR I S NOT APPLICABLE FOR DIALYSIS PATIEN TS. POCT-GLUCOSE [id number] 05:44:00 Test Item Value Reference Range Interpretation Comments POC-GLUCOSE METER 177 mg/dL 70-110 H TESTED AT [facility] 6720 ([facility]) (test code = RAMONA Deleon [facility] 1538) [address] POCT-GLUCOSE [id number] 23:30:00 Test Item Value Reference Range Interpretation Comments POC-GLUCOSE METER 180 mg/dL 70-110 H TESTED AT [facility] 6720 (BEAKER) (test code = RAMONA Deleon [facility] 1538) [address] POCT-GLUCOSE [id number] 16:47:00 Test Item Value Reference Range Interpretation Comments POC-GLUCOSE METER 180 mg/dL 70-110 H TESTED AT [facility] 6720 (BEAKER) (test code = RAMONA Deleon [facility] 1538) [address] POCT-GLUCOSE [id number] 12:51:00 Test Item Value Reference Range Interpretation Comments POC-GLUCOSE METER 216 mg/dL 70-110 H TESTED AT [facility] 6720 (BEAKER) (test code = RAMONA Deleon [facility] 1538) [address] [id number] 07:10:00 Test Item Value Reference Range Interpretation Comments PHOSPHORUS (BEAKER) (test code = 2.5 mg/dL 2.3-4.7 604) [id number] 07:10:00 Test Item Value Reference Range Interpretation Comments MAGNESIUM (BEAKER) (test code = 2.2 mg/dL 1.6-2.6 627) BASIC METABOLIC [id number] 07:10:00 Test Item Value Reference Range Interpretation Comments SODIUM (BEAKER) 138 meq/L 136-145 (test code = 381) POTASSIUM (BEAKER) 4.0 meq/L 3.5-5.1 (test code = 379) CHLORIDE (BEAKER) 109 meq/L 98-107 H (test code = 382) CO2 (BEAKER) (test 23 meq/L 22-29 code = 355) BLOOD UREA NITROGEN 21 mg/dL 7-21 (BEAKER) (test code = 354) CREATININE (BEAKER) 0.69 mg/dL 0.57-1.25 (test code = 358) GLUCOSE RANDOM 129 mg/dL 70-105 H (BEAKER) (test code = 652) CALCIUM (BEAKER) 10.4 mg/dL 8.4-10.2 H (test code = 697) EGFR (BEAKER) (test 84 mL/min/1.73 ESTIMA MAX GFR IS code = 1092) sq m NOT ACCURATE CREATININE CLEARANCE IN PREDICTING GLOMERULAR FILTRATION RATE . ESTIMATED GFR I S NOT APPLICABLE FOR DIALYSIS PATIEN TS. CBC W/PLT COUNT & AUTO [id number] 07:08:00 Test Item Value Reference Range Interpretation Comments WHITE BLOOD CELL COUNT (BEAKER) 8.8 K/ L 3.5-10.5 (test code = 775) RED BLOOD CELL COUNT (BEAKER) 3.29 M/ L 3.93-5.22 L (test code = 761) HEMOGLOBIN (BEAKER) (test code = 8.1 GM/DL 11.2-15.7 L 410) HEMATOCRIT (BEAKER) (test code = 26.6 % 34.1-44.9 L 411) MEAN CORPUSCULAR VOLUME (BEAKER) 80.9 fL 79.4-94.8 (test code = 753) MEAN CORPUSCULAR HEMOGLOBIN 24.6 pg 25.6-32.2 L (BEAKER) (test code = 751) MEAN CORPUSCULAR HEMOGLOBIN CONC 30.5 GM/DL 32.2-35.5 L (BEAKER) (test code = 752) RED CELL DISTRIBUTION WIDTH 20.1 % 11.7-14.4 H (BEAKER) (test code = 412) PLATELET COUNT (BEAKER) (test 392 K/CU MM 150-450 code = 756) MEAN PLATELET VOLUME (BEAKER) 10.0 fL 9.4-12.3 (test code = 754) NUCLEATED RED BLOOD CELLS 0 /100 WBC 0-0 (BEAKER) (test code = 413) NEUTROPHILS RELATIVE PERCENT 78 % (BEAKER) (test code = 429) LYMPHOCYTES RELATIVE PERCENT 14 % (BEAKER) (test code = 430) MONOCYTES RELATIVE PERCENT 5 % (BEAKER) (test code = 431) EOSINOPHILS RELATIVE PERCENT 2 % (BEAKER) (test code = 432) BASOPHILS RELATIVE PERCENT 1 % (BEAKER) (test code = 437) NEUTROPHILS ABSOLUTE COUNT 6.89 K/ L 1.56-6.13 H (BEAKER) (test code = 670) LYMPHOCYTES ABSOLUTE COUNT 1.19 K/ L 1.18-3.74 (BEAKER) (test code = 414) MONOCYTES ABSOLUTE COUNT (BEAKER) 0.43 K/ L 0.24-0.36 H (test code = 415) EOSINOPHILS ABSOLUTE COUNT 0.19 K/ L 0.04-0.36 (BEAKER) (test code = 416) BASOPHILS ABSOLUTE COUNT (BEAKER) 0.06 K/ L 0.01-0.08 (test code = 417) IMMATURE GRANULOCYTES-RELATIVE 1 % 0-1 PERCENT (BEAKER) (test code = 2801) POCT-GLUCOSE [id number] 05:18:00 Test Item Value Reference Range Interpretation Comments POC-GLUCOSE METER 183 mg/dL 70-110 H TESTED AT [facility] 6720 ([facility]) (test code = RAMONA Deleon [place] 1538) [address] POCT-GLUCOSE [id number] 23:52:00 Test Item Value Reference Range Interpretation Comments POC-GLUCOSE METER 176 mg/dL 70-110 H TESTED AT [facility] 6720 (BEAKER) ([facility] = [facility] [place] 1538) [address] POCT-GLUCOSE [id number] 16:03:00 Test Item Value Reference Range Interpretation Comments POC-GLUCOSE METER 200 mg/dL 70-110 H TESTED AT [facility] 6720 (BEAKER) (test code = RAMONA Deleon [place] 1538) [address] POCT-GLUCOSE [id number] 12:29:00 Test Item Value Reference Range Interpretation Comments POC-GLUCOSE METER 234 mg/dL 70-110 H TESTED AT [facility] 6720 (BEAKER) (test code = RAMONA Dele[place] 1538) [address] [id number] 06:17:00 Test Item Value Reference Range Interpretation Comments PHOSPHORUS (BEAKER) (test code = 2.7 mg/dL 2.3-4.7 604) [id number] 06:17:00 Test Item Value Reference Range Interpretation Comments MAGNESIUM (BEAKER) (test code = 1.9 mg/dL 1.6-2.6 627) BASIC METABOLIC [id number] 06:17:00 Test Item Value Reference Range Interpretation Comments SODIUM (BEAKER) 134 meq/L 136-145 L (test code = 381) POTASSIUM (BEAKER) 4.2 meq/L 3.5-5.1 (test code = 379) CHLORIDE (BEAKER) 106 meq/L 98-107 (test code = 382) CO2 (BEAKER) (test 20 meq/L 22-29 L code = 355) BLOOD UREA NITROGEN 16 mg/dL 7-21 (BEAKER) (test code = 354) CREATININE (BEAKER) 0.69 mg/dL 0.57-1.25 (test code = 358) GLUCOSE RANDOM 143 mg/dL 70-105 H (BEAKER) (test code = 652) CALCIUM (BEAKER) 10.3 mg/dL 8.4-10.2 H (test code = 697) EGFR (BEAKER) (test 84 mL/min/1.73 ESTIMA MAX GFR IS code = 1092) sq m NOT ACCURATE CREATININE CLEARANCE IN PREDICTING GLOMERULAR FILTRATION RATE . ESTIMATED GFR I S NOT APPLICABLE FOR DIALYSIS PATIEN TS. CBC W/PLT COUNT & AUTO [id number] 05:55:00 Test Item Value Reference Range Interpretation Comments WHITE BLOOD CELL COUNT (BEAKER) 15.0 K/ L 3.5-10.5 H (test code = 775) RED BLOOD CELL COUNT (BEAKER) 2.98 M/ L 3.93-5.22 L (test code = 761) HEMOGLOBIN (BEAKER) (test code = 7.2 GM/DL 11.2-15.7 L 410) HEMATOCRIT (BEAKER) (test code = 23.9 % 34.1-44.9 L 411) MEAN CORPUSCULAR VOLUME (BEAKER) 80.2 fL 79.4-94.8 (test code = 753) MEAN CORPUSCULAR HEMOGLOBIN 24.2 pg 25.6-32.2 L (BEAKER) (test code = 751) MEAN CORPUSCULAR HEMOGLOBIN CONC 30.1 GM/DL 32.2-35.5 L (BEAKER) (test code = 752) RED CELL DISTRIBUTION WIDTH 21.1 % 11.7-14.4 H (BEAKER) (test code = 412) PLATELET COUNT (BEAKER) (test 396 K/CU MM 150-450 code = 756) MEAN PLATELET VOLUME (BEAKER) 10.1 fL 9.4-12.3 (test code = 754) NUCLEATED RED BLOOD CELLS 0 /100 WBC 0-0 (BEAKER) (test code = 413) NEUTROPHILS RELATIVE PERCENT 84 % (BEAKER) (test code = 429) LYMPHOCYTES RELATIVE PERCENT 9 % (BEAKER) (test code = 430) MONOCYTES RELATIVE PERCENT 6 % (BEAKER) (test code = 431) EOSINOPHILS RELATIVE PERCENT 0 % (BEAKER) (test code = 432) BASOPHILS RELATIVE PERCENT 1 % (BEAKER) (test code = 437) NEUTROPHILS ABSOLUTE COUNT 12.63 K/ L 1.56-6.13 H (BEAKER) (test code = 670) LYMPHOCYTES ABSOLUTE COUNT 1.32 K/ L 1.18-3.74 (BEAKER) (test code = 414) MONOCYTES ABSOLUTE COUNT (BEAKER) 0.83 K/ L 0.24-0.36 H (test code = 415) EOSINOPHILS ABSOLUTE COUNT 0.06 K/ L 0.04-0.36 (BEAKER) (test code = 416) BASOPHILS ABSOLUTE COUNT (BEAKER) 0.08 K/ L 0.01-0.08 (test code = 417) IMMATURE GRANULOCYTES-RELATIVE 1 % 0-1 PERCENT (BEAKER) (test code = 2801) POCT-GLUCOSE [id number] 05:50:00 Test Item Value Reference Range Interpretation Comments POC-GLUCOSE METER 193 mg/dL 70-110 H TESTED AT [facility] 67 ([facility]) (test code = RAMONA Deleon [place] 1538) [address] POCT-GLUCOSE [id number] 23:58:00 Test Item Value Reference Range Interpretation Comments POC-GLUCOSE METER 228 mg/dL 70-110 H TESTED AT [facility] 6720 ([facility]) (test code = RAMONA Deleon [facility] 1538) [address] RAD, ABDOMEN/KUB, 1 VIEW [id number] 21:54:00Include stomach \\T\\ rectumReason for exam:->Eval for distentionShould this be performed at the bed side?->YesFINAL REPORT Abdomen one view History: Abdominal distention Comparison:none Findings:Nonobstructive bowel gas pattern. No definite bowel pneumatosis or portal venous gas. No calcifications along the expected course of the urinary tract. Impression:No acute findings Signed: Asim Adame MDReport Verified Date/Time: 09/02/2018 21:54:46 Reading Location: [facility] Reading Room POCT-GLUCOSE [id number] 18:04:00 Test Item Value Reference Range Interpretation Comments POC-GLUCOSE METER 300 mg/dL 70-110 H TESTED AT [place] [address] ([facility]) (test code = RAMONA Deleon [facility] 1538) [address] TISSUE [id number] 13:53:00Surgical Pathology Report Case: [id number] Authorizing Provider: Qi Koenig MD Collected: 08/24/2018 1036 Ordering Location: [address] Received: 08/25/2018 0823 Service Pathologist: Lex Cassidy MD Specimen: Polyp, Colon - Cecum, MASS BX The addendum is being issued to report the results of immunohistochemistry (IHC) testing for Mismatch Repair (MMR) Prot eins, which has been performed on the colon cancer. The diagnosis remains unchanged.IHC testing for all four MMR proteins was performed on selected block A1 with appropriate controls.RESULTSMLH1: Intact nuclear expressionMSH2: Intact nuclear expressionMSH6: Intact nuclear expressionPMS2: Intact nuclear expressionIHC InterpretationNo loss of nuclear expression of MMR proteins: low probability of microsatellite instability-high (MSI-H)# #There are exceptions to the above IHC interpretations. These results should not be considered in isolation, and clinical correlation with genetic counseling is recommended to assess the need for germline testing.Addendum electronically signed by Lex Cassidy MD on 09/02/2018 at 1:53 PMPART A CECAL BIOPSY FOR SUSPECTED MASS:INVASIVE ADENOCARCINOMA.IMMUNOSTAINS FOR MICRO-SATELLITE INSTABILITY MARKERS TO FOLLOW IN AN ADDENDUM. Signing Pathologist Direct Phone Line: [phone] signed by Lex Cassidy MD on 08/25/2018 at 4:[id number], [id number], [id number] massCecal polyp mass biopsyThe specimen is received in a formalin-filled container and labeled with the patient's information labeled "cecum colon mass biopsy" consisting of multiple fragments of fernandez-red soft tissue ranging from less than 0.1 to 0.4 cm, submitted entirely A1. CG/pl PERFORMED.The interpretation of this case included the use of immunohistochemistry or special stains. Immunohistochemistry technical testing was performed at [facility] Pathology Laboratory where it was developed and its performance characteristics were determined. It has not been cleared or approved by the U.S. Food and Drug Administration. The FDA has determined thatsuch clearance or approval is not necessary. The test is used for clinical purposes. It should not be regarded as investigational or for research. This laboratory is certified under the Clinical Laboratory Improvement Amendments of 1988 (CLIA-88) as qualified to perform high complexity clinical laboratory testing.BLOCK A1- MSH2, MSH6, MLH1, [id number] 12:43:00 Test Item Value Reference Range Interpretation Comments POC-GLUCOSE METER 282 mg/dL 70-110 H TESTED AT [facility] 6720 ([employer]+) (test code = [facility] [employer] [facility] 1538) [address] POCT-GLUCOSE [id number] 06:34:00 Test Item Value Reference Range Interpretation Comments POC-GLUCOSE METER 192 mg/dL 70-110 H TESTED AT [facility] 6720 ([employer]+) (test code = [facility] 1538) [address] POCT-GLUCOSE [id number] 06:03:00 Test Item Value Reference Range Interpretation Comments POC-GLUCOSE METER 349 mg/dL 70-110 H TESTED AT [facility] 6720 (BEAKER) (test code = RAM[place] 1538) [address] [id number] 05:42:00 Test Item Value Reference Range Interpretation Comments PHOSPHORUS (BEAKER) (test code = 3.0 mg/dL 2.3-4.7 604) [id number] 05:42:00 Test Item Value Reference Range Interpretation Comments MAGNESIUM (BEAKER) (test code = 1.9 mg/dL 1.6-2.6 627) BASIC METABOLIC [id number] 05:42:00 Test Item Value Reference Range Interpretation Comments SODIUM (BEAKER) 135 meq/L 136-145 L (test code = 381) POTASSIUM (BEAKER) 4.8 meq/L 3.5-5.1 (test code = 379) CHLORIDE (BEAKER) 109 meq/L 98-107 H (test code = 382) CO2 (BEAKER) (test 19 meq/L 22-29 L code = 355) BLOOD UREA NITROGEN 16 mg/dL 7-21 (BEAKER) (test code = 354) CREATININE (BEAKER) 0.75 mg/dL 0.57-1.25 (test code = 358) GLUCOSE RANDOM 257 mg/dL 70-105 H (BEAKER) (test code = 652) CALCIUM (BEAKER) 10.6 mg/dL 8.4-10.2 H (test code = 697) EGFR (BEAKER) (test 77 mL/min/1.73 ESTIMA MAX GFR IS code = 1092) sq m NOT ACCURATE CREATININE CLEARANCE IN PREDICTING GLOMERULAR FILTRATION RATE . ESTIMATED GFR I S NOT APPLICABLE FOR DIALYSIS PATIEN TS. CBC W/PLT COUNT & AUTO [id number] 05:06:00 Test Item Value Reference Range Interpretation Comments WHITE BLOOD CELL COUNT (BEAKER) 12.1 K/ L 3.5-10.5 H (test code = 775) RED BLOOD CELL COUNT (BEAKER) 3.39 M/ L 3.93-5.22 L (test code = 761) HEMOGLOBIN (BEAKER) (test code = 8.0 GM/DL 11.2-15.7 L 410) HEMATOCRIT (BEAKER) (test code = 26.8 % 34.1-44.9 L 411) MEAN CORPUSCULAR VOLUME (BEAKER) 79.1 fL 79.4-94.8 L (test code = 753) MEAN CORPUSCULAR HEMOGLOBIN 23.6 pg 25.6-32.2 L (BEAKER) (test code = 751) MEAN CORPUSCULAR HEMOGLOBIN CONC 29.9 GM/DL 32.2-35.5 L (BEAKER) (test code = 752) RED CELL DISTRIBUTION WIDTH 21.0 % 11.7-14.4 H (BEAKER) (test code = 412) PLATELET COUNT (BEAKER) (test 449 K/CU MM 150-450 code = 756) MEAN PLATELET VOLUME (BEAKER) 10.1 fL 9.4-12.3 (test code = 754) NUCLEATED RED BLOOD CELLS 0 /100 WBC 0-0 (BEAKER) (test code = 413) NEUTROPHILS RELATIVE PERCENT 89 % (BEAKER) (test code = 429) LYMPHOCYTES RELATIVE PERCENT 5 % (BEAKER) (test code = 430) MONOCYTES RELATIVE PERCENT 6 % (BEAKER) (test code = 431) EOSINOPHILS RELATIVE PERCENT 0 % (BEAKER) (test code = 432) BASOPHILS RELATIVE PERCENT 0 % (BEAKER) (test code = 437) NEUTROPHILS ABSOLUTE COUNT 10.76 K/ L 1.56-6.13 H (BEAKER) (test code = 670) LYMPHOCYTES ABSOLUTE COUNT 0.56 K/ L 1.18-3.74 L (BEAKER) (test code = 414) MONOCYTES ABSOLUTE COUNT (BEAKER) 0.68 K/ L 0.24-0.36 H (test code = 415) EOSINOPHILS ABSOLUTE COUNT 0.00 K/ L 0.04-0.36 L (BEAKER) (test code = 416) BASOPHILS ABSOLUTE COUNT (BEAKER) 0.01 K/ L 0.01-0.08 (test code = 417) IMMATURE GRANULOCYTES-RELATIVE 0 % 0-1 PERCENT (BEAKER) (test code = 2801) POCT-GLUCOSE [id number] 16:48:00 Test Item Value Reference Range Interpretation Comments POC-GLUCOSE METER 252 mg/dL 70-110 H TESTED AT [facility] 6720 (BEAKER) (test code = [place] 1538) [address] RAD, X-RAY, NO [id number] 16:12:00Reason for exam:->MISSING NEEDLEFINAL REPORT TECHNIQUE: Frontal views of the chest and abdomen to assess for retained foreign body. INDICATION: 68-year-old woman with missing needle during surgery. COMPARISON: None. FINDINGS:No curved surgical needle identified in the visualized chest and abdomen. Clips and sutures project over the abdomen. Nonobstructive bowel gas pattern. Bones and soft tissues are unremarkable. Visualized lungs are clear. Cardiac silhouette is within normal limits. Atherosclerotic calcifications in the thoracic aorta. The tip of a right upper extremity PICC projects over the expected region of the low superior vena cava. Endotracheal tube terminates approximately 5 cm above the isaac IM PRESSION:No retained surgical needle in the visualized chest and abdomen. Signed: Raul Bhatti MDReport Verified Date/Time: 09/01/2018 16:12:09 Reading Location: [facility] [id number] Consult Reading Room POTASSIUM-STAT [id number] 14:48:00 Test Item Value Reference Range Interpretation Comments POTASSIUM (BEAKER) (test code = 4.7 meq/L 3.6-5.5 379) SODIUM NA-STAT [id number] 14:48:00 Test Item Value Reference Range Interpretation Comments SODIUM (BEAKER) (test code = 381) 134 meq/L 135-148 L GLUCOSE-STAT [id number] 14:48:00 Test Item Value Reference Range Interpretation Comments GLUCOSE RANDOM (BEAKER) (test code 217 mg/dL 70-110 H = 652) HGB/HCT (H&H) - STAT [id number] 14:48:00 Test Item Value Reference Range Interpretation Comments HEMOGLOBIN (BEAKER) (test code = 8.0 g/dL 12.0-15.0 L 410) HEMATOCRIT (BEAKER) (test code = 24.0 % 36.0-45.0 L 411) POCT-GLUCOSE [id number] 14:41:00 Test Item Value Reference Range Interpretation Comments POC-GLUCOSE METER 274 mg/dL 70-110 H TESTED AT [facility] [address] (BEAKER) (test code = [place] 1538) [id number] POCT-GLUCOSE [id number] 08:27:00 Test Item Value Reference Range Interpretation Comments POC-GLUCOSE METER 236 mg/dL 70-110 H TESTED AT [facility] 67[address] (BEAKER) (test code = [place] 1538) [id number] 06:35:00 Test Item Value Reference Range Interpretation Comments PHOSPHORUS (BEAKER) (test code = 2.8 mg/dL 2.3-4.7 604) [id number] 06:35:00 Test Item Value Reference Range Interpretation Comments MAGNESIUM (BEAKER) (test code = 2.0 mg/dL 1.6-2.6 627) HEPATIC FUNCTION [id number] 06:35:00 Test Item Value Reference Range Interpretation Comments TOTAL PROTEIN (BEAKER) (test code = 6.7 gm/dL 6.0-8.3 770) ALBUMIN (BEAKER) (test code = 1145) 3.2 g/dL 3.5-5.0 L BILIRUBIN TOTAL (BEAKER) (test code 0.4 mg/dL 0.2-1.2 = 377) BILIRUBIN DIRECT (BEAKER) (test 0.2 mg/dL 0.1-0.5 code = 706) ALKALINE PHOSPHATASE (BEAKER) (test 83 U/L 40-150 code = 346) AST (SGOT) (BEAKER) (test code = 58 U/L 5-34 H 353) ALT (SGPT) (BEAKER) (test code = 78 U/L 6-55 H 347) BASIC METABOLIC [id number] 06:35:00 Test Item Value Reference Range Interpretation Comments SODIUM (BEAKER) 135 meq/L 136-145 L (test code = 381) POTASSIUM (BEAKER) 4.8 meq/L 3.5-5.1 (test code = 379) CHLORIDE (BEAKER) 107 meq/L 98-107 (test code = 382) CO2 (BEAKER) (test 20 meq/L 22-29 L code = 355) BLOOD UREA NITROGEN 17 mg/dL 7-21 (BEAKER) (test code = 354) CREATININE (BEAKER) 0.73 mg/dL 0.57-1.25 (test code = 358) GLUCOSE RANDOM 176 mg/dL 70-105 H (BEAKER) (test code = 652) CALCIUM (BEAKER) 11.1 mg/dL 8.4-10.2 H (test code = 697) EGFR (BEAKER) (test 79 mL/min/1.73 ESTIMA MAX GFR IS code = 1092) sq m NOT ACCURATE CREATININE CLEARANCE IN PREDICTING GLOMERULAR FILTRATION RATE . ESTIMATED GFR I S NOT APPLICABLE FOR DIALYSIS PATIEN TS. POCT-GLUCOSE [id number] 06:22:00 Test Item Value Reference Range Interpretation Comments POC-GLUCOSE METER 206 mg/dL 70-110 H TESTED AT [facility] [address] ([facility]) (test code = [place] 1538) [id number] PROTHROMBIN [id number] 06:18:00 Test Item Value Reference Range Interpretation Comments PROTIME ([facility]) (test code = 14.8 seconds 11.7-14.7 H 759) INR (AKER) (test code = 370) 1.2 <=5.9 RECOMMENDED COUMADIN/WARFARIN INR THERAPY RANGESSTANDARD DOSE: 2.0 - 3.0 Includes: PROPHYLAXIS forvenous thrombosis, systemic embolization; TREATMENT for venous thrombosis and/or pulmonary embolus.HIGH RISK: Target INR is 2.5-3.5 for patients with mechanical heart valves.CBC W/PLT COUNT & AUTO DIFFERENTIAL 2018-09-01 06:08:00 Test Item Value Reference Range Interpretation Comments WHITE BLOOD CELL COUNT (BEAKER) 7.6 K/ L 3.5-10.5 (test code = 775) RED BLOOD CELL COUNT (BEAKER) 3.40 M/ L 3.93-5.22 L (test code = 761) HEMOGLOBIN (BEAKER) (test code = 8.2 GM/DL 11.2-15.7 L 410) HEMATOCRIT (BEAKER) (test code = 26.9 % 34.1-44.9 L 411) MEAN CORPUSCULAR VOLUME (BEAKER) 79.1 fL 79.4-94.8 L (test code = 753) MEAN CORPUSCULAR HEMOGLOBIN 24.1 pg 25.6-32.2 L (BEAKER) (test code = 751) MEAN CORPUSCULAR HEMOGLOBIN CONC 30.5 GM/DL 32.2-35.5 L (BEAKER) (test code = 752) RED CELL DISTRIBUTION WIDTH 21.2 % 11.7-14.4 H (BEAKER) (test code = 412) PLATELET COUNT (BEAKER) (test 398 K/CU MM 150-450 code = 756) MEAN PLATELET VOLUME (BEAKER) 10.0 fL 9.4-12.3 (test code = 754) NUCLEATED RED BLOOD CELLS 0 /100 WBC 0-0 (BEAKER) (test code = 413) NEUTROPHILS RELATIVE PERCENT 74 % (BEAKER) (test code = 429) LYMPHOCYTES RELATIVE PERCENT 17 % (BEAKER) (test code = 430) MONOCYTES RELATIVE PERCENT 8 % (BEAKER) (test code = 431) EOSINOPHILS RELATIVE PERCENT 1 % (BEAKER) (test code = 432) BASOPHILS RELATIVE PERCENT 0 % (BEAKER) (test code = 437) NEUTROPHILS ABSOLUTE COUNT 5.59 K/ L 1.56-6.13 (BEAKER) (test code = 670) LYMPHOCYTES ABSOLUTE COUNT 1.26 K/ L 1.18-3.74 (BEAKER) (test code = 414) MONOCYTES ABSOLUTE COUNT (BEAKER) 0.57 K/ L 0.24-0.36 H (test code = 415) EOSINOPHILS ABSOLUTE COUNT 0.06 K/ L 0.04-0.36 (BEAKER) (test code = 416) BASOPHILS ABSOLUTE COUNT (BEAKER) 0.02 K/ L 0.01-0.08 (test code = 417) IMMATURE GRANULOCYTES-RELATIVE 1 % 0-1 PERCENT (BEAKER) (test code = 2801) POCT-GLUCOSE [id number] 00:31:00 Test Item Value Reference Range Interpretation Comments POC-GLUCOSE METER 214 mg/dL 70-110 H TESTED AT [place] [address] ([facility]) (test code = [place] 1538) [address] POCT-GLUCOSE [id number] 17:53:00 Test Item Value Reference Range Interpretation Comments POC-GLUCOSE METER 188 mg/dL 70-110 H TESTED AT [place] [address] ([facility]) (test code = [place] 1538) [address] POCT-GLUCOSE [id number] 11:56:00 Test Item Value Reference Range Interpretation Comments POC-GLUCOSE METER 244 mg/dL 70-110 H TESTED AT [place] [address] (BEAKER) (test code = [place] 1538) [address] POCT-GLUCOSE [id number] 07:20:00 Test Item Value Reference Range Interpretation Comments POC-GLUCOSE METER 196 mg/dL 70-110 H TESTED AT [facility] 6720 (BEAKER) (test code = [place] 1538) [address] CBC W/PLT COUNT & AUTO [id number] 05:55:00 Test Item Value Reference Range Interpretation Comments WHITE BLOOD CELL COUNT (BEAKER) 9.2 K/ L 3.5-10.5 (test code = 775) RED BLOOD CELL COUNT (BEAKER) 3.48 M/ L 3.93-5.22 L (test code = 761) HEMOGLOBIN (BEAKER) (test code = 8.3 GM/DL 11.2-15.7 L 410) HEMATOCRIT (BEAKER) (test code = 27.6 % 34.1-44.9 L 411) MEAN CORPUSCULAR VOLUME (BEAKER) 79.3 fL 79.4-94.8 L (test code = 753) MEAN CORPUSCULAR HEMOGLOBIN 23.9 pg 25.6-32.2 L (BEAKER) (test code = 751) MEAN CORPUSCULAR HEMOGLOBIN CONC 30.1 GM/DL 32.2-35.5 L (BEAKER) (test code = 752) RED CELL DISTRIBUTION WIDTH 21.2 % 11.7-14.4 H (BEAKER) (test code = 412) PLATELET COUNT (BEAKER) (test 401 K/CU MM 150-450 code = 756) MEAN PLATELET VOLUME (BEAKER) 9.9 fL 9.4-12.3 (test code = 754) NUCLEATED RED BLOOD CELLS 0 /100 WBC 0-0 (BEAKER) (test code = 413) NEUTROPHILS RELATIVE PERCENT 81 % (BEAKER) (test code = 429) LYMPHOCYTES RELATIVE PERCENT 10 % (BEAKER) (test code = 430) MONOCYTES RELATIVE PERCENT 8 % (BEAKER) (test code = 431) EOSINOPHILS RELATIVE PERCENT 1 % (BEAKER) (test code = 432) BASOPHILS RELATIVE PERCENT 0 % (BEAKER) (test code = 437) NEUTROPHILS ABSOLUTE COUNT 7.41 K/ L 1.56-6.13 H (BEAKER) (test code = 670) LYMPHOCYTES ABSOLUTE COUNT 0.87 K/ L 1.18-3.74 L (BEAKER) (test code = 414) MONOCYTES ABSOLUTE COUNT (BEAKER) 0.77 K/ L 0.24-0.36 H (test code = 415) EOSINOPHILS ABSOLUTE COUNT 0.05 K/ L 0.04-0.36 (BEAKER) (test code = 416) BASOPHILS ABSOLUTE COUNT (BEAKER) 0.04 K/ L 0.01-0.08 (test code = 417) IMMATURE GRANULOCYTES-RELATIVE 1 % 0-1 PERCENT (BEAKER) (test code = 2801) BASIC METABOLIC [id number] 05:35:00 Test Item Value Reference Range Interpretation Comments SODIUM (BEAKER) 133 meq/L 136-145 L (test code = 381) POTASSIUM (BEAKER) 4.8 meq/L 3.5-5.1 (test code = 379) CHLORIDE (BEAKER) 106 meq/L 98-107 (test code = 382) CO2 (BEAKER) (test 20 meq/L 22-29 L code = 355) BLOOD UREA NITROGEN 17 mg/dL 7-21 (BEAKER) (test code = 354) CREATININE (BEAKER) 0.75 mg/dL 0.57-1.25 (test code = 358) GLUCOSE RANDOM 167 mg/dL 70-105 H (BEAKER) (test code = 652) CALCIUM (BEAKER) 10.8 mg/dL 8.4-10.2 H (test code = 697) EGFR (BEAKER) (test 77 mL/min/1.73 ESTIMA MAX GFR IS code = 1092) sq m NOT ACCURATE CREATININE CLEARANCE IN PREDICTING GLOMERULAR FILTRATION RATE . ESTIMATED GFR I S NOT APPLICABLE FOR DIALYSIS PATIEN TS. POCT-GLUCOSE [id number] 23:46:00 Test Item Value Reference Range Interpretation Comments POC-GLUCOSE METER 229 mg/dL 70-110 H TESTED AT [facility] 6720 (BEAKER) (test code = [facility] 1538) [address] POCT-GLUCOSE [id number] 17:14:00 Test Item Value Reference Range Interpretation Comments POC-GLUCOSE METER 204 mg/dL 70-110 H TESTED AT [facility] 6720 (BEAKER) (test code = [facility] 1538) [address] BASIC METABOLIC [id number] 14:53:00 Test Item Value Reference Range Interpretation Comments SODIUM (BEAKER) 135 meq/L 136-145 L (test code = 381) POTASSIUM (BEAKER) 4.8 meq/L 3.5-5.1 (test code = 379) CHLORIDE (BEAKER) 107 meq/L 98-107 (test code = 382) CO2 (BEAKER) (test 20 meq/L 22-29 L code = 355) BLOOD UREA NITROGEN 18 mg/dL 7-21 (BEAKER) (test code = 354) CREATININE (BEAKER) 0.76 mg/dL 0.57-1.25 (test code = 358) GLUCOSE RANDOM 143 mg/dL 70-105 H (BEAKER) (test code = 652) CALCIUM (BEAKER) 10.6 mg/dL 8.4-10.2 H (test code = 697) EGFR (BEAKER) (test 75 mL/min/1.73 ESTIMA MAX GFR IS code = 1092) sq m NOT ACCURATE CREATININE CLEARANCE IN PREDICTING GLOMERULAR FILTRATION RATE . ESTIMATED GFR I S NOT APPLICABLE FOR DIALYSIS PATIEN TS. POCT-GLUCOSE [id number] 11:46:00 Test Item Value Reference Range Interpretation Comments POC-GLUCOSE METER 204 mg/dL 70-110 H TESTED AT [place] [address] ([facility]) (test code = [facility] 1538) [address] POCT-GLUCOSE [id number] 07:22:00 Test Item Value Reference Range Interpretation Comments POC-GLUCOSE METER 196 mg/dL 70-110 H TESTED AT [place] [address] ([facility]) (test code = [facility] 1538) [address] [id number] 07:00:00 Test Item Value Reference Range Interpretation Comments PREALBUMIN (BEAKER) (test code = 14 mg/dL 14-45 586) CALCIUM, [id number] 06:42:00 Test Item Value Reference Range Interpretation Comments CALCIUM IONIZED (BEAKER) (test 1.35 mmol/L 1.12-1.27 H code = 698) PH, BLOOD ([facility]) (test code = 7.41 1810) POCT-GLUCOSE [id number] 23:46:00 Test Item Value Reference Range Interpretation Comments POC-GLUCOSE METER 200 mg/dL 70-110 H TESTED AT [place] [address] ([facility]) (test code = [facility] 1538) [address] URINALYSIS W/ REFLEX URINE [id number] 17:31:00 Test Item Value Reference Range Interpretation Comments COLOR (BEAKER) (test code = 470) Yellow CLARITY (BEAKER) (test code = 469) Clear SPECIFIC GRAVITY UA (BEAKER) (test 1.007 1.001-1.035 code = 468) PH UA (BEAKER) (test code = 467) 6.0 5.0-8.0 PROTEIN UA (BEAKER) (test code = Negative Negative 464) GLUCOSE UA (BEAKER) (test code = Negative Negative 365) KETONES UA (BEAKER) (test code = Negative Negative 371) BILIRUBIN UA (BEAKER) (test code = Negative Negative 462) BLOOD UA (BEAKER) (test code = Moderate Negative A 461) NITRITE UA (BEAKER) (test code = Negative Negative 465) LEUKOCYTE ESTERASE UA (BEAKER) Trace Negative A (test code = 466) UROBILINOGEN UA (BEAKER) (test 0.2 mg/dL 0.2-1.0 code = 463) RBC UA (BEAKER) (test code = 519) 0 /HPF WBC UA (BEAKER) (test code = 520) 1 /HPF BACTERIA (BEAKER) (test code = Occasional 517) SQUAMOUS EPITHELIAL (BEAKER) (test < /HPF code = 516) SOURCE(BEAKER) (test code = 2795) POCT-GLUCOSE [id number] 17:09:00 Test Item Value Reference Range Interpretation Comments POC-GLUCOSE METER 268 mg/dL 70-110 H TESTED AT [facility] 6720 (BEAKER) (test code = [place] [facility] 1538) [address] RAD, CHEST, 1 VIEW, NON [id number] 14:50:00Reason for exam:->pnaShould this be performed at the bedside?->YesFINAL REPORT TECHNIQUE: Frontal and lateral chest radiograph dated 08/29/2018 CLINICAL HISTORY: Pneumonia COMPARISON STUDY: Chest radiograph dated 08/25/2018 IMPRESSION:Right-sided PICC is seen with the tip projected over the superior vena cava at the level of the isaac. No focal consolidation. No pleural effusion or pneumothorax. Cardiomediastinal silhouette is normal in size. No pulmonary edema. Mild degenerative changes are seen in the spine. Signed: Rob Hill Verified Date/Time: 08/29/2018 14:50:02 Reading Location: [facility] Radiology Reading Room POCT-GLUCOSE [id number] 12:46:00 Test Item Value Reference Range Interpretation Comments POC-GLUCOSE METER 261 mg/dL 70-110 H TESTED AT [facility] 6720 (BEAKER) (test code = [place] 1538) [address] POCT-GLUCOSE [id number] 07:00:00 Test Item Value Reference Range Interpretation Comments POC-GLUCOSE METER 186 mg/dL 70-110 H TESTED AT [facility] 6720 (BEAKER) (test code = [facility] [place] [facility] 1538) [address] BASIC METABOLIC [id number] 06:20:00 Test Item Value Reference Range Interpretation Comments SODIUM (BEAKER) 135 meq/L 136-145 L (test code = 381) POTASSIUM (BEAKER) 4.6 meq/L 3.5-5.1 (test code = 379) CHLORIDE (BEAKER) 107 meq/L 98-107 (test code = 382) CO2 (BEAKER) (test 20 meq/L 22-29 L code = 355) BLOOD UREA NITROGEN 13 mg/dL 7-21 (BEAKER) (test code = 354) CREATININE (BEAKER) 0.71 mg/dL 0.57-1.25 (test code = 358) GLUCOSE RANDOM 135 mg/dL 70-105 H (BEAKER) (test code = 652) CALCIUM (BEAKER) 10.6 mg/dL 8.4-10.2 H (test code = 697) EGFR (BEAKER) (test 82 mL/min/1.73 ESTIMA MAX GFR IS code = 1092) sq m NOT ACCURATE CREATININE CLEARANCE IN PREDICTING GLOMERULAR FILTRATION RATE . ESTIMATED GFR I S NOT APPLICABLE FOR DIALYSIS PATIEN TS. CBC W/PLT COUNT & AUTO [id number] 05:58:00 Test Item Value Reference Range Interpretation Comments WHITE BLOOD CELL COUNT (BEAKER) 11.3 K/ L 3.5-10.5 H (test code = 775) RED BLOOD CELL COUNT (BEAKER) 3.60 M/ L 3.93-5.22 L (test code = 761) HEMOGLOBIN (BEAKER) (test code = 8.4 GM/DL 11.2-15.7 L 410) HEMATOCRIT (BEAKER) (test code = 27.9 % 34.1-44.9 L 411) MEAN CORPUSCULAR VOLUME (BEAKER) 77.5 fL 79.4-94.8 L (test code = 753) MEAN CORPUSCULAR HEMOGLOBIN 23.3 pg 25.6-32.2 L (BEAKER) (test code = 751) MEAN CORPUSCULAR HEMOGLOBIN CONC 30.1 GM/DL 32.2-35.5 L (BEAKER) (test code = 752) RED CELL DISTRIBUTION WIDTH 20.5 % 11.7-14.4 H (BEAKER) (test code = 412) PLATELET COUNT (BEAKER) (test 471 K/CU MM 150-450 H code = 756) MEAN PLATELET VOLUME (BEAKER) 9.5 fL 9.4-12.3 (test code = 754) NUCLEATED RED BLOOD CELLS 0 /100 WBC 0-0 (BEAKER) (test code = 413) NEUTROPHILS RELATIVE PERCENT 86 % (BEAKER) (test code = 429) LYMPHOCYTES RELATIVE PERCENT 7 % (BEAKER) (test code = 430) MONOCYTES RELATIVE PERCENT 6 % (BEAKER) (test code = 431) EOSINOPHILS RELATIVE PERCENT 0 % (BEAKER) (test code = 432) BASOPHILS RELATIVE PERCENT 0 % (BEAKER) (test code = 437) NEUTROPHILS ABSOLUTE COUNT 9.74 K/ L 1.56-6.13 H (BEAKER) (test code = 670) LYMPHOCYTES ABSOLUTE COUNT 0.76 K/ L 1.18-3.74 L (BEAKER) (test code = 414) MONOCYTES ABSOLUTE COUNT (BEAKER) 0.68 K/ L 0.24-0.36 H (test code = 415) EOSINOPHILS ABSOLUTE COUNT 0.05 K/ L 0.04-0.36 (BEAKER) (test code = 416) BASOPHILS ABSOLUTE COUNT (BEAKER) 0.03 K/ L 0.01-0.08 (test code = 417) IMMATURE GRANULOCYTES-RELATIVE 1 % 0-1 PERCENT (BEAKER) (test code = 2801) POCT-GLUCOSE [id number] 00:03:00 Test Item Value Reference Range Interpretation Comments POC-GLUCOSE METER 179 mg/dL 70-110 H TESTED AT [facility] 6720 (BEAKER) (test code = [place] 1538) [id number] POCT-GLUCOSE [id number] 17:16:00 Test Item Value Reference Range Interpretation Comments POC-GLUCOSE METER 188 mg/dL 70-110 H TESTED AT [facility] 6720 (BEAKER) (test code = [place] [facility] 1538) [address] POCT-GLUCOSE [id number] 12:20:00 Test Item Value Reference Range Interpretation Comments POC-GLUCOSE METER 173 mg/dL 70-110 H TESTED AT [place] [id number] (BEAKER) (test code = [place] [facility] 1538) [address] POCT-GLUCOSE [id number] 07:48:00 Test Item Value Reference Range Interpretation Comments POC-GLUCOSE METER 167 mg/dL 70-110 H TESTED AT [facility] 6720 (BEAKER) (test code = [place] [facility] 1538) [address] BLOOD [id number] 07:01:00 Test Item Value Reference Range Interpretation Comments CULTURE (BEAKER) (test No growth in 5 days code = 1095) BLOOD [id number] 07:01:00 Test Item Value Reference Range Interpretation Comments CULTURE (BEAKER) (test No growth in 5 days code = 1095) [id number] 05:09:00 Test Item Value Reference Range Interpretation Comments PHOSPHORUS (BEAKER) (test code = 2.5 mg/dL 2.3-4.7 604) [id number] 05:09:00 Test Item Value Reference Range Interpretation Comments MAGNESIUM (BEAKER) (test code = 2.0 mg/dL 1.6-2.6 627) BASIC METABOLIC [id number] 05:09:00 Test Item Value Reference Range Interpretation Comments SODIUM (BEAKER) 137 meq/L 136-145 (test code = 381) POTASSIUM (BEAKER) 4.5 meq/L 3.5-5.1 (test code = 379) CHLORIDE (BEAKER) 110 meq/L 98-107 H (test code = 382) CO2 (BEAKER) (test 22 meq/L 22-29 code = 355) BLOOD UREA NITROGEN 12 mg/dL 7-21 (BEAKER) (test code = 354) CREATININE (BEAKER) 0.69 mg/dL 0.57-1.25 (test code = 358) GLUCOSE RANDOM 134 mg/dL 70-105 H (BEAKER) (test code = 652) CALCIUM (BEAKER) 10.2 mg/dL 8.4-10.2 (test code = 697) EGFR (BEAKER) (test 84 mL/min/1.73 ESTIMA MAX GFR IS code = 1092) sq m NOT ACCURATE CREATININE CLEARANCE IN PREDICTING GLOMERULAR FILTRATION RATE . ESTIMATED GFR I S NOT APPLICABLE FOR DIALYSIS PATIEN TS. CBC W/PLT COUNT & AUTO [id number] 04:49:00 Test Item Value Reference Range Interpretation Comments WHITE BLOOD CELL COUNT (BEAKER) 6.4 K/ L 3.5-10.5 (test code = 775) RED BLOOD CELL COUNT (BEAKER) 3.29 M/ L 3.93-5.22 L (test code = 761) HEMOGLOBIN (BEAKER) (test code = 7.7 GM/DL 11.2-15.7 L 410) HEMATOCRIT (BEAKER) (test code = 25.7 % 34.1-44.9 L 411) MEAN CORPUSCULAR VOLUME (BEAKER) 78.1 fL 79.4-94.8 L (test code = 753) MEAN CORPUSCULAR HEMOGLOBIN 23.4 pg 25.6-32.2 L (BEAKER) (test code = 751) MEAN CORPUSCULAR HEMOGLOBIN CONC 30.0 GM/DL 32.2-35.5 L (BEAKER) (test code = 752) RED CELL DISTRIBUTION WIDTH 19.9 % 11.7-14.4 H (BEAKER) (test code = 412) PLATELET COUNT (BEAKER) (test 415 K/CU MM 150-450 code = 756) MEAN PLATELET VOLUME (BEAKER) 9.1 fL 9.4-12.3 L (test code = 754) NUCLEATED RED BLOOD CELLS 0 /100 WBC 0-0 (BEAKER) (test code = 413) NEUTROPHILS RELATIVE PERCENT 75 % (BEAKER) (test code = 429) LYMPHOCYTES RELATIVE PERCENT 16 % (BEAKER) (test code = 430) MONOCYTES RELATIVE PERCENT 8 % (BEAKER) (test code = 431) EOSINOPHILS RELATIVE PERCENT 1 % (BEAKER) (test code = 432) BASOPHILS RELATIVE PERCENT 0 % (BEAKER) (test code = 437) NEUTROPHILS ABSOLUTE COUNT 4.82 K/ L 1.56-6.13 (BEAKER) (test code = 670) LYMPHOCYTES ABSOLUTE COUNT 1.00 K/ L 1.18-3.74 L (BEAKER) (test code = 414) MONOCYTES ABSOLUTE COUNT (BEAKER) 0.50 K/ L 0.24-0.36 H (test code = 415) EOSINOPHILS ABSOLUTE COUNT 0.05 K/ L 0.04-0.36 (BEAKER) (test code = 416) BASOPHILS ABSOLUTE COUNT (BEAKER) 0.02 K/ L 0.01-0.08 (test code = 417) IMMATURE GRANULOCYTES-RELATIVE 1 % 0-1 PERCENT (BEAKER) (test code = 2801) POCT-GLUCOSE [id number] 02:43:00 Test Item Value Reference Range Interpretation Comments POC-GLUCOSE METER 159 mg/dL 70-110 H TESTED AT [place] [address] ([facility]) (test code = [facility] 1538) [address] POCT-GLUCOSE [id number] 17:13:00 Test Item Value Reference Range Interpretation Comments POC-GLUCOSE METER 169 mg/dL 70-110 H TESTED AT [place] [address] ([facility]) (test code = [facility] 1538) [address] POCT-GLUCOSE [id number] 12:48:00 Test Item Value Reference Range Interpretation Comments POC-GLUCOSE METER 160 mg/dL 70-110 H TESTED AT [place] [address] ([facility]) (test code = [facility] 1538) [address] BASIC METABOLIC [id number] 11:06:00 Test Item Value Reference Range Interpretation Comments SODIUM (BEAKER) 137 meq/L 136-145 (test code = 381) POTASSIUM (BEAKER) 4.0 meq/L 3.5-5.1 (test code = 379) CHLORIDE (BEAKER) 109 meq/L 98-107 H (test code = 382) CO2 (BEAKER) (test 21 meq/L 22-29 L code = 355) BLOOD UREA NITROGEN 11 mg/dL 7-21 (BEAKER) (test code = 354) CREATININE (BEAKER) 0.67 mg/dL 0.57-1.25 (test code = 358) GLUCOSE RANDOM 136 mg/dL 70-105 H (BEAKER) (test code = 652) CALCIUM (BEAKER) 9.8 mg/dL 8.4-10.2 (test code = 697) EGFR (BEAKER) (test 87 mL/min/1.73 ESTIMA MAX GFR IS code = 1092) sq m NOT ACCURATE CREATININE CLEARANCE IN PREDICTING GLOMERULAR FILTRATION RATE . ESTIMATED GFR I S NOT APPLICABLE FOR DIALYSIS PATIEN TS. POCT-GLUCOSE [id number] 07:17:00 Test Item Value Reference Range Interpretation Comments POC-GLUCOSE METER 181 mg/dL 70-110 H TESTED AT [facility] 6720 (BEAKER) (test code = [place] 1538) [address] BASIC METABOLIC [id number] 06:28:00 Test Item Value Reference Range Interpretation Comments SODIUM (BEAKER) 130 meq/L 136-145 L (test code = 381) POTASSIUM (BEAKER) 5.5 meq/L 3.5-5.1 H (test code = 379) CHLORIDE (BEAKER) 105 meq/L 98-107 (test code = 382) CO2 (BEAKER) (test 19 meq/L 22-29 L code = 355) BLOOD UREA NITROGEN 12 mg/dL 7-21 (BEAKER) (test code = 354) CREATININE (BEAKER) 0.79 mg/dL 0.57-1.25 (test code = 358) GLUCOSE RANDOM 390 mg/dL 70-105 H (BEAKER) (test code = 652) CALCIUM (BEAKER) 9.6 mg/dL 8.4-10.2 (test code = 697) EGFR (BEAKER) (test 72 mL/min/1.73 ESTIMA MAX GFR IS code = 1092) sq m NOT ACCURATE CREATININE CLEARANCE IN PREDICTING GLOMERULAR FILTRATION RATE . ESTIMATED GFR I S NOT APPLICABLE FOR DIALYSIS PATIEN TS. [id number] 06:27:00 Test Item Value Reference Range Interpretation Comments PHOSPHORUS (BEAKER) (test code = 1.6 mg/dL 2.3-4.7 L 604) [id number] 06:27:00 Test Item Value Reference Range Interpretation Comments MAGNESIUM (BEAKER) (test code = 2.5 mg/dL 1.6-2.6 627) PROTHROMBIN [id number] 06:12:00 Test Item Value Reference Range Interpretation Comments PROTIME (BEAKER) (test code = 14.4 seconds 11.7-14.7 759) INR (BEAKER) (test code = 370) 1.1 <=5.9 RECOMMENDED COUMADIN/WARFARIN INR THERAPY RANGESSTANDARD DOSE: 2.0 - 3.0 Includes: PROPHYLAXIS forvenous thrombosis, systemic embolization; TREATMENT for venous thrombosis and/or pulmonary embolus.HIGH RISK: Target INR is 2.5-3.5 for patients with mechanical heart valves.CBC W/PLT COUNT & AUTO DIFFERENTIAL 2018-08-27 06:06:00 Test Item Value Reference Range Interpretation Comments WHITE BLOOD CELL COUNT (BEAKER) 7.2 K/ L 3.5-10.5 (test code = 775) RED BLOOD CELL COUNT (BEAKER) 3.34 M/ L 3.93-5.22 L (test code = 761) HEMOGLOBIN (BEAKER) (test code = 7.8 GM/DL 11.2-15.7 L 410) HEMATOCRIT (BEAKER) (test code = 26.7 % 34.1-44.9 L 411) MEAN CORPUSCULAR VOLUME (BEAKER) 79.9 fL 79.4-94.8 (test code = 753) MEAN CORPUSCULAR HEMOGLOBIN 23.4 pg 25.6-32.2 L (BEAKER) (test code = 751) MEAN CORPUSCULAR HEMOGLOBIN CONC 29.2 GM/DL 32.2-35.5 L (BEAKER) (test code = 752) RED CELL DISTRIBUTION WIDTH 19.6 % 11.7-14.4 H (BEAKER) (test code = 412) PLATELET COUNT (BEAKER) (test 438 K/CU MM 150-450 code = 756) MEAN PLATELET VOLUME (BEAKER) 9.4 fL 9.4-12.3 (test code = 754) NUCLEATED RED BLOOD CELLS 0 /100 WBC 0-0 (BEAKER) (test code = 413) NEUTROPHILS RELATIVE PERCENT 77 % (BEAKER) (test code = 429) LYMPHOCYTES RELATIVE PERCENT 16 % (BEAKER) (test code = 430) MONOCYTES RELATIVE PERCENT 6 % (BEAKER) (test code = 431) EOSINOPHILS RELATIVE PERCENT 1 % (BEAKER) (test code = 432) BASOPHILS RELATIVE PERCENT 0 % (BEAKER) (test code = 437) NEUTROPHILS ABSOLUTE COUNT 5.48 K/ L 1.56-6.13 (BEAKER) (test code = 670) LYMPHOCYTES ABSOLUTE COUNT 1.11 K/ L 1.18-3.74 L ([facility]) (test code = 414) MONOCYTES ABSOLUTE COUNT (BEAKER) 0.44 K/ L 0.24-0.36 H (test code = 415) EOSINOPHILS ABSOLUTE COUNT 0.05 K/ L 0.04-0.36 ([facility]) (test code = 416) BASOPHILS ABSOLUTE COUNT ([facility]) 0.03 K/ L 0.01-0.08 (test code = 417) IMMATURE GRANULOCYTES-RELATIVE 1 % 0-1 PERCENT ([facility]) (test code = 2801) POCT-GLUCOSE [id number] 01:15:00 Test Item Value Reference Range Interpretation Comments POC-GLUCOSE METER 171 mg/dL 70-110 H TESTED AT [facility] 67 ([facility]) (test code = [facility] 1538) [id number] POCT-GLUCOSE [id number] 18:18:00 Test Item Value Reference Range Interpretation Comments POC-GLUCOSE METER 136 mg/dL 70-110 H TESTED AT [place] [address] ([facility]) (test code = [facility] 1538) [address] PET, CARDIAC PERFUSION MULTIPLE STUDIES, REST AND [id number] 15:14:00 Reason for exam:->preop clearance for surgery planned on 08/27FINAL REPORT PROCEDURE: Rest/Stress MYOCARDIAL PERFUSION PET with regadenoson\\XA9\\ CPT CODE: 02344 INDICATION: Preoperative clearance for major abdominal surgery HISTORY: Cardiac risk factors: Hypertension, stroke. Other cardiovascular history: No reported CAD. Recent cardiac symptoms: None. Current cardiovascular-related medications: Atorvastatin, lisinopril. PROTOCOL: Limited low-dose CT imaging was performed for attenuation correction. 40.1 mCi of Rb-82 chloride was injected iv at rest, and gated PET (positron emission tomography) images were obtained. Subsequently, 40.1 mCi of Rb-82 chloride was injected iv at expected peak pharmacologic effect, and gated PET images were obtained. PRELIMINARY STRESS TEST DATA FROM NONINVASIVE CARDIOLOGY: Pharmacologic stress was by 10-second iv infusion of 0.4 mg of regadenoson. Radiotracer was injected 30 seconds after start of stress. Heart rate was 60 beats/min at rest and 125 beats/min (82% of MPHR) at tracer injection. BP was 138/50 mmHg at rest and 132/60 mmHg at tracer injection. Stress was stopped for predetermined endpoint. The patient experienced headache; treatment was not required. Preliminary ECG evaluation revealed sinus rhythm at rest and [address] depression with stress. (Final ECG interpretation and other stress and monitoring data are reported separately by Cardiology.) IMAGING FINDINGS: Study quality is good. Images obtained after rest and stress injections show normal LV activity. LV and RV volumes appear normal. Gated images obtained at rest and with stress show normal LV wall motion and thickening. LVEF at rest is 68%. LVEF at stress is greater than 70%. IMPRESSION: 1. Normal study. 2. Appropriate pharmacologic stress. 3. Normal myocardial perfusion. 4. Normal resting LV function. No deterioration of function is noted with pharmacologic stress. 5. Normal extracardiac tracer distribution. 6. No previous [facility] study for comparison. Signed: Farnaz AbdulMDReport Verified Date/Time: 08/26/2018 15:14:34 Reading Location: [address] Reading Room POCT-GLUCOSE [id number] 11:56:00 Test Item Value Reference Range Interpretation Comments POC-GLUCOSE METER 191 mg/dL 70-110 H TESTED AT [place] [address] ([facility]) (test code = RAMONA Deleon [facility] 1538) [address] POCT-GLUCOSE [id number] 07:29:00 Test Item Value Reference Range Interpretation Comments POC-GLUCOSE METER 189 mg/dL 70-110 H TESTED AT [place] [address] ([facility]) (test code = RAMONA Deleon [facility] 1538) [address] CBC W/PLT COUNT & AUTO [id number] 06:14:00 Test Item Value Reference Range Interpretation Comments WHITE BLOOD CELL COUNT ([facility]) 4.7 K/ L 3.5-10.5 (test code = 775) RED BLOOD CELL COUNT ([facility]) 3.37 M/ L 3.93-5.22 L (test code = 761) HEMOGLOBIN ([facility]) (test code = 7.7 GM/DL 11.2-15.7 L 410) HEMATOCRIT ([facility]) (test code = 26.3 % 34.1-44.9 L 411) MEAN CORPUSCULAR VOLUME ([facility]) 78.0 fL 79.4-94.8 L (test code = 753) MEAN CORPUSCULAR HEMOGLOBIN 22.8 pg 25.6-32.2 L (BEAKER) (test code = 751) MEAN CORPUSCULAR HEMOGLOBIN CONC 29.3 GM/DL 32.2-35.5 L (BEAKER) (test code = 752) RED CELL DISTRIBUTION WIDTH 19.2 % 11.7-14.4 H (BEAKER) (test code = 412) PLATELET COUNT (BEAKER) (test 419 K/CU MM 150-450 code = 756) MEAN PLATELET VOLUME (BEAKER) 9.3 fL 9.4-12.3 L (test code = 754) NUCLEATED RED BLOOD CELLS 0 /100 WBC 0-0 (BEAKER) (test code = 413) NEUTROPHILS RELATIVE PERCENT 71 % (BEAKER) (test code = 429) LYMPHOCYTES RELATIVE PERCENT 19 % (BEAKER) (test code = 430) MONOCYTES RELATIVE PERCENT 9 % (BEAKER) (test code = 431) EOSINOPHILS RELATIVE PERCENT 1 % (BEAKER) (test code = 432) BASOPHILS RELATIVE PERCENT 0 % (BEAKER) (test code = 437) NEUTROPHILS ABSOLUTE COUNT 3.34 K/ L 1.56-6.13 (BEAKER) (test code = 670) LYMPHOCYTES ABSOLUTE COUNT 0.90 K/ L 1.18-3.74 L (BEAKER) (test code = 414) MONOCYTES ABSOLUTE COUNT (BEAKER) 0.41 K/ L 0.24-0.36 H (test code = 415) EOSINOPHILS ABSOLUTE COUNT 0.03 K/ L 0.04-0.36 L (BEAKER) (test code = 416) BASOPHILS ABSOLUTE COUNT (BEAKER) 0.02 K/ L 0.01-0.08 (test code = 417) IMMATURE GRANULOCYTES-RELATIVE 0 % 0-1 PERCENT (BEAKER) (test code = 2801) [id number] 06:13:00 Test Item Value Reference Range Interpretation Comments TRIGLYCERIDES (BEAKER) (test code = 136 mg/dL 540) TRIGLYCERIDE REFERENCE RANGELow Risk <150Borderline Risk 150-199High Risk 200-499Very High Risk>=[id number] 06:13:00 Test Item Value Reference Range Interpretation Comments MAGNESIUM (BEAKER) (test code = 2.0 mg/dL 1.6-2.6 627) [id number] 06:13:00 Test Item Value Reference Range Interpretation Comments PHOSPHORUS (BEAKER) (test code = 1.9 mg/dL 2.3-4.7 L 604) BASIC METABOLIC [id number] 06:13:00 Test Item Value Reference Range Interpretation Comments SODIUM (BEAKER) 139 meq/L 136-145 (test code = 381) POTASSIUM (BEAKER) 3.6 meq/L 3.5-5.1 (test code = 379) CHLORIDE (BEAKER) 108 meq/L 98-107 H (test code = 382) CO2 (BEAKER) (test 25 meq/L 22-29 code = 355) BLOOD UREA NITROGEN 7 mg/dL 7-21 (BEAKER) (test code = 354) CREATININE (BEAKER) 0.68 mg/dL 0.57-1.25 (test code = 358) GLUCOSE RANDOM 139 mg/dL 70-105 H (BEAKER) (test code = 652) CALCIUM (BEAKER) 9.8 mg/dL 8.4-10.2 (test code = 697) EGFR (BEAKER) (test 86 mL/min/1.73 ESTIMA MAX GFR IS code = 1092) sq m NOT ACCURATE CREATININE CLEARANCE IN PREDICTING GLOMERULAR FILTRATION RATE . ESTIMATED GFR I S NOT APPLICABLE FOR DIALYSIS PATIEN TS. C-REACTIVE [id number] 06:13:00 Test Item Value Reference Range Interpretation Comments C-REACTIVE PROTEIN (BEAKER) (test 3.37 mg/dL 0.00-0.50 H code = 676) RAD, CHEST, PA OR AP, 1 [id number] 21:47:00VAT/Infusion Therapy Nurse to Call Radiology Department when patient is readyReason for exam:->PICC line placementFINAL REPORT INDICATION: PICC line placement COMPARISON: None TECHNIQUE: Single frontal view of the chest. FINDINGS: Lungs and pleura: Clear lungs. No effusion.Heart and mediastinum: Normal heart size. Unremarkable mediastinal contours.Osseous structures: No acute abnormality.Oth er: Right-sided PICC tip overlies the SVC. IMPRESSION: Right-sided PICC tip overlies the SVC Signed: Keiht Lane Verified Date/Time: 08/25/2018 21:47:18 Reading Location: [facility] B1 C013V Neuro Reading Room [id number] 13:00:00 Test Item Value Reference Range Interpretation Comments PREALBUMIN (BEAKER) (test code = 586) 9 mg/dL 14-45 L CARCINOEMBRYONIC ANTIGEN ([facility])2018-08-25 06:37:00 Test Item Value Reference Range Interpretation Comments CARCINOEMBRYONIC ANTIGEN (BEAKER) 3.0 ng/mL 0.0-5.0 (test code = 685) BASIC METABOLIC [id number] 06:26:00 Test Item Value Reference Range Interpretation Comments SODIUM (BEAKER) 139 meq/L 136-145 (test code = 381) POTASSIUM (BEAKER) 3.5 meq/L 3.5-5.1 (test code = 379) CHLORIDE (BEAKER) 105 meq/L 98-107 (test code = 382) CO2 (BEAKER) (test 25 meq/L 22-29 code = 355) BLOOD UREA NITROGEN 6 mg/dL 7-21 L (BEAKER) (test code = 354) CREATININE (BEAKER) 0.72 mg/dL 0.57-1.25 (test code = 358) GLUCOSE RANDOM 108 mg/dL 70-105 H (BEAKER) (test code = 652) CALCIUM (BEAKER) 10.6 mg/dL 8.4-10.2 H (test code = 697) EGFR (BEAKER) (test 80 mL/min/1.73 ESTIMA MAX GFR IS code = 1092) sq m NOT ACCURATE CREATININE CLEARANCE IN PREDICTING GLOMERULAR FILTRATION RATE . ESTIMATED GFR I S NOT APPLICABLE FOR DIALYSIS PATIEN TS. CBC W/PLT COUNT & AUTO [id number] 05:58:00 Test Item Value Reference Range Interpretation Comments WHITE BLOOD CELL COUNT (BEAKER) 5.9 K/ L 3.5-10.5 (test code = 775) RED BLOOD CELL COUNT (BEAKER) 3.77 M/ L 3.93-5.22 L (test code = 761) HEMOGLOBIN (BEAKER) (test code = 8.9 GM/DL 11.2-15.7 L 410) HEMATOCRIT (BEAKER) (test code = 29.2 % 34.1-44.9 L 411) MEAN CORPUSCULAR VOLUME (BEAKER) 77.5 fL 79.4-94.8 L (test code = 753) MEAN CORPUSCULAR HEMOGLOBIN 23.6 pg 25.6-32.2 L (BEAKER) (test code = 751) MEAN CORPUSCULAR HEMOGLOBIN CONC 30.5 GM/DL 32.2-35.5 L (BEAKER) (test code = 752) RED CELL DISTRIBUTION WIDTH 19.3 % 11.7-14.4 H (BEAKER) (test code = 412) PLATELET COUNT (BEAKER) (test 428 K/CU MM 150-450 code = 756) MEAN PLATELET VOLUME (BEAKER) 9.4 fL 9.4-12.3 (test code = 754) NUCLEATED RED BLOOD CELLS 0 /100 WBC 0-0 (BEAKER) (test code = 413) NEUTROPHILS RELATIVE PERCENT 76 % (BEAKER) (test code = 429) LYMPHOCYTES RELATIVE PERCENT 12 % (BEAKER) (test code = 430) MONOCYTES RELATIVE PERCENT 10 % (BEAKER) (test code = 431) EOSINOPHILS RELATIVE PERCENT 1 % (BEAKER) (test code = 432) BASOPHILS RELATIVE PERCENT 1 % (BEAKER) (test code = 437) NEUTROPHILS ABSOLUTE COUNT 4.50 K/ L 1.56-6.13 (BEAKER) (test code = 670) LYMPHOCYTES ABSOLUTE COUNT 0.73 K/ L 1.18-3.74 L (BEAKER) (test code = 414) MONOCYTES ABSOLUTE COUNT (BEAKER) 0.57 K/ L 0.24-0.36 H (test code = 415) EOSINOPHILS ABSOLUTE COUNT 0.04 K/ L 0.04-0.36 (BEAKER) (test code = 416) BASOPHILS ABSOLUTE COUNT (BEAKER) 0.03 K/ L 0.01-0.08 (test code = 417) IMMATURE GRANULOCYTES-RELATIVE 0 % 0-1 PERCENT (BEAKER) (test code = 2801) CT, CHEST, WITH [id number] 14:24:00FINAL REPORT TECHNIQUE: CT of the chest, abdomen, and pelvis WITH intravenouscontrast and WITHOUT oral contrast. Dose modulation, iterative reconstruction, and/or weight- based adjustment of the mA/kV was utilized to reduce the radiation dose to as low as reasonably achievable. INDICATION: cancer staging. COMPARISON: CT of the chest, abdomen, and pelvis from 09/22/2008. FINDINGS: LINES/TUBES: None. LUNGS AND AIRWAYS: Right lower lobe pulmonary nodule measures 2 mm on axial image 38. A left lower lobe pulmonary nodule measures 2 mm on axial image 37. A fairly linear area of nodularity in the right upper lobe measures 5 mm on axial image 18 is unchanged from 2009. There are lobe pulmonary nodule on axial measures 2 mm and is unchanged from 2009. A right middle lobe nodule measures 3 mm on axial image 34 and is unchanged from 2009.PLEURA: The pleural spaces are clear.HEART AND MEDIASTINUM: There are a few scattered thyroid nodules measured 0.5 cm. These are likely clinicallyinsignificant, and no further imaging is necessary. No significant mediastinal, hilar, or axillary lymphadenopathy. The heart and pericardium are within normal limits. Severe coronary arterial calcifications. Mild atherosclerotic changes of the thoracic aorta. HEPATOBILIARY: No focal hepatic lesions. Gallbladder is unremarkable. No biliary ductal dilatation.SPLEEN: No splenomegaly.PANCREAS: No focal masses or ductal dilatation. ADRENALS: No adrenal nodules.KIDNEYS/URETERS: Prior left nephrectomy. Noright hydronephrosis, stones, or solid mass lesions.PELVIC ORGANS/BLADDER: Prior hysterectomy.. PERITONEUM/RETROPERITONEUM: Trace free fluid in the pelvis.LYMPH NODES: No lymphadenopathy.VESSELS: Unremarkable. GI TRACT: A mass pole measures 7.2 x 4.4 x 4.4 cm. This likely extend outside of the colonicwall and into the adjacent pericolonic fat. In addition, this appears to involve the ileocecal valveand most likely invades a portion of the terminal ileum. Mild diverticulosis of the sigmoid colon. BONES AND SOFT TISSUES: Unremarkable. IMPRESSION: 1.The cecal mass appears to invade the adjacent bassem colonic fat and involves the ileocecal valve. This likely invades the most distal portion of the terminal ileum. No definite metastatic disease in the chest, abdomen, or pelvis. 2.A pulmonary nodule ineach lower lobe measures 2 mm. Signed: Ac Horta MDReport Verified Date/Time: 08/24/2018 14:24:21 Reading Location: [address] Body Reading Room CT, [id number] 14:24:00FINAL REPORT TECHNIQUE: CT of the chest, abdomen, and pelvis WITH intravenouscontrast and WITHOUT oral contrast. Dose modulation, iterative reconstruction, and/or weight-based adjustment of the mA/kV was utilized to reduce the radiation dose to as low as reasonably achievable. INDICATION: cancer staging. COMPARISON: CT of the chest, abdomen, and pelvis from 09/22/2008. FINDINGS: LINES/TUBES: None. LUNGS AND AIRWAYS: Right lower lobe pulmonary nodule measures 2 mm on axial image 38. A left lower lobe pulmonary nodule measures 2 mm on axial image 37. A fairly linear area of nodularity in the right upper lobe measures 5 mm on axial image 18 is unchanged from 2009. There are lob e pulmonary nodule on axial measures 2 mm and is unchanged from 2009. A right middle lobe nodule measures 3 mm on axial image 34 and is unchanged from 2009.PLEURA: The pleural spaces are clear.HEART AND MEDIASTINUM: There are a few scattered thyroid nodules measured 0.5 cm. These are likely clinically insignificant, and no further imaging is necessary. No significant mediastinal, hilar, or axillary lymphadenopathy. The heart and pericardium are within normal limits. Severe coronary arterial calcifications. Mild atherosclerotic changes of the thoracic aorta. HEPATOBILIARY: No focal hepatic lesions. Gallbladder is unremarkable. No biliary ductal dilatation.SPLEEN: No splenomegaly.PANCREAS: No focal masses or ductal dilatation. ADRENALS: No adrenal nodules.KIDNEYS/URETERS: Prior left nephrectomy. Noright hydronephrosis, stones, or solid mass lesions.PELVIC ORGANS/BLADDER: Prior hysterectomy.. PERITONEUM/RETROPERITONEUM: Trace free fluid in the pelvis.LYMPH NODES: No lymphadenopathy.VESSELS: Unrema rkable. GI TRACT: A mass pole measures 7.2 x 4.4 x 4.4 cm. This likely extend outside of the colonicwall and into the adjacent pericolonic fat. In addition, this appears to involve the ileocecal valveand most likely invades a portion of the terminal ileum. Mild diverticulosis of the sigmoid colon. BONES AND SOFT TISSUES: Unremarkable. IMPRESSION: 1.The cecal mass appears to invade the adjacent pericolonic fat and involves the ileocecal valve. This likely invades the most distal portion of the terminal ileum. No definite metastatic disease in the chest, abdomen, or pelvis. 2.A pulmonary nodule ineach lower lobe measures 2 mm. Signed: Ac Horta MDReport Verified Date/Time: 08/24/2018 14:24:21 Reading Location: [facility] B1 C013Y CT Body Reading Room [facility] METABOLIC [id number] 05:56:00 Test Item Value Reference Range Interpretation Comments SODIUM (BEAKER) 137 meq/L 136-145 (test code = 381) POTASSIUM (BEAKER) 3.6 meq/L 3.5-5.1 (test code = 379) CHLORIDE (BEAKER) 106 meq/L 98-107 (test code = 382) CO2 (BEAKER) (test 23 meq/L 22-29 code = 355) BLOOD UREA NITROGEN 8 mg/dL 7-21 (BEAKER) (test code = 354) CREATININE (BEAKER) 0.76 mg/dL 0.57-1.25 (test code = 358) GLUCOSE RANDOM 112 mg/dL 70-105 H (BEAKER) (test code = 652) CALCIUM (BEAKER) 10.0 mg/dL 8.4-10.2 (test code = 697) EGFR (BEAKER) (test 75 mL/min/1.73 ESTIMA MAX GFR IS code = 1092) sq m NOT ACCURATE CREATININE CLEARANCE IN PREDICTING GLOMERULAR FILTRATION RATE . ESTIMATED GFR I S NOT APPLICABLE FOR DIALYSIS PATIEN TS. CBC W/PLT COUNT & AUTO [id number] 05:29:00 Test Item Value Reference Range Interpretation Comments WHITE BLOOD CELL COUNT (BEAKER) 5.4 K/ L 3.5-10.5 (test code = 775) RED BLOOD CELL COUNT (BEAKER) 3.47 M/ L 3.93-5.22 L (test code = 761) HEMOGLOBIN (BEAKER) (test code = 8.1 GM/DL 11.2-15.7 L 410) HEMATOCRIT (BEAKER) (test code = 27.0 % 34.1-44.9 L 411) MEAN CORPUSCULAR VOLUME (BEAKER) 77.8 fL 79.4-94.8 L (test code = 753) MEAN CORPUSCULAR HEMOGLOBIN 23.3 pg 25.6-32.2 L (BEAKER) (test code = 751) MEAN CORPUSCULAR HEMOGLOBIN CONC 30.0 GM/DL 32.2-35.5 L (BEAKER) (test code = 752) RED CELL DISTRIBUTION WIDTH 19.2 % 11.7-14.4 H (BEAKER) (test code = 412) PLATELET COUNT (BEAKER) (test 402 K/CU MM 150-450 code = 756) MEAN PLATELET VOLUME (BEAKER) 9.2 fL 9.4-12.3 L (test code = 754) NUCLEATED RED BLOOD CELLS 0 /100 WBC 0-0 (BEAKER) (test code = 413) NEUTROPHILS RELATIVE PERCENT 77 % (BEAKER) (test code = 429) LYMPHOCYTES RELATIVE PERCENT 13 % (BEAKER) (test code = 430) MONOCYTES RELATIVE PERCENT 9 % (BEAKER) (test code = 431) EOSINOPHILS RELATIVE PERCENT 0 % (BEAKER) (test code = 432) BASOPHILS RELATIVE PERCENT 1 % (BEAKER) (test code = 437) NEUTROPHILS ABSOLUTE COUNT 4.20 K/ L 1.56-6.13 (BEAKER) (test code = 670) LYMPHOCYTES ABSOLUTE COUNT 0.70 K/ L 1.18-3.74 L (BEAKER) (test code = 414) MONOCYTES ABSOLUTE COUNT (BEAKER) 0.46 K/ L 0.24-0.36 H (test code = 415) EOSINOPHILS ABSOLUTE COUNT 0.00 K/ L 0.04-0.36 L (BEAKER) (test code = 416) BASOPHILS ABSOLUTE COUNT (BEAKER) 0.03 K/ L 0.01-0.08 (test code = 417) IMMATURE GRANULOCYTES-RELATIVE 1 % 0-1 PERCENT (BEAKER) (test code = 2801) URINALYSIS W/ REFLEX URINE [id number] 09:48:00 Test Item Value Reference Range Interpretation Comments COLOR (BEAKER) (test code = 470) Yellow CLARITY (BEAKER) (test code = 469) Cloudy SPECIFIC GRAVITY UA (BEAKER) (test 1.028 1.001-1.035 code = 468) PH UA (BEAKER) (test code = 467) 5.5 5.0-8.0 PROTEIN UA (BEAKER) (test code = Negative Negative 464) GLUCOSE UA (BEAKER) (test code = Negative Negative 365) KETONES UA (BEAKER) (test code = Negative Negative 371) BILIRUBIN UA (BEAKER) (test code = Negative Negative 462) BLOOD UA (BEAKER) (test code = 461) Moderate Negative A NITRITE UA (BEAKER) (test code = Negative Negative 465) LEUKOCYTE ESTERASE UA (BEAKER) Large Negative A (test code = 466) UROBILINOGEN UA (BEAKER) (test code 0.2 mg/dL 0.2-1.0 = 463) RBC UA (BEAKER) (test code = 519) 482 /HPF WBC UA (BEAKER) (test code = 520) 5 /HPF SQUAMOUS EPITHELIAL (BEAKER) (test 4 /HPF code = 516) URIC ACID CRYSTALS (BEAKER) (test Many code = 1583) AMORPHOUS CRYSTALS (BEAKER) (test Few code = 1584) SOURCE(BEAKER) (test code = 2795) HEMOGLOBIN AND [id number] 08:13:00 Test Item Value Reference Range Interpretation Comments HEMOGLOBIN (BEAKER) (test code = 7.2 GM/DL 11.2-15.7 L 410) HEMATOCRIT (BEAKER) (test code = 24.7 % 34.1-44.9 L 411) HEPATIC FUNCTION [id number] 06:32:00 Test Item Value Reference Range Interpretation Comments TOTAL PROTEIN (BEAKER) (test code = 5.8 gm/dL 6.0-8.3 L 770) ALBUMIN (BEAKER) (test code = 1145) 3.0 g/dL 3.5-5.0 L BILIRUBIN TOTAL (BEAKER) (test code 0.6 mg/dL 0.2-1.2 = 377) BILIRUBIN DIRECT (BEAKER) (test 0.3 mg/dL 0.1-0.5 code = 706) ALKALINE PHOSPHATASE (BEAKER) (test 76 U/L 40-150 code = 346) AST (SGOT) (BEAKER) (test code = 15 U/L 5-34 353) ALT (SGPT) (BEAKER) (test code = 9 U/L 6-55 347) BASIC METABOLIC [id number] 06:32:00 Test Item Value Reference Range Interpretation Comments SODIUM (BEAKER) 135 meq/L 136-145 L (test code = 381) POTASSIUM (BEAKER) 3.7 meq/L 3.5-5.1 (test code = 379) CHLORIDE (BEAKER) 105 meq/L 98-107 (test code = 382) CO2 (BEAKER) (test 23 meq/L 22-29 code = 355) BLOOD UREA NITROGEN 7 mg/dL 7-21 (BEAKER) (test code = 354) CREATININE (BEAKER) 0.77 mg/dL 0.57-1.25 (test code = 358) GLUCOSE RANDOM 118 mg/dL 70-105 H (BEAKER) (test code = 652) CALCIUM (BEAKER) 9.9 mg/dL 8.4-10.2 (test code = 697) EGFR (BEAKER) (test 74 mL/min/1.73 ESTIMA MAX GFR IS code = 1092) sq m NOT ACCURATE CREATININE CLEARANCE IN PREDICTING GLOMERULAR FILTRATION RATE . ESTIMATED GFR I S NOT APPLICABLE FOR DIALYSIS PATIEN TS. C-REACTIVE [id number] 02:31:00 Test Item Value Reference Range Interpretation Comments C-REACTIVE PROTEIN (BEAKER) (test 7.14 mg/dL 0.00-0.50 H code = 676) PROTHROMBIN [id number] 02:11:00 Test Item Value Reference Range Interpretation Comments PROTIME (BEAKER) (test code = 14.6 seconds 11.7-14.7 759) INR (BEAKER) (test code = 370) 1.1 <=5.9 RECOMMENDED COUMADIN/WARFARIN INR THERAPY RANGESSTANDARD DOSE: 2.0 - 3.0 Includes: PROPHYLAXIS forvenous thrombosis, systemic embolization; TREATMENT for venous thrombosis and/or pulmonary embolus.HIGH RISK: Target INR is 2.5-3.5 for patients with mechanical heart valves.CBC W/PLT COUNT & AUTO DIFFERENTIAL 2018-08-23 02:03:00 Test Item Value Reference Range Interpretation Comments WHITE BLOOD CELL COUNT (BEAKER) 5.7 K/ L 3.5-10.5 (test code = 775) RED BLOOD CELL COUNT (BEAKER) 3.08 M/ L 3.93-5.22 L (test code = 761) HEMOGLOBIN (BEAKER) (test code = 7.0 GM/DL 11.2-15.7 L 410) HEMATOCRIT (BEAKER) (test code = 24.0 % 34.1-44.9 L 411) MEAN CORPUSCULAR VOLUME (BEAKER) 77.9 fL 79.4-94.8 L (test code = 753) MEAN CORPUSCULAR HEMOGLOBIN 22.7 pg 25.6-32.2 L (BEAKER) (test code = 751) MEAN CORPUSCULAR HEMOGLOBIN CONC 29.2 GM/DL 32.2-35.5 L (BEAKER) (test code = 752) RED CELL DISTRIBUTION WIDTH 19.8 % 11.7-14.4 H (BEAKER) (test code = 412) PLATELET COUNT (BEAKER) (test 394 K/CU MM 150-450 code = 756) MEAN PLATELET VOLUME (BEAKER) 9.2 fL 9.4-12.3 L (test code = 754) NUCLEATED RED BLOOD CELLS 0 /100 WBC 0-0 (BEAKER) (test code = 413) NEUTROPHILS RELATIVE PERCENT 80 % (BEAKER) (test code = 429) LYMPHOCYTES RELATIVE PERCENT 13 % (BEAKER) (test code = 430) MONOCYTES RELATIVE PERCENT 6 % (BEAKER) (test code = 431) EOSINOPHILS RELATIVE PERCENT 0 % (BEAKER) (test code = 432) BASOPHILS RELATIVE PERCENT 1 % (BEAKER) (test code = 437) NEUTROPHILS ABSOLUTE COUNT 4.54 K/ L 1.56-6.13 (BEAKER) (test code = 670) LYMPHOCYTES ABSOLUTE COUNT 0.71 K/ L 1.18-3.74 L (BEAKER) (test code = 414) MONOCYTES ABSOLUTE COUNT (BEAKER) 0.33 K/ L 0.24-0.36 (test code = 415) EOSINOPHILS ABSOLUTE COUNT 0.01 K/ L 0.04-0.36 L (BEAKER) (test code = 416) BASOPHILS ABSOLUTE COUNT (BEAKER) 0.03 K/ L 0.01-0.08 (test code = 417) IMMATURE GRANULOCYTES-RELATIVE 1 % 0-1 PERCENT (BEAKER) (test code = 2801)
--- OUTSIDE RECORDS SUMMARY | 2020-03-19 00:30 | XMS REPORT ---
:1950 Author Organization [employer] Care Team Providers Name Role Phone Daija Wilson Provider Role Unavailable Allergies, Adverse Reactions, Alerts Substance Reaction Event Type dye Info Not Available Non Drug Allergy Problems Problem Type Condition Code Onset Dates Condition Statu s Assessment Iron deficiency anemia, unspecified D50.9 Active iron deficiency anemia type Assessment History of CVA with residual deficit I69.30 Active Assessment Cough R05 Active Problem Cough R05 [...] End Status Dosage System Date Date Albuterol [facility] 43215759907 108 (90 Base) May 27, Active 2 pu ffs as Sulfate HFA MCG/ACT 2018 needed Inhalation every 6 hrs Melatonin ND 60104427218 5 MG Orally Active 2 tabl et Once a day at bedtime as needed with food Hemocyte Plus [facility] 44085066894 106-1 MG Orally Active 1 capsule Once a day with breakfast Cymbalta [facility] 51465915176 20 MG Orally Active 1 caps ule Once a day Fluticasone ND 51904018158 50 MCG/ACT January 05, Active 1 sp ray in Propionate Nasally Once a 2019 each day nostril Vitamin D3 [facility] 30436793761 5000 UNIT Active 1 capsu le Maximum Strength Orally Once a day Lisinopril ND 71706383941 5 MG Orally Active 1 tab let Once a day Namenda [facility] 47389693755 10 MG Orally Active 1 table t Twice a day Atorvastatin ND 22948744424 20 MG Orally Active TA KE 1 Calcium Once a day TABLET BY MOUTH AT BEDTIME Zyrtec Allergy [facility] 99741031207 10 MG Orally Active 1 tablet Once a day Results No Known Results Summary Purpose [employer] Submission
--- OUTSIDE RECORDS SUMMARY | 2020-03-19 00:30 | XMS REPORT ---
:1950 Author Organization [employer] Care Team Providers Name Role Phone Katie Daija Provider Role Unavailable Allergies No Known Allergies Problems Problem Type Condition Code Onset Dates Condition Statu s Problem Cough R05 Active Problem History of CVA with residual deficit I69.30 Active Problem Memory loss or impairment R41.3 Ac tive Problem Essential (primary) hypertension I10 Active Problem Stage 1 chronic kidney disease N18.1 Active Problem Iron deficiency anemia, unspecified D50.9 Active iron deficiency anemia type Problem Hyperlipidemia, unspecified E78.5 Active hyperlipidemia type Medications No Known Medications Results No Known Results Summary Purpose [employer] Submission
--- NOTE | 2020-03-19 01:37 | RAD REPORT ---
EXAM DESCRIPTION: CT - Head C Spine Mpr Wo Con - 03/19/2020 1:22 am CLINICAL HISTORY: Head and neck injury status post fall. Head and neck pain COMPARISON: None. TECHNIQUE: Computed axial tomography of the head and cervical spine was obtained. Sagittal and coronal reconstruction was performed. All CT scans are performed using dose optimization technique as appropriate and may include automated exposure control or mA/KV adjustment according to patient size. FINDINGS: Left parietal scalp hematoma. Old infarction involves the right basal ganglia. Mild low-density within periventricular, deep and subcortical white matter likely ischemic changes se condary to small vessel diseaseAn intracranial bleed is not seen. The ventricles are normal in calibe r. An extra-axial fluid collection is not noted.Fluid within the right maxillary sinus may indicate a cute sinusitis A cervical fracture is not visualized. No dislocation is noted. IMPRESSION: No acute intracranial abnormality is seen. A cervical fracture is not visualized. If the patient continues to have symptoms to suggest intracra nial /spinal cord pathology then MRI would be recommended
--- NOTE | 2020-03-19 01:45 | ER ---
Nurse's Notes [facility] Name: Desiree Ahumada Age: 69 yrs Sex: Female : 1950 Arrival Date: 03/19/2020 Time: 00:24 Bed 6 Private MD: Diagnosis: Contusion of other part of head;Hemtoma scalp;Concussion without loss of consciousness Presentation: 03/19 00:33 Chief complaint: Patient states: Patient was standing on chair to reach medications on lp1 top of fridge, fell hitting back of head about 20 min ago; No LOC, any other injuries. Care prior to arrival: None. Mechanism of Injury: Fall out of chair. 00:33 Method Of Arrival: Wheelchair lp1 00:33 Acuity: LIA 2 lp1 00:33 Trauma event details: Injury occurred in the [facility], Injury occurred: at lp1 home. Injury occurred: March 19, 2020 Injury occurred at: 00:00. 00:53 Coronavirus screen: Client denies travel out of the [place] in the last 14 days. At this lp1 time, the client does not indicate any symptoms associated with coronavirus-19. Ebola Screen: No symptoms or risks identified at this time. Risk Assessment: Do you want to hurt yourself or someone else? Patient reports no desire to harm self or others. Onset of symptoms was March 19, 2020 at 00:00. 00:56 Initial Sepsis Screen: Does the patient meet any 2 criteria? No. Patient's initial rv sepsis screen is negative. Does the patient have a suspected source of infection? No. Patient's initial sepsis screen is negative. Trauma Activation: Alert Physician: ED Physician; Name: Dr. Sanchez; Notified At: 00:49; Arrived At: 00:49 Physician: General Surgeon; Name: N/A; Notified At: 00:49; Arrived At: Physician: Radiology; Name: Bteh Arciniega; Notified At: 00:49; Arrived At: 00:51 Physician: Respiratory; Name: N/A; Notified At: 00:49; Arrived At: Physician: Lab; Name: N/A; Notified At: 00:49; Arrived At: Historical: - Allergies: 00:38 No Known Allergies; lp1 - Home Meds: 00:55 aspirin 81 mg Oral TbEC 1 tab once daily [Active]; Hemocyte-F 324 mg (106 mg iron)-1 mg lp1 oral tab 1 tab once daily [Active]; Cymbalta 20 mg oral cpDR daily [Active]; atorvastatin 20 mg oral tab nightly [Active]; Lisinopril Oral [Active]; Bactrim DS 800-160 mg Oral tab 1 tab every 12 hours [Active]; - PMHx: 00:38 CVA; ovarian cancer; lp1 - PSHx: 00:38 partial colon removal; Hysterectomy; kidney removal; lp1 - Immunization history: Last tetanus immunization: - up to date. - Social history:: Smoking status: Patient denies any tobacco usage or history of. Screenin:38 Abuse screen: Denies threats or abuse. Denies injuries from another. Nutritional lp1 screening: No deficits noted. Tuberculosis screening: No symptoms or risk factors identified. 00:56 Fall Risk Fall in past 12 months (25 points). No secondary diagnosis (0 pts). No IV (0 rv pts). Ambulatory Aid- None/Bed Rest/Nurse Assist (0 pts). Gait- Normal/Bed Rest/Wheelchair (0 pts) Mental Status- Oriented to own ability (0 pts). Total Henderson Fall Scale indicates No Risk (0-24 pts). Primary Survey: 00:52 NO uncontrolled hemorrhage observed. A: The patient is alert. Airway: patent. lp1 Breathing/Chest: Chest inspection: symmetrical rise and fall of the chest. Circulation: Skin color: pink, Skin temperature: warm, dry. Disability Alert. Exposure/Environment: Obvious injury(ies) are noted at this time: hematoma to back of head. 02:07 Reassessment Airway Airway Patent Breathing/Chest Respiratory pattern Regular. rv Secondary Survey: 00:54 HEENT: Head Other SWELLING ON THE BACK OF THE HEAD, WITHOUT LACERATION. Face No rv injury/deformity Eyes: No injury or deformity noted. Ears: clear Nose: clear Throat: No injury or deformity noted. Gastrointestinal: No deficits noted. Abdomen is soft. : No signs and/or symptoms were reported regarding the genitourinary system. Musculoskeletal: Circulation, motion, and sensation intact. Assessment: 00:53 General: Appears comfortable, Behavior is calm, cooperative. Pain: Complains of pain in rv scalp. Neuro: Level of Consciousness is awake, alert, obeys commands, Oriented to person, place, time, situation, Moves all extremities. Full function. Cardiovascular: Patient's skin is warm and dry. Rhythm is regular. Respiratory: Airway is patent Respiratory effort is even, unlabored. GI: Abdomen is flat. Derm: Skin is intact. Musculoskeletal: Swelling present in scalp. 00:56 Reassessment: Patient's daughterMikael: [phone]. lp1 Vital Signs: 00:45 BP 131 / 91; Pulse 78; Resp 17; Temp 98.2; Pulse Ox 99% on R/A; rv 02:07 BP 127 / 76; Pulse 71; Resp 16; Pulse Ox 99% on R/A; rv David Coma Score: 00:51 Eye Response: spontaneous(4). Verbal Response: oriented(5). Motor Response: obeys lp1 commands(6). Total: 15. Trauma Score (Adult): 00:51 Eye Response: spontaneous(1); Verbal Response: oriented(1); Motor Response: obeys lp1 commands(2); Systolic BP: > 89 mm Hg(4); Respiratory Rate: 10 to 29 per min(4); Cast[place] Score: 15; Trauma Score: 12 ED Course: 00:24 Patient arrived in ED. cf2 00:36 Triage completed. lp1 00:43 Kishore Sanchez MD is Attending Physician. tw4 00:49 Ad Garcia RN is Primary Nurse. rv 00:54 Patient has correct armband on for positive identification. Placed in gown. Bed in low rv position. Call light in reach. Side rails up X2. 00:54 Patient maintains SpO2 saturation greater than 95% on room air. rv 00:56 Thermoregulation: warm blanket given to patient. rv 00:57 Arm band placed on right wrist. Patient placed in the treatment room, on a stretcher, rv Patient notified of wait time. 01:22 CT Head C Spine In Process Unspecified. EDMS 01:58 No provider procedures requiring assistance completed. Patient did not have IV access ea during this emergency room visit. Administered Medications: No medications were administered Output: 02:07 Urine: 400ml (Voided); Total: 400ml. rv Outcome: 01:44 Discharge ordered by . tw4 02:07 Discharged to home ambulatory. rv 02:07 Condition: good 02:07 Patient's length of stay was not longer than 2 hours. 02:08 Discharge instructions given to patient, Instructed on discharge instructions, follow rv up and referral plans. Demonstrated understanding of instructions, follow-up care. 02:08 Patient left the ED. rv Signatures: Dispatcher [employer] EDMS Doris Martinez RN RN lp1 Adri Hawley RN Kishore Ruiz ea, MD MD tw4 Ad Garcia RN RN rv Anita Reich cf2 Corrections: (The following items were deleted from the chart) 00:51 00:33 Chief complaint: Patient states: Patient was standing on chair to reach lp1 medications on top of fridge, fell hitting back of head; No LOC, any other injuries lp1 00:51 00:33 Acuity: LIA 3 lp1 lp1
--- NOTE | 2020-03-19 01:45 | EDPHYS ---
Physician Documentation [facility] Name: Desiree Ahumada Age: 69 yrs Sex: Female : 1950 Arrival Date: 03/19/2020 Time: 00:24 Bed 6 Private MD: ED Physician Kishore Sanchez HPI: 03/19 03:18 This 69 yrs old Female presents to ER via Wheelchair with complaints of Fall tw4 Injury, Head Injury Without LOC-Adult. 03:18 Details of fall: The patient fell from an upright position, while standing. Onset: The tw4 symptoms/episode began/occurred just prior to arrival. Associated injuries: The patient sustained injury to the head, contusion, hematoma. Severity of symptoms: At their worst the symptoms were moderate, in the emergency department the symptoms are unchanged. The patient has not experienced similar symptoms in the past. Historical: - Allergies: 00:38 No Known Allergies; lp1 - Home Meds: 00:55 aspirin 81 mg Oral TbEC 1 tab once daily [Active]; Hemocyte-F 324 mg (106 mg iron)-1 mg lp1 oral tab 1 tab once daily [Active]; Cymbalta 20 mg oral cpDR daily [Active]; atorvastatin 20 mg oral tab nightly [Active]; Lisinopril Oral [Active]; Bactrim DS 800-160 mg Oral tab 1 tab every 12 hours [Active]; - PMHx: 00:38 CVA; ovarian cancer; lp1 - PSHx: 00:38 partial colon removal; Hysterectomy; kidney removal; lp1 - Immunization history: Last tetanus immunization: - up to date. - Social history:: Smoking status: Patient denies any tobacco usage or history of. ROS: 03:18 Constitutional: Negative for fever, chills, and weight loss, Eyes: Negative for injury, tw4 pain, redness, and discharge, Cardiovascular: Negative for chest pain, palpitations, and edema, Respiratory: Negative for shortness of breath, cough, wheezing, and pleuritic chest pain, Abdomen/GI: Negative for abdominal pain, nausea, vomiting, diarrhea, and constipation, Back: Negative for injury and pain, MS/Extremity: Negative for injury and deformity, Skin: Negative for injury, rash, and discoloration, Neuro: Negative for headache, weakness, numbness, tingling, and seizure. Exam: 03:18 Constitutional: This is a well developed, well nourished patient who is awake, alert, tw4 and in no acute distress. Chest/axilla: Normal chest wall appearance and motion. Nontender with no deformity. No lesions are appreciated. Cardiovascular: Regular rate and rhythm with a normal S1 and S2. No gallops, murmurs, or rubs. Normal PMI, no JVD. No pulse deficits. Respiratory: Lungs have equal breath sounds bilaterally, clear to auscultation and percussion. No rales, rhonchi or wheezes noted. No increased work of breathing, no retractions or nasal flaring. Abdomen/GI: Soft, non-tender, with normal bowel sounds. No distension or tympany. No guarding or rebound. No evidence of tenderness throughout. Back: No spinal tenderness. No costovertebral tenderness. Full range of motion. MS/ Extremity: Pulses equal, no cyanosis. Neurovascular intact. Full, normal range of motion. Neuro: Awake and alert, GCS 15, oriented to person, place, time, and situation. Cranial nerves II-XII grossly intact. Motor strength 5/5 in all extremities. Sensory grossly intact. Cerebellar exam normal. Normal gait. 03:18 Head/face: Noted is contusion, that is deep, hematoma, that is moderate, of the right side of the back of head. Vital Signs: 00:45 BP 131 / 91; Pulse 78; Resp 17; Temp 98.2; Pulse Ox 99% on R/A; rv 02:07 BP 127 / 76; Pulse 71; Resp 16; Pulse Ox 99% on R/A; rv [place] Coma Score: 00:51 Eye Response: spontaneous(4). Verbal Response: oriented(5). Motor Response: obeys lp1 commands(6). Total: 15. Trauma Score (Adult): 00:51 Eye Response: spontaneous(1); Verbal Response: oriented(1); Motor Response: obeys lp1 commands(2); Systolic BP: > 89 mm Hg(4); Respiratory Rate: 10 to 29 per min(4); David Score: 15; Trauma Score: 12 MDM: 00:43 Patient medically screened. tw4 03:18 Differential diagnosis: closed head injury, contusion. Data reviewed: vital signs, tw4 nurses notes. Data reviewed: radiologic studies, CT scan. Data interpreted: Pulse oximetry: Interpretation: normal. Counseling: I had a detailed discussion with the patient and/or guardian regarding: the historical points, exam findings, and any diagnostic results supporting the discharge/admit diagnosis, radiology results. Special discussion: Based on the patient's history, exam and DX evaluation, there is no indication for emergent intervention or inpatient [place]. It is understood by the patient/guardian that if the SXs persist or worsen they need to return immediately for re-evaluation. I discussed with the patient/guardian in detail that at this point there is no indication for admission to the hospital. It is understood, however, that if the symptoms persist or worsen the patient needs to return immediately for re-evaluation. 03/19 00:52 Order name: CT Head C Spine; Complete Time: 01:41 lp1 Administered Medications: No medications were administered Disposition: 03/19/20 01:44 Discharged to Home. Impression: Contusion of other part of head, Hemtoma scalp, Concussion without loss of consciousness. - Condition is Stable. - Discharge Instructions: Contusion, Post-Concussion Syndrome, Head Injury, Adult, [id number]. - Medication Reconciliation Form, Thank You Letter, Antibiotic Education, Prescription Opioid Use form. - Follow up: Private Physician; When: Upon discharge from the Emergency Department; Reason: Recheck today's complaints, Continuance of care, Re-evaluation by your physician. - Problem is new. - Symptoms have improved. Signatures: Dispatcher [employer] EDMS Doris Martinez RN RN lp1 Kishore Sanchez MD MD tw4 Ad Garcia RN RN rv Corrections: (The following items were deleted from the chart) 02:08 01:44 03/19/2020 01:44 Discharged to Home. Impression: Contusion of other part of head; rv Hemtoma scalp; Concussion without loss of consciousness. Condition is Stable. Forms are Medication Reconciliation Form, Thank You Letter, Antibiotic Education, Prescription Opioid Use. Follow up: Private Physician; When: Upon discharge from the Emergency Department; Reason: Recheck today's complaints, Continuance of care, Re-evaluation by your physician. Problem is new. Symptoms have improved. tw4
[2020-03-19 02:15] VITALS: TEMP 98.2; O2SAT 99
[2020-03-19 02:16] VITALS: BP 127/76
== END 2020-03-19 02:08 | disposition home or self-care (01) ==
LOC: ER 00:22
DX: S06.0X0A Concussion without loss of consciousness, initial encounter (principal); S00.03XA Contusion of scalp, initial encounter; W19.XXXA Unspecified fall, initial encounter; Y93.89 Activity, other specified; Y92.9 Unspecified place or not applicable; Z79.82 Long term (current) use of aspirin; Z85.43 Personal history of malignant neoplasm of ovary; Z86.73 Personal history of transient ischemic attack (TIA), and cerebral infarction without residual deficits
CPT/HCPCS: 70450; 72125; 99284; G0390

== ENCOUNTER 2020-03-29 18:02 | Emergency (ER) | payer OTHER ==
--- OUTSIDE RECORDS SUMMARY | 2020-03-29 18:05 | XMS REPORT | Clinical Summary ---
:1950 Author Organization [facility] Address [address] [place] [address] Care Team Providers Name Role Phone Pcp [...] Barron Cecal [facility] (HCC) [facility] Hospital Encounter Computed Tomography Manuel Barron Cecal cancer (HCC) MD [facility] 06/01/2019 Outside Orders Central Scheduling Manuel Barron cancer (HCC) MD Stephanie (Primary Dx) 04/11/2019 Outside Orders Central Scheduling Manuel Barron cancer (HCC) MD Stephanie (Primary Dx) after 03/29/2019 Social History Tobacco Use Types Packs/Day Years [...] Taken Blood Pressure 143/68 08/24/2019 12:55 PM INFORMATION DIRECTOR Pulse 66 08/24/2019 12:55 PM INFORMATION DIRECTOR Temperature 36.8 C (98.3 F) 08/24/2019 12:30 PM INFORMATION DIRECTOR Respiratory Rate 16 08/24/2019 12:55 PM INFORMATION DIRECTOR Oxygen Saturation 99% 08/24/2019 12:55 PM INFORMATION DIRECTOR Inhaled Oxygen Concentration - - Weight 64.9 kg (143 lb) 08/24/2019 10:53 AM INFORMATION DIRECTOR Height 157.5 cm (5' 2") 08/24/2019 10:53 AM INFORMATION DIRECTOR Body Mass Index 26.16 08/24/2019 10:53 AM INFORMATION DIRECTOR Plan of Treatment Not on file Procedures Procedure Name Priority Date/Time Associated Comments Diagnosis REPORT OF PROCEDURE 08/24/2019 12:37 - ENDOSCOPY URL PM INFORMATION DIRECTOR COLONOSCOPY,POLYPEC 08/24/2019 12:30 Malignant neoplas m NARESH PM INFORMATION DIRECTOR of ascending colon (HCC) TISSUE EXAM AP Routine 08/24/2019 12:23 Results for this PM INFORMATION DIRECTOR procedure are i n the results section. CT ABDOMEN/PELVIS Routine 07/17/2019 11:18 Cecal cancer (HCC) Results for this WITH IV CONTRAST AM INFORMATION DIRECTOR procedure a re in the results section. CT CHEST WITH IV Routine 07/17/2019 11:18 Cecal cancer (HCC) R esults for this CONTRAST AM INFORMATION DIRECTOR procedure are i n the results section. POCT-CREATININE Routine 07/17/2019 10:56 Results for this AM INFORMATION DIRECTOR procedure are i n the results section. after 03/29/2019 Results REPORT OF PROCEDURE - ENDOSCOPY URL (08/24/2019 12:37 PM INFORMATION DIRECTOR) Narrative Performed At This result has an attachment that is no t available. Tissue Exam (08/24/2019 12:23 PM INFORMATION DIRECTOR) Case Report Surgical Pathology Report Case: [id number] [facility] Authorizing Provider:Qi Neumann MDCollected: 08/24/2019 1223 [facility] Ordering Location: [facility] ENDOSCOPY Received:08/24/2019 1414 SERVICES Pathologist: Amanda Landers MD Specimens: A) - Polyp, C olon - Left/Descending, taken by hot snare n frcp B) - Polyp, Colon - Transverse, taken by hot snare, posimal DIAGNOSIS A. POLYP COLON - HOT SNARE POLYPECTOMY: [facility] - SERRATED ADENOMA WITH CAUTERY ARTIFACT, FAV ORS SESSILE SERRATED ADENOMA [facility] B. TRANSVERSE COLON POLYP, HOT SNARE POLYPECTOMY : - FRAGMENTS OF SESSILE SERRATED ADENOMA/ POLY P/ LESION SJ/pl Signing Pathologist Direct Phone Line: COMMENT Endoscopic report reviewed. [facility] CPT Code(s) 24578 x2 [facility] CLINICAL HISTORY Pre and postop diagnosis: Ma lignant neoplasm of ascending colon [facility] Procedure: colonoscopy, polypectomy MEDICAL CENTER SPECIMEN SOURCE A. Polyp, colon - left [facility] descending. Taken by [facility] snare and frcp; B. Polyp, colon - transverse, Taken by hot snare, proximal GROSS DESCRIPTION A. The specimen is received in formalin labeled with the patient's information and "polyp, colon - left/descending tissue" and consists of multiple fernandez-pink mucosal-covered pieces of tissue in aggregate [facility] ranging from 0.2 x 0.2 x [...] 0.1 x 0.1 cm each in aggregate. [facility] specimen is submitted entirely following filtration in cassette B1. HS/pl MICROSCOPIC DESCRIPTION Performed [facility] Specimen Tissue - Polyp, Colon - Left/Descending Tissue - Polyp, Colon - Transverse Performing Organization Address City/State/Zipcode Phone Number [facility] [address] [place] [address] Abdomen/Pelvis with IV Contrast (07/17/2019 11:18 AM INFORMATION DIRECTOR) Specimen Narrative Performed At FINAL REPORT [facility] CT scan of the chest, abdomen and [...] MD Report Verified Date/Time:07/17/2019 11:59:41 Reading Location: [address] Reading Room Procedure Note Interface, External Ris In - 07/17/2019 12:01 PM INFORMATION DIRECTOR FINAL REPORT CT scan of the chest, [...] Verified Date/Time: 07/17/2019 1 1:59:41 Reading Location: [facility] C013T [facility] Reading Room Performing Organization Address City/State/Zipcode Phone Number [facility] CT Chest with IV Contrast (07/17/2019 11:18 AM INFORMATION DIRECTOR) Specimen Narrative Performed At FINAL REPORT [facility] CT scan of the chest, abdomen and [...] MD Report Verified Date/Time:07/17/2019 11:59:41 Reading Location: [address] Reading Room Procedure Note Interface, External Ris In - 07/17/2019 12:01 PM INFORMATION DIRECTOR FINAL REPORT CT scan of the chest, [...] Verified Date/Time: 07/17/2019 1 1:59:41 Reading Location: [address] Reading Room Performing Organization Address City/State/Zipcode Phone Number [facility]IS POC-Creatinine (07/17/2019 10:56 AM INFORMATION DIRECTOR) POC-Creatinine 1.0Comment: TESTED AT [facility] 0.6 - 1.3 mg/dL [facility] [address] [facility] [address] POC-EGFR 55 mL/min/1.73M2 [facility] Specimen Blood Performing Organization Address City/State/Zipcode Phone Number [facility] MEDICAL [address] [place] [address] CENTER after 03/29/2019 Insurance Payer Benefit Plan / Group Subscriber ID Type Phone A ddress MEDICARE MEDICARE A B xxxxxxxxxxx Medicare MCR SUPPLEMENT/[employer]IV[employer] [place] xxxxxxxx Medigap (Home) [address] [place] [address] Advance Directives For more information, please contact:[address] [phone] Code Status Date Activated Date Inactivated Comments Full Code 08/23/2018 1:12 AM 09/08/2018 7:55 PM This code status was determined by: Patient
--- OUTSIDE RECORDS SUMMARY | 2020-03-29 18:05 | XMS REPORT | Clinical Summary ---
:1950 Author Organization [facility] Address [address] [place] [address] Care Team Providers Name Role Phone Asked, Pcp Primary Care Provider Unavailable Allergies No Known Active Allergies Medications No known medications Active Problems Problem Noted Date Closed patellar sleeve fracture, right, with delayed h ealing, subsequent 10/01/2017 encounter Closed displaced osteochondral fracture of right witt la 05/06/2017 Social History Tobacco Use Types Packs/Day Years Used Date Never Assessed Sex Assigned at Date Recorded Not on file Last Filed Vital Signs Not on file Plan of Treatment Health Maintenance Due Date Last Done Comments BREAST CANCER SCREENING 1999 COLONOSCOPY SCREENING 1999 SHINGLES VACCINES (#1) 1999 65+ PNEUMOCOCCAL VACCINE (1 of 1 - PPSV23) 2014 INFLUENZA VACCINE 03/08/2020 Results Not on fileafter 03/29/2019 Insurance Payer Benefit Plan / Subscriber ID Effective Phone Address T ype Group Dates MEDICARE MEDICARE PART A [id number] 2014-Pre [place], [place] Medicare AND B sent COMMERCIAL MISC MISC COMMERCIAL [id number] 2017-Pres Commercial ent Advance Directives For more information, please contact: [phone] Type Date 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
--- OUTSIDE RECORDS SUMMARY | 2020-03-29 18:07 | XMS REPORT ---
[...] End Status Dosage System Date Date Albuterol [facility] 08996185900 108 (90 Base) May 27, Active 2 pu ffs as Sulfate HFA MCG/ACT 2018 needed Inhalation every 6 hrs Melatonin ND 88141758351 5 MG Orally Active 2 tabl et Once a day at bedtime as needed with food Hemocyte Plus [facility] 82368544460 106-1 MG Orally Active 1 capsule Once a day with breakfast Cymbalta [facility] 46793641279 20 MG Orally Active 1 caps ule Once a day Fluticasone ND 24662855056 50 MCG/ACT January 05, Active 1 sp ray in Propionate Nasally Once a 2019 each day nostril Vitamin D3 [facility] 99147368947 5000 UNIT Active 1 capsu le Maximum Strength Orally Once a day Lisinopril ND 55417207962 5 MG Orally Active 1 tab let Once a day Namenda [facility] 37102456779 10 MG Orally Active 1 table t Twice a day Atorvastatin ND 86398691799 20 MG Orally Active TA KE 1 Calcium Once a day TABLET BY MOUTH AT BEDTIME Zyrtec Allergy [facility] 13434984326 10 MG Orally Active 1 tablet Once a day Results No Known Results Summary Purpose eClinicalWorks Submission
--- OUTSIDE RECORDS SUMMARY | 2020-03-29 18:07 | XMS REPORT ---
[...] End Status Dosage System Date Date Albuterol [facility] 38209705345 108 (90 Base) May 27, Active 2 pu ffs as Sulfate HFA MCG/ACT 2018 needed Inhalation every 6 hrs Melatonin ND 91200904967 5 MG Orally Active 2 tabl et Once a day at bedtime as needed with food Cymbalta [facility] 60991644814 20 MG Orally Active 1 caps ule Once a day Lisinopril ND 69718493829 5 MG Orally Active 1 tab let Once a day Fluticasone ND 50660053509 50 MCG/ACT January 05, Active 1 sp ray in Propionate Nasally Once a 2019 each day nostril Vitamin D3 [facility] 02285725379 5000 UNIT Active 1 capsu le Maximum Strength Orally Once a day Atorvastatin ND 66820927520 20 MG Orally Active TA KE 1 Calcium Once a day TABLET BY MOUTH AT BEDTIME Hemocyte Plus [facility] 26949194907 106-1 MG Orally Active 1 capsule Once a day with breakfast Namenda [facility] 77449668613 10 MG Orally Active 1 table t Twice a day Zyrtec Allergy [facility] 51096175314 10 MG Orally Active 1 tablet Once a day Results No Known Results Summary Purpose eClinicalWorks Submission
--- OUTSIDE RECORDS SUMMARY | 2020-03-29 18:07 | XMS REPORT | Continuity of Care Document ---
:1950 Author Organization [facility] t Address [address] [place] [address] Care Team Providers Name Role Phone Asked, Pcp Primary Care Physician Unavailable LIBERTY Attending Clinician Unavailable Liberty TRAMMELL Attending Clinician Ana LOPEZ Attending Clinician Stephanie Barron MD Attending Clinician [address] Room Attending Clinician Unavailable Stephanie BARRON Attending Clinician Unavailable [facility] Attending Clinician Unavailable LIBERTY Admitting Clinician Unavailable [facility] Admitting Clinician Unavailable Payers Payer Name Policy Policy Number Effective Expiration Source Type Date Date MEDICAREMEDICARE A xxxxxxxxxxx [facility] MCR xxxxxxxx [facility]UAL[facility]UT [facility] OF Medical OMAHAxxxxxxxxMedigap Cent er Problems Condition Condition Condition Status Onset Resolution Last Treating Co mments Source Name Details Category Date Date Treatment Clinician Date Sepsis Sepsis Disease Active [facility]: Medical 00 [place] Colonic Colonic Disease Active [facility] 00 Center Closed Closed Disease Active [place] patellar patellar 3-27 Method i sleeve sleeve 00:00: st fracture, fracture, 00 right, right, with with delayed delayed healing, healing, subsequent subsequent encounter encounter Closed Closed Disease Active 2016-07 [place] displaced displaced 0-30 Meth genny osteochond osteochond [...] [facility] 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 - 00:00:00 00:00:00 [facility] Smoking Status Start Date Stop Date Source Never smoker [facility] Medications Ordered Filled Start Stop Current Ordering Indication Dosage Frequency Signature Comments Components Source Medication Medication Date Date Medication? Clinician (SIG) Name Name ferrous 2019- Yes 325mg Take [address] [facility] S t sulfate 325 2-13 mg by [facility] - (65 FE) MG 14:45: mouth Medica l tablet 06 daily with Center breakfast. fluticasone Yes 1{spray QD [address] [facility] propionate 2-13 } Nasal [facility] - (FLONASE) 14:45: route Medical 50 06 daily. [place] mcg/actuati on nasal spray atorvastati Yes 20mg QD Take [address] n (LIPITOR) 2-13 by mouth Luke s - 20 MG 14:44: daily. Medical tablet 13 [place] senna-docus 2019- No 1{tbl} QD Take [address] ate -20 08- tablet by [facility] - (SENNOSIDES 14:44: 00:00 mouth Medi cali -DOCUSATE 06 :00 daily. [place] SODIUM) 8.6-50 mg per tablet simvastatin 2019- No 20mg QD Take [address] (ZOCOR) 20 2- 02-13 by mouth Luke s - MG tablet 14:43: 00:00 nightly. Med ical 55 :00 [place] atorvastati 2019- No 10mg QD Take [address] n (LIPITOR) -20 08- by mouth Rajesh es - 10 MG 14:43: 00:00 daily. Medical tablet 34 :00 [place] carbinoxami Yes 4mg QD Take [address] ne maleate 2-13 by mouth [facility] - 4 mg Tab 14:40: daily. Medical 39 [place] memantine Yes 10mg Q.5D Take [address] (NAMENDA) 2-13 by mouth 2 Luke s - 10 MG 14:39: (two) Medical tablet 38 times Center daily. atorvastati 2019- No 20mg QD Take [address] [facility] (LIPITOR) - 02-13 by mouth Rajesh es - 20 MG 14:34: 00:00 nightly. Medical tablet 38 :00 [place] iron-folic 2020- No 1{capsu QD Take [address] acid-mv, 2-20 08-13 le} capsule by Luke s - min cmb#15 14:28: 00:00 mouth Medic al (HEMOCYTE-P 10 :00 daily. [place] DERRICK) 106 mg iron- 1 mg Cap ferrous 2019- No 325mg Take [address] sulfate 325 2- 02-13 mg by [facility] - (65 FE) MG 14:27: 00:00 mouth Medic al tablet 59 :00 daily with Center breakfast. Albuterol Albuterol 2018-07 Yes Daija [address] Sulfate HFA Sulfate HFA 1-20 [place] needed [facility] - 00:00: Memoria 00 l [facility] Fluticasone Fluticasone Yes Daija [address] Propionate Propionate 7-01 [place] each Patt kes - 00:00: nostril Memoria 00 l [facility] amLODIPine 2020- No 5mg [...] 20 MG 01:03: daily. Medical capsule 42 [place] aspirin 81 Yes 81mg QD Take 81 [...] [address] Plus Plus [place] [facility] Cymbalta Cymbalta Yes Daija [address] [place] [facility] Melatonin Melatonin Yes Daija [address] [place] at bedtime [facility] - as needed Memoria with food l [facility] Vitamin D3 Vitamin D3 Yes Daija [address] Maximum Maximum [place] [facility] - Strength Strength Memoria l [facility] Lisinopril Lisinopril Yes Daija [address] [place] [facility] - [facility] Clinics Namenda Namenda Yes Daija [address] [place] kes - Memoria l [facility] Clinics Atorvastati Atorvastati Yes Daija TAKE [address] [facility] n Calcium n Calcium [place] TABLET BY [facility]ukes - MOUTH AT [facility] BEDTIME l [facility] Zte [facility] Yes Daija [address] Allergy Allergy [place] [facility] Vital Signs Vital Name Observation Time Observation Value Comments Source Systolic blood 2019-08-24 12:55:00 143 mm[Hg] [facility] Diastolic blood 2019-08-24 12:55:00 68 mm[Hg] [facility] Heart rate 2019-08-24 12:55:00 66 /min [facility] Respiratory rate 2019-08-24 12:55:00 16 /min [facility] Oxygen saturation in 2019-08-24 12:55:00 99 /min [facility] Arterial blood by Medical Ce nter Pulse oximetry Body temperature 2019-08-24 12:30:00 36.83 May [facility] Body height 2019-08-24 10:53:[address] [facility] Body weight Measured 2019-08-24 10:53:00 64.864 kg [facility] BMI 2019-08-24 10:53:00 26.16 kg/m2 [facility] Procedures Procedure Date / Time Performed Performing Clinician [facility] e REPORT OF PROCEDURE - 2019-08-24 12:37[facility] COLONOSCOPY,POLYPECTOM 2019-08-24 12:30:00 Liberty [facility] TISSUE EXAM 2019-08-24 12:23:00 [facility] CT CHEST WITH IV 2019-07-17 11:18:00 Manuel Barron [facility] CONTRAST [facility] CT ABDOMEN/PELVIS WITH 2019-07-17 11:18:00 Manuel Barron [facility] IV [facility] POCT-CREATININE 2019-07-17 10:56:00 Manuel Barron [facility] Plan of Care Planned Activity Planned Date Details Comments Source Future Scheduled 2020-03-08 INFLUENZA VACCINE [place] [facility] 00:00:00 [code = INFLUENZA VACCINE] Future Scheduled 2014 65+ PNEUMOCOCCAL [place] [facility] 00:00:00 VACCINE (1 of 1 - PPSV23) [code = 65+ PNEUMOCOCCAL VACCINE (1 of 1 - PPSV23)] Future Scheduled 1999 BREAST CANCER [facility] [facility] 00:00:00 SCREENING [code = BREAST CANCER SCREENING] Future Scheduled 1999 COLONOSCOPY SCREENING [place] [facility] 00:00:00 [code = COLONOSCOPY SCREENING] Future Scheduled 1999 SHINGLES VACCINES (#1) [place] [facility] 00:00:00 [code = SHINGLES VACCINES (#1)] Encounters Start End Encounter Admission Attending Care Care Encounter Source Date/Time Date/Time Type Type Clinicians Facility Department ID 2020-02-29 2020-02-29 [facility] [id number] 15:[facility]00 15:00:00 [facility] Family Medicine l Medicine Outpati ent Clinics 2020-02-29 2020-02-29 [facility] [id number] 13:20:00 13:20:00 [facility] Family Medicine l Medicine Outpati ent Clinics 2020-02-23 2020-02-23 [facility] [id number] 09:40:00 09:40:00 [facility] Family Medicine l Medicine Outpati ent Clinics 2020-02-22 2020-02-22 [facility] [id number] 09:13:00 09:13:00 [facility] Family Medicine l Medicine Outpati ent Clinics 2019-10-14 2019-10-14 [facility] [id number] 09:52:00 09:52:00 [facility] Medicine l Medicine Outpati ent Clinics 2019-09-01 2019-09-01 [facility] [id number] 11:40:00 11:40:00 t [facility] Medicine Medicine Outpati ent Clinics 2019-07-27 2019-07-27 [facility] [id number] 08:42:00 08:42:00 t [facility] Medicine Medicine Outpati ent Clinics 2019-07-03 2019-07-03 [facility] [id number] 10:13:00 10:13:00 t [facility] Medicine Medicine Outpati ent Clinics 2019-06-02 2019-06-02 [facility] [id number] 09:26:00 09:26:00 t [facility] Medicine Outpati ent Clinics 2019-05-27 2019-05-27 [facility] [id number] 11:00:00 11:00:00 t [facility] Medicine Medicine Outpati ent Clinics 2019-02-16 2019-02-16 [facility] [id number] 11:00:00 11:00:00 t [facility] Medicine Medicine Outpati ent Clinics 2019-01-05 2019-01-05 [facility] [id number] 15:15:00 15:15:00 t [facility] Medicine Medicine Outpati ent Clinics 2018-10-16 2018-10-16 [facility] [id number] 14:19:00 14:19:00 t [facility] Medicine Medicine Outpati ent Clinics 2018-09-25 2018-09-25 [facility] [id number] 10:00:00 10:00:00 t [facility] Medicine Medicine Outpati ent Clinics 2018-07-28 2018-07-28 [facility] [id number] 10:15:00 10:15:00 [facility] Medicine Medicine Outpati ent Clinics Results Test Description Test Time Test Comments Results Result Comments Source Tissue Exam 2019-08-25 10:56:00 Test Item Value Reference Range Interpretation Comme nts Case Report (test code = 104) Surgical Pathology Report Case: [id number] Authorizing Provider: Qi Koenig MD Collected: 08/24/2019 1223 Ordering Location: [facility] ENDOSCOPY Received: 08/24/2019 1414 SERVICES Pathologist: Amanda Landers MD Specimens: A) - Polyp, Colon - Left/Descending, taken by hot snare n frcp B) - Polyp, Colon - Transverse, taken by hot snare, posimal DIAGNOSIS (test code = 3220) a2mqlPHnKMLgq5avDNFjfNQwLkEhSzVxDoCxJf pcdW RqXAkghnWtQDndn9HvG3PiWrXlIOaskyPdYDVqCtfk mmnkAZGeCSE0geKiZQTxLDzhOTUvMNqnFx4crNBwvZ muCaSjQACtn3sbztJLndylkFm8v6jyEZOoJwY2zUHh PPspF6ptphOctAZtTFRlKQv5zB25YDGglL7cmIWfUD zkkvPcVsV1UOcnTAMjRcA9PDEfdFIkQTOsM7mrVMIl MPpyILDgPEnwkBOcLJB7dHbin1E9qBGybNSlhLbrBb RzXvVcQKYRt8UvQOr3oQyfY9LiAZMzUxN0rSZiVCOl JRedLXNsIUUjhcR6vO77SVgnvcG8rFGbj1Yhp42vy0 10cY4dbWInVFX8DXRpJGKtbYDcJYSeZGS9VGZljAEo T3z9GyWeoWBtZ4O8CqOcvFKsE9Z0NnEewMUhP2A9Ql AanWEmAKZyzXGbWj3wrOGrjFKqct2hxo94AGE6l2Ba uSxoTYW7XLP4KoZkBq9psUGuODAtUI6cZzQzcBXyYL Nrgf20cZpvUInqxqJrtW2gFpVeOEUotMKzSMScYN4y mFMyXNWeiQ3iceehPJFwYbZgufplTVPteLeutpEuUp 9qqTbmJZE1KNqbX6myxF7yGxW6UTxdM4ygnY1rMNi4 YLkilYB5JVYcnR9pUK3yvvuyb1izReTnQO9uichzs8 tbZtSrMO2vgda4p2qzDuXyNF6gygdmi2qfSzLwZMvr DZJcrpxfTAOaw0CuuvkzEHTqq1GqB2TqzMswH62wrM dyE93tDDVepJpgqR7qyBavyF3gBkZoYbAeYRvnaXyb dSUvqhdpOUyxshIfZDstkpzgRFHmOZfwZ6opPnQeIR AzgSkkDPqur1HvLXYwYSLeApVlPT0dLS0UDSLmW62H B02gQPBHF6GdS64PLjEkDN2FTBLBZ6LWSRx6QDFymj PyXFKeDLMDYpNBTXOCLKBLEW6FXPFwL0pGQENFECYK GTNOJHDAQBeVAIDSVINUGFWCFaSkO0NID6eMXCYHXJ FJWNTVXNVCQSQYT92QZDPsrdibOCWbWr8yLIFYYoDP ZORFVSOMB1nAOkYTP9vDJWnfLJ6FKFGMZLWLRDUDTI xLVPVPV01CXickMYXdBWNyZSQIKdYEWSEPKADiC5Xx U2EMX8iYCRDJLWLGZJMCOSHVDCKIS23MVsJGV5eIFX 2eVCRZYX5SIMNwnszdBCYgB0tdtFjdyFTgjRdcdzCo BNjvx8XdHFirVIFdNA3iyOmiDFLaMQ8fUBBsD9eqqO 9xfif2DoQfSLXdEnH2EOSssqX4Iul9WIToUJigp8xu t4MoOUHyXYa0aRclVqGwGDNlm8osqzTbQtZsYFBwAP WfSERrqLRxV838q4qda2qdciVgeVU3NOUvJDW2DXka udMcvlS9UBouoHEoArO6FHcjpsFdTQtajjOzmdObVd v0OSHvF302DFF4gIhpp0hmZLA1WMJoGETkApEoJv7c nMZdT798BQSqXZONCTScnUt5PBPkhqBytvVmfIPPc3 09G713g2hlHYTcebDdsPdUcwnxu3xpI880MKWcrNTc dgOeJyUjZEWftSWevER6FVWdUU5cyvniSBsgESqtBU DfoaA3QTIfoLGuX4PaTFGkVS3topgbJHL5NGivRZJe XWK1ZrLtOZWpj3Vgzmf6KmBies5ryd42CHN5i0FirZ nlTBJ0FMB3ZkBjXr1dvGClCGNaKB0fZoMsaADsRTEa hy90gLrpZSjkNCR9JHPoopSkp9Ezh4lgFpKpewVeO5 yvL5FvONRyWZWzTQHpGkKnrvHkg5Ldx7LzfMBiaQn8 u7dyVFSyEQTfyIgpm0leOGM4FRTicYUyU4vvkV3wZZ LiWP9wzcewa4veJFaoYZnsNFXvjCX6vkN1VMXcpWTe O1FkeC2jASUmHArfCFEayuf6UkWkMp4gqIJwzQtaYZ xzYmtwYWdlXHBnbmNvbnRccGduZGVjXHBsYWluXHBs YWluXGYwXGZzMjRccWxcbGFuZzEwMzNcaGljaFxmMV ggKuXnYTXzXYxzJ8hfCjLkCzRiDpo5SJCirKFpBDTb Kdu0ZFNgdPHnHSHVsFdnwB5sEAZamRnehB9ptUD7YN AhgwAadPUDsH0cSHWSrS0oMlB0OfZeBmJ8QAHgUNwa cGFyfX0= COMMENT (test code = 3359) s6pucFGcZFSzsAVaAeKkVYUiSRAaa7wqGMXcxLEt Zz WeNiIwVkZmQejpvNEyMUEmVwVof6emy239zTWfn0ns DOSlNzM4qNIqLGLbmCJyE388XFLxPWjfm6bjv8XbRW JyoPSnt6Y1KEFNpspdmEb6mWspW18gy1G7CazvS8mf ZTFwKOziKRWgDPxtrQBeETF4HOKsBFL5EPeuwuDxhu E6MFbiySZgVqB3SAt5w8tjoHqaMSPeGCB6q5skROch fdGrGR7stq5lrVb3a8giblSjGQHgVYQwnDXNLFXcT1 RonJkgOg1ulJs9oWheYaawERA1Kih9GO9vdv36ybz4 lBgcPPIxjtpaSoG5VTcxQZHbnkhhGJj4RRtfMZNmrV cyMFxtYXJncjcyMFxtYXJndDcyMFxtYXJnYjcyMFxo SNYkQEU4SLhni307WQB2CNfbp9szh9ieoBAzDqy2QV HuLxGfCvzaOOebl3Cny3ioKZRpnn2zWWD3sFGgnKwp o0A3gZBtBHOuzAYrgjFaFIXpRrU3NJunHT3scn11ZW BaBRZ2fj1viADeiCkitoZrhANjDZjdR6SeLWKoz877 TGOuB4PsPTZfd5R6yiTdDlTzZJNeiQH7icF8ZOCtZZ s7mXTzkjN4aiNbaOUxY6gabM04CfXltVOuH7FumN53 CgGagXEbN9WiwS15PqNiiQYjS6GfxI96AjCdtHGtRA YofDNjEi2ejRKvnBGwo0CylQEeEJthU58sk303SFJz cnHpV4atrCZhzcqdlFGmatknEDcsrsZzBDBkCZMzVE hcTRCyUXAnDkEddIqetN5zTmDrHfNhNKQSleZeb2St tItwXURguA9iuUAxKYHsNBdmAA1aVCGhvx0= CPT Code(s) (test code = 3357) v5yraFOyYZDcoNVeVvUnIPImPGVxs3puLNZq bGFuZz NkBfEyQkGmXuigtWGbVGAwHsIzq5ybz332nCSej2vq PGSnMlC2sGBdKCUihCBjP948l9uqe4sdebKpfXG7QY TnJNK1NSlqanPkduP2IEavtQUmXsW4FWkjnwGuJHch koVwpeYjNci6OEXgQ769STR1wDfzh7laEJN1QQBaAY QmKiCwBn0joTBzC140SKJeVWRJVUCjxUs5CVIaatPk jtSyfMJQj171L290k1vcHSSnfjLkiLiMrkjir9jhB3 04TDForYHzylApBcPxAMXqeCCjxVN0IVCmZE6zatxn PyEcAF1msycdSrSaMY9ucjq8AvMvAY4xhtwuUtTtGQ ssNZGqbacjJVMea3FpbdyxVZ9uD2Svx0H5kM9ceHDb VANabYGyIzWdTGFmkj6apYZqSBies8AsWNZ1afO8yS FwbPKwMQBdRL53Ymaof5XkBlbtTSY4FRDgooCch1Kk h6ryDwJmktPsT6ubT7TnAMQzHAVaTREeOqYyuxFwf9 Vzf9PzpQZxjZw0b1kpBVFrWYDmqMvej9ecMGT4YDYi J0O4qRYej5pqVYtnLFPjkFV5hporGGpuAFLrdwD7fd zqFRqxNLMijIN3lsbgYPxpHFRbOcZ4ngweOXmzGPKl IPN3PFmue557TGK0IIysNiwyWAziBZDhhzRnhxZsbA duZGVjXHBsYWluXHBsYWluXGYwXGZzMjRccWxccGxh wE3iSkGxOeZfWTucIA9nXPZlY5sixJJbYTKrPUIjU9 fcClNzcS3qlPoaGUfbstPtTAs1TxV0ZDdmPYFqas1= CLINICAL HISTORY (test code = 3356) f9diaZPwRGWzdILhFmLwDFRhLAIt e5zhJBKvzBDjUj NdQoPdRdZzLmapzWHrOXMbAgZgb7vxp229fEZnx9ke KZRzHqA4zUKrGTMuyWKdG972UILcHHkdh3qpy0MvMK JlbEFzb4B9RKIBrserdQj3fHqkL99ub5G2ZcydW0tj CGRrCCanEXMcCBqoyACpDFM5FYTlARJ6NWalytOhth I5FKsuaIYsYdJ2GLf9y4ryxDxfCVAhERL1s6ayDIli uiEwMJ8fhk2vdOf4a9mienDnLFTqICUszYLCSXUiC5 OoaWduBc0rxLi1cAohGrpnVKW9Teo1ZG9fha93vio5 pHmbTMHlsgykQwW1DAmgAHCqouadUPy5VArlDHTabL cyMFxtYXJncjcyMFxtYXJndDcyMFxtYXJnYjcyMFxo VLRoOZF5TRqxc991VBY5SZggg8tir5vgoGVpCzx0AQ YqCuMcVdkuKTudf6Olx9yqTNJpbk8hWLF0zWQyeVlg j4L9aHCvDWAypJCdvcJfKYSuCxV7FKusVP6ckj05WW ZcMJF0zh0crCTvoPwshrKfoUSeTBccG8BxHSIeg610 NEZhR1KhDSEam1V5dkGcWoKoJYXqqAZ8hqJ9GJLwTI d1vPCozmP2vhTtvDHuG4fbcR94RoNmiQAzV7CaqP56 GjFopSQaM5MldR56VaEakVKfF5EjjU96UnJqaXDgTF WeyYWdWo9arHNvrCJzn7UmqLHlSIsjX37ss940DOZg kcZmD6pzaRGnlcgptUAertnzBFmnzuUzSGFpJCWxSA ktKBMfYABbHdGjhCzvmS5uXzIfEwYgAEXRltQnHT2c NYVdm0WzhKMigKPhkm1mzII2BK1rkXpggpXduRLmBN 8ygMBhbCZwNfZqh4SsutLxelcjF54uz23swHEcWACd d8CiNGHlKCbbC97rw19nj8AmwNczDOJuqVftWEK4i7 56XZGxbq1= SPECIMEN SOURCE (test code = 3377) p8wrtKMeWEFkoYXpOjTyCBTjUIOaz7rr ZGVmbGFuZz RgGpMdZoUoAcykzHKrNXJuByEun8mmw195mNWpr8lh BMGiMtU9kUBcHZLkyQDmG504VPJeCWzai4sef0NiNQ LxeHIow9R6OUYJbjpxmVp8eOsmD00jn7N2PkbmK2zi TGAmZXcdYQFjSZpwuPStVRG1RSQoORZ8PUiayqTxoa P9FUmugYCxWhF9JYo7y5ppuJphAIKkKSY9s0qqUUbr xhGiVH4cqg3qzOu2j3nfseMjKKHxUIWauEBZFVXlZ8 EliVlvHp5oePw6oYrgGlieLBR7Hft6PO5alt68chy4 vPxwFIYaktllDeX2WRxjUQIgfjzqIVk5XRyyQZLyiB cyMFxtYXJncjcyMFxtYXJndDcyMFxtYXJnYjcyMFxo VJYiHNE2SPscj132LBM3YEgtl7dge0hkeMLqSzk2WP QwHpPsMluuEThsa0Ezd6zuYNBfcf3tDFI1gGCoaSai v1T8lCKzBFUqtNEbylVtTBQmFnK2WGvxUC4zma59VV FgLMQ7xh3sfMUdyMwxomNftOOeUMcaH5RgBLAoi944 AUNmY7VcRJNxl5Z4qjLrMoRoIKIgkAV9tmE0IUUtQQ h9eFEbetP6gyTnwJChM9iyoD65XmBlpGWyV1VikF85 VrTiiMPaV0CwiC68HtXroITgK0ZrqD35GbUocPLrFL WxqJCdCh6kpDIhuBZvw0MkqXBtYRcuC01zo062YCTf rhQeP1yxoBCoaroffAOcpwpeYHzydwVuWTNpAAEoVJ wgLMTuPPIfLsIrjOslsX8rErXwVdMmISQPUjRheRpd gG3aXfCeJbLnLLBEk4n9bHhoN19of32cQTracPYzxg tvALegajAaTYRgDUC9LTGiu1JfqoRdizgeLSZgz3Ne SKY8PBcpwEGlwdOzPEMtioAjGwByoYwkWz6cTGHdAK jdDQBwOBHaLqAfHZ4laZGrYCAepB7kLH1teZxqyM9n MlJsDmMqSIPugKZnsxH4ENOnJZkoAQCnEO3fClgwmE 28TWUvYYWsJUHbjg61xY8byVyiWXC7 GROSS DESCRIPTION (test code = 3366) i0lvlSMcJHYwoNYmGvSvQZT wQRSeb7uqNWUstYAiLu IpArMlLdPiRakdnXOtVESxJsWvc7vmw602mRNcn1ye CINcHoM3xMAnOHQpaQFzX666EZWcSCfct6jgi0NqTX DvqQMbl0Z8NKUIvxjkiYp3xZxoU28hi8Q2EpivK3rw OYLvLXqsXRLdTNgdkPOwYRL5ZHUbUKE4GVonvmHxga U1ZCbneHZeJzU1IXq5y9bjyNjgWRMhEHZ7e3kcEFmw bjQlMM9mst6njAm0x6chlmCgTEHvFEZvoTIJSISdO1 IehRybGu2zrPi7oClqWtepTRR0Pxk6WQ0wsx10rsh1 pLqtLPYcwzsbXlP0QBlhMTTllvuqOJn1LEneUQHtlA cyMFxtYXJncjcyMFxtYXJndDcyMFxtYXJnYjcyMFxo KMHoZVX7BJvri316NYP6XGrro2exn9fobFGvYoq3KH XeXaMrIgzlRVbyf3Xwc5geEAEona7uKKE0mFVokWaz l4X9bDTxQIAmcMEuyqReXKVsNnP4ONpnKS6icy72VS MyQQW8ng2ohSBzgOdkjyDidELbUNvaI0PzCDJve839 HRWfA8KsJLQfl6C0fwPaXtLcBRQrdSD3jyJ6ZDGoQH u8sGQecpA8xfEqlDIoY1lhdG46CkJvrCHrA8HrjK90 BcIjdMRkZ0WlyJ89LfTdlEVxG7ItrR78GeQplTBpLA BbfTBzIq4rfFFidTJst1ZxzIOhGMhvC11pj561XVYh wrMsM0sowYTzbmbthZNerzflSSjmgzYuJCDsMQZwDO sfMHTgHEGpQpCjrVwhyG6yXtJhXcTgJSEWWgTJeRHx n2BhR3fxET1iaPUqvtAnCBf2PYArvN7aLd9nhHFgaV 0poELrDRfmGHP1jUMyWCRlLHIfCEBtTN15M3WheI9t u5TbMAFxm02tYD1rVUEka2x3kBapR31ad54xCSQdJS Q0Z4Bzn5AgiaNzqohgoZtqc7XqRoGthsThQ83gf7fa sMAnt7MdwRScfYixnAPmhAIlMAMcfakiWTMmALfcBU KtQLFpFbJakUVmp1MixH0xj5GjceDoIKVzKWdnZCJk OUFwGrHiVXBzRMZqjxLbGvE9kOOmmGRwlA4wMRekhl VnYXRlIFxwbGFpblxmMVxmczIwIHJhbmdpbmdccGxh mF6uNdNdHaYvXCTaRjGwcPQgTkYbbJZfAiUspXVfFj TbqQ3gIT3jWDpbIP9yHHupBD9qZOZrSHJoYcLcfHDu DkUbmUIiTcHlH52wAOSoAJUjlOJdoX5fwgQmstRcdC qfjD2zZaKpImKyWAHhsUUunKK8EPAcgNtnuM7nRaVz NcMmYTUvVN77aNGkbYmeBkTmcNZghZm1eqT5aZ7gGL maQZLuu8DqfUXuRQYnYhBtiZVoKZLdeqXKAaAtsZeb sZ3lSkGxDfBqORCBSZEyqJXgXQGehsHpq8DvRDprpw LaCPQgpPWrFJhgcJdlnFthZDPzxGkxybAbiqFjWS5u KFUnZ3Yoe7Svw35sivGnIoYgDOFwRNaspBSydxloRX qnnhPeFLXfpI8amYZlFOGdyZ8hTZ5sQVXkLGsbGWTm SISzTkXgyFPxydA3UPWiUJvhzZGpybajNXefsbSbRZ H9kAPdgLYiJXGdRBXqm66qcXI0plJaIlDvbOl5jTVl BBI4UR2kbDqfuuPkfePjzVErtYPrMXMvTKjyABLbYK XyQmLshRYhj9XrvP4qb0PtkxJxXWSuHFotASKhZIAv HgWmFUDzDRWiibZxAqV8dCAwfNUjARRsXPB8INAzZE E3FTNyEKOmeVXhIYQqKNjmPHJpP5ZrW9M0CN3uADtm EBAnHKGvmBHaAVivPYsxdXJylysjQLjmuwVaFYT1Rx 1pdHRlZFxwbGFpblxmMFxmczIwICBlbnRpcmVseSBm s7iwh6sshhhbDtfdnTPxyMnbovSaroStXBGrMTT7VG XPSN8aHJvFA1TeHQBmrk8= MICROSCOPIC DESCRIPTION (test code = j5dseQUbDEEqkCLpTlKnHQO bFTAet0bgNEObtPOwBs 3371) NjLnDsHnVfOfjoyOFsOCTsOkFsz3ect085nTIai3md IPZaSyS8yORpJQZubWDbX458t3nks8nokgJgvKB2RY HyRRS3BMzqqvPmppG0DKeehTFwHaM5PHfsdeXnEUzi zaVixkOcGfp8QUBlR859DNT7hUhjf3lhHXO3ZENbEA YhUyJsCc0ssOYjC952NSJfOWQCNRLfhQj0KZOhxyUx wzBlsPYDc084W085e0agZLTdcgGliXcZqdkuz3thQ4 66MBMmiBXjmnYiRgVoXGPxpXSzsNL6PDVyUW0zeppt QcYcSJ0sshnhVmXvCW5cvax0HtScTY9cfmqsNtSeBU eyVHRechspKULqm5WgwggjSI0xB3Umd6E4uE5xaSVu IKBphFRxFnPqJMUfah5sqUDtSPgmh6PoIXW9neS1kP TweDPkYTHtNW63Wlnxx7QxKdrbPCX4TNPmknQai2Bw g3hbHnPwjxNjL6zyV2DlGCTpBBTcHFMpPpUgfnHoo0 Ugq8BuqKEmyYa2a4suWNVyIEXmwJilk4ddCMY3LRAz B5H9dVZmx5evLSfqXIEisDB7tyxlPOgjGQCcmyS6vt xaFNkcQEQgwUY3deafVUjnHWCrSaY3lvtsWEywFPRr EUT4ZOoho250SVK2KUoqWwxaOMdlDEXvxePelrAaeQ duZGVjXHBsYWluXHBsYWluXGYwXGZzMjRccWxccGxh dH2lVtZnRgAqLKkiAE7jDSPeH9avpOWkREZmUHMuC4 gjEqQgoW5lySblXTqbjkVoSAJhumWkhw1lKLCymFDj fQ== [id number] 10:56:00Surgical Pathology Report Case: [id number] Authorizing Provider: Qi Koenig MD Collected: 08/24/2019 1223 Ordering Location: [facility] END[facility]COPY Received: 08/24/2019 1414 SERVICES Pathologist: Amanda [...] POLYP/ LESIONSJ/pl Signing Pathologist Direct Phone Line: [phone] signed by Amanda Landers MD on 08/25/2019 at 10:56 AMEndoscopic report reviewed. [id number] x2Pre and postop diagnosis: Malignant neoplasm of [...] in cassette B1. HS/plPerformedCT, CHEST, WITH IV [id number] 11:59:00FINAL REPORT CT scan of the chest, [...] MDReport Verified Date/Time: 07/17/2019 11:59:41 Reading Location: [address] Reading [place] CT, ABDOMEN 2019-07-17 11:59:66qK5eC6 colon cancer s/p surgery in August 2018. On surveillance, please compare to prior from for Exam:->Cecal cancerFINAL REPORT CT scan of [...] MDReport Verified Date/Time: 07/17/2019 11:59:41 Reading Location: [address] Transitional Reading Room CT Chest with IV [id number] 11:59:00Interface, External Ris In - 07/17/2019 12:01 [...] was administered. This exam was performed according [facility] department dose optimization program which [...] MDReport Verified Date/Time: 07/17/2019 11:59:41 Reading Location: [facility] C013T [facility] [id number] 11:59:00Interface, External Ris In - 07/17/2019 12:01 [...] was administered. This exam was performed according [facility] department dose optimization program which [...] MDReport Verified Date/Time: 07/17/2019 11:59:41 Reading Location: [address] Transitional Reading Room [facility] [id number] 11:00:00 Test Item Value Reference Range Interpretation Comments POC-Creatinine (test 1.0 mg/dL 0.6-1.3 TESTED AT [facility] 7200 code = 1859) [facility] 7703 0 POC-EGFR (test code 55 mL/min/1.73M2 = 1860) [id number] 11:00:00 Test Item Value Reference Range Interpretation Comments POC-CREATININE 1.0 mg/dL 0.6-1.[address] [facility] 7200 (BEAKER) (test KRANTHI BLD G A code = 1859) [facility] 7703 0 POC-EGFR 55 mL/min/1.73M2 (BEAKER) (test code = 1860) TISSUE [id number] 17:06:00Surgical Pathology Report Case: [id number] Authorizing Provider: José Luis Soni MD Collected: 09/01/2018 1258 Ordering Location: [address] Received: 09/01/2018 1308 Service Pathologist: Leslye Pastrana MD Specimens: A) -Small Bowel, NOS, SMALL BOWEL IMPLANT B) - Large Intestine, Colon - Right/Ascending, RIGHT COLON C) - Ileum, ADDITIONAL ILEUM This addendum is issued toreport the result of immunostain CDX-2 on B9. The test was done as per the request of the clinician:- STRONG POSITIVEThe interpretation of this case included the use of immunohistochemistry or special stains. 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 Small bowel implant; B. Right colon; [...] small bowel and mass; B15 and B16, lead generation representative section ofcecum and mass; B17, four [...] Dr. Pastrana at 1:27 p.m. A-C: PERFORMEDPOCT-GLUCOSE [id number] 18:25:00 Test Item Value Reference Range Interpretation Comments POC-GLUCOSE METER 147 mg/dL 70-110 H TESTED AT [place] [address] ([facility]) (test code = [place] 1538) [address] POCT-GLUCOSE [id number] 09:43:00 Test Item Value Reference Range Interpretation Comments POC-GLUCOSE METER 128 mg/dL 70-110 H TESTED AT [facility] 6720 (BEAKER) (test code = [place] 1538) [address] [id number] 07:05:00 Test Item Value Reference Range Interpretation Comments PHOSPHORUS (BEAKER) (test code = 3.2 mg/dL 2.3-4.7 604) [id number] 07:05:00 Test Item Value Reference Range Interpretation Comments MAGNESIUM (BEAKER) (test code = 1.8 mg/dL 1.6-2.6 627) BASIC METABOLIC [id number] 07:05:00 Test Item Value Reference Range Interpretation [...] PATIEN TS. CBC W/PLT COUNT & AUTO [id number] 06:31:00 Test Item Value Reference Range Interpretation [...] PERCENT (BEAKER) (test code = 2801) POCT-GLUCOSE [id number] 22:24:00 Test Item Value Reference Range Interpretation Comments POC-GLUCOSE METER 143 mg/dL 70-110 H TESTED AT [facility] 6720 (BEAKER) (test code = [place] 1538) [address] POCT-GLUCOSE [id number] 17:08:00 Test Item Value Reference Range Interpretation Comments POC-GLUCOSE METER 143 mg/dL 70-110 H TESTED AT [facility] 6720 (BEAKER) (test code = RAMONA Deleon [facility] 1538) 801[address] POCT-GLUCOSE [id number] 13:52:00 Test Item Value Reference Range Interpretation Comments POC-GLUCOSE METER 162 mg/dL 70-110 H TESTED AT [facility] 6720 (BEAKER) (test code = [facility] Panch[facility] 1538) [address] [id number] 07:39:00 Test Item Value Reference Range Interpretation Comments PHOSPHORUS (BEAKER) (test code = 3.5 mg/dL 2.3-4.7 604) [id number] 07:39:00 Test Item Value Reference Range Interpretation Comments MAGNESIUM (BEAKER) (test code = 1.9 mg/dL 1.6-2.6 627) BASIC METABOLIC [id number] 07:39:00 Test Item Value Reference Range Interpretation [...] PATIEN TS. CBC W/PLT COUNT & AUTO [id number] 07:10:00 Test Item Value Reference Range Interpretation [...] PERCENT (BEAKER) (test code = 2801) POCT-GLUCOSE [id number] 06:25:00 Test Item Value Reference Range Interpretation Comments POC-GLUCOSE METER 126 mg/dL 70-110 H TESTED AT [facility] 6720 (BEAKER) (test code = [place] 1538) 80[address] POCT-GLUCOSE [id number] 23:24:00 Test Item Value Reference Range Interpretation Comments POC-GLUCOSE METER 136 mg/dL 70-110 H TESTED AT [place] [address] [facility] (test code = RAMONA Deleon [facility] 1538) 84171 POCT-GLUCOSE [id number] 18:50:00 Test Item Value Reference Range Interpretation Comments POC-GLUCOSE METER 147 mg/dL 70-110 H TESTED AT [place] [address] (BEAKER) (test code = RAMONA [place] [facility] 1538) 24307 POCT-GLUCOSE [id number] 12:13:00 Test Item Value Reference Range Interpretation Comments POC-GLUCOSE METER 194 mg/dL 70-110 H TESTED AT [place] [address] ([facility]) (test code = RAM[place] [facility] 1538) 500[address] CBC W/PLT COUNT & AUTO [id number] 06:59:00 Test Item Value Reference Range Interpretation [...] PERCENT (BEAKER) (test code = 2801) POCT-GLUCOSE [id number] 06:28:00 Test Item Value Reference Range Interpretation Comments POC-GLUCOSE METER 153 mg/dL 70-110 H TESTED AT [facility] 6720 (BEAKER) (test code = [place] 1538) [address] [id number] 05:48:00 Test Item Value Reference Range Interpretation Comments PHOSPHORUS (BEAKER) (test code = 2.9 mg/dL 2.3-4.7 604) [id number] 05:48:00 Test Item Value Reference Range Interpretation Comments MAGNESIUM (BEAKER) (test code = 2.1 mg/dL 1.6-2.6 627) BASIC METABOLIC [id number] 05:48:00 Test Item Value Reference Range Interpretation [...] 358) GLUCOSE RANDOM 132 mg/dL 70-105 H ([facility]) (test code = 652) CALCIUM (BEAKER) 10.1 mg/dL 8.4-10.2 (test code = 697) EGFR ([facility]) (test 90 mL/min/1.73 ESTIMA MAX GFR IS code = 1092) sq m NOT ACCURATE CREATININE CLEARANCE IN PREDICTING GLOMERULAR FILTRATION RATE . ESTIMATED GFR I S NOT APPLICABLE FOR DIALYSIS PATIEN TS. POCT-GLUCOSE [id number] 23:42:00 Test Item Value Reference Range Interpretation Comments POC-GLUCOSE METER 162 mg/dL 70-110 H TESTED AT [place] [address] ([facility]) (test code = [facility] 1538) 03253 POCT-GLUCOSE [id number] 18:09:00 Test Item Value Reference Range Interpretation Comments POC-GLUCOSE METER 184 mg/dL 70-110 H TESTED AT [place] [address] ([facility]) (test code = [facility] 1538) [address]27 HEMOGLOBIN AND [id number] 16:04:00 Test Item Value Reference Range Interpretation Comments HEMOGLOBIN (BEAKER) (test code = 8.4 GM/DL 11.2-15.7 L 410) HEMATOCRIT (BEAKER) (test code = 27.3 % 34.1-44.9 L 411) POCT-GLUCOSE [id number] 12:48:00 Test Item Value Reference Range Interpretation Comments POC-GLUCOSE METER 223 mg/dL 70-110 H TESTED AT [place] [address] ([facility]) (test code = [facility] 1538) 97191 CBC W/PLT COUNT & AUTO [id number] 07:06:00 Test Item Value Reference Range Interpretation Comments WHITE BLOOD CELL COUNT ([facility]) 5.6 K/ L 3.5-10.5 (test code = 775) RED BLOOD CELL COUNT ([facility]) 2.94 M/ L 3.93-5.22 L (test code [...] % 0-1 PERCENT (BEAKER) (test code = 2805) [id number] 06:48:00 Test Item Value Reference Range Interpretation Comments PHOSPHORUS (BEAKER) (test code = 2.8 mg/dL 2.3-4.7 604) [id number] 06:48:00 Test Item Value Reference Range Interpretation Comments MAGNESIUM (BEAKER) (test code = 2.1 mg/dL 1.6-2.6 627) BASIC METABOLIC [id number] 06:48:00 Test Item Value Reference Range Interpretation [...] NOT APPLICABLE FOR DIALYSIS PATIEN TS. POCT-GLUCOSE [id number] 05:44:00 Test Item Value Reference Range Interpretation Comments POC-GLUCOSE METER 177 mg/dL 70-110 H TESTED AT [facility] 6720 ([facility] (test code = [place] [facility] 1538) 58373 POCT-GLUCOSE [id number] 23:30:00 Test Item Value Reference Range Interpretation Comments POC-GLUCOSE METER 180 mg/dL 70-110 H TESTED AT [facility] 6720 (BEAKER) [facility] 1538) 0[address] POCT-GLUCOSE [id number] 16:47:00 Test Item Value Reference Range Interpretation Comments POC-GLUCOSE METER 180 mg/dL 70-110 H TESTED AT [facility] 6720 (BEAKER) ([facility] = [facility] 1538) 7[address]99 POCT-GLUCOSE [id number] 12:51:00 Test Item Value Reference Range Interpretation Comments POC-GLUCOSE METER 216 mg/dL 70-110 [facility] ([facility] = [facility] 1538) [address] [id number] 07:10:00 Test Item Value Reference Range Interpretation Comments PHOSPHORUS (BEAKER) (test code = 2.5 mg/dL 2.3-4.7 604) [id number] 07:10:00 Test Item Value Reference Range Interpretation Comments MAGNESIUM (BEAKER) (test code = 2.2 mg/dL 1.6-2.6 627) BASIC METABOLIC [id number] 07:10:00 Test Item Value Reference Range Interpretation [...] PATIEN TS. CBC W/PLT COUNT & AUTO [id number] 07:08:00 Test Item Value Reference Range Interpretation [...] PERCENT (BEAKER) (test code = 2801) POCT-GLUCOSE [id number] 05:18:00 Test Item Value Reference Range Interpretation Comments POC-GLUCOSE METER 183 mg/dL 70-110 H TESTED AT [facility] 6720 ([facility] (test code = [place] 1538) [address] POCT-GLUCOSE [id number] 23:52:00 Test Item Value Reference Range Interpretation Comments POC-GLUCOSE METER 176 mg/dL 70-110 H TESTED AT [facility] 6720 (BEAKER) (test code = [place] 1538) 15074 POCT-GLUCOSE [id number] 16:03:00 Test Item Value Reference Range Interpretation Comments POC-GLUCOSE METER 200 mg/dL 70-110 H TESTED AT [facility] 6720 (BEAKER) (test code = [place] 1538) [address] POCT-GLUCOSE [id number] 12:29:00 Test Item Value Reference Range Interpretation Comments POC-GLUCOSE METER 234 mg/dL 70-110 H TESTED AT [facility] 6720 (BEAKER) (test code = [place] 1538) [address] [id number] 06:17:00 Test Item Value Reference Range Interpretation Comments PHOSPHORUS (BEAKER) (test code = 2.7 mg/dL 2.3-4.7 604) [id number] 06:17:00 Test Item Value Reference Range Interpretation Comments MAGNESIUM (BEAKER) (test code = 1.9 mg/dL 1.6-2.6 627) BASIC METABOLIC [id number] 06:17:00 Test Item Value Reference Range Interpretation [...] PATIEN TS. CBC W/PLT COUNT & AUTO [id number] 05:55:00 Test Item Value Reference Range Interpretation [...] PERCENT (BEAKER) (test code = 2801) POCT-GLUCOSE [id number] 05:50:00 Test Item Value Reference Range Interpretation Comments POC-GLUCOSE METER 193 mg/dL 70-110 H TESTED AT [facility] 67 ([facility]) (test code = [place] De[place] [facility] 1538) 36061 POCT-GLUCOSE [id number] 23:58:00 Test Item Value Reference Range Interpretation Comments POC-GLUCOSE METER 228 mg/dL 70-110 H TESTED AT [facility] 6720 ([facility]) (test code = RAM[place] Dele[place] [facility] 1538) 18842 RAD, ABDOMEN/KUB, 1 VIEW [id number] 21:54:00Include stomach \\T\\ rectumReason for exam:->Eval for distentionShould this be performed at the bed side?->YesFINAL REPORT Abdomen one view History: Abdominal distention Comparison:none Findings:Nonobstructive bowel gas pattern. No definite bowel pneumatosis or portal venous gas. No calcifications along the expected course of the urinary tract. Impression:No acute findings Signed: Asim Adame MDReport Verified Date/Time: 09/02/2018 21:54:46 Reading Location: [facility] Reading Room POCT-GLUCOSE [id number] 18:04:00 Test Item Value Reference Range Interpretation Comments POC-GLUCOSE METER 300 mg/dL 70-110 H TESTED AT [facility] 67 ([facility]) (test code = RAM[place] Dele[place] [facility] 1538) 61390 TISSUE [id number] 13:53:00Surgical Pathology Report Case: [id number] Authorizing Provider: Qi Koenig MD Collected: 08/24/2018 1036 Ordering Location: [address] Received: 08/25/2018 0823 Service Pathologist: Lex [...] AN ADDENDUM. Signing Pathologist Direct Phone Line: [phone] signed by Lex Cassidy MD on 08/25/2018 at 4:[id number], 80989, [id number] massCecal polyp mass biopsyThe specimen is received in a formalin-filled container and labeled with the patient's information labeled "cecum colon mass biopsy" consisting of multiple fragments of fernandez-red soft tissue ranging from less than 0.1 to 0.4 cm, submitted entirely A1. CG/pl PERFORMED.The interpretation of this case included the use of immunohistochemistry or special stains. Immunohistochemistry technical testing was performed at [facility], Pathology Laboratory where it was developed and [...] clinical laboratory testing.BLOCK A1- MSH2, MSH6, MLH1, [id number] 12:43:00 Test Item Value Reference Range Interpretation Comments POC-GLUCOSE METER 282 mg/dL 70-110 H TESTED AT [facility] 6720 ([employer]) (test code = [employer] [facility] 1538) 41855 POCT-GLUCOSE [id number] 06:34:00 Test Item Value Reference Range Interpretation Comments POC-GLUCOSE METER 192 mg/dL 70-110 H TESTED AT [facility] 6720 ([employer]) (test code = [facility] 1538) 89560 POCT-GLUCOSE [id number] 06:03:00 Test Item Value Reference Range Interpretation Comments POC-GLUCOSE METER 349 mg/dL 70-110 H TESTED AT [facility] 6720 (BEAKER) (test code = [place] 1538) 10988 [id number] 05:42:00 Test Item Value Reference Range Interpretation Comments PHOSPHORUS (BEAKER) (test code = 3.0 mg/dL 2.3-4.7 604) [id number] 05:42:00 Test Item Value Reference Range Interpretation Comments MAGNESIUM (BEAKER) (test code = 1.9 mg/dL 1.6-2.6 627) BASIC METABOLIC [id number] 05:42:00 Test Item Value Reference Range Interpretation [...] PATIEN TS. CBC W/PLT COUNT & AUTO [id number] 05:06:00 Test Item Value Reference Range Interpretation [...] PERCENT (BEAKER) (test code = 2801) POCT-GLUCOSE [id number] 16:48:00 Test Item Value Reference Range Interpretation Comments POC-GLUCOSE METER 252 mg/dL 70-110 H TESTED AT [facility] 6720 (BEAKER) (test code = [place] 1538) 24015 RAD, X-RAY, NO [id number] 16:12:00Reason for exam:->MISSING NEEDLEFINAL REPORT TECHNIQUE: Frontal [...] the visualized chest and abdomen. Signed: Raul Bhattieport Verified Date/Time: 09/01/2018 16:12:09 Reading Location: [facility] [id number] Consult Reading Room POTASSIUM-STAT [id number] 14:48:00 Test Item Value Reference Range Interpretation Comments POTASSIUM (BEAKER) (test code = 4.7 meq/L 3.6-5.5 379) SODIUM NA-STAT [id number] 14:48:00 Test Item Value Reference Range Interpretation Comments SODIUM (BEAKER) (test code = 381) 134 meq/L 135-148 L GLUCOSE-STAT [id number] 14:48:00 Test Item Value Reference Range Interpretation Comments GLUCOSE RANDOM (BEAKER) (test code 217 mg/dL 70-110 H = 652) HGB/HCT (H&H) - STAT [id number] 14:48:00 Test Item Value Reference Range Interpretation Comments HEMOGLOBIN (BEAKER) (test code = 8.0 g/dL 12.0-15.0 L 410) HEMATOCRIT (BEAKER) (test code = 24.0 % 36.0-45.0 L 411) POCT-GLUCOSE [id number] 14:41:00 Test Item Value Reference Range Interpretation Comments POC-GLUCOSE METER 274 mg/dL 70-110 H TESTED AT [facility] 6720 (BEAKER) (test code = [place] 1538) 18437 POCT-GLUCOSE [id number] 08:27:00 Test Item Value Reference Range Interpretation Comments POC-GLUCOSE METER 236 mg/dL 70-110 H TESTED AT [facility] 6720 (BEAKER) (test code = [place] 1538) 12484 [id number] 06:35:00 Test Item Value Reference Range Interpretation Comments PHOSPHORUS (BEAKER) (test code = 2.8 mg/dL 2.3-4.7 604) [id number] 06:35:00 Test Item Value Reference Range Interpretation Comments MAGNESIUM (BEAKER) (test code = 2.0 mg/dL 1.6-2.6 627) HEPATIC FUNCTION [id number] 06:35:00 Test Item Value Reference Range Interpretation [...] 78 U/L 6-55 H 347) BASIC METABOLIC [id number] 06:35:00 Test Item Value Reference Range Interpretation [...] NOT APPLICABLE FOR DIALYSIS PATIEN TS. POCT-GLUCOSE [id number] 06:22:00 Test Item Value Reference Range Interpretation Comments POC-GLUCOSE METER 206 mg/dL 70-110 H TESTED AT [facility] 6720 ([facility]) (test code = [place] 1538) 36237 PROTHROMBIN [id number] 06:18:00 Test Item Value Reference Range Interpretation Comments PROTIME ([facility]) (test code = 14.8 seconds 11.7-14.7 H 759) INR ([facility] (test code = 370) 1.2 <=5.9 RECOMMENDED [...] PERCENT (BEAKER) (test code = 2801) POCT-GLUCOSE [id number] 00:31:00 Test Item Value Reference Range Interpretation Comments POC-GLUCOSE METER 214 mg/dL 70-110 H TESTED AT [facility] 67 ([facility] (test code = [place] 1538) 8[address] POCT-GLUCOSE [id number] 17:53:00 Test Item Value Reference Range Interpretation Comments POC-GLUCOSE METER 188 mg/dL 70-110 H TESTED AT [facility] 6720 ([facility] (test code = [place] 1538) 39447 POCT-GLUCOSE [id number] 11:56:00 Test Item Value Reference Range Interpretation Comments POC-GLUCOSE METER 244 mg/dL 70-110 H TESTED AT [facility] 6720 (BEAKER) (test code = [place] 1538) 45535 POCT-GLUCOSE [id number] 07:20:00 Test Item Value Reference Range Interpretation Comments POC-GLUCOSE METER 196 mg/dL 70-110 H TESTED AT [facility] 6720 (BEAKER) (test code = [place] 153) [address] CBC W/PLT COUNT & AUTO [id number] 05:55:00 Test Item Value Reference Range Interpretation [...] (BEAKER) (test code = 2801) BASIC METABOLIC [id number] 05:35:00 Test Item Value Reference Range Interpretation [...] NOT APPLICABLE FOR DIALYSIS PATIEN TS. POCT-GLUCOSE [id number] 23:46:00 Test Item Value Reference Range Interpretation Comments POC-GLUCOSE METER 229 mg/dL 70-110 H TESTED AT [facility] 6720 (BEAKER) (test code = [facility] 1538) 52814 POCT-GLUCOSE [id number] 17:14:00 Test Item Value Reference Range Interpretation Comments POC-GLUCOSE METER 204 mg/dL 70-110 H TESTED AT [facility] 6720 (BEAKER) (test code = [facility] 1538) 01818 BASIC METABOLIC [id number] 14:53:00 Test Item Value Reference Range Interpretation [...] NOT APPLICABLE FOR DIALYSIS PATIEN TS. POCT-GLUCOSE [id number] 11:46:00 Test Item Value Reference Range Interpretation Comments POC-GLUCOSE METER 204 mg/dL 70-110 H TESTED AT [place] [address] ([facility]) (test code = [facility] 1538) 47889 POCT-GLUCOSE [id number] 07:22:00 Test Item Value Reference Range Interpretation Comments POC-GLUCOSE METER 196 mg/dL 70-110 H TESTED AT [place] [address] ([facility]) (test code = [facility] 1538) 25427 [id number] 07:00:00 Test Item Value Reference Range Interpretation Comments PREALBUMIN (BEAKER) (test code = 14 mg/dL 14-45 586) CALCIUM, [id number] 06:42:00 Test Item Value Reference Range Interpretation Comments CALCIUM IONIZED (BEAKER) (test 1.35 mmol/L 1.12-1.27 H code = 698) PH, BLOOD ([facility]) (test code = 7.41 1810) POCT-GLUCOSE [id number] 23:46:00 Test Item Value Reference Range Interpretation Comments POC-GLUCOSE METER 200 mg/dL 70-110 H TESTED AT [place] [address] ([facility]) (test code = [facility] 1538) 91191 URINALYSIS W/ REFLEX URINE [id number] 17:31:00 Test Item Value Reference Range Interpretation [...] 516) SOURCE(BEAKER) (test code = 2795) POCT-GLUCOSE [id number] 17:09:00 Test Item Value Reference Range Interpretation Comments POC-GLUCOSE METER 268 mg/dL 70-110 H TESTED AT [facility] 6720 (BEAKER) (test code = RAM[place] Deleon [facility] 1538) 00148 RAD, CHEST, 1 VIEW, NON [id number] 14:50:00Reason for exam:->pnaShould this be performed at [...] [place] Verified Date/Time: 08/29/2018 14:50:02 Reading Location: [facility] Radiology Reading Room POCT-GLUCOSE [id number] 12:46:00 Test Item Value Reference Range Interpretation Comments POC-GLUCOSE METER 261 mg/dL 70-110 H TESTED AT [facility] 6720 (BEAKER) (test code = [place] Deleon [place] 1538) 6[address] POCT-GLUCOSE [id number] 07:00:00 Test Item Value Reference Range Interpretation Comments POC-GLUCOSE METER 186 mg/dL 70-110 H TESTED AT [facility] 6720 (BEAKER) (test code = [facility] [place] 1538) [address] BASIC METABOLIC [id number] 06:20:00 Test Item Value Reference Range Interpretation [...] PATIEN TS. CBC W/PLT COUNT & AUTO [id number] 05:58:00 Test Item Value Reference Range Interpretation [...] PERCENT (BEAKER) (test code = 2801) POCT-GLUCOSE [id number] 00:03:00 Test Item Value Reference Range Interpretation Comments POC-GLUCOSE METER 179 mg/dL 70-110 H TESTED AT [facility] 6720 (BEAKER) (test code = [place] 1538) 30565 POCT-GLUCOSE [id number] 17:16:00 Test Item Value Reference Range Interpretation Comments POC-GLUCOSE METER 188 mg/dL 70-110 H TESTED AT [place] [address] (BEAKER) (test code = RAMONA Deleon [facility] 1538) 28475 POCT-GLUCOSE [id number] 12:20:00 Test Item Value Reference Range Interpretation Comments POC-GLUCOSE METER 173 mg/dL 70-110 H TESTED AT [place] [address] (BEAKER) ([facility] = [facility] 1538) [address] POCT-GLUCOSE [id number] 07:48:00 Test Item Value Reference Range Interpretation Comments POC-GLUCOSE METER 167 mg/dL 70-110 H TESTED AT [place] [address] (BEAKER) ([facility] = [facility] 1538) 80908 BLOOD [id number] 07:01:00 Test Item Value Reference Range Interpretation Comments CULTURE (BEAKER) (test No growth in 5 days code = 1095) BLOOD [id number] 07:01:00 Test Item Value Reference Range Interpretation Comments CULTURE (BEAKER) (test No growth in 5 days code = 1095) [id number] 05:09:00 Test Item Value Reference Range Interpretation Comments PHOSPHORUS (BEAKER) (test code = 2.5 mg/dL 2.3-4.7 604) [id number] 05:09:00 Test Item Value Reference Range Interpretation Comments MAGNESIUM (BEAKER) (test code = 2.0 mg/dL 1.6-2.6 627) BASIC METABOLIC [id number] 05:09:00 Test Item Value Reference Range Interpretation [...] PATIEN TS. CBC W/PLT COUNT & AUTO [id number] 04:49:00 Test Item Value Reference Range Interpretation [...] PERCENT (BEAKER) (test code = 2801) POCT-GLUCOSE [id number] 02:43:00 Test Item Value Reference Range Interpretation Comments POC-GLUCOSE METER 159 mg/dL 70-110 H TESTED AT [place] [address] ([facility]) (test code = [facility] 1538) 71034 POCT-GLUCOSE [id number] 17:13:00 Test Item Value Reference Range Interpretation Comments POC-GLUCOSE METER 169 mg/dL 70-110 H TESTED AT [place] [address] ([facility]) (test code = [facility] 1538) 17419 POCT-GLUCOSE [id number] 12:48:00 Test Item Value Reference Range Interpretation Comments POC-GLUCOSE METER 160 mg/dL 70-110 H TESTED AT [place] [address] ([facility]) (test code = [facility] 1538) 58572 BASIC METABOLIC [id number] 11:06:00 Test Item Value Reference Range Interpretation [...] NOT APPLICABLE FOR DIALYSIS PATIEN TS. POCT-GLUCOSE [id number] 07:17:00 Test Item Value Reference Range Interpretation Comments POC-GLUCOSE METER 181 mg/dL 70-110 H TESTED AT [facility] 6720 (BEAKER) (test code = [place] 1538) [address] BASIC METABOLIC [id number] 06:28:00 Test Item Value Reference Range Interpretation [...] S NOT APPLICABLE FOR DIALYSIS PATIEN TS. [id number] 06:27:00 Test Item Value Reference Range Interpretation Comments PHOSPHORUS (BEAKER) (test code = 1.6 mg/dL 2.3-4.7 L 604) [id number] 06:27:00 Test Item Value Reference Range Interpretation Comments MAGNESIUM (BEAKER) (test code = 2.5 mg/dL 1.6-2.6 627) PROTHROMBIN [id number] 06:12:00 Test Item Value Reference Range Interpretation [...] ABSOLUTE COUNT 1.11 K/ L 1.18-3.74 L (BEAKER) (test code = 414) MONOCYTES ABSOLUTE COUNT (BEAKER) 0.44 K/ L 0.24-0.36 H (test code = 415) EOSINOPHILS ABSOLUTE COUNT 0.05 K/ L 0.04-0.36 (AKER) (test code = 416) BASOPHILS ABSOLUTE COUNT (AKER) 0.03 K/ L 0.01-0.08 (test code = 417) IMMATURE GRANULOCYTES-RELATIVE 1 % 0-1 PERCENT ([facility]) (test code = 2801) POCT-GLUCOSE [id number] 01:15:00 Test Item Value Reference Range Interpretation Comments POC-GLUCOSE METER 171 mg/dL 70-110 H TESTED AT [facility] 67 ([facility]) (test code = [facility] - [facility] 1538) [id number] POCT-GLUCOSE [id number] 18:18:00 Test Item Value Reference Range Interpretation Comments POC-GLUCOSE METER 136 mg/dL 70-110 H TESTED AT [place] [address] ([facility]) (test code = [facility] 1538) [id number] PET, CARDIAC PERFUSION MULTIPLE STUDIES, REST AND [id number] 15:14:00 Reason for exam:->preop clearance for surgery planned on 08/27FINAL REPORT PROCEDURE: Rest/Stress MYOCARDIAL PERFUSION PET with regadenoson\\XA9\\ CPT CODE: 85721 INDICATION: Preoperative clearance for major abdominal surgery [...] Normal extracardiac tracer distribution. 6. No previous [facility] study for comparison. Signed: Farnaz AbdulMDReport Verified Date/Time: 08/26/2018 15:14:34 Reading Location: [address] Reading Room POCT-GLUCOSE [id number] 11:56:00 Test Item Value Reference Range Interpretation Comments POC-GLUCOSE METER 191 mg/dL 70-110 H TESTED AT [place] [address] ([facility]) (test code = RAMONA Deleon [facility] 1538) [id number] POCT-GLUCOSE [id number] 07:29:00 Test Item Value Reference Range Interpretation Comments POC-GLUCOSE METER 189 mg/dL 70-110 H TESTED AT [place] [address] ([facility]) (test code = RAMONA Deleon [facility] 1538) [address] CBC W/PLT COUNT & AUTO [id number] 06:14:00 Test Item Value Reference Range Interpretation Comments WHITE BLOOD CELL COUNT ([facility]) 4.7 K/ L 3.5-10.5 (test code = 775) RED BLOOD CELL COUNT ([facility]) 3.37 M/ L 3.93-5.22 L (test code = 761) HEMOGLOBIN ([facility]) (test code = 7.7 GM/DL 11.2-15.7 L 410) HEMATOCRIT ([facility]) (test code = 26.3 % 34.1-44.9 L 411) MEAN CORPUSCULAR VOLUME ([facility]) 78.0 fL 79.4-94.8 L (test [...] 0-1 PERCENT (BEAKER) (test code = 2801) [id number] 06:13:00 Test Item Value Reference Range Interpretation Comments TRIGLYCERIDES (BEAKER) (test code = 136 mg/dL 540) TRIGLYCERIDE REFERENCE RANGELow Risk <150Borderline Risk 150-199High Risk 200-499Very High Risk>=[id number] 06:13:00 Test Item Value Reference Range Interpretation Comments MAGNESIUM (BEAKER) (test code = 2.0 mg/dL 1.6-2.6 627) [id number] 06:13:00 Test Item Value Reference Range Interpretation Comments PHOSPHORUS (BEAKER) (test code = 1.9 mg/dL 2.3-4.7 L 604) BASIC METABOLIC [id number] 06:13:00 Test Item Value Reference Range Interpretation [...] NOT APPLICABLE FOR DIALYSIS PATIEN TS. C-REACTIVE [id number] 06:13:00 Test Item Value Reference Range Interpretation Comments C-REACTIVE PROTEIN (BEAKER) (test 3.37 mg/dL 0.00-0.50 H code = 676) RAD, CHEST, PA OR AP, 1 [id number] 21:47:00VAT/Infusion Therapy Nurse to Call Radiology Department [...] Right-sided PICC tip overlies the SVC Signed: Keith Lane Verified Date/Time: 08/25/2018 21:47:18 Reading Location: [facility] C013V Neuro Reading Room [id number] 13:00:00 Test Item Value Reference Range Interpretation Comments PREALBUMIN (BEAKER) (test code = 586) 9 mg/dL 14-45 L CARCINOEMBRYONIC ANTIGEN (CEA)2018-08-25 06:37:00 Test Item Value Reference Range Interpretation Comments CARCINOEMBRYONIC ANTIGEN (BEAKER) 3.0 ng/mL 0.0-5.0 (test code = 685) BASIC METABOLIC [id number] 06:26:00 Test Item Value Reference Range Interpretation [...] PATIEN TS. CBC W/PLT COUNT & AUTO [id number] 05:58:00 Test Item Value Reference Range Interpretation [...] (test code = 2801) CT, CHEST, WITH [id number] 14:24:00FINAL REPORT TECHNIQUE: CT of the chest, [...] MDReport Verified Date/Time: 08/24/2018 14:24:21 Reading Location: [address] Body Reading Room CT, [id number] 14:24:00FINAL REPORT TECHNIQUE: CT of the chest, [...] ineach lower lobe measures 2 mm. Signed: Horn, Ac MDReport Verified Date/Time: 08/24/2018 14:24:21 Reading Location: [facility] B1 C[address]Y [address] Body Reading Room BASI METABOLIC [id number] 05:56:00 Test Item Value Reference Range Interpretation [...] PATIEN TS. CBC W/PLT COUNT & AUTO [id number] 05:29:00 Test Item Value Reference Range Interpretation [...] code = 2801) URINALYSIS W/ REFLEX URINE [id number] 09:48:00 Test Item Value Reference Range Interpretation [...] SOURCE(BEAKER) (test code = 2795) HEMOGLOBIN AND [id number] 08:13:00 Test Item Value Reference Range Interpretation Comments HEMOGLOBIN (BEAKER) (test code = 7.2 GM/DL 11.2-15.7 L 410) HEMATOCRIT (BEAKER) (test code = 24.7 % 34.1-44.9 L 411) HEPATIC FUNCTION [id number] 06:32:00 Test Item Value Reference Range Interpretation [...] = 9 U/L 6-55 347) BASIC METABOLIC [id number] 06:32:00 Test Item Value Reference Range Interpretation [...] NOT APPLICABLE FOR DIALYSIS PATIEN TS. C-REACTIVE [id number] 02:31:00 Test Item Value Reference Range Interpretation Comments C-REACTIVE PROTEIN (BEAKER) (test 7.14 mg/dL 0.00-0.50 H code = 676) PROTHROMBIN [id number] 02:11:00 Test Item Value Reference Range Interpretation [...] % 0-1 PERCENT (BEAKER) (test code = 4181)
--- OUTSIDE RECORDS SUMMARY | 2020-03-29 18:07 | XMS REPORT ---
[...] End Status Dosage System Date Date Cymbalta [facility] 01906575631 20 MG Orally Active 1 caps ule Once a day Fluticasone ND 58301949350 50 MCG/ACT January 05, Active 1 sp ray in Propionate Nasally Once a 2019 each day nostril Albuterol [facility] 74159665175 108 (90 Base) May 27, Active 2 pu ffs as Sulfate HFA MCG/ACT 2019 needed Inhalation every 6 hrs Hemocyte Plus [facility] 94917892578 106-1 MG Orally Active 1 capsule Once a day with breakfast Lisinopril [facility] 26518033950 5 MG Orally Active 1 tab let Once a day Atorvastatin [facility] 83240704340 20 MG Orally Active TA KE 1 Calcium Once a day TABLET BY MOUTH AT BEDTIME Vitamin D3 [facility] 03881122602 5000 UNIT Active 1 capsu le Maximum Strength Orally Once a day Zyrtec Allergy [facility] 84764391153 10 MG Orally Active 1 tablet Once a day Melatonin ND 65229536840 5 MG Orally Active 2 tabl et Once a day at bedtime as needed with food Namenda [facility] 66859192769 10 MG Orally Active 1 table t Twice a day Results Name Result Date Reference Range Unit Abnormali ty Flag CBC With Differential/Platelet ----Lymphs 27 40783360 Not Estab. % ----Neutrophils 62 82917323 Not Estab. % ----Baso (Absolute) 0.0 00659834 0.0-0.2 x10E3/uL ----Hemoglobin 14.7 62165604 11.1-15.9 g/dL ----Eos (Absolute) 0.0 96353368 0.0-0.4 x10E3/uL ----Hematocrit 42.3 71036902 34.0-46.6 % ----Monocytes(Absolute) 0.4 38944361 0.1-0.9 x10E3/uL ----MCV 95 99791749 79-97 fL ----Lymphs (Absolute) 1.2 20469555 0.7-3.1 x10E3/uL ----MCH 32.9 45858893 26.6-33.0 pg ----Neutrophils (Absolute) 2.8 54462007 1.4-7.0 x10E3/uL ----MCHC 34.8 99901916 31.5-35.7 g/dL ----Immature Granulocytes 0 62338006 Not Estab. % ----Basos 1 18171653 Not Estab. % ----RDW 12.0 11721925 11.7-15.4 % ----Immature Grans (Abs) 0.0 06850536 0.0-0.1 x10E3/uL ----Eos 1 58794628 Not Estab. % ----WBC 4.4 93277714 3.4-10.8 x10E3/uL ----Platelets 239 07050969 150-450 x10E3/uL ----RBC 4.47 74756287 3.77-5.28 x10E6/uL ----Monocytes 9 49021697 Not Estab. % Folate (Folic Acid), Serum ----Folate (Folic Acid), >20.0 45830688 >3.0 ng/mL Serum Iron and TIBC ----Iron Saturation 29 20200229 15-55 % ----UIBC 238 66452918 118-369 ug/dL ----Iron 95 20200229 27-139 ug/dL ----Iron Bind.Cap.(TIBC) 333 20200229 250-450 ug/dL Summary Purpose eClinicalWorks Submission
[2020-03-29 19:08] LABS: Absolute Lymphocytes (CBC) 0.9 K/uL (0.7-4.9); Basophils % 0.6 % (0-1.3); Hematocrit 40.1 % (36.0-45.0); Lymphocytes % 19.4 % (15.3-44.8); MPV 7.8 fL (7.6-11.3); RBC Red Blood Cell Count 4.24 M/uL (3.86-4.86)
[2020-03-29 19:25] LABS: Bilirubin Direct 0.3 mg/dL (0-0.2); Bilirubin Total 1.4 mg/dL (0.2-1.0); Potassium 3.9 mmol/L (3.5-5.1); Protein, Total 7.4 g/dL (6.4-8.2)
--- NOTE | 2020-03-29 19:35 | RAD REPORT ---
EXAM DESCRIPTION: CT - Head Brain Wo Cont - 03/29/2020 7:28 pm CLINICAL HISTORY: HEADACHE Headache, drowsiness COMPARISON: Head Brain Wo Cont dated 07/07/2018 TECHNIQUE: All CT scans are performed using dose optimization technique as appropriate and may inclu de automated exposure control or mA/KV adjustment according to patient size. FINDINGS: No intracranial hemorrhage, hydrocephalus or extra-axial fluid collection.Mild generalized brain atrophy is present with mild periventricular and deep white matter chronic microvascular ische shruti changes.No areas of brain edema or evidence of midline shift. The paranasal sinuses and mastoids are clear. The calvarium is intact. IMPRESSION: No acute intracranial abnormality.
[2020-03-29] MEDS ORDERED: ONDANSETRON 4 MG/2 ML VIAL ONE (21:33)
[2020-03-29] MEDS ORDERED: NA CHLORIDE 0.9% 1,000 ML ONE (21:34)
[2020-03-29] MEDS ORDERED: KETOROLAC 30 MG/ML INJ ONE (21:34)
--- NOTE | 2020-03-29 22:25 | ER ---
Nurse's Notes [facility] Name: Desiree Ahumada Age: 69 yrs Sex: Female : 1950 Arrival Date: 03/29/2020 Time: 18:05 Bed 15 Private MD: Diagnosis: Vomiting;Headache;Hypercalcemia;Urinary tract infection, site not specified Presentation: 03/29 18:13 Chief complaint: Patient states: woke up today with headache and nausea, denies blurred em or vision, denies fever. Coronavirus screen: Client denies travel out of the [place] in the last 14 days. Ebola Screen: Patient negative for fever greater than or equal to 101.5 degrees Fahrenheit, and additional compatible Ebola Virus Disease symptoms Patient denies exposure to infectious person. Patient denies travel to an Ebola-affected area in the 21 days before illness onset. No symptoms or risks identified at this time. Initial Sepsis Screen: Does the patient meet any 2 criteria? No. Patient's initial sepsis screen is negative. Does the patient have a suspected source of infection? Yes:. Risk Assessment: Do you want to hurt yourself or someone else? Patient reports no desire to harm self or others. Onset of symptoms was March 09, 2020. 18:13 Method Of Arrival: Ambulatory em 18:13 Acuity: LIA 3 em Triage Assessment: 19:30 General: Appears in no apparent distress. Behavior is calm, cooperative, appropriate wh for age. GI: Reports nausea. 19:30 GI: Reports nausea. wh Historical: - Allergies: 18:16 No Known Allergies; em - PMHx: 18:16 CVA; ovarian cancer; colon cancer; em - PSHx: 18:16 partial colon removal; Hysterectomy; kidney removal; em - Immunization history:: Adult Immunizations up to date. - Social history:: Smoking status: Patient denies any tobacco usage or history of. - Family history:: not pertinent. Screenin:30 Abuse screen: Denies threats or abuse. Denies injuries from another. Nutritional wh screening: No deficits noted. Tuberculosis screening: No symptoms or risk factors identified. Fall Risk None identified. Assessment: 19:30 General: Appears in no apparent distress. Behavior is calm, cooperative, appropriate wh for age. Pain: Complains of pain in head ache. Neuro: Level of Consciousness is awake, alert, obeys commands, Oriented to person, place, time, situation, Appropriate for age Reports headache. Cardiovascular: Heart tones S1 S2. Respiratory: Airway is patent Respiratory effort is even, unlabored, Respiratory pattern is regular, symmetrical, Breath sounds are clear bilaterally. GI: Abdomen is flat, non-distended, Bowel sounds present X 4 quads. Abd is soft and non tender X 4 quads. Reports nausea. : No signs and/or symptoms were reported regarding the genitourinary system. EENT: No signs and/or symptoms were reported regarding the EENT system. Derm: Skin is intact, is healthy with good turgor, Skin is pink, warm \T\ dry. normal. Musculoskeletal: Circulation, motion, and sensation intact. 19:30 GI: Abdomen is flat, non-distended. wh 21:00 Reassessment: Patient appears in no apparent distress at this time. No changes from previously documented assessment. Patient and/or family updated on plan of care and expected duration. Pain level reassessed. Patient is alert, oriented x 3, equal unlabored respirations, skin warm/dry/pink. 22:30 Reassessment: Patient appears in no apparent distress at this time. Patient and/or family updated on plan of care and expected duration. Pain level reassessed. Patient is alert, oriented x 3, equal unlabored respirations, skin warm/dry/pink. Vital Signs: 18:13 BP 156 / 77; Pulse 64; Resp 18; Temp 98.3(O); Pulse Ox 100% on R/A; Weight 81.65 kg em (R); Height 5 ft. 4 in. (162.56 cm); Pain 8/10; 21:00 BP 164 / 99; Pulse 65; Resp 18; Pulse Ox 99% on R/A; wh 22:30 BP 141 / 102; Pulse 68; Resp 18; Pulse Ox 98% on R/A; wh 18:13 Body Mass Index 30.90 (81.65 kg, 162.56 cm) em ED Course: 18:05 Patient arrived in ED. ag5 18:15 Triage completed. em 18:16 Arm band placed on. em 18:22 Jose Rhoades, RN is Primary Nurse. ll1 19:03 Inserted saline lock: 22 gauge in left antecubital area, using aseptic technique. Blood wh collected. 19:28 Head Brain Wo Cont CT In Process Unspecified. EDMS 19:30 Patient has correct armband on for positive identification. Bed in low position. Call light in reach. Side rails up X 1. environmental monitoring specialist on. Pulse ox on. NIBP on. 19:53 Fabio Anderson MD is Attending Physician. [facility] 21:51 XRAY Chest (1 view) In Process Unspecified. EDMS 22:27 Morales Tierney MD is Referral Physician. [facility] 22:40 No provider procedures requiring assistance completed. IV discontinued, intact, wh bleeding controlled, No redness/swelling at site. Administered Medications: 21:26 Drug: NS 0.9% 1000 ml Route: IV; Rate: 1 bolus; Site: left antecubital; 21:28 Drug: TORadol 30 mg Route: IVP; Site: left antecubital; 21:30 Drug: Zofran (Ondansetron) 4 mg Route: IVP; Site: left antecubital; 22:46 Drug: Rocephin 1 grams Route: IV; Rate: per protocol; Site: left antecubital; Outcome: 22:25 Discharge ordered by . [facility] 22:40 Discharged to home ambulatory, with family. 22:40 Condition: stable 22:40 Discharge instructions given to patient, family, Instructed on discharge instructions, follow up and referral plans. medication usage, POC Demonstrated understanding of instructions, follow-up care, medications, POC Prescriptions given X 3. 22:46 Patient left the ED. Signatures: Dispatcher [employer] EDMT Fabio Anderson MD MD cha Munoz, Edgar, RN RN Gissel Nicole Jaida Echevarria ag5 Jose Rhoades, ILYA RN ll1 Corrections: (The following items were deleted from the chart) 19:40 19:40 Patient placed in an exam room, on a stretcher, code sepsis called ll1 ll1 03/30 04:40 03/29 19:30 Neuro: Level of Consciousness is awake, alert, obeys commands, Oriented to person, place, time, situation, Appropriate for age Reports blurred vision headache 03/30 04:42 03/29 22:30 No provider procedures requiring assistance completed. [facility] 03/30 04:42 03/29 22:30 IV discontinued, intact, bleeding controlled, No redness/swelling at site. wh wh
--- NOTE | 2020-03-29 22:25 | EDPHYS ---
Physician Documentation [facility] Name: Desiree Ahumada Age: 69 yrs Sex: Female : 1950 Arrival Date: 03/29/2020 Time: 18:05 Bed 15 Private MD: DANNY Physician Fabio Anderson HPI: 03/29 22:02 This 69 yrs old Female presents to ER via Ambulatory with complaints of tony Nausea/Vomiting, Headache. 22:02 The patient presents to the emergency department with nausea, vomiting. Onset: The tony symptoms/episode began/occurred 3 day(s) ago. Possible causes: unknown. The symptoms are aggravated by nothing. The symptoms are alleviated by remaining still. Associated signs and symptoms: Pertinent positives: nausea, vomiting. Severity of symptoms: At their worst the symptoms were mild in the emergency department the symptoms are unchanged. The patient has experienced a previous episode, last week. Historical: - Allergies: 18:16 No Known Allergies; em - PMHx: 18:16 CVA; ovarian cancer; colon cancer; em - PSHx: 18:16 partial colon removal; Hysterectomy; kidney removal; em - Immunization history:: Adult Immunizations up to date. - Social history:: Smoking status: Patient denies any tobacco usage or history of. - Family history:: not pertinent. ROS: 22:02 Constitutional: Negative for fever, chills, and weight loss, Eyes: Negative for injury, tony pain, redness, and discharge, ENT: Negative for injury, pain, and discharge, Neck: Negative for injury, pain, and swelling, Cardiovascular: Negative for chest pain, palpitations, and edema, Respiratory: Negative for shortness of breath, cough, wheezing, and pleuritic chest pain, Back: Negative for injury and pain, : Negative for injury, bleeding, discharge, and swelling, MS/Extremity: Negative for injury and deformity, Skin: Negative for injury, rash, and discoloration, Psych: Negative for depression, anxiety, suicide ideation, homicidal ideation, and hallucinations, Allergy/Immunology: Negative for hives, rash, and allergies, Endocrine: Negative for neck swelling, polydipsia, polyuria, polyphagia, and marked weight changes, Hematologic/Lymphatic: Negative for swollen nodes, abnormal bleeding, and unusual bruising. 22:02 Abdomen/GI: Positive for nausea and vomiting. 22:02 Neuro: Positive for headache, weakness. Exam: 22:02 Constitutional: This is a well developed, well nourished patient who is awake, alert, tony and in no acute distress. Head/Face: Normocephalic, atraumatic. Eyes: Pupils equal round and reactive to light, extra-ocular motions intact. Lids and lashes normal. Conjunctiva and sclera are non-icteric and not injected. Cornea within normal limits. Periorbital areas with no swelling, redness, or edema. ENT: Nares patent. No nasal discharge, no septal abnormalities noted. Tympanic membranes are normal and external auditory canals are clear. Oropharynx with no redness, swelling, or masses, exudates, or evidence of obstruction, uvula midline. Mucous membranes moist. Neck: Trachea midline, no thyromegaly or masses palpated, and no cervical lymphadenopathy. Supple, full range of motion without nuchal rigidity, or vertebral point tenderness. No Meningismus. Chest/axilla: Normal chest wall appearance and motion. Nontender with no deformity. No lesions are appreciated. Cardiovascular: Regular rate and rhythm with a normal S1 and S2. No gallops, murmurs, or rubs. Normal PMI, no JVD. No pulse deficits. Respiratory: Lungs have equal breath sounds bilaterally, clear to auscultation and percussion. No rales, rhonchi or wheezes noted. No increased work of breathing, no retractions or nasal flaring. Abdomen/GI: Soft, non-tender, with normal bowel sounds. No distension or tympany. No guarding or rebound. No evidence of tenderness throughout. Back: No spinal tenderness. No costovertebral tenderness. Full range of motion. Skin: Warm, dry with normal turgor. Normal color with no rashes, no lesions, and no evidence of cellulitis. MS/ Extremity: Pulses equal, no cyanosis. Neurovascular intact. Full, normal range of motion. Neuro: Awake and alert, GCS 15, oriented to person, place, time, and situation. Cranial nerves II-XII grossly intact. Motor strength 5/5 in all extremities. Sensory grossly intact. Cerebellar exam normal. Normal gait. Psych: Awake, alert, with orientation to person, place and time. Behavior, mood, and affect are within normal limits. 22:02 Musculoskeletal/extremity: DVT Exam: No signs of deep vein thrombosis. no pain, no swelling, no tenderness, negative Homans' sign noted on exam, no appreciated bluish discoloration, no erythema, no increased warmth. 22:29 Neck: External neck: is normal, no acute changes, C-spine: appears grossly normal, no tony acute changes, Thyroid: appears normal, no acute changes, Trachea: is midline with no obvious abnormalities, no acute changes, ROM/movement: is normal, pain, Lymph nodes: no appreciated lymphadenopathy. Vital Signs: 18:13 BP 156 / 77; Pulse 64; Resp 18; Temp 98.3(O); Pulse Ox 100% on R/A; Weight 81.65 kg em (R); Height 5 ft. 4 in. (162.56 cm); Pain 8/10; 21:00 BP 164 / 99; Pulse 65; Resp 18; Pulse Ox 99% on R/A; wh 22:30 BP 141 / 102; Pulse 68; Resp 18; Pulse Ox 98% on R/A; wh 18:13 Body Mass Index 30.90 (81.65 kg, 162.56 cm) em MDM: 19:53 Patient medically screened. [facility] 22:04 Data reviewed: vital signs, nurses notes, lab test result(s), EKG, radiologic studies, tony CT scan, plain films. 22:06 Differential diagnosis: gastritis, cholecystitis, pancreatitis, viral gastroenteritis, tony gastroenteritis. Data interpreted: purler: rate is 64 beats/min, rhythm is regular, Pulse oximetry: on room air is 100 %. Test interpretation: by ED physician or midlevel provider: ECG, plain radiologic studies. Counseling: I had a detailed discussion with the patient and/or guardian regarding: the historical points, exam findings, and any diagnostic results supporting the discharge/admit diagnosis, the presence of at least one elevated blood pressure reading (>120/80) during this emergency department visit, lab results, radiology results, the need for outpatient follow up, for definitive care, an gill tender. 03/29 18:47 Order name: Basic Metabolic Panel; Complete Time: 19:53 em 03/29 18:47 Order name: CBC with Diff; Complete Time: 19:53 em 03/29 18:47 Order name: Hepatic Function; Complete Time: 19:53 em 03/29 18:47 Order name: Lipase; Complete Time: 19:53 em 03/29 18:47 Order name: Head Brain Wo Cont CT; Complete Time: 19:53 03/29 21:18 Order name: XRAY Chest (1 view) [facility] 03/29 22:31 Order name: Urine Culture [facility] 03/29 22:33 Order name: Urine Dipstick--Ancillary (enter results) mw2 03/29 18:47 Order name: IV Saline Lock; Complete Time: 19:01 03/29 18:47 Order name: Labs collected and sent; Complete Time: 19:02 03/29 21:18 Order name: EKG; Complete Time: 21:19 [facility] 03/29 21:18 Order name: Cardiac monitoring; Complete Time: :23 [facility] 03/29 21:18 Order name: EKG - Nurse/Tech; Complete Time: :23 [facility] 03/29 21:18 Order name: O2 Per Protocol; Complete Time: 21:23 [facility] 03/29 21:18 Order name: O2 Sat Monitoring; Complete Time: 21:23 [facility] 03/29 22:02 Order name: PO challenge; Complete Time: 22:08 [facility] Administered Medications: 21:26 Drug: NS 0.9% 1000 ml Route: IV; Rate: 1 bolus; Site: left antecubital; 21:28 Drug: TORadol 30 mg Route: IVP; Site: left antecubital; 21:30 Drug: Zofran (Ondansetron) 4 mg Route: IVP; Site: left antecubital; 22:46 Drug: Rocephin 1 grams Route: IV; Rate: per protocol; Site: left antecubital; Disposition: 03/29/20 22:25 Discharged to Home. Impression: Vomiting, Headache, Hypercalcemia, Urinary tract infection, site not specified. - Condition is Stable. - Discharge Instructions: Hypercalcemia, Nausea and Vomiting, Adult, Urinary Tract Infection, Adult, Nausea and Vomiting, Adult, [id number], Urinary Tract Infection, Adult, [id number]. - Prescriptions for Pepcid 20 mg Oral Tablet - take 1 tablet by ORAL route every 12 hours for 10 days; 20 tablet. Zofran 4 mg Oral Tablet - take 1 tablet by ORAL route every 12 hours As needed; 20 tablet. Cipro 250 mg Oral Tablet - take 1 tablet by ORAL route every 12 hours; 10 tablet. - Medication Reconciliation Form, Thank You Letter, Antibiotic Education, Prescription Opioid Use form. - Follow up: Private Physician; When: 2 - 3 days; Reason: Recheck today's complaints, Continuance of care, Re-evaluation by your physician. Follow up: Morales Tierney MD; When: 2 - 3 days; Reason: Recheck today's complaints, Re-evaluation by your physician. - Problem is new. - Symptoms have improved. Signatures: Dispatcher [employer] Fabio Chu MD MD cha Munoz, Edgar, RN RN Gissel Nicole Corrections: (The following items were deleted from the chart) 22:27 22:25 03/29/2020 22:25 Discharged to Home. Impression: Vomiting; Headache. Condition is tony Stable. Discharge Instructions: Nausea and Vomiting, Adult, Nausea and Vomiting, Adult, [id number]. Prescriptions for Pepcid 20 mg Oral Tablet - take 1 tablet by ORAL route every 12 hours for 10 days; 20 tablet, Zofran 4 mg Oral Tablet - take 1 tablet by ORAL route every 12 hours As needed; 20 tablet. and Forms are Medication Reconciliation Form, Thank You Letter, Antibiotic Education, Prescription Opioid Use. Follow up: Private Physician; When: 2 - 3 days; Reason: Recheck today's complaints, Continuance of care, Re-evaluation by your physician. Problem is new. Symptoms have improved. tony 22:31 22:27 03/29/2020 22:25 Discharged to Home. Impression: Vomiting; Headache; tony Hypercalcemia. Condition is Stable. Discharge Instructions: Nausea and Vomiting, Adult, Nausea and Vomiting, Adult, [id number]. Prescriptions for Pepcid 20 mg Oral Tablet - take 1 tablet by ORAL route every 12 hours for 10 days; 20 tablet, Zofran 4 mg Oral Tablet - take 1 tablet by ORAL route every 12 hours As needed; 20 tablet. and Forms are Medication Reconciliation Form, Thank You Letter, Antibiotic Education, Prescription Opioid Use. Follow up: Private Physician; When: 2 - 3 days; Reason: Recheck today's complaints, Continuance of care, Re-evaluation by your physician. Follow up: Morales Tierney; When: 2 - 3 days; Reason: Recheck today's complaints, Re-evaluation by your physician. Problem is new. Symptoms have improved. tony 22:46 22:31 03/29/2020 22:25 Discharged to Home. Impression: Vomiting; Headache; wh Hypercalcemia; Urinary tract infection, site not specified. Condition is Stable. Discharge Instructions: Nausea and Vomiting, Adult, Nausea and Vomiting, Adult, [id number], Hypercalcemia. Prescriptions for Pepcid 20 mg Oral Tablet - take 1 tablet by ORAL route every 12 hours for 10 days; 20 tablet, Zofran 4 mg Oral Tablet - take 1 tablet by ORAL route every 12 hours As needed; 20 tablet. and Forms are Medication Reconciliation Form, Thank You Letter, Antibiotic Education, Prescription Opioid Use. Follow up: Private Physician; When: 2 - 3 days; Reason: Recheck today's complaints, Continuance of care, Re-evaluation by your physician. Follow up: Morales Tierney; When: 2 - 3 days; Reason: Recheck today's complaints, Re-evaluation by your physician. Problem is new. Symptoms have improved. tony
[2020-03-29] MEDS ORDERED: CEFTRIAXONE/SWI 1gm 1 GM/10 ML SYR ONE (22:48)
[2020-03-29 23:01] VITALS: BP 156/77; TEMP 98.3; O2SAT 100
[2020-03-29 23:46] LABS: Urine Blood TRACE (NEG); Urine Glucose NEGATIVE (NEG); Urine Protein NEGATIVE (NEG)
--- NOTE | 2020-03-30 08:16 | RAD REPORT ---
EXAM DESCRIPTION: Ney Single View03/29/2020 9:50 pm CLINICAL HISTORY: Cough COMPARISON: 2018 FINDINGS: The lungs appear clear of acute infiltrate. The heart is normal size IMPRESSION: No acute abnormalities displayed
--- NOTE | 2020-03-30 12:04 | EKG ---
Test Date: 2020-03-29 Test Time: 18:46:54 Proced Tech: CONCEPCION MEASUREMENT RESULTS: Intervals: Rate: 62 [place]: 144 QRSD: 82 QT: 410 QTc: 416 [place]: P: 76 [place]: 144 QRS: 79 T: 72 INTERPRETIVE STATEMENTS: Normal sinus rhythm Normal ECG Compared to ECG 08/22/2018 17:37:18 Sinus arrhythmia no longer present Electronically Signed On 03-30-20 12:01:31 CDT by Toni Mendez
== END 2020-03-29 22:46 | disposition home or self-care (01) ==
LOC: ER 18:02
DX: N39.0 Urinary tract infection, site not specified (principal); E83.52 Hypercalcemia; R51 Headache; Z85.038 Personal history of other malignant neoplasm of large intestine; Z85.43 Personal history of malignant neoplasm of ovary
CPT/HCPCS: 93005; 87088; 85025; 87086; 80048; 36415; 80076; 81003; 83690; 70450; 71045; 96375; 96374; 99284; J0696; J7030; J2405

== ENCOUNTER 2021-04-10 02:44 | Inpatient (IN) | payer OTHER ==
[2021-04-10 03:49] LABS: Basophils % 0.8 % (0-1.3); Hematocrit 39.3 % (36.0-45.0); Lymphocytes % 14.2 % (15.3-44.8); MPV 8.1 fL (7.6-11.3); Protime INR 0.99; RBC Red Blood Cell Count 4.18 M/uL (3.86-4.86)
[2021-04-10] MEDS ORDERED: NA CHLORIDE 0.9% 1,000 ML ONE (03:55)
[2021-04-10] MEDS ORDERED: ONDANSETRON 4 MG/2 ML VIAL ONE ×2 (03:55→08:12)
[2021-04-10] MEDS ORDERED: ACETAMINOPHEN 500 MG TAB ONE (03:55)
[2021-04-10 04:03] LABS: ALT/SGPT 23 U/L (12-78); AST/SGOT 17 U/L (15-37); Albumin 3.8 g/dL (3.4-5.0); Alkaline Phosphatase 117 U/L (45-117); BUN Blood Urea Nitrogen 20 mg/dL (7-18); Bicarbonate 29 mmol/L (21-32); Bilirubin Direct 0.2 mg/dL (0-0.2); Glucose Level 141 mg/dL (74-106); Magnesium 2.1 mg/dL (1.8-2.4); NT PRO-BNP 58 pg/mL (<125); Potassium 4.1 mmol/L (3.5-5.1); Protein, Total 6.8 g/dL (6.4-8.2); Sodium Level 142 mmol/L (136-145); Troponin (Emerg Dept Use Only) < 0.02 ng/mL (0.0-0.045)
[2021-04-10] MEDS ORDERED: DIPHENHYDRAMINE 50 MG/ML VIAL ONE (04:34)
[2021-04-10] MEDS ORDERED: METOCLOPRAMIDE 10 MG/2mL INJ ONE (04:34)
[2021-04-10 05:33] LABS: Urine Blood Trace-intact (Negative); Urine Glucose Negative (Negative); Urine Protein Negative (Negative); Urine Specific Gravity 1.025 (1.005-1.030); Urine pH 5.5 (5.0-7.0)
--- NOTE | 2021-04-10 07:02 | EDPHYS ---
Physician Documentation [facility] Name: Desiree Ahumada Age: 70 yrs Sex: Female : 1950 Arrival Date: 04/10/2021 Time: 02:47 Bed 16 Private MD: ED Physician Juan F Loving HPI: 04/10 03:10 This 70 yrs old Female presents to ER via Wheelchair with complaints of High mh7 Blood Pressure, Vomiting, Weakness, Dizziness. 03:10 The patient has elevated blood pressure and discovered this at home, with a home mh7 device. Onset: The symptoms/episode began/occurred last night. Modifying factors: The symptoms are aggravated by Nothing, The symptoms are alleviated by Nothing. Associated signs and symptoms: Pertinent positives: dizziness, headache, lightheadedness, nausea, vomiting, weakness, Generalized, Pertinent negatives: chest pain, dyspnea. Severity of symptoms: At its worst the blood pressure was 200 mm Hg, in the emergency department the blood pressure is improved, moderately. Historical: - Allergies: 03:15 No Known Allergies; lp1 - Home Meds: 03:24 aspirin 81 mg Oral TbEC 1 tab once daily [Active]; Hemocyte-F 324 mg (106 mg iron)-1 mg lp1 Oral tab 1 tab once daily [Active]; Cymbalta 20 mg Oral cpDR daily [Active]; atorvastatin 20 mg Oral tab nightly [Active]; lisinopril 5 mg oral tab once daily [Active]; Namenda 10 mg oral tab 1 tab 2 times per day [Active]; duloxetine 20 mg oral CDRS daily [Active]; montelukast 10 mg oral tab 1 tab once daily [Active]; Myrbetriq 50 mg oral Tb24 1 tab once daily [Active]; - PMHx: 03:15 colon cancer; ovarian cancer; Liver ca; CVA; Hypertensive disorder; lp1 Hypercholesterolemia; - PSHx: 03:15 Liver sx; lp1 - Immunization history:: Adult Immunizations up to date. - Social history:: Smoking status: Patient denies any tobacco usage or history of. ROS: 03:10 Constitutional: Negative for fever, chills, and weight loss, Eyes: Negative for injury, mh7 pain, redness, and discharge, ENT: Negative for injury, pain, and discharge, Neck: Negative for injury, pain, and swelling, Cardiovascular: Negative for chest pain, palpitations, and edema, Respiratory: Negative for shortness of breath, cough, wheezing, and pleuritic chest pain. 03:10 Back: Negative for injury and pain, : Negative for injury, bleeding, discharge, and swelling, MS/Extremity: Negative for injury and deformity, Skin: Negative for injury, rash, and discoloration, Psych: Negative for depression, anxiety, suicide ideation, homicidal ideation, and hallucinations, Allergy/Immunology: Negative for hives, rash, and allergies, Endocrine: Negative for neck swelling, polydipsia, polyuria, polyphagia, and marked weight changes, Hematologic/Lymphatic: Negative for swollen nodes, abnormal bleeding, and unusual bruising. 03:10 Abdomen/GI: Negative for abdominal pain, diarrhea, constipation, abdominal cramps, abdominal distension, anorexia, dysphagia, hematemesis, black/tarry stool, rectal pain, rectal bleeding, bowel incontinence, flatulence. Exam: 03:10 Constitutional: This is a well developed, well nourished patient who is awake, alert, mh7 and in no acute distress. Head/Face: Normocephalic, atraumatic. Eyes: Pupils equal round and reactive to light, extra-ocular motions intact. Lids and lashes normal. Conjunctiva and sclera are non-icteric and not injected. Cornea within normal limits. Periorbital areas with no swelling, redness, or edema. Neck: Trachea midline, no thyromegaly or masses palpated, and no cervical lymphadenopathy. Supple, full range of motion without nuchal rigidity, or vertebral point tenderness. No Meningismus. Chest/axilla: Normal chest wall appearance and motion. Nontender with no deformity. No lesions are appreciated. Cardiovascular: Regular rate and rhythm with a normal S1 and S2. No gallops, murmurs, or rubs. Normal PMI, no JVD. No pulse deficits. Respiratory: Lungs have equal breath sounds bilaterally, clear to auscultation and percussion. No rales, rhonchi or wheezes noted. No increased work of breathing, no retractions or nasal flaring. Abdomen/GI: Soft, non-tender, with normal bowel sounds. No distension or tympany. No guarding or rebound. No evidence of tenderness throughout. Back: No spinal tenderness. No costovertebral tenderness. Full range of motion. Skin: Warm, dry with normal turgor. Normal color with no rashes, no lesions, and no evidence of cellulitis. MS/ Extremity: Pulses equal, no cyanosis. Neurovascular intact. Full, normal range of motion. Neuro: Awake and alert, GCS 15, oriented to person, place, time, and situation. Cranial nerves II-XII grossly intact. Motor strength 5/5 in all extremities. Sensory grossly intact. Cerebellar exam normal. Normal gait. Psych: Awake, alert, with orientation to person, place and time. Behavior, mood, and affect are within normal limits. Vital Signs: 03:12 BP 153 / 75; Pulse 60; Resp 18; Temp 97.5(O); Pulse Ox 100% on R/A; Weight 68.04 kg lp1 (R); Pain 7/10; 03:57 Pulse 65; Resp 20; Pulse Ox 100% on R/A; lh3 06:44 BP 168 / 72; Pulse 68; Resp 18; Pulse Ox 99% on R/A; lh3 08:14 BP 150 / 66; Pulse 63; Resp 16; Temp 97.5; Pulse Ox 99% on R/A; kh1 MDM: 06:58 Differential diagnosis: hypertensive crisis, Malignant HTN, CVA, intracerebral mh7 hemorrhage. Data reviewed: vital signs, nurses notes, old medical records, lab test result(s), cardiac enzymes, CBC, electrolytes, Flu: negative urinalysis, EKG, radiologic studies, CT scan, plain films. Data interpreted: Pulse oximetry: on room air is 99 %. Interpretation: normal. Counseling: I had a detailed discussion with the patient and/or guardian regarding: the historical points, exam findings, and any diagnostic results supporting the discharge/admit diagnosis, the presence of at least one elevated blood pressure reading (>120/80) during this emergency department visit, lab results, radiology results, the need for further work-up and treatment in the hospital. Response to treatment: the patient's symptoms have mildly improved after treatment. 07:01 Patient medically screened. [facility] 04/10 03:21 Order name: Basic Metabolic Panel [facility] 04/10 03:21 Order name: CBC with Diff [facility] 04/10 03:21 Order name: LFT's [facility] 04/10 03:21 Order name: Magnesium [facility] 04/10 03:21 Order name: NT PRO-BNP [facility] 04/10 03:21 Order name: PT-INR; Complete Time: 04:21 7 04/10 03:21 Order name: Troponin (emerg Dept Use Only); Complete Time: 04:07 7 04/10 03:22 Order name: Basic Metabolic Panel; Complete Time: 04:07 EDMS 04/10 03:22 Order name: CBC with Automated Diff; Complete Time: 04:07 EDMS 04/10 03:22 Order name: Liver (Hepatic) Function; Complete Time: 04:07 EDMS 04/10 03:22 Order name: Magnesium; Complete Time: 04:07 EDMS 04/10 03:22 Order name: NT PRO-BNP; Complete Time: 04:07 EDMS 04/10 04:39 Order name: SARS-COV-2 RT PCR; Complete Time: 05:13 EDMS 04/10 03:21 Order name: XRAY Chest (1 view) [facility] 04/10 03:22 Order name: CT Head Brain wo Cont [facility] 04/10 05:33 Order name: Urine Dipstick-Ancillary MS 04/10 07:08 Order name: Comprehensive Metabolic Panel [facility] 04/10 07:08 Order name: Comprehensive Metabolic Panel [facility] 04/10 07:08 Order name: Troponin I MS 04/10 07:08 Order name: Troponin I MS 04/10 07:08 Order name: Troponin I MS 04/10 07:08 Order name: Troponin I EDMS 04/10 07:09 Order name: CBC with Automated Diff EDMS 04/10 07:09 Order name: CBC with Automated Diff EDMS 04/10 03:21 Order name: EKG; Complete Time: 03:22 7 04/10 03:21 Order name: Cardiac monitoring; Complete Time: 03:43 7 04/10 03:21 Order name: EKG - Nurse/Tech; Complete Time: 03:43 7 04/10 03:21 Order name: IV Saline Lock; Complete Time: 03:43 7 04/10 03:21 Order name: Labs collected and sent; Complete Time: 03:43 7 04/10 03:21 Order name: O2 Per Protocol; Complete Time: 03:43 7 04/10 03:21 Order name: O2 Sat Monitoring; Complete Time: 03:43 7 04/10 07:09 Order name: Heart Healthy EDMS Administered Medications: 03:42 Drug: NS 0.9% 500 ml Route: IV; Rate: bolus; Site: right antecubital; lh3 03:42 Drug: Zofran (Ondansetron) 4 mg Route: IVP; Site: right antecubital; lh3 03:50 Follow up: Response: No adverse reaction lh3 03:42 Drug: Tylenol 1000 mg Route: PO; lh3 03:50 Follow up: Response: No adverse reaction lh3 04:12 Drug: Benadryl (diphenhydrAMINE) 25 mg Route: IVP; Site: right antecubital; lh3 06:44 Follow up: Response: No adverse reaction lh3 04:14 Drug: Reglan (metoCLOPramide) 10 mg Route: IVP; Site: right antecubital; lh3 06:44 Follow up: Response: No adverse reaction 3 05:09 Drug: NS 0.9% 500 ml Route: IV; Rate: bolus; Site: right antecubital; lh3 Disposition Summary: 04/10/21 07:01 Hospitalization Ordered Hospitalization Status: Inpatient Admission [facility] Provider: Shade Coffman Jagdish [facility] Condition: Stable [facility] Problem: new [facility] Symptoms: have improved [facility] Bed/Room Type: Standard [facility] Room Assignment: 209(04/10/21 07:23) bd Diagnosis - Dizziness and giddiness 7 - Nausea with vomiting, unspecified 7 - Weakness - generalized [facility] Forms: - Medication Reconciliation Form [facility] - SBAR form [facility] Signatures: Dispatcher [employer] EDMS Pavithra Valadez Laura RN RN lp1 Nico Naqvi, VENDOR MANAGEMENT SPECIALIST-C VENDOR MANAGEMENT SPECIALIST-Cla1 Juan F Loving MD MD 7 Leighann Sandoval RN RN lh3 Corrections: (The following items were deleted from the chart) 03:38 03:22 CORONAVIRUS+BRZ ordered. [facility] 07:23 07:01 [facility] bd
--- NOTE | 2021-04-10 07:02 | ER ---
Nurse's Notes [facility] Name: Desiree Ahumada Age: 70 yrs Sex: Female : 1950 Arrival Date: 04/10/2021 Time: 02:47 Bed 16 Private MD: Diagnosis: Dizziness and giddiness;Nausea with vomiting, unspecified;Weakness-generalized Presentation: 04/10 03:12 Chief complaint: Patient states: Reports headache that began yesterday evening, lp1 continued this AM, vomited x 1; States feeling dizzy, generalized weakness. Coronavirus screen: At this time, the client does not indicate any symptoms associated with coronavirus-19. Ebola Screen: No symptoms or risks identified at this time. Initial Sepsis Screen: Does the patient meet any 2 criteria? No. Patient's initial sepsis screen is negative. Does the patient have a suspected source of infection? No. Patient's initial sepsis screen is negative. Risk Assessment: Do you want to hurt yourself or someone else? Patient reports no desire to harm self or others. Onset of symptoms was April 09, 2021. 03:12 Method Of Arrival: Wheelchair lp1 03:12 Acuity: LIA 3 lp1 Historical: - Allergies: 03:15 No Known Allergies; lp1 - Home Meds: 03:24 aspirin 81 mg Oral TbEC 1 tab once daily [Active]; Hemocyte-F 324 mg (106 mg iron)-1 mg lp1 Oral tab 1 tab once daily [Active]; Cymbalta 20 mg Oral cpDR daily [Active]; atorvastatin 20 mg Oral tab nightly [Active]; lisinopril 5 mg oral tab once daily [Active]; Namenda 10 mg oral tab 1 tab 2 times per day [Active]; duloxetine 20 mg oral CDRS daily [Active]; montelukast 10 mg oral tab 1 tab once daily [Active]; Myrbetriq 50 mg oral Tb24 1 tab once daily [Active]; - PMHx: 03:15 colon cancer; ovarian cancer; Liver ca; CVA; Hypertensive disorder; lp1 Hypercholesterolemia; - PSHx: 03:15 Liver sx; lp1 - Immunization history:: Adult Immunizations up to date. - Social history:: Smoking status: Patient denies any tobacco usage or history of. Screenin:15 Abuse screen: Denies threats or abuse. Denies injuries from another. Nutritional lp1 screening: No deficits noted. Tuberculosis screening: No symptoms or risk factors identified. 03:54 Fall Risk IV access (20 points). lh3 Assessment: 03:54 Reassessment: Patient and/or family updated on plan of care and expected duration. Pain lh3 level reassessed. Patient is alert, oriented x 3, equal unlabored respirations, skin warm/dry/pink. patient states that she has a headache at the front of her head. Pain: Pain level that patient reports is acceptable is 9 out of 10 on a pain scale. GI: Abdomen is flat, non-distended. 06:45 Reassessment: Patient and/or family updated on plan of care and expected duration. Pain lh3 level reassessed. Patient is alert, oriented x 3, equal unlabored respirations, skin warm/dry/pink. Pt was trying to get up and complained of dizziness and could not take even a few steps from the bed. Vital Signs: 03:12 BP 153 / 75; Pulse 60; Resp 18; Temp 97.5(O); Pulse Ox 100% on R/A; Weight 68.04 kg lp1 (R); Pain 7/10; 03:57 Pulse 65; Resp 20; Pulse Ox 100% on R/A; lh3 06:44 BP 168 / 72; Pulse 68; Resp 18; Pulse Ox 99% on R/A; lh3 08:14 BP 150 / 66; Pulse 63; Resp 16; Temp 97.5; Pulse Ox 99% on R/A; kh1 ED Course: 02:47 Patient arrived in ED. bp1 03:02 Juan F Loving MD is Attending Physician. mh7 03:04 Leighann Sandoval, ILYA is Primary Nurse. lh3 03:14 Triage completed. lp1 03:14 Arm band placed on. lp1 03:14 EKG done, by ED staff, reviewed by Juan F Loving MD. lp1 03:35 XRAY Chest (1 view) In Process Unspecified. EDMS 03:43 LFT's Sent. lh3 03:43 Magnesium Sent. lh3 03:43 NT PRO-BNP Sent. lh3 03:43 PT-INR Sent. lh3 03:43 Troponin (emerg Dept Use Only) Sent. lh3 03:43 Basic Metabolic Panel Sent. lh3 03:43 CBC with Diff Sent. lh3 03:54 Patient has correct armband on for positive identification. Placed in gown. Bed in low lh3 position. Call light in reach. Side rails up X 1. 03:54 No provider procedures requiring assistance completed. Inserted saline lock: 20 gauge lh3 in right antecubital area, using aseptic technique. 04:09 CT Head Brain wo Cont In Process Unspecified. EDMS 07:00 Shade Coffman MD is Hospitalizing Provider. 7 Administered Medications: 03:42 Drug: NS 0.9% 500 ml Route: IV; Rate: bolus; Site: right antecubital; lh3 03:42 Drug: Zofran (Ondansetron) 4 mg Route: IVP; Site: right antecubital; lh3 03:50 Follow up: Response: No adverse reaction lh3 03:42 Drug: Tylenol 1000 mg Route: PO; lh3 03:50 Follow up: Response: No adverse reaction lh3 04:12 Drug: Benadryl (diphenhydrAMINE) 25 mg Route: IVP; Site: right antecubital; lh3 06:44 Follow up: Response: No adverse reaction lh3 04:14 Drug: Reglan (metoCLOPramide) 10 mg Route: IVP; Site: right antecubital; lh3 06:44 Follow up: Response: No adverse reaction lh3 05:09 Drug: NS 0.9% 500 ml Route: IV; Rate: bolus; Site: right antecubital; lh3 Outcome: 07:01 Decision to Hospitalize by Provider. [facility] 08:33 Patient left the ED. Signatures: Dispatcher [employer] EDUT Rocio Rosa RN RN Doris Martinez RN RN lp1 Daisy Stephens Maurice, MD MD 7 Leighann Sandoval RN RN 3 Luzmaria So [facility] Corrections: (The following items were deleted from the chart) 03:21 03:12 BP 153 / 75; Pulse 60bpm; Resp 18bpm; Pulse Ox 100% RA; Pain 7/10; lp1 lp1
[2021-04-10] MEDS ORDERED: ALBUTEROL 2.5 MG/3 ML NEB SOL NEB PRN (07:04)
[2021-04-10] MEDS ORDERED: ONDANSETRON 4 MG/2 ML VIAL IV PRN (07:04)
[2021-04-10] MEDS ORDERED: MORPHINE 2 MG/ML SYR IV PRN (07:04)
[2021-04-10] MEDS ORDERED: ACETAMINOPHEN 325 MG TABLET PO PRN (07:29)
--- NOTE | 2021-04-10 07:37 | RAD REPORT ---
EXAM DESCRIPTION: Ney Single View04/10/2021 3:35 am CLINICAL HISTORY: Hypertension COMPARISON: 2019 FINDINGS: The lungs appear clear of acute infiltrate. The heart is normal size IMPRESSION: No acute abnormalities displayed
[2021-04-10] MEDS ORDERED: D5 0.45 NS 1,000 ML IV SCH (08:00)
[2021-04-10] MEDS: IPRATROPIUM BROM 0.5MG/2.5ML NEB SCH ×2 (08:00→14:00)
[2021-04-10 08:41] VITALS: O2SAT 99
--- NOTE | 2021-04-10 08:59 | P.HP ---
Certification for Inpatient Patient admitted to: Observation With expected LOS: <2 Midnights Patient will require the following post-hospital care: None Practitioner: I am a practitioner with admitting privileges, knowledge of patient current condition, hospital course, and medical plan of care. Services: Services provided to patient in accordance with Admission requirements found in Title 42 Section 412.3 of the Code of Federal Regulations Patient History Date of Service: 04/10/21 Primary Care Provider: Augustus Reason for admission: Nausea and vomitting. Htn History of Present Illness: Patient is an office patient of [facility]. She has a history of tia and htn. Came in with intractable nausea and vomiting and elevated bp. she is doing much better this morning. Her labs and CT scan were normal. Allergies No Known Allergies Allergy (Verified 07/06/18 10:02) Home medications list reviewed: No Home Medications: Amlodipine [Norvasc*] 5 mg PO DAILY #30 tab 07/14/18 Aspirin Chewable [Aspirin Chewable*] 81 mg PO DAILY #30 tab.chew 07/14/18 Atorvastatin Calcium [Lipitor*] 20 mg PO BEDTIME #30 tab 07/14/18 Cranberry Fruit Extract 400 mg PO BID #120 cap 07/14/18 Docusate/Senna [Senokot-S*] 2 tab PO BEDTIME PRN #60 tab 07/14/18 Duloxetine [Cymbalta *] 20 mg PO DAILY #30 cap 07/14/18 Iron/FA/Vit B-Com W/C [Hemocyte Plus*] 1 tab PO DAILY WITH BREAKFAST #30 tab 07/14/18 Megestrol [Megace*] 40 mg PO BID #60 tab 07/14/18 - Past Medical/Surgical History Diabetic: No -: ovarian cancer -: nephrectomy (10 yrs ago) -: chronic anemia -: nephrectomy (10 yrs ago) -: knee sx (not sure R/L) - Family History Mother -: Stroke, Cancer, Other (see notes) Notes: Parkinson's Father -: Stroke, Cancer - Social History Alcohol use: No CD- Drugs: No Caffeine use: Yes Review of Systems 10-point ROS is otherwise unremarkable Gastrointestinal: Nausea, Vomiting Physical Examination - Vital Signs Temperature: 97.5 F Blood Pressure: 150/66 Pulse: 63 Respirations: 16 - Physical Exam General: Alert, In no apparent distress HEENT: Atraumatic, PERRLA, Mucous membr. moist/pink, EOMI, Sclerae nonicteric Neck: Supple, 2+ carotid pulse no bruit, No LAD, Without JVD or thyroid abnormality Respiratory: Clear to auscultation bilaterally, Normal air movement Cardiovascular: Regular rate/rhythm, Normal S1 S2 Gastrointestinal: Normal bowel sounds, No tenderness Musculoskeletal: No tenderness Integumentary: No rashes Neurological: Normal gait, Normal speech, Normal strength at 5/5 x4 extr, Normal tone, Normal affect Lymphatics: No axilla or inguinal lymphadenopathy - Studies Laboratory Data (last 24 hrs) 04/10/21 03:25: PT 11.4, INR 0.99 04/10/21 03:25: WBC 7.20, Hgb 13.4, Hct 39.3, Plt Count 219 04/10/21 03:25: Sodium 142, Potassium 4.1, BUN 20 H, Creatinine 0.96, Glucose 141 H, Magnesium 2.1, Total Bilirubin 1.0, AST 17, ALT 23, Alkaline Phosphatase 117 Assessment and Plan - Problems (Diagnosis) (1) Nausea Current Visit: Yes Status: Acute Plan: resolved. may have been a viral GI infection, vs a mild renal stone as there is blood in her urine. Seems to have resolved. Will start her on a diet and advance as tolerated. ambulate her with PT. If the patient has no problems we can plan on discharge this evening. (2) HTN (hypertension) with goal to be determined Current Visit: Yes Status: Acute (3) HTN (hypertension) Current Visit: Yes Status: Acute Plan: will restart her home amlodipine. Qualifiers: Hypertension type: primary hypertension Qualified Code(s): I10 - Essential (primary) hypertension (4) Hyperlipidemia Current Visit: Yes Status: Acute Plan: restart her atorvastatin Discharge Plan: Home Plan to discharge in: 24 Hours - Advance Directives Does patient have a Living Will: No Does patient have a Durable POA for Healthcare: No - Code Status/Comfort Care Code Status Assessed: No Code Status: Full Code Physician Review: Patient Assessed, Agree with Above Assessment and Plan Critical Care: No Time Spent Managing Pts Care (In Minutes): 30
[2021-04-10 09:00] VITALS: BMI 27.4
[2021-04-10] MEDS ORDERED: AMLODIPINE 5 MG TAB PO SCH (09:00)
[2021-04-10] MEDS ORDERED: DULOXETINE 20 MG CAP PO SCH (09:00)
[2021-04-10] MEDS ORDERED: ASPIRIN 81 MG CHEWABLE TABLET PO SCH (09:00)
[2021-04-10 10:20] VITALS: BP 134/57
--- NOTE | 2021-04-10 10:27 | RAD REPORT ---
EXAM DESCRIPTION: CT - Head Brain Wo Cont - 04/10/2021 6:55 am CLINICAL HISTORY: The patient is 70 years old and is Female; HEADACHE TECHNIQUE: Axial computed tomography images of the head/brain without intravenous contrast. Sagitt al and coronal reformatted images were created and reviewed. This CT exam was performed using one o r more of the following dose reduction techniques: automated exposure control, adjustment of the mA and/or kV according to patient size, and/or use of iterative reconstruction technique. COMPARISON: CT head March 29, 2020. FINDINGS: Brain: No intracranial hemorrhage. Mild age related periventricular white matter microangiopathic changes. Old infarcts in the bilateral basal ganglia, right pollack radiata and left external capsule. Ventricles: Unremarkable. No ventriculomegaly. Bones/joints: Unremarkable. No acute skull fracture. Soft tissues: Unremarkable. Sinuses: Unremarkable as visualized. No acute sinusitis. Mastoid air cells: No significant mastoid fluid. IMPRESSION: 1. No intracranial hemorrhage. 2. Mild age related periventricular white matter microangiopathic changes. Chronic lacunar infarcts . Electronically signed by: Carine Vernon MD 04/10/2021 4:23 AM CDT Due to temporary technical issues with the PACS/Fluency reporting system, reports are being signed by the in house radiologist without review as a courtesy to ensure prompt reporting. The interpreting r adiologist is fully responsible for the content of the report.
[2021-04-10] MEDS ORDERED: PNEUMOCOCCAL VACCINE 0.5 ML IMVAC ONE (11:00)
[2021-04-10 12:19] VITALS: TEMP 97.2
--- NOTE | 2021-04-10 15:16 | P.DS ---
Admission Date: 04/10/21 Discharge Date: 04/10/21 Primary Care Provider: Augustus Disposition: ROUTINE DISCHARGE Discharge Condition: GOOD Reason for Admission: Nausea and vomitting. Htn - Problems (1) Nausea Current Visit: Yes Status: Acute (2) HTN (hypertension) with goal to be determined Current Visit: Yes Status: Acute (3) HTN (hypertension) Current Visit: Yes Status: Acute Qualifiers: Hypertension type: primary hypertension Qualified Code(s): I10 - Essential (primary) hypertension (4) Hyperlipidemia Current Visit: Yes Status: Acute Brief History of Present Illness: Patient is an office patient of [employer]. She has a history of tia and htn. Came in with intractable nausea and vomiting and elevated bp. she is doing much better this morning. Her labs and CT scan were normal. Hospital Course: Patient is doing well today. Tolerating food. No vomiting. Labs are normal. will have her follow up in the office in a week. Thank you for allowing me to take part in the patients care. Vital Signs/Physical Exam: Temp Pulse Resp BP Pulse Ox 97.2 F 70 16 134/57 L 99 04/10/21 12:00 04/10/21 12:00 04/10/21 12:00 04/10/21 12:00 04/10/21 12:00 General: Alert, In no apparent distress HEENT: Atraumatic, PERRLA, EOMI Neck: Supple, JVD not distended Respiratory: Clear to auscultation bilaterally, Normal air movement Cardiovascular: Regular rate/rhythm, Normal S1 S2 Gastrointestinal: Normal bowel sounds, No tenderness Musculoskeletal: No tenderness Integumentary: No rashes Neurological: Normal speech, Normal tone, Normal affect Lymphatics: No axilla or inguinal lymphadenopathy Laboratory Data at Discharge: WBC 7.20 K/uL (4.3-10.9) 04/10/21 03:25 Hgb 13.4 g/dL (12.0-15.0) 04/10/21 03:25 Hct 39.3 % (36.0-45.0) 04/10/21 03:25 Plt Count 219 K/uL (152-406) 04/10/21 03:25 PT 11.4 SECONDS (9.5-12.5) 04/10/21 03:25 INR 0.99 04/10/21 03:25 Sodium 142 mmol/L (136-145) 04/10/21 03:25 Potassium 4.1 mmol/L (3.5-5.1) 04/10/21 03:25 BUN 20 mg/dL (7-18) H 04/10/21 03:25 Creatinine 0.96 mg/dL (0.55-1.3) 04/10/21 03:25 Glucose 141 mg/dL (74-106) H 04/10/21 03:25 Magnesium 2.1 mg/dL (1.8-2.4) 04/10/21 03:25 Total Bilirubin 1.0 mg/dL (0.2-1.0) 04/10/21 03:25 AST 17 U/L (15-37) 04/10/21 03:25 ALT 23 U/L (12-78) 04/10/21 03:25 Alkaline Phosphatase 117 U/L (45-117) 04/10/21 03:25 Troponin I Cancelled 04/10/21 08:00 Home Medications: Aspirin Chewable [Aspirin Chewable*] 81 mg PO DAILY #30 tab.chew 07/14/18 Atorvastatin Calcium [Lipitor*] 20 mg PO BEDTIME #30 tab 07/14/18 Docusate/Senna [Senokot-S*] 2 tab PO BEDTIME PRN #60 tab 07/14/18 Duloxetine [Cymbalta *] 20 mg PO DAILY #30 cap 07/14/18 Iron/FA/Vit B-Com W/C [Hemocyte Plus*] 1 tab PO DAILY WITH BREAKFAST #30 tab 07/14/18 Cholecalciferol (Vitamin D3) [Vitamin D 1000 Iu Tab*] 2,000 unit PO DAILY 04/10/21 Lisinopril [Zestril] 1 tab PO DAILY 04/10/21 Memantine HCl [Namenda*] 2 tab PO DAILY 04/10/21 Mirabegron [Myrbetriq] 1 tab PO DAILY 04/10/21 Montelukast [Singulair*] 1 tab PO DAILY 04/10/21 [place]-3 Fatty Acids [[place]-3] 500 mg PO DAILY 04/10/21 Promethazine Tab [Phenergan] 25 mg PO Q6HP PRN 3 Days #20 tab 04/10/21 New Medications: Promethazine Tab [Phenergan] 25 mg PO Q6HP PRN 3 Days #20 tab PRN Reason: Nausea / Vomiting Diet: Regular Activity: Ad donald Followup: Shade Coffman MD [Primary Care Provider] - 1 Week Time spent managing pt's care (in minutes): 30
[2021-04-10] MEDS ORDERED: ATORVASTATIN 20 MG TAB PO SCH (21:00)
--- NOTE | 2021-04-11 18:13 | EKG ---
Test Date: 2021-04-10 Test Time: 03:09:17 Cost Analyst: EDWIN MEASUREMENT RESULTS: Intervals: Rate: 57 [place]: QRSD: 82 QT: 420 QTc: 408 [place]: P: [place]: QRS: 66 T: 47 INTERPRETIVE STATEMENTS: Junctional rhythm Abnormal ECG Compared to ECG 03/29/2020 18:46:54 Junctional rhythm now present Sinus rhythm no longer present Electronically Signed On 04-11-21 18:06:19 CDT by Toni Mendez
--- NOTE | 2021-04-11 18:13 | EKG ---
Test Date: 2021-04-10 Test Time: 05:59:05 Quality Process Engineer: RADHA MEASUREMENT RESULTS: Intervals: Rate: 71 SD: 172 QRSD: 86 QT: 406 QTc: 441 [place]: P: 65 SD: 172 QRS: 70 T: 64 INTERPRETIVE STATEMENTS: Normal sinus rhythm Normal ECG Compared to ECG 04/10/2021 03:09:17 Junctional rhythm no longer present Electronically Signed On 04-11-21 18:06:18 CDT by Toni Mendez
== END 2021-04-10 16:03 | disposition home or self-care (01) | DRG 694 ==
LOC: ER 02:44 → ERHOLD 07:26 → 2ND 08:09
PROVIDERS: ADMIT Internal Medicine; ATTEND Internal Medicine
DX: N20.0 Calculus of kidney (principal); A08.4 Viral intestinal infection, unspecified; I10 Essential (primary) hypertension; E78.5 Hyperlipidemia, unspecified; Z20.822 Contact with and (suspected) exposure to COVID-19; Z86.73 Personal history of transient ischemic attack (TIA), and cerebral infarction without residual deficits
CPT/HCPCS: 36415; 70450; 71045; 80048; 80076; 81003; 82947; 83735; 83880; 84484; 85025; 85610; 93005; 94760; 96374; 96375; 97116; 97161; 99284; J1200; J2405; J2765; J7030; J7799; U0003

== ENCOUNTER 2021-05-04 06:29 | Day surgery (SDC) | payer OTHER ==
[2021-05-02 10:58] LABS: Absolute Lymphocytes (CBC) 1.1 K/uL (0.7-4.9); Basophils % 0.7 % (0-1.3); Hematocrit 42.3 % (36.0-45.0); Lymphocytes % 22.7 % (15.3-44.8); RBC Red Blood Cell Count 4.43 M/uL (3.86-4.86)
[2021-05-02 11:06] LABS: Protime INR 0.95
[2021-05-02 11:12] LABS: Potassium 4.3 mmol/L (3.5-5.1)
[2021-05-02 11:17] LABS: Urine Appearance CLEAR (Clear); Urine Bilirubin NEGATIVE (Negative); Urine Blood NEGATIVE (Negative); Urine Color YELLOW (Yellow); Urine Glucose NEGATIVE (Negative); Urine Protein NEGATIVE (Negative); Urine Urobilinogen 0.2 mg/dL (0.2-1.0); Urine pH 5.5 (5.0-7.0)
[2021-05-02 12:24] LABS: Urine Microscopic Reflex NO UMIC
[2021-05-04] MEDS ORDERED: Ringers Lactate 1,000 ML IV ONE (07:21)
[2021-05-04] MEDS ORDERED: CEFAZOLIN SODIUM 1 GM/VIAL ONE (07:26)
[2021-05-04] MEDS ORDERED: NA CHLORIDE 0.9% 100 ML IV ONE (07:26)
[2021-05-04] MEDS ORDERED: LIDOCAINE 1% W/EPI 1:100,000 MDV 20 ML VIAL ONE (07:27)
[2021-05-04] MEDS ORDERED: propofoL 200 MG/20 ML VIAL IV ONE ×3 (07:40→08:48)
[2021-05-04] MEDS: CEFAZOLIN/SWI 2gm 2 GM/20 ML SYR ONE ×3 (07:46→08:00)
[2021-05-04] MEDS ORDERED: FENTANYL CITR 100 MCG/2 ML ONE (08:03)
[2021-05-04] MEDS: VASOPRESSIN 20 UNIT/ML VIAL ONE ×2 (08:10→08:14)
[2021-05-04] MEDS: Ringers Lactate 1,000 ML IV ONE ×2 (08:20→08:36)
[2021-05-04] MEDS ORDERED: DOCUSATE NA/SENNA CONC 1 TAB PO PRN (08:45)
[2021-05-04] MEDS ORDERED: LIDOCAINE 1% MPF 2 ML AMPULE ONE (08:48)
--- NOTE | 2021-05-04 08:51 | P.BOP ---
Preoperative diagnosis: Mixed incontinence Postoperative diagnosis: same Primary procedure: Urethral Bulking Cystoscopy [employer]: NONE,NONE Estimated blood loss: min Specimen: none Findings: urethra injected with Bulkamid 1.6ml Anesthesia: MAC Complications: None Transferred to: Recovery Room Condition: Good
[2021-05-04] MEDS: MEPERIDINE HCL 25 MG/ML SYR ONE ×2 (08:54→09:00)
[2021-05-04] MEDS ORDERED: ONDANSETRON 4 MG/2 ML VIAL ONE (08:55)
[2021-05-04] MEDS ORDERED: KETOROLAC 30 MG/ML INJ ONE (08:59)
[2021-05-04] MEDS ORDERED: HOME MED 1 EA UNK (Omega-3 Fatty Acids [Omega-3] 1,000 MG Capsule) PO SCH (09:00)
[2021-05-04] MEDS ORDERED: VITAMIN D 1000 UNIT TAB PO SCH (09:00)
[2021-05-04] MEDS ORDERED: lisinopriL 5 MG TAB PO SCH (09:00)
[2021-05-04] MEDS ORDERED: MONTELUKAST 10 MG TAB PO SCH (09:00)
[2021-05-04] MEDS ORDERED: DULOXETINE 20 MG CAP PO SCH (09:00)
[2021-05-04] MEDS ORDERED: MEMANTINE HCL 10 MG TABLET PO SCH (09:00)
[2021-05-04] MEDS ORDERED: HOME MED 1 EA UNK (Mirabegron [Myrbetriq] 50 MG Tab.Er.24h) PO SCH (09:00)
[2021-05-04 09:03] VITALS: TEMP 97.2
[2021-05-04 10:00] VITALS: BP 139/63; O2SAT 98
[2021-05-04] MEDS ORDERED: ATORVASTATIN 20 MG TAB PO SCH (21:00)
--- NOTE | 2021-05-04 22:21 | OP ---
Date of Procedure: 05/04/2021 Surgeon: Lupe Singh MD Anesthesiology Tech: No assistance. Preoperative Diagnosis: Mixed urinary incontinence, stress incontinence was the diagnosis for the pamela bear. Postoperative Diagnoses: Mixed urinary incontinence, stress incontinence was the diagnosis for the p jorge. Procedures Performed: Urethral bulking and cystoscopy. Anesthesia: MAC. Specimens: None. Complications: None. Drains: None. Condition: The Patient's condition was stable. Findings: Urethra was injected with 1.6 mL of the Bulkamid gel. Indications: The patient is a 70-year-old female presented with mixed incontinence, significant hist ory of memory loss contributed from a stroke that she had in the past. On presentation, her surgical history for her genitourinary system only, did not include any type of prolapse repair. 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 She underwent the left nephrectomy in 2011 and then colon resections 2018. There was a question of a colpocleisis and the sling placement at some point, but there was no surg ical history that I was able to obtain. The patient is unable to produce the names of any surgeons. However, on examination, significant stress incontinence was present on cough stress test. So, the patient was given mirabegron for her overactive bladder, and she seemed significantly improved. Barker oliver, her leakage was not any better, so she came back with her , and we discussed the possibil ity of re-evaluating to see if she is a candidate for a sling. On examination under anesthesia, if I palpate a sling, or there is no hypermobility of the urethra, then we would proceed with urethral bu lking. After understanding the benefits and risks of the bulking procedure and that about 40% of the time, she would need a second touchup for bulking again, she was consented and brought to the OR. Description Of Procedure: After informed consent was verified, she was taken back to the OR, placed in supine fashion on the operating table. Antibiotic given. Placed in a dorsal lithotomy position. Vulva, vagina, and perineum were prepped and draped in a sterile fashion. On examination, her hyper mobility was limited. Her vaginal length was less than 3 cm, probably significant for colpocleisis, and on palpation, this definitely a suspension of a transobturator sling, and on trying with Valsalva , a poor effort. However, urethral mobility seems to be limited, so she was a good candidate for ure thral bulking. A sling placement was not needed in this patient. Then proceeded opening up the pediatric cystoscope, placed the urethral bulking sheath on it. Urethr a had to be dilated to 18-Serbian before I could insert the sheath comfortably. The cystoscope was in troduced into the bladder. The bladder was not fully distended. It was difficult to distend it. Ho wever, the cystoscopy was negative. The scope was pulled out into the urethra, and within the rotata ble Bulkamid sheath, the water inflow was adjusted to produce just an adequate stream. The needle wa s then placed 3/[address] into the needle channel of the rotatable sheath, and the entire system was advanced into the urethra until it was inserted into the bladder. The needle was then advanced into the needle channel on the rotatable sheath, and the tip of the sheath was adjacent to the bladde r neck. The sheath was then rotated to 7 o'clock position and the needle was extended into the bladd er under 2 cm jake on the needle was visible, and the system was retracted until the tip of the needl e was resting on the bladder neck. The needle was then retracted into the sheath approximately 1.5 c m from the bladder neck. The Bulkamid system was then pressed parallel against the urethral wall, an d the needle then advanced in the submucosal tissue ensuring the bevel was facing the lumen. The nee dle was advanced 0.5 cm and then Hydrogel was injected until I could see a cushion that reached the m idline of the urethral lumen. The needle was then retracted back, and the rotatable sheath was then turned to 2 o'clock position. A similar injection was performed here rotating it to 7 o'clock next. This injection was very superf icial right under the mucosa, so this was considered to be wastage, turned this needle back up to 10 o'clock position, injected another 3 mL here. There was an adequate cushion. I loaded in new Bulkam id syringe and went back to the 7 o'clock position and injected the bulking agent slightly more dista l to the prior injection trying to get under the plane and getting a good cushion. So first, the 5 o 'clock was injected, then 2 o'clock, then came back down to 7 and then 10. After all those 4 were in jected, 1.6 mL of the Bulkamid gel was used. Approximately 300 of fluid was left in the bladder. Up on completion and the patient will be emptying the bladder before she is discharged. EBL was minimal . The patient tolerated the procedure well. She was recovered from anesthesia and taken to PACU in a stable condition. Instrument, needle, and sponge counts were correct at the end of the case. Findings and the procedure for this session for me and doing the bulking were all discussed with the . They have a 1-week postop appointment to have a voiding trial. TAMI Voice ID: [id number] Report ID: [id number]
[2021-05-05] MEDS ORDERED: LEVOTHYROXINE SOD 0.075 MG TAB PO SCH (06:00)
== END 2021-05-04 13:15 | disposition home or self-care (01) ==
LOC: PRE 06:29
PROVIDERS: ATTEND Obstetrics & Gynecology
PROC: 0TVD8ZZ Restriction of Urethra, Via Natural or Artificial Opening Endoscopic (ICD-10-PCS; principal; 2021-05-04 07:30)
DX: N39.3 Stress incontinence (female) (male) (principal); Z20.822 Contact with and (suspected) exposure to COVID-19
CPT/HCPCS: 85025; 80048; 36415; 86900; 86850; 85610; 86901; 85730; 81003; 83970; 51715; U0003; J2704 ×3; J3010; J2175; J0690; J7120 ×2; J2405; L8606

== ENCOUNTER 2021-05-14 16:32 | Emergency (ER) | payer OTHER ==
[2021-05-14 17:07] LABS: Urine Blood Trace-intact (Negative); Urine Glucose Negative (Negative); Urine Protein Negative (Negative); Urine Specific Gravity 1.015 (1.005-1.030); Urine pH 5.5 (5.0-7.0)
[2021-05-14] MEDS ORDERED: HYDROCODONE/APAP 5/325 MG TAB ONE (18:22)
--- NOTE | 2021-05-14 18:23 | RAD REPORT ---
EXAM DESCRIPTION: Ney Single View05/14/2021 6:16 pm CLINICAL HISTORY: Chest pain COMPARISON: April 2021 FINDINGS: The lungs appear clear of acute infiltrate. The heart is normal size IMPRESSION: No acute abnormalities displayed
--- NOTE | 2021-05-14 18:29 | RAD REPORT ---
EXAM DESCRIPTION: RAD - Humerus Left - 05/14/2021 6:16 pm CLINICAL HISTORY: Left arm pain status post fall FINDINGS: Mildly displaced humeral neck fracture suspected. Bones are osteoporotic
--- NOTE | 2021-05-14 18:32 | EDPHYS ---
Physician Documentation [facility] Name: Desiree Ahumada Age: 70 yrs Sex: Female : 1950 Arrival Date: 05/14/2021 Time: 16:36 Bed 2 Private MD: ED Physician Brown Uriarte HPI: 05/14 17:06 This 70 yrs old Female presents to ER via Wheelchair with complaints of Fall sp3 Injury. 17:06 70-year-old female with a history of multiple cancers, short-term memory loss, who sp3 presents to the ED for a ground-level mechanical fall by slow slide at her grandson's baseball game today. Patient complains of left mid humerus pain. Patient also has a mild contusion on her forehead from a fall she sustained 3 days ago [place]. She denies LOC at that time and currently does not have a headache or neck pain. I have offered a head CT but patient declined stating she only wants her arm looked at. Patient is able to move her hand and denies any numbness or tingling or pain distal to the mid arm.. Historical: - Allergies: 16:44 No Known Allergies; tw2 - Home Meds: 16:44 aspirin 81 mg Oral TbEC 1 tab once daily [Active]; atorvastatin 20 mg Oral tab nightly tw2 [Active]; Cymbalta 20 mg Oral cpDR daily [Active]; duloxetine 20 mg Oral CDRS daily [Active]; Hemocyte-F 324 mg (106 mg iron)-1 mg Oral tab 1 tab once daily [Active]; lisinopril 5 mg Oral tab once daily [Active]; montelukast 10 mg Oral tab 1 tab once daily [Active]; Myrbetriq 50 mg Oral Tb24 1 tab once daily [Active]; Namenda 10 mg Oral tab 1 tab 2 times per day [Active]; - PMHx: 16:44 colon cancer; LIVER CA; Hypertensive disorder; Hypercholesterolemia; CVA; ovarian tw2 cancer; short term memory loss; - PSHx: 16:44 Liver sx; tw2 - Immunization history:: Client reports receiving the 2nd dose of the Covid vaccine. - Social history:: Smoking status: Patient denies any tobacco usage or history of. Patient uses alcohol, occasionally. ROS: 17:08 Constitutional: Negative for fever, chills, and weight loss, Cardiovascular: Negative sp3 for chest pain, palpitations, and edema, Respiratory: Negative for shortness of breath, cough, wheezing, and pleuritic chest pain, Back: Negative for injury and pain, Neuro: Negative for headache, weakness, numbness, tingling, and seizure, Allergy/Immunology: Negative for hives, rash, and allergies, Endocrine: Negative for neck swelling, polydipsia, polyuria, polyphagia, and marked weight changes. 17:08 All other systems are negative. Exam: 17:08 Constitutional: This is a well developed, well nourished patient who is awake, alert, sp3 and in no acute distress. Eyes: Pupils equal round and reactive to light, extra-ocular motions intact. Lids and lashes normal. Conjunctiva and sclera are non-icteric and not injected. Cornea within normal limits. Periorbital areas with no swelling, redness, or edema. Neck: Trachea midline, no thyromegaly or masses palpated, and no cervical lymphadenopathy. Supple, full range of motion without nuchal rigidity, or vertebral point tenderness. No Meningismus. Chest/axilla: Normal chest wall appearance and motion. Nontender with no deformity. No lesions are appreciated. Cardiovascular: Regular rate and rhythm with a normal S1 and S2. No gallops, murmurs, or rubs. Normal PMI, no JVD. No pulse deficits. Respiratory: Lungs have equal breath sounds bilaterally, clear to auscultation and percussion. No rales, rhonchi or wheezes noted. No increased work of breathing, no retractions or nasal flaring. Abdomen/GI: Soft, non-tender, with normal bowel sounds. No distension or tympany. No guarding or rebound. No evidence of tenderness throughout. Skin: Warm, dry with normal turgor. Normal color with no rashes, no lesions, and no evidence of cellulitis. 17:08 Head/face: Patient has a left temporal hematoma/contusion of 1 cm x 1 cm.. 17:08 Musculoskeletal/extremity: Patient has pain to palpation mid humerus. Shoulder is normal and does not hurt on full range of motion. Elbow also does not hurt on range of motion and distal extremity exam demonstrates full range of motion, normal neurovascular status including sensory exam.. Vital Signs: 16:39 Pulse Ox 100% on R/A; Weight 99.79 kg (R); Height 5 ft. 4 in. (162.56 cm); Pain 5/10; tw2 16:43 BP 164 / 111; Pulse 60; Resp 17; Temp 97.5(TE); tw2 18:16 BP 178 / 92; Pulse 56; Resp 16 S; Pulse Ox 97% on R/A; jd3 16:39 Body Mass Index 37.76 (99.79 kg, 162.56 cm) tw2 MDM: 16:58 Patient medically screened. sp3 17:09 Data reviewed: vital signs, nurses notes. ED course: I have offered CT scan of the head sp3 and C-spine but patient and family refused. They only want the arm looked at for which we will obtain x-rays of the humerus. We will also get a chest x-ray. If x-rays are negative, will discharge patient home with OTC pain medications unless there is a fracture.. 18:17 ED course: Chest x-ray and humerus x-ray demonstrated no acute abnormality or fracture. sp3 Will discharge patient on the sling and give p.o. pain medications in the ED. At home she should take OTC ibuprofen or Tylenol as needed for pain.. 05/14 17:07 Order name: Urine Dipstick-Ancillary EDNV 05/14 16:58 Order name: CXR XRAY sp3 05/14 17:05 Order name: Humerus Left XRAY sp3 05/14 18:36 Order name: Sling; Complete Time: 18:46 sp3 Administered Medications: 18:25 Drug: HYDROcodone-acetaminophen 5 mg-325 mg 2 tabs Route: PO; jd3 18:47 Follow up: Response: No adverse reaction; RASS: Alert and Calm (0) jd3 Disposition Summary: 05/14/21 18:31 Discharge Ordered Location: Home sp3 Condition: Stable sp3 Diagnosis - Contusion of left upper arm sp3 Followup: sp3 - With: Private Physician - When: - Reason: Recheck today's complaints Discharge Instructions: - Discharge Summary Sheet jd3 - Contusion sp3 Forms: - Medication Reconciliation Form sp3 - Thank You Letter sp3 - Antibiotic Education sp3 - Prescription Opioid Use sp3 Signatures: Dispatcher [employer] EDMS uNria Lui RN RN tw2 Nic English RN RN jd3 Brown Uriarte MD MD sp3 Corrections: (The following items were deleted from the chart) 17:13 16:58 Shoulder Left 2 View+[email or web address] ordered. EDMS EDMS
--- NOTE | 2021-05-14 18:32 | ER ---
Nurse's Notes [facility] Name: Desiree Ahumada Age: 70 yrs Sex: Female : 1950 Arrival Date: 05/14/2021 Time: 16:36 Bed 2 Private MD: Diagnosis: Contusion of left upper arm Presentation: 05/14 16:39 Chief complaint: Patient states: i was at my granddaughters baseball game. we were tw2 going to get up into the bleachers and i fell on the bleachers but i dont remember falling. my LEFT shoulder hurts Spouse and/or significant other states: she does have short term memory loss. that has been going on for 3 years now. Coronavirus screen: At this time, the client does not indicate any symptoms associated with coronavirus-19. Ebola Screen: Patient denies travel to an Ebola-affected area in the 21 days before illness onset. Initial Sepsis Screen: Does the patient meet any 2 criteria? No. Patient's initial sepsis screen is negative. Does the patient have a suspected source of infection? No. Patient's initial sepsis screen is negative. Risk Assessment: Do you want to hurt yourself or someone else? Patient reports no desire to harm self or others. Onset of symptoms was May 14, 2021. 16:39 Method Of Arrival: Wheelchair tw2 16:43 Acuity: LIA 3 tw2 Triage Assessment: 16:43 General: Appears in no apparent distress. well groomed, Behavior is calm, cooperative, tw2 appropriate for age. Pain: Complains of pain in LEFT shoulder Pain radiates to left arm. Neuro: Level of Consciousness is awake, alert, obeys commands, Oriented to person, place, time, situation. Musculoskeletal: Range of motion: limited in right shoulder Reports pain in left shoulder. Historical: - Allergies: 16:44 No Known Allergies; tw2 - Home Meds: 16:44 aspirin 81 mg Oral TbEC 1 tab once daily [Active]; atorvastatin 20 mg Oral tab nightly tw2 [Active]; Cymbalta 20 mg Oral cpDR daily [Active]; duloxetine 20 mg Oral CDRS daily [Active]; Hemocyte-F 324 mg (106 mg iron)-1 mg Oral tab 1 tab once daily [Active]; lisinopril 5 mg Oral tab once daily [Active]; montelukast 10 mg Oral tab 1 tab once daily [Active]; Myrbetriq 50 mg Oral Tb24 1 tab once daily [Active]; Namenda 10 mg Oral tab 1 tab 2 times per day [Active]; - PMHx: 16:44 colon cancer; LIVER CA; Hypertensive disorder; Hypercholesterolemia; CVA; ovarian tw2 cancer; short term memory loss; - PSHx: 16:44 Liver sx; tw2 - Immunization history:: Client reports receiving the 2nd dose of the Covid vaccine. - Social history:: Smoking status: Patient denies any tobacco usage or history of. Patient uses alcohol, occasionally. Screenin:00 Fall Risk Fall in past 12 months (25 points). tw2 17:00 Abuse screen: Denies threats or abuse. Nutritional screening: No deficits noted. tw2 Tuberculosis screening: No symptoms or risk factors identified. Assessment: 17:20 General: Appears in no apparent distress. uncomfortable, Behavior is calm, cooperative. jd3 Pain: Complains of pain in left upper arm. Neuro: Level of Consciousness is awake, alert, obeys commands, Oriented to person, place, situation. Cardiovascular: Capillary refill < 3 seconds Patient's skin is warm and dry. Respiratory: Airway is patent Respiratory effort is even, unlabored, Respiratory pattern is regular, symmetrical. Derm: healing abrasions to upper lip and r cheek. 18:27 Reassessment: assisted pt to bathroom via wheelchair, pt c/o increasing pain to r arm, jd3 provider notified, new orders received. 18:48 Reassessment: pt discharged to home via wheelchair with arm in sling. jd3 Vital Signs: 16:39 Pulse Ox 100% on R/A; Weight 99.79 kg (R); Height 5 ft. 4 in. (162.56 cm); Pain 5/10; tw2 16:43 BP 164 / 111; Pulse 60; Resp 17; Temp 97.5(TE); tw2 18:16 BP 178 / 92; Pulse 56; Resp 16 S; Pulse Ox 97% on R/A; jd3 16:39 Body Mass Index 37.76 (99.79 kg, 162.56 cm) tw2 ED Course: 16:36 Patient arrived in ED. mr 16:42 Triage completed. tw2 16:43 Arm band placed on. tw2 16:55 Brown Uriarte MD is Attending Physician. sp3 16:56 Nic English, RN is Primary Nurse. jd3 17:23 Bed in low position. Call light in reach. Side rails up X 1. jd3 18:16 CXR XRAY In Process Unspecified. EDMS 18:16 Humerus Left XRAY In Process Unspecified. EDMS 18:47 No provider procedures requiring assistance completed. Patient did not have IV access jd3 during this emergency room visit. Administered Medications: 18:25 Drug: HYDROcodone-acetaminophen 5 mg-325 mg 2 tabs Route: PO; jd3 18:47 Follow up: Response: No adverse reaction; RASS: Alert and Calm (0) jd3 Outcome: 18:31 Discharge ordered by MD. sp3 18:47 Discharged to home via wheelchair, with significant other. jd3 18:47 Condition: stable 18:47 Discharge instructions given to patient, significant other, Instructed on discharge instructions, follow up and referral plans. Demonstrated understanding of instructions, follow-up care. 18:51 Patient left the ED. jd3 Signatures: Dispatcher [employer] [facility] Misti Bell Nuria Lui RN RN tw2 Nic English, RN RN jd3 Brown Uriarte MD MD sp3 Corrections: (The following items were deleted from the chart) 16:44 16:39 Acuity: LIA 4 tw2 tw2
[2021-05-14 19:09] VITALS: TEMP 97.5
[2021-05-14 19:10] VITALS: BP 178/92; O2SAT 97
--- OUTSIDE RECORDS SUMMARY | 2021-05-20 15:47 | XMS REPORT | Continuity of Care Document ---
:1950 Author Organization [facility] t Address [address] [place] [address] [address]. [address] [place] [address] Care Team Providers Name Role Phone LIZBETH Attending Clinician Unavailable Stephanie BETH Attending Clinician Unavailable HOMA CARPENTER Attending Clinician Unavailable LIZBETH Admitting Clinician Unavailable HOMA CARPENTER Admitting Clinician Unavailable Problems This patient has no known problems. Allergies, Adverse Reactions, Alerts Allergy Allergy Status Severity Reaction(s) Onset Inactive Treating Comm ents Source Name Type Date Date Clinician dye Adverse Active Info Not [facility] NO KNOWN Allergy Active [facility] Medications Ordered Filled Start Stop Current Ordering Indication Dosage Frequency Signature Comments Components Source Medication Medication Date Date Medication? Clinician (SIG) Name Name Albuterol Albuterol 2018-07 Yes Daija [address] [facility] Sulfate HFA Sulfate HFA 1-20 [place] needed [facility] Fluticasone Fluticasone Yes Daija [address] [facility] Propionate Propionate 7-01 [place] each Patt [facility] - 00:00: nostril [facility] Hemocyte Hemocyte Yes Daija [address] Plus Plus [facility] Cymbalta Cymbalta Yes Daija [address] [facility] Melatonin Melatonin Yes Daija [address] [facility] [place] at bedtime [facility] as needed [facility] with food l [facility] Vitamin D3 Vitamin D3 Yes Daija [address] [facility] Maximum Maximum [place] [facility] Strength Strength [place] [facility] Lisinopril Lisinopril Yes Daija [address] [facility] Susan Davis Yes Daija [address] [facility] Atorvastati Atorvastati Yes Daija TAKE [address] [facility] n Calcium n Calcium [place] TABLET BY [facility] MOUTH AT [facility] BEDTIME Outpati ent [facility] Yes Daija [address] [facility] Allergy Allergy [facility] Procedures This patient has no known procedures. Encounters Start End Encounter Admission Attending Care Care Encounter Source Date/Time Date/Time Type Type Clinicians Facility Department ID 2020-12-26 2020-12-26 Outpatient [facility] [id number] [facility] 2020-05-27 2020-05-27 Out[facility] [id number] [facility] 2020-03-29 2020-03-29 Out[facility] [id number] [facility] 2020-02-29 2020-02-29 [facility] [id number] [address] 15[facility]00:00 15:00:00 [facility] Medicine Medicine Outpati ent Clinics 2020-02-29 2020-02-29 [facility] [id number] [address] 13:20:00 13:20:00 [facility] Medicine l Medicine Outpati ent Clinics 2020-02-23 2020-02-23 [facility] [id number] 09:40:00 09:40:00 [facility] Medicine Medicine Outpati ent Clinics 2020-02-22 2020-02-22 [facility] [id number] 09:13:00 09:13:00 [facility] Medicine l Medicine Outpati ent Clinics 2019-10-14 2019-10-14 [facility] [id number] 09:52:00 09:52:00 t [facility] Medicine l Medicine Outpati ent Clinics 2019-09-01 2019-09-01 [facility] [id number] 11:40:00 11:40:00 t [facility] Medicine Outpati ent Clinics 2019-07-27 2019-07-27 [facility] [id number] 08:42:00 08:42:00 t [facility] Medicine l Medicine Outpati ent Clinics 2019-07-03 2019-07-03 [facility] [id number] 10[facility]13:00 10:13:00 t [facility] Medicine Medicine Outpati ent Clinics 2019-06-02 2019-06-02 [facility] [id number] 09:26:00 09:26:00 t [facility] Medicine Medicine Outpati ent Clinics 2019-05-27 2019-05-27 [facility] [id number] 11[facility]00:00 11:00:00 t [facility] Medicine Outpati ent Clinics 2019-02-16 2019-02-16 [facility] [id number] 11[facility]00:00 11:00:00 t [facility] Medicine Medicine Outpati ent Clinics 2019-01-05 2019-01-05 [facility] [id number] 15:15:00 15:15:00 t [facility] Medicine Medicine Outpati ent Clinics 2018-10-16 2018-10-16 [facility] [id number] 14:19:00 14:19:00 t [facility] Medicine Outpati ent Clinics 2018-09-25 2018-09-25 [facility] [id number] 10:00:00 10:00:[address] [facility] Clinics 2018-07-28 2018-07-28 Outpatient E[facility] [id number] 10:15:00 10:15:00 t [facility] ent [facility] Results Test Description Test Time Test Comments Results Result Sourc e Comments TISSUE EXAM 2019-08-25 Surgical Pathology 10:56:00 Report Case: [id number] Authorizing Provider: Qi Koenig MD Collected: 08/24/2019 1223 Ordering Location: [facility] Received: 08/24/2019 1414 SERVICES Pathologist: Amanda Landers MD Specimens: A) - Polyp, Colon - Left/Descending, taken by hot snare n frcp B) - Polyp, Colon - Transverse, taken by hot snare, posimal A. POLYP COLON - HOT SNARE POLYPECTOMY: - SERRATED ADENOMA WITH CAUTERY ARTIFACT, FAVORS SESSILE SERRATED ADENOMAB. TRANSVERSE COLON POLYP, HOT SNARE POLYPECTOMY: - FRAGMENTS OF SESSILE SERRATED ADENOMA/ POLYP/ LESIONSJ/pl Signing Pathologist Direct Phone Line: [phone] ally signed by Amanda Landers MD on 08/25/2019 at 10:56 AMEndoscopic report reviewed. [id number] x2Pre and postop diagnosis: Malignant neoplasm of [...] submitted entirely following filtration in cassette B1. HS/plPerformed CT, CHEST, WITH IV 2019-07-17 FINAL REPORT PATIENT CONTRAST 11:59:00 ID: [id number] CT scan of the chest, abdomen and [...] of bowel are seen suggest obstruction. There has [...] Verified Date/Time: 07/17/2019 11:59:41 Reading Location: [address] Reading Room , ABDOMEN 2019-07-17 pT4pN0 colon FINAL REPORT PATIENT 11:59:00 cancer s/p ID: [id number] CT scan surgery in of the chest, abdomen August 2018. and pelvis. MEDICAL On HISTORY: Cecal cancer. surveillance, Comparison study: please compare Plain film of the to prior from abdomen dated AugustDecember 31, [address] scan 2019Reason for of the chest, abdomen Exam:->Cecal and pelvis dated cancer August 24, 2018. TECHNIQUE: Contiguous helical slices [...] of bowel are seen suggest obstruction. There has [...] Verified Date/Time: 07/17/2019 11:59:41 Reading Location: [address] Reading Room -CREATININE 2019-07-17 11:00:00 Test Item Value Reference Range Interpretation Comme nts POC-CREATININE (BEAKER) (test 1.0 mg/dL 0.6-1.[address] [facility] 7200 code = 1859) [facility] [address] POC-EGFR (BEAKER) (test code = 55 mL/min/1.73M2 1860) TISSUE [id number] 17:06:00Surgical Pathology Report Case: [id number] Authorizing Provider: José Luis Soni MD Collected: 09/01/2018 1258 Ordering Location: [address] Received: 09/01/2018 1308 Service Pathologist: Lesley [...] the use of immunohistochemistry or special stains. 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 Small bowel implant; B. Right colon; [...] small bowel and mass; B15 and B16, physician representative section ofcecum and mass; B17, four [...] Dr. Pastrana at 1:27 p.m. A-C: PERFORMEDPOCT-GLUCOSE [id number] 18:25:00 Test Item Value Reference Range Interpretation Comments POC-GLUCOSE METER 147 mg/dL 70-110 H TESTED AT [place] [address] ([facility]) (test code = [facility] 1538) [address] POCT-GLUCOSE [id number] 09:43:00 Test Item Value Reference Range Interpretation Comments POC-GLUCOSE METER 128 mg/dL 70-110 H TESTED AT [place] [address] ([facility]) (test code = [facility] 1538) [address] [id number] 07:05:00 Test Item Value Reference Range Interpretation Comments PHOSPHORUS (BEAKER) (test code = 3.2 mg/dL 2.3-4.7 604) [id number] 07:05:00 Test Item Value Reference Range Interpretation Comments MAGNESIUM (BEAKER) (test code = 1.8 mg/dL 1.6-2.6 627) BASIC METABOLIC [id number] 07:05:00 Test Item Value Reference Range Interpretation [...] PATIEN TS. CBC W/PLT COUNT & AUTO [id number] 06:31:00 Test Item Value Reference Range Interpretation [...] PERCENT (BEAKER) (test code = 2801) POCT-GLUCOSE [id number] 22:24:00 Test Item Value Reference Range Interpretation Comments POC-GLUCOSE METER 143 mg/dL 70-[address] [facility] 67[address] ([place]) (test code = [facility] Deleon [facility] 1538) [address] POCT-GLUCOSE [id number] 17:08:00 Test Item Value Reference Range Interpretation Comments POC-GLUCOSE METER 143 mg/dL 70-[address] [facility] 67[address] ([place]) (test code = [facility] Pancho [facility] 1538) [address] POCT-GLUCOSE [id number] 13:52:00 Test Item Value Reference Range Interpretation Comments POC-GLUCOSE METER 162 mg/dL 70-[address] [facility] 6720 (BEAKER) (test code = [place] 1538) [address] [id number] 07:39:00 Test Item Value Reference Range Interpretation Comments PHOSPHORUS (BEAKER) (test code = 3.5 mg/dL 2.3-4.7 604) [id number] 07:39:00 Test Item Value Reference Range Interpretation Comments MAGNESIUM (BEAKER) (test code = 1.9 mg/dL 1.6-2.6 627) BASIC METABOLIC [id number] 07:39:00 Test Item Value Reference Range Interpretation [...] PATIEN TS. CBC W/PLT COUNT & AUTO [id number] 07:10:00 Test Item Value Reference Range Interpretation [...] PERCENT (BEAKER) (test code = 2801) POCT-GLUCOSE [id number] 06:25:00 Test Item Value Reference Range Interpretation Comments POC-GLUCOSE METER 126 mg/dL 70-[address] [facility] 6720 (BEAKER) (test code = [place] 1538) [address] POCT-GLUCOSE [id number] 23:24:00 Test Item Value Reference Range Interpretation Comments POC-GLUCOSE METER 136 mg/dL 70-110 H TESTED AT [place] [address] ([facility]) (test code = [place] Deleon [facility] 1538) [address] POCT-GLUCOSE [id number] 18:50:00 Test Item Value Reference Range Interpretation Comments POC-GLUCOSE METER 147 mg/dL 70-110 H TESTED AT [place] [address] (BEAKER) (test code = RAMONA Deleon [facility] 1538) [address] POCT-GLUCOSE [id number] 12:13:00 Test Item Value Reference Range Interpretation Comments POC-GLUCOSE METER 194 mg/dL 70-110 H TESTED AT [place] [address] (BEAKER) (test code = RAMONA Deleon [facility] 1538) [address] CBC W/PLT COUNT & AUTO [id number] 06:59:00 Test Item Value Reference Range Interpretation [...] PERCENT (BEAKER) (test code = 2801) POCT-GLUCOSE [id number] 06:28:00 Test Item Value Reference Range Interpretation Comments POC-GLUCOSE METER 153 mg/dL 70-[address] [facility] 6720 (BEAKER) (test code = [place] 1538) [address] [id number] 05:48:00 Test Item Value Reference Range Interpretation Comments PHOSPHORUS (BEAKER) (test code = 2.9 mg/dL 2.3-4.7 604) [id number] 05:48:00 Test Item Value Reference Range Interpretation Comments MAGNESIUM (BEAKER) (test code = 2.1 mg/dL 1.6-2.6 627) BASIC METABOLIC [id number] 05:48:00 Test Item Value Reference Range Interpretation [...] 358) GLUCOSE RANDOM 132 mg/dL 70-105 H (BEAKER) (test code = 652) CALCIUM (BEAKER) 10.1 mg/dL 8.4-10.2 (test code = 697) EGFR (BEAKER) (test 90 mL/min/1.73 ESTIMA MAX GFR IS code = 1092) sq m NOT ACCURATE CREATININE CLEARANCE IN PREDICTING GLOMERULAR FILTRATION RATE . ESTIMATED GFR I S NOT APPLICABLE FOR DIALYSIS PATIEN TS. POCT-GLUCOSE [id number] 23:42:00 Test Item Value Reference Range Interpretation Comments POC-GLUCOSE METER 162 mg/dL 70-110 H TESTED AT [place] [address] ([facility]) (test code = [place] 1538) [address] POCT-GLUCOSE [id number] 18:09:00 Test Item Value Reference Range Interpretation Comments POC-GLUCOSE METER 184 mg/dL 70-110 H TESTED AT [place] [address] ([facility]) (test code = [place] Deleon [place] 1538) [address] HEMOGLOBIN AND [id number] 16:04:00 Test Item Value Reference Range Interpretation Comments HEMOGLOBIN (BEAKER) (test code = 8.4 GM/DL 11.2-15.7 L 410) HEMATOCRIT (BEAKER) (test code = 27.3 % 34.1-44.9 L 411) POCT-GLUCOSE [id number] 12:48:00 Test Item Value Reference Range Interpretation Comments POC-GLUCOSE METER 223 mg/dL 70-110 H TESTED AT [place] [address] ([facility]) (test code = RAM[place] Deleon [place] 1538) [address] CBC W/PLT COUNT & AUTO [id number] 07:06:00 Test Item Value Reference Range Interpretation Comments WHITE BLOOD CELL COUNT (BEAKER) 5.6 K/ L 3.5-10.5 (test code = 775) RED BLOOD CELL COUNT (BEAKER) 2.94 M/ L 3.93-5.22 L (test code [...] 0-1 PERCENT (BEAKER) (test code = 2801) [id number] 06:48:00 Test Item Value Reference Range Interpretation Comments PHOSPHORUS (BEAKER) (test code = 2.8 mg/dL 2.3-4.7 604) [id number] 06:48:00 Test Item Value Reference Range Interpretation Comments MAGNESIUM (BEAKER) (test code = 2.1 mg/dL 1.6-2.6 627) BASIC METABOLIC [id number] 06:48:00 Test Item Value Reference Range Interpretation [...] NOT APPLICABLE FOR DIALYSIS PATIEN TS. POCT-GLUCOSE [id number] 05:44:00 Test Item Value Reference Range Interpretation Comments POC-GLUCOSE METER 177 mg/dL 70-[address] [facility] [address] ([place]) (test code = RAM[place] De[place] 1538) [address] POCT-GLUCOSE [id number] 23:30:00 Test Item Value Reference Range Interpretation Comments POC-GLUCOSE METER 180 mg/dL 70-[address] [facility] [address] ([place]) (test code = [facility] [place] 1538) [address] POCT-GLUCOSE [id number] 16:47:00 Test Item Value Reference Range Interpretation Comments POC-GLUCOSE METER 180 mg/dL 70-[address] [facility] 67[address] ([place]) (test code = [facility] [place] 1538) [address] POCT-GLUCOSE [id number] 12:51:00 Test Item Value Reference Range Interpretation Comments POC-GLUCOSE METER 216 mg/dL 70-[address] [facility] 6720 (BEAKER) (test code = [facility] [place] 1538) [address] [id number] 07:10:00 Test Item Value Reference Range Interpretation Comments PHOSPHORUS (BEAKER) (test code = 2.5 mg/dL 2.3-4.7 604) [id number] 07:10:00 Test Item Value Reference Range Interpretation Comments MAGNESIUM (BEAKER) (test code = 2.2 mg/dL 1.6-2.6 627) BASIC METABOLIC [id number] 07:10:00 Test Item Value Reference Range Interpretation [...] PATIEN TS. CBC W/PLT COUNT & AUTO [id number] 07:08:00 Test Item Value Reference Range Interpretation [...] PERCENT (BEAKER) (test code = 2801) POCT-GLUCOSE [id number] 05:18:00 Test Item Value Reference Range Interpretation Comments POC-GLUCOSE METER 183 mg/dL 70-110 H TESTED AT [place] [address] ([facility]) (test code = [place] 1538) [address] POCT-GLUCOSE [id number] 23:52:00 Test Item Value Reference Range Interpretation Comments POC-GLUCOSE METER 176 mg/dL 70-110 H TESTED AT [place] [address] ([facility]) (test code = RAMONA De[place] 1538) [address] POCT-GLUCOSE [id number] 16:03:00 Test Item Value Reference Range Interpretation Comments POC-GLUCOSE METER 200 mg/dL 70-110 H TESTED AT [facility] 6720 (BEAKER) (test code = RAMONA Deleon [place] 1538) [address] POCT-GLUCOSE [id number] 12:29:00 Test Item Value Reference Range Interpretation Comments POC-GLUCOSE METER 234 mg/dL 70-[address] [facility] 6720 (BEAKER) (test code = RAM[place] De[place] 1538) [address] [id number] 06:17:00 Test Item Value Reference Range Interpretation Comments PHOSPHORUS (BEAKER) (test code = 2.7 mg/dL 2.3-4.7 604) [id number] 06:17:00 Test Item Value Reference Range Interpretation Comments MAGNESIUM (BEAKER) (test code = 1.9 mg/dL 1.6-2.6 627) BASIC METABOLIC [id number] 06:17:00 Test Item Value Reference Range Interpretation [...] PATIEN TS. CBC W/PLT COUNT & AUTO [id number] 05:55:00 Test Item Value Reference Range Interpretation [...] PERCENT (BEAKER) (test code = 2801) POCT-GLUCOSE [id number] 05:50:00 Test Item Value Reference Range Interpretation Comments POC-GLUCOSE METER 193 mg/dL 70-[address] [facility] 6720 (BEAKER) (test code = RAMONA Deelon [facility] 1538) [address] POCT-GLUCOSE [id number] 23:58:00 Test Item Value Reference Range Interpretation Comments POC-GLUCOSE METER 228 mg/dL 70-110 H TESTED AT [place] [address] ([facility]) (test code = RAMONA Deleon [facility] 1538) [address] RAD, ABDOMEN/KUB, 1 VIEW [id number] 21:54:00Include stomach \\T\\ rectumReason for exam:->Eval for distentionShould this be performed at the bed side?->YesFINAL REPORT Abdomen one view History: Abdominal distention Comparison:none Findings:Nonobstructive bowel gas pattern. No definite bowel pneumatosis or portal venous gas. No calcifications along the expected course of the urinary tract. Impression:No acute findings Signed: Asim Adame Verified Date/Time: 09/02/2018 21:54:46 Reading Location: [facility] Reading Room POCT-GLUCOSE [id number] 18:04:00 Test Item Value Reference Range Interpretation Comments POC-GLUCOSE METER 300 mg/dL 70-110 H TESTED AT [place] [address] ([facility]) (test code = RAMONA Deleon [facility] 1538) [address] TISSUE [id number] 13:53:00Surgical Pathology Report Case: [id number] Authorizing Provider: Qi Koenig MD Collected: 08/24/2018 1036 Ordering Location: [address] Received: 08/25/2018 0823 Service Pathologist: Lex [...] AN ADDENDUM. Signing Pathologist Direct Phone Line: [phone] signed by Lex Cassidy MD on 08/25/2018 at 4:[id number], 32293, [id number] massCecal polyp mass biopsyThe specimen is received in a formalin-filled container and labeled with the patient's information labeled "cecum colon mass biopsy" consisting of multiple fragments of fernandez-red soft tissue ranging from less than 0.1 to 0.4 cm, submitted entirely A1. CG/pl PERFORMED.The interpretation of this case included the use of immunohistochemistry or special stains. Immunohistochemistry technical testing was performed at [facility], Pathology Laboratory where it was developed [...] clinical laboratory testing.BLOCK A1- MSH2, MSH6, MLH1, [id number] 12:43:00 Test Item Value Reference Range Interpretation Comments POC-GLUCOSE METER 282 mg/dL 70-110 H TESTED AT [place] [address] ([facility]) (test code = RAMONA Deleon [facility] 1538) [address] POCT-GLUCOSE [id number] 06:34:00 Test Item Value Reference Range Interpretation Comments POC-GLUCOSE METER 192 mg/dL 70-[address] [facility] 6720 ([facility]) (test code = RAMONA Deleon [facility] 1538) [address] POCT-GLUCOSE [id number] 06:03:00 Test Item Value Reference Range Interpretation Comments POC-GLUCOSE METER 349 mg/dL 70-110 H TESTED AT [facility] 6720 (BEAKER) (test code = [place] 1538) [address] [id number] 05:42:00 Test Item Value Reference Range Interpretation Comments PHOSPHORUS (BEAKER) (test code = 3.0 mg/dL 2.3-4.7 604) [id number] 05:42:00 Test Item Value Reference Range Interpretation Comments MAGNESIUM (BEAKER) (test code = 1.9 mg/dL 1.6-2.6 627) BASIC METABOLIC [id number] 05:42:00 Test Item Value Reference Range Interpretation [...] PATIEN TS. CBC W/PLT COUNT & AUTO [id number] 05:06:00 Test Item Value Reference Range Interpretation [...] PERCENT (BEAKER) (test code = 2801) POCT-GLUCOSE [id number] 16:48:00 Test Item Value Reference Range Interpretation Comments POC-GLUCOSE METER 252 mg/dL 70-[address] [facility] 6720 (BEAKER) (test code = [place] 1538) [address] RAD, X-RAY, NO [id number] 16:12:00Reason for exam:->MISSING NEEDLEFINAL REPORT TECHNIQUE: Frontal [...] MDReport Verified Date/Time: 09/01/2018 16:12:09 Reading Location: [facility] C013W Consult Reading Room POTASSIUM-STAT [id number] 14:48:00 Test Item Value Reference Range Interpretation Comments POTASSIUM (BEAKER) (test code = 4.7 meq/L 3.6-5.5 379) SODIUM NA-STAT [id number] 14:48:00 Test Item Value Reference Range Interpretation Comments SODIUM (BEAKER) (test code = 381) 134 meq/L 135-148 L GLUCOSE-STAT [id number] 14:48:00 Test Item Value Reference Range Interpretation Comments GLUCOSE RANDOM (BEAKER) (test code 217 mg/dL 70-110 H = 652) HGB/HCT (H&H) - STAT [id number] 14:48:00 Test Item Value Reference Range Interpretation Comments HEMOGLOBIN (BEAKER) (test code = 8.0 g/dL 12.0-15.0 L 410) HEMATOCRIT (BEAKER) (test code = 24.0 % 36.0-45.0 L 411) POCT-GLUCOSE [id number] 14:41:00 Test Item Value Reference Range Interpretation Comments POC-GLUCOSE METER 274 mg/dL 70-[address] [facility] 6720 (BEAKER) (test code = [place] 1538) [address] POCT-GLUCOSE [id number] 08:27:00 Test Item Value Reference Range Interpretation Comments POC-GLUCOSE METER 236 mg/dL 70-[address] [facility] 6720 (BEAKER) (test code = [place] 1535) [address] [id number] 06:35:00 Test Item Value Reference Range Interpretation Comments PHOSPHORUS (BEAKER) (test code = 2.8 mg/dL 2.3-4.7 604) [id number] 06:35:00 Test Item Value Reference Range Interpretation Comments MAGNESIUM (BEAKER) (test code = 2.0 mg/dL 1.6-2.6 627) HEPATIC FUNCTION [id number] 06:35:00 Test Item Value Reference Range Interpretation [...] 78 U/L 6-55 H 347) BASIC METABOLIC [id number] 06:35:00 Test Item Value Reference Range Interpretation [...] NOT APPLICABLE FOR DIALYSIS PATIEN TS. POCT-GLUCOSE [id number] 06:22:00 Test Item Value Reference Range Interpretation Comments POC-GLUCOSE METER 206 mg/dL 70-[address] [facility] 6720 ([facility]) (test code = [place] 1538) [address] PROTHROMBIN [id number] 06:18:00 Test Item Value Reference Range Interpretation Comments PROTIME (BEAKER) (test code = 14.8 seconds 11.7-14.7 H 759) INR (BEAKER) (test code = 370) 1.2 <=5.9 RECOMMENDED [...] PERCENT (BEAKER) (test code = 2801) POCT-GLUCOSE [id number] 00:31:00 Test Item Value Reference Range Interpretation Comments POC-GLUCOSE METER 214 mg/dL 70-110 H TESTED AT [place] [address] ([facility]) (test code = RAMONA Deleon [facility] 1538) [address] POCT-GLUCOSE [id number] 17:53:00 Test Item Value Reference Range Interpretation Comments POC-GLUCOSE METER 188 mg/dL 70-110 H TESTED AT [place] [address] ([facility]) (test code = RAMONA Deleon [place] 1538) [id number] POCT-GLUCOSE [id number] 11:56:00 Test Item Value Reference Range Interpretation Comments POC-GLUCOSE METER 244 mg/dL 70-110 H TESTED AT [place] [address] ([facility]) (test code = RAMONA De[place]on [place] 1538) [address] POCT-GLUCOSE [id number] 07:20:00 Test Item Value Reference Range Interpretation Comments POC-GLUCOSE METER 196 mg/dL 70-110 H TESTED AT [facility] 6720 (BEAKER) (test code = RAM[place] 1538) [address] CBC W/PLT COUNT & AUTO [id number] 05:55:00 Test Item Value Reference Range Interpretation [...] (BEAKER) (test code = 2801) BASIC METABOLIC [id number] 05:35:00 Test Item Value Reference Range Interpretation [...] NOT APPLICABLE FOR DIALYSIS PATIEN TS. POCT-GLUCOSE [id number] 23:46:00 Test Item Value Reference Range Interpretation Comments POC-GLUCOSE METER 229 mg/dL 70-[address] [facility] 6720 (BEAKER) (test code = [facility] 1538) [address] POCT-GLUCOSE [id number] 17:14:00 Test Item Value Reference Range Interpretation Comments POC-GLUCOSE METER 204 mg/dL 70-[address] [facility] 6720 (BEAKER) (test code = [facility] 1538) [address] BASIC METABOLIC [id number] 14:53:00 Test Item Value Reference Range Interpretation [...] NOT APPLICABLE FOR DIALYSIS PATIEN TS. POCT-GLUCOSE [id number] 11:46:00 Test Item Value Reference Range Interpretation Comments POC-GLUCOSE METER 204 mg/dL 70-110 H TESTED AT [place] [address] ([facility]) (test code = [facility] 1538) [address] POCT-GLUCOSE [id number] 07:22:00 Test Item Value Reference Range Interpretation Comments POC-GLUCOSE METER 196 mg/dL 70-110 H TESTED AT [place] [address] ([facility]) (test code = [facility] [place] 1538) [address] [id number] 07:00:00 Test Item Value Reference Range Interpretation Comments PREALBUMIN (BEAKER) (test code = 14 mg/dL 14-45 586) CALCIUM, [id number] 06:42:00 Test Item Value Reference Range Interpretation Comments CALCIUM IONIZED (BEAKER) (test 1.35 mmol/L 1.12-1.27 H code = 698) PH, BLOOD (BEAKER) (test code = 7.41 1810) POCT-GLUCOSE [id number] 23:46:00 Test Item Value Reference Range Interpretation Comments POC-GLUCOSE METER 200 mg/dL 70-110 H TESTED AT [place] [id number] ([facility]) (test code = [facility] [place] 1538) [address] URINALYSIS W/ REFLEX URINE [id number] 17:31:00 Test Item Value Reference Range Interpretation [...] 516) SOURCE(BEAKER) (test code = 2795) POCT-GLUCOSE [id number] 17:09:00 Test Item Value Reference Range Interpretation Comments POC-GLUCOSE METER 268 mg/dL 70-[address] [facility] 6720 (BEAKER) (test code = MARIA TBLANE Deleon [facility] 1538) [address] RAD, CHEST, 1 VIEW, NON [id number] 14:50:00Reason for exam:->pnaShould this be performed at [...] [place] Verified Date/Time: 08/29/2018 14:50:02 Reading Location: [facility] Radiology Reading Room POCT-GLUCOSE [id number] 12:46:00 Test Item Value Reference Range Interpretation Comments POC-GLUCOSE METER 261 mg/dL 70-[address] [facility] 6720 (BEAKER) (test code = RAMONA De[place] 1538) [address] POCT-GLUCOSE [id number] 07:00:00 Test Item Value Reference Range Interpretation Comments POC-GLUCOSE METER 186 mg/dL 70-[address] [facility] 6720 (BEAKER) (test code = RAMONA De[place] 1538) [address] BASIC METABOLIC [id number] 06:20:00 Test Item Value Reference Range Interpretation [...] PATIEN TS. CBC W/PLT COUNT & AUTO [id number] 05:58:00 Test Item Value Reference Range Interpretation [...] PERCENT (BEAKER) (test code = 2801) POCT-GLUCOSE [id number] 00:03:00 Test Item Value Reference Range Interpretation Comments POC-GLUCOSE METER 179 mg/dL 70-[address] [facility] 6720 (BEAKER) (test code = [place] 1538) [address] POCT-GLUCOSE [id number] 17:16:00 Test Item Value Reference Range Interpretation Comments POC-GLUCOSE METER 188 mg/dL 70-[address] [facility] 6720 (BEAKER) (test code = RAMONA Deleon [facility] 1538) [address] POCT-GLUCOSE [id number] 12:20:00 Test Item Value Reference Range Interpretation Comments POC-GLUCOSE METER 173 mg/dL 70-[address] [facility] 6720 (BEAKER) (test code = RAMONA Deleon [facility] 1538) [address] POCT-GLUCOSE [id number] 07:48:00 Test Item Value Reference Range Interpretation Comments POC-GLUCOSE METER 167 mg/dL 70-[address] [facility] 6720 (BEAKER) ([facility] = [facility] 1538) [address] BLOOD [id number] 07:01:00 Test Item Value Reference Range Interpretation Comments CULTURE (BEAKER) (test No growth in 5 days code = 1095) BLOOD [id number] 07:01:00 Test Item Value Reference Range Interpretation Comments CULTURE (BEAKER) (test No growth in 5 days code = 1095) [id number] 05:09:00 Test Item Value Reference Range Interpretation Comments PHOSPHORUS (BEAKER) (test code = 2.5 mg/dL 2.3-4.7 604) [id number] 05:09:00 Test Item Value Reference Range Interpretation Comments MAGNESIUM (BEAKER) (test code = 2.0 mg/dL 1.6-2.6 627) BASIC METABOLIC [id number] 05:09:00 Test Item Value Reference Range Interpretation [...] PATIEN TS. CBC W/PLT COUNT & AUTO [id number] 04:49:00 Test Item Value Reference Range Interpretation [...] PERCENT (BEAKER) (test code = 2801) POCT-GLUCOSE [id number] 02:43:00 Test Item Value Reference Range Interpretation Comments POC-GLUCOSE METER 159 mg/dL 70-[address] [facility] 67 ([facility]) (test code = [facility] Pancho [facility] 1538) [address] POCT-GLUCOSE [id number] 17:13:00 Test Item Value Reference Range Interpretation Comments POC-GLUCOSE METER 169 mg/dL 70-[address] [facility] 67 ([facility]) (test code = [facility] 1538) [address] POCT-GLUCOSE [id number] 12:48:00 Test Item Value Reference Range Interpretation Comments POC-GLUCOSE METER 160 mg/dL 70-110 H TESTED AT [place] [address] ([facility]) (test code = [facility] 1538) [address] BASIC METABOLIC [id number] 11:06:00 Test Item Value Reference Range Interpretation [...] NOT APPLICABLE FOR DIALYSIS PATIEN TS. POCT-GLUCOSE [id number] 07:17:00 Test Item Value Reference Range Interpretation Comments POC-GLUCOSE METER 181 mg/dL 70-[address] [facility] 6720 (BEAKER) (test code = RAM[place] 1538) [address] BASIC METABOLIC [id number] 06:28:00 Test Item Value Reference Range Interpretation [...] S NOT APPLICABLE FOR DIALYSIS PATIEN TS. [id number] 06:27:00 Test Item Value Reference Range Interpretation Comments PHOSPHORUS (BEAKER) (test code = 1.6 mg/dL 2.3-4.7 L 604) [id number] 06:27:00 Test Item Value Reference Range Interpretation Comments MAGNESIUM (BEAKER) (test code = 2.5 mg/dL 1.6-2.6 627) PROTHROMBIN [id number] 06:12:00 Test Item Value Reference Range Interpretation [...] 417) IMMATURE GRANULOCYTES-RELATIVE 1 % 0-1 PERCENT (AKER) (test code = 2801) POCT-GLUCOSE [id number] 01:15:00 Test Item Value Reference Range Interpretation Comments POC-GLUCOSE METER 171 mg/dL 70-[address] [facility] 6720 ([facility]) (test code = RAMONA Deleon [facility] 1538) [address] POCT-GLUCOSE [id number] 18:18:00 Test Item Value Reference Range Interpretation Comments POC-GLUCOSE METER 136 mg/dL 70-[address] [facility] 6720 ([facility]) (test code = MARIA TUT Pancho [facility] 1538) [address] PET, CARDIAC PERFUSION MULTIPLE STUDIES, REST AND [id number] 15:14:00 Reason for exam:->preop clearance for surgery planned on 08/27FINAL REPORT PROCEDURE: Rest/Stress MYOCARDIAL PERFUSION PET with regadenoson\\XA9\\ CPT CODE: 99867 INDICATION: Preoperative clearance for major abdominal surgery [...] Normal extracardiac tracer distribution. 6. No previous [facility] study for comparison. Signed: Farnaz AbdulMDReport Verified Date/Time: 08/26/2018 15:14:34 Reading Location: [address] Reading Room POCT-GLUCOSE [id number] 11:56:00 Test Item Value Reference Range Interpretation Comments POC-GLUCOSE METER 191 mg/dL 70-110 H TESTED AT [place] [address] ([facility]) (test code = RAMONA Deleon [facility] 1538) [address] POCT-GLUCOSE [id number] 07:29:00 Test Item Value Reference Range Interpretation Comments POC-GLUCOSE METER 189 mg/dL 70-110 H TESTED AT [place] [address] ([facility]) (test code = RAMONA Deleon [facility] 1538) [address] CBC W/PLT COUNT & AUTO [id number] 06:14:00 Test Item Value Reference Range Interpretation Comments WHITE BLOOD CELL COUNT ([facility]) 4.7 K/ L 3.5-10.5 (test code = 775) RED BLOOD CELL COUNT ([facility]) 3.37 M/ L 3.93-5.22 L (test code = 761) HEMOGLOBIN ([facility]) (test code = 7.7 GM/DL 11.2-15.7 L 410) HEMATOCRIT ([facility]) (test code = 26.3 % 34.1-44.9 L 411) MEAN CORPUSCULAR VOLUME ([facility]) 78.0 fL 79.4-94.8 L (test code = [...] 0-1 PERCENT (BEAKER) (test code = 2801) [id number] 06:13:00 Test Item Value Reference Range Interpretation Comments TRIGLYCERIDES (BEAKER) (test code = 136 mg/dL 540) TRIGLYCERIDE REFERENCE RANGELow Risk <150Borderline Risk 150-199High Risk 200-499Very High Risk>=[id number] 06:13:00 Test Item Value Reference Range Interpretation Comments MAGNESIUM (BEAKER) (test code = 2.0 mg/dL 1.6-2.6 627) [id number] 06:13:00 Test Item Value Reference Range Interpretation Comments PHOSPHORUS (BEAKER) (test code = 1.9 mg/dL 2.3-4.7 L 604) BASIC METABOLIC [id number] 06:13:00 Test Item Value Reference Range Interpretation [...] NOT APPLICABLE FOR DIALYSIS PATIEN TS. C-REACTIVE [id number] 06:13:00 Test Item Value Reference Range Interpretation Comments C-REACTIVE PROTEIN (BEAKER) (test 3.37 mg/dL 0.00-0.50 H code = 676) RAD, CHEST, PA OR AP, 1 [id number] 21:47:00VAT/Infusion Therapy Nurse to Call Radiology Department [...] Lane Verified Date/Time: 08/25/2018 21:47:18 Reading Location: [address] Neuro Reading Room [id number] 13:00:00 Test Item Value Reference Range Interpretation Comments PREALBUMIN (BEAKER) (test code = 586) 9 mg/dL 14-45 L CARCINOEMBRYONIC ANTIGEN ([facility])2018-08-25 06:37:00 Test Item Value Reference Range Interpretation Comments CARCINOEMBRYONIC ANTIGEN (BEAKER) 3.0 ng/mL 0.0-5.0 (test code = 685) BASIC METABOLIC [id number] 06:26:00 Test Item Value Reference Range Interpretation [...] PATIEN TS. CBC W/PLT COUNT & AUTO [id number] 05:58:00 Test Item Value Reference Range Interpretation [...] (test code = 2801) CT, CHEST, WITH [id number] 14:24:00FINAL REPORT TECHNIQUE: CT of the chest, [...] MDReport Verified Date/Time: 08/24/2018 14:24:21 Reading Location: [facility] B1 C013Y CT Body Reading Room CT, [id number] 14:24:00FINAL REPORT TECHNIQUE: CT of the chest, [...] MDReport Verified Date/Time: 08/24/2018 14:24:21 Reading Location: [facility] B1 C013Y CT Body Reading Room BASI METABOLIC [id number] 05:56:00 Test Item Value Reference Range Interpretation [...] PATIEN TS. CBC W/PLT COUNT & AUTO [id number] 05:29:00 Test Item Value Reference Range Interpretation [...] code = 2801) URINALYSIS W/ REFLEX URINE [id number] 09:48:00 Test Item Value Reference Range Interpretation [...] SOURCE(BEAKER) (test code = 2795) HEMOGLOBIN AND [id number] 08:13:00 Test Item Value Reference Range Interpretation Comments HEMOGLOBIN (BEAKER) (test code = 7.2 GM/DL 11.2-15.7 L 410) HEMATOCRIT (BEAKER) (test code = 24.7 % 34.1-44.9 L 411) HEPATIC FUNCTION [id number] 06:32:00 Test Item Value Reference Range Interpretation [...] = 9 U/L 6-55 347) BASIC METABOLIC [id number] 06:32:00 Test Item Value Reference Range Interpretation [...] NOT APPLICABLE FOR DIALYSIS PATIEN TS. C-REACTIVE [id number] 02:31:00 Test Item Value Reference Range Interpretation Comments C-REACTIVE PROTEIN (BEAKER) (test 7.14 mg/dL 0.00-0.50 H code = 676) PROTHROMBIN [id number] 02:11:00 Test Item Value Reference Range Interpretation [...] % 0-1 PERCENT (BEAKER) (test code = 0261)
== END 2021-05-14 18:51 | disposition home or self-care (01) ==
LOC: ER 16:32
DX: S40.022A Contusion of left upper arm, initial encounter (principal); W18.30XA Fall on same level, unspecified, initial encounter; Y92.89 Other specified places as the place of occurrence of the external cause; Z85.038 Personal history of other malignant neoplasm of large intestine; Z85.05 Personal history of malignant neoplasm of liver; Z86.73 Personal history of transient ischemic attack (TIA), and cerebral infarction without residual deficits
CPT/HCPCS: 71045; 81003; 99283

== ENCOUNTER 2023-11-03 09:37 | Emergency (ER) | payer OTHER ==
[2023-11-03 11:08] LABS: Absolute Basophils 0.1 K/uL (0-0.5); Absolute Eosinophils 0.1 K/uL (0-0.5); Absolute Lymphocytes (CBC) 1.4 K/uL (0.7-4.9); Absolute Monocytes 0.6 K/uL (0.1-1.3); Absolute Neutrophil 5.5 K/uL (1.8-8.0); Basophils % 0.7 % (0-1.3); Eosinophils % 1.3 % (0-4.4); Hematocrit 41.9 % (36.0-45.0); Hemoglobin 14.1 g/dL (12.0-15.0); Lymphocytes % 18.9 % (15.3-44.8); MCH 31.7 pg (27.0-35.0); MCHC 33.7 g/dL (32.0-36.0); MPV 8.4 fL (7.6-11.3); Monocytes % 7.4 % (3.3-12.3); Neutrophils % 71.7 % (41.7-73.7); Platelets 271 thou/uL (152-406); RBC Red Blood Cell Count 4.46 M/uL (3.86-4.86); Red Cell Distribution Width 12.6 % (12.1-15.2)
[2023-11-03 11:10] LABS: PT Prothrombin Time 11.7 SECONDS (9.5-12.5); PTT, Activated Partial Thromb 34.2 SECONDS (24.3-36.9); Protime INR 1.07
[2023-11-03 11:23] LABS: Albumin 3.4 g/dL (3.4-5.0); Albumin/Globulin Ratio 1.1 (1.1-1.8); Anion Gap 8.7 mEq/L (5.0-15.0); Bilirubin Total 0.9 mg/dL (0.2-1.0); Globulin 3.1 g/dL (2.3-3.5); Potassium 3.7 mEq/L (3.5-5.1); Protein, Total 6.5 g/dL (6.4-8.2)
[2023-11-03 11:26] LABS: Specific Gravity 1.018 (1.005-1.030); Sqamous Epithelial <5 /HPF (None Seen); Urine Bacteria >50 /HPF (<20); Urine Bilirubin NEGATIVE (Negative); Urine Blood Negative (Negative); Urine Clarity Extremely Turbid (Clear); Urine Color Yellow (Yellow); Urine Culture Reflex Order NOT NEEDED; Urine Glucose NEGATIVE (Negative); Urine Ketones NEGATIVE (Negative); Urine Microscopic Reflex YN ORDER UMIC; Urine Mucus Slight /HPF (None Seen); Urine Nitrite 2+ (Negative); Urine Protein NEGATIVE (Negative); Urine RBC <5 /HPF (None Seen); Urine Urobilinogen Normal (Normal); Urine pH 5.5 (5.0-7.0)
[2023-11-03] MEDS ORDERED: NA CHLORIDE 0.9% 50 ML ONE (11:50)
[2023-11-03] MEDS ORDERED: CEFTRIAXONE 2000 MG/VIAL ONE (11:50)
--- NOTE | 2023-11-03 11:58 | EDPHYS ---
Physician Documentation [facility] Name: Desiree Ahumada Age: 73 yrs Sex: Female : 1950 Arrival Date: 11/03/2023 Time: 09:37 Bed 7 Private MD: ED Physician Ingrid Tomlinson HPI: 11/02 18:34 This 73 yrs old Female presents to ER via Wheelchair with complaints of S/S gb1 of Possible Stroke. 18:34 73-year-old female is here with her family after having difficulty walking gb1 and standing over the last few days. Her last known well was 3 to 4 days ago maybe up to a week ago per the patient's and her son and [id number]. She is having more difficulty raising her right arm and her right leg strength. She has history of colon cancer, renal cancer and ovarian cancer. She is also that hypertension and hyperlipidemia. She is also been diagnosed with dementia. She did have a her last stroke noted to be in 2018 but these deficits that she presents today with are new.. Historical: - Allergies: 09:44 No Known Allergies; ss - PMHx: 09:44 colon cancer; CVA; Hypercholesterolemia; Hypertensive disorder; LIVER CA; ovarian ss cancer; short term memory loss; - PSHx: 09:44 Liver sx; ss - Infectious Disease History:: Denies. - Social history:: Smoking status: Patient denies any tobacco usage or history of. - History obtained from: , son, daughter. Exam: 18:35 Radiologist reports: The radiologist reported to me a left-sided parietal hemorrhagic gb1 metastatic lesion with 6 mm midline shift and surrounding cerebral edema. 18:35 Constitutional: This is a well developed, well nourished patient who is awake, alert, and in no acute distress. Head/Face: Normocephalic, atraumatic. Eyes: Pupils equal round and reactive to light, extra-ocular motions intact. Lids and lashes normal. Conjunctiva and sclera are non-icteric and not injected. Cornea within normal limits. Periorbital areas with no swelling, redness, or edema. ENT: Nares patent. No nasal discharge, no septal abnormalities noted. Tympanic membranes are normal and external auditory canals are clear. Oropharynx with no redness, swelling, or masses, exudates, or evidence of obstruction, uvula midline. Mucous membranes moist. Neck: Trachea midline, no thyromegaly or masses palpated, and no cervical lymphadenopathy. Supple, full range of motion without nuchal rigidity, or vertebral point tenderness. No Meningismus. Chest/axilla: Normal chest wall appearance and motion. Nontender with no deformity. No lesions are appreciated. Cardiovascular: Regular rate and rhythm with a normal S1 and S2. No gallops, murmurs, or rubs. Normal PMI, no JVD. No pulse deficits. Respiratory: Lungs have equal breath sounds bilaterally, clear to auscultation and percussion. No rales, rhonchi or wheezes noted. No increased work of breathing, no retractions or nasal flaring. Abdomen/GI: Soft, non-tender, with normal bowel sounds. No distension or tympany. No guarding or rebound. No evidence of tenderness throughout. Skin: Warm, dry with normal turgor. Normal color with no rashes, no lesions, and no evidence of cellulitis. MS/ Extremity: Pulses equal, no cyanosis. Neurovascular intact. Patient has 2 out of 5 strength on the right upper extremity and 3 out of 5 on the right lower extremity. Her strength is 5 out of 5 on the left upper and lower extremity. She has mildly dysarthric speech. She has repetitive questioning as well. Psych: Awake, alert, with orientation to person, place and time. Behavior, mood, and affect are within normal limits. Vital Signs: 09:41 BP 170 / 79; Pulse 68; Resp 18; Temp 98(TE); Pulse Ox 97% on R/A; ss 11:05 BP 160 / 63; Pulse 72; Resp 16 S; Pulse Ox 99% on R/A; Weight 72.57 kg; Height 5 ft. 2 kc6 in. (R); 11:55 BP 157 / 63; Pulse 72; Resp 18 S; Pulse Ox 100% on R/A; kc6 12:25 BP 167 / 66; Pulse 69; Resp 14 S; Pulse Ox 100% on R/A; Pain 0/10; kc6 11:05 Body Mass Index 29.26 (72.57 kg, 157.48 cm) kc6 12:25 Pain Scale: Adult kc6 NIH Stroke Scale Scores: 09:45 NIHSS Score: 8 kc6 18:35 NIHSS Score: 9 gb1 MDM: 09:53 Patient medically screened. gb1 18:35 Differential diagnosis: CVA, TIA, Dementia, paralysis, Alzheimer disease. Data gb1 reviewed: vital signs, nurses notes, radiologic studies, CT scan, plain films. ED course: 73-year-old female with a new left-sided hemorrhagic parietal metastatic lesion. She has new right-sided deficits at this time we transferred her to a higher level of care the neuro ICU under Dr. Orellana's service. I have discussed the case as well with the patient's family the bedside and they are compliant with this plan of care. We have given Keppra prophylactically and the patient's airway is at this time state. She does not currently require intubation. The patient was life flighted out to [facility] in expeditiously.. 11/02 10:41 Order name: Urinalysis w/ reflexes; Complete Time: 11:35 gb11/02 10:41 Order name: CBC with Diff; Complete Time: 11:35 gb11/02 10:41 Order name: CMP; Complete Time: 11:35 11/02 10:43 Order name: High Sensitivity Troponin; Complete Time: 11:38 gb11/02 10:43 Order name: Protime (+inr); Complete Time: 11:35 gb11/02 10:43 Order name: Ptt, Activated; Complete Time: 11:35 gb11/02 10:43 Order name: CT Stroke Brain w/o Contrast; Complete Time: 12:27 gb11/02 12:28 Interpretation: Abnormal. 11/02 11:45 Order name: CXR XRAY; Complete Time: 12:27 eb 11/02 10:41 Order name: IV Saline Lock; Complete Time: 10:45 11/02 10:41 Order name: Labs collected and sent; Complete Time: 10:45 11/02 10:41 Order name: IV Saline Lock; Complete Time: 10:45 11/02 10:41 Order name: Labs collected and sent; Complete Time: 10:45 11/02 10:43 Order name: Cardiac monitoring; Complete Time: 10:45 gb11/02 10:43 Order name: EKG - Nurse/Tech; Complete Time: 10:45 gb1 11/02 10:43 Order name: NPO; Complete Time: 10:45 gb1 11/02 10:43 Order name: Stroke Swallow Screen; Complete Time: 10:45 gb1 Administered Medications: 11:55 Drug: Rocephin IV 2 grams IV at bolus once; Given slow IV push per pharmarcy kc6 instructions Route: IV; Rate: bolus; Site: right antecubital; 12:26 Follow up: Response: No adverse reaction; IV Status: Completed infusion; IV Intake: 34mrgj9 12:20 Drug: Keppra IV 1500 mg IV at bolus once Route: IV; Rate: bolus; Site: right kc6 antecubital; 12:45 Follow up: Response: No adverse reaction; IV Status: Completed infusion; IV Intake: kc6 100ml Disposition Summary: 11/03/23 11:57 Transfer Ordered Notes: Transfer Location: [facility] gb1 Reason: Higher level of care gb1 Condition: Serious gb1 Problem: new gb1 Symptoms: have worsened gb1 Accepting Physician: Dr. Orellana(11/03/23 12:46) kc6 Diagnosis - Neoplasm of uncertain behavior of brain, unspecified gb1 Forms: - Medication Reconciliation Form gb1 - SBAR form gb1 Critical care time excluding procedures: 18:35 Critical care time: Bedside Care: 90 minutes, Consultation: 30 minutes, Family gb1 Intervention: 45 minutes. Total time: 165 minutes NIH Stroke Scale - NIH Stroke Score Date: 11/03/2023 Time: 09:45 Total Score = 8 10. Dysarthria (speech clarity - read or repeat words) - 1(Mild to Moderate) 11. Extinction and Inattention (visual/tactile/auditory/spatial/personal) - 0(No abnormality) 1a. Level of Consciousness (LOC) - 0(Alert) 1b. Level of Consciousness (LOC) (Month \T\ Age) - 0(Both) 1c. LOC Commands (Open \T\ Closes Eyes/[facility]) - 0(Both) 2. Best Gaze (Lateral Gaze Paresis) - 0(Normal) 3. Visual Field Loss - 0(No visual loss) 4. Facial Palsy - 0(Normal) 5a. Left Arm: Motor (10-second hold) - 0(No drift) 5b. Right Arm: Motor (10-second hold) - 2(Drift, some effort against gravity) 6a. Left Leg: Motor (5-second hold - always test supine) - 0(No drift) 6b. Right Leg: Motor (5-second hold - always test supine) - 2(Drift, some effort against gravity) 7. Limb Ataxia (finger/nose \T\ heel/valdez - test with eyes open) - 2(Present in two limbs) 8. Sensory Loss (pinprick arms/legs/face) - 0(Normal) 9. Best Language: Aphasia (description/naming/reading) - 1(Mild to moderate aphasia) Initials: kc6 NIH Stroke Scale - NIH Stroke Score Date: 11/03/2023 Time: 18:35 Total Score = 9 10. Dysarthria (speech clarity - read or repeat words) - 1(Mild to Moderate) 11. Extinction and Inattention (visual/tactile/auditory/spatial/personal) - 0(No abnormality) 1a. Level of Consciousness (LOC) - 0(Alert) 1b. Level of Consciousness (LOC) (Month \T\ Age) - 2(Neither) 1c. LOC Commands (Open \T\ Closes Eyes/[facility]) - 0(Both) 2. Best Gaze (Lateral Gaze Paresis) - 0(Normal) 3. Visual Field Loss - 0(No visual loss) 4. Facial Palsy - 0(Normal) 5a. Left Arm: Motor (10-second hold) - 0(No drift) 5b. Right Arm: Motor (10-second hold) - 2(Drift, some effort against gravity) 6a. Left Leg: Motor (5-second hold - always test supine) - 0(No drift) 6b. Right Leg: Motor (5-second hold - always test supine) - 1(Drift) 7. Limb Ataxia (finger/nose \T\ heel/valdez - test with eyes open) - 1(Present in one limb) 8. Sensory Loss (pinprick arms/legs/face) - 1(Mild to moderate loss) 9. Best Language: Aphasia (description/naming/reading) - 1(Mild to moderate aphasia) Initials: gb1 Signatures: Dispatcher [employer] EDMS Rocio Wayne RN RN ss Brittany Randle RN RN kc6 Ingrid Tomlinson MD MD gb1 Corrections: (The following items were deleted from the chart) 10:44 10:44 CT-STROKE BRAIN W/O CONTRAST+CT.RAD.BRZ ordered. EDMS EDMS 11:38 10:42 Head Brain Wo Cont+CT.RAD.BRZ ordered. EDMS EDMS 11:59 10:42 Neck Angio+CT.RAD.BRZ ordered. EDMS EDMS 12:00 11:38 Head angio ordered. EDMS EDMS 12:46 11:57 Dr. Reyna lara1 kc6 18:35 18:34 73-year-old female is here with her family after having gb1 difficulty walking and standing over the last few days. Her last known well was 3 to 4 days ago maybe up to a week ago per the patient's and her son and [id number]. She is having more difficulty raising her right arm and her right leg strength. She has history of colon cancer, renal cancer and ovarian cancer. She is also that hypertension and hyperlipidemia. She is also been diagnosed with dementia. She did have a her last stroke noted to be in 2018 but these deficits that she presents today with our new. gb1
--- NOTE | 2023-11-03 11:58 | ER ---
Nurse's Notes [facility] Name: Desiree Ahumada Age: 73 yrs Sex: Female : 1950 Arrival Date: 11/03/2023 Time: 09:37 Bed 7 Private MD: Diagnosis: Neoplasm of uncertain behavior of brain, unspecified Presentation: 11/02 09:41 Chief complaint: Patient's son or daughter states: HX of dementia, has been declining ss over the past week including some R sided weakness and even more in the last 24 hours. Son reports she always has a hard time walking, but cannot even get up this morning. Coronavirus screen: Client denies travel out of the [place] in the last 14 days. Ebola Screen: Patient denies exposure to infectious person. Patient denies travel to an Ebola-affected area in the 21 days before illness onset. Pre-hospital glucose is not applicable to this patient. Initial Sepsis Screen: Does the patient meet any 2 criteria? No. Patient's initial sepsis screen is negative. Does the patient have a suspected source of infection? No. Patient's initial sepsis screen is negative. Risk Assessment: Do you want to hurt yourself or someone else? Patient reports no desire to harm self or others. Onset of symptoms is unknown. 09:41 Method Of Arrival: Wheelchair ss 09:41 Acuity: LIA 2 ss 09:41 No acute neurological deficit is noted. kc6 Triage Assessment: 09:41 The onset of the patients symptoms was at an unknown time. General: Appears ss comfortable, Behavior is calm, cooperative, quiet. Neuro: Level of Consciousness is awake, alert. Neuro: Manager Terminal are weak on right Weakness in right arm(s) leg(s) Pupils are PERRLA. Respiratory: Airway is patent Respiratory effort is even, unlabored, Respiratory pattern is regular, symmetrical. Derm: Skin is pink, warm \T\ dry. normal. Stroke Activation: Symptom onset > 6 hours Physician: Stroke Attending; Name: ; Notified At: ; Arrived At: Physician: Chief Stroke Resident; Name: ; Notified At: ; Arrived At: Physician: Stroke Resident; Name: ; Notified At: ; Arrived At: Physician: ED Attending; Name: ; Notified At: ; Arrived At: Physician: ED Resident; Name: ; Notified At: ; Arrived At: Historical: - Allergies: :44 No Known Allergies; ss - PMHx: :44 colon cancer; CVA; Hypercholesterolemia; Hypertensive disorder; LIVER CA; ovarian ss cancer; short term memory loss; - PSHx: : Liver sx; ss - Infectious Disease History:: Denies. - Social history:: Smoking status: Patient denies any tobacco usage or history of. - History obtained from: , son, daughter. Screenin:41 [facility] ED Fall Risk Assessment (Adult) History of falling in the last 3 months, kc6 including since admission No falls in past 3 months (0 pts) Confusion or Disorientation No (0 pts) Intoxicated or Sedated No (0 pts) Impaired Gait Yes (1 pt) Mobility Assist Device Used Yes (1 pt) Altered Elimination No (0 pt) Score/Fall Risk Level 0 - 2 = Low Risk. Abuse screen: Denies threats or abuse. Denies injuries from another. Nutritional screening: No deficits noted. Tuberculosis screening: No symptoms or risk factors identified. Assessment: 09:45 VAN Scoring: Arm Drift: Minor drift Visual Disturbance: No visual disturbance noted. kc6 Aphasia: Expressive aphasia noted. Provider notified of +VAN scoring. Neglect: No neglect noted. Sydni Swallow Protocol Brief Cognitive Screen What is your name? Normal, Where are you right now? Normal, What year is it? Abnormal: pt is A\T\O x3. this is her baseline as she has dementia. Oral Mechanism Examination Facial Symmetry: Normal, Motion: Normal, Lip Closure: Normal, Oral Mechanism Result: Normal. 3 oz Water Swallow Challenge: Pt able to drink all water without stopping, coughing, choking or throat clearing: Yes Result: PASS MD Notified: Ingrid Tomlinson MD. General: Appears in no apparent distress. comfortable, well groomed, well developed, Behavior is calm, cooperative, appropriate for age. Pain: Denies pain. Neuro: Level of Consciousness is awake, alert, obeys commands, Oriented to person, place, situation, Appropriate for age Manager Terminal are weak on right Weakness in right arm(s) leg(s) Gait is ataxic, Speech is slurred, with expressive aphasia noted, Facial symmetry appears normal, Pupils are PERRLA, Intact Babinski is positive on right on left. Cardiovascular: Capillary refill < 3 seconds. Respiratory: Airway is patent Trachea midline Respiratory effort is even, unlabored, Respiratory pattern is regular, symmetrical. GI: No signs and/or symptoms were reported involving the gastrointestinal system. : No signs and/or symptoms were reported regarding the genitourinary system. EENT: No signs and/or symptoms were reported regarding the EENT system. Derm: No signs and/or symptoms reported regarding the dermatologic system. Skin is intact, is healthy with good turgor, Skin is pink, warm \T\ dry. Musculoskeletal: Circulation, motion, and sensation intact. Capillary refill < 3 seconds, Range of motion: intact in all extremities. 10:45 Reassessment: Patient appears in no apparent distress at this time. No changes from kc6 previously documented assessment. Patient and/or family updated on plan of care and expected duration. Pain level reassessed. 11:45 Reassessment: Patient appears in no apparent distress at this time. No changes from kc6 previously documented assessment. Patient and/or family updated on plan of care and expected duration. Pain level reassessed. 11:56 Reassessment: Dr. Tomlinson at bedside providing pt and family with update regarding kc6 results. 12:21 Reassessment: attempted to call report to [facility] x2. no answer at this. kc6 12:25 Reassessment: Patient appears in no apparent distress at this time. No changes from kc6 previously documented assessment. Patient and/or family updated on plan of care and expected duration. Pain level reassessed. Vital Signs: 09:41 BP 170 / 79; Pulse 68; Resp 18; Temp 98(TE); Pulse Ox 97% on R/A; ss 11:05 BP 160 / 63; Pulse 72; Resp 16 S; Pulse Ox 99% on R/A; Weight 72.57 kg; Height 5 ft. 2 kc6 in. (R); 11:55 BP 157 / 63; Pulse 72; Resp 18 S; Pulse Ox 100% on R/A; kc6 12:25 BP 167 / 66; Pulse 69; Resp 14 S; Pulse Ox 100% on R/A; Pain 0/10; kc6 11:05 Body Mass Index 29.26 (72.57 kg, 157.48 cm) kc6 12:25 Pain Scale: Adult kc6 NIH Stroke Scale Scores: 09:45 NIHSS Score: 8 kc6 18:35 NIHSS Score: 9 gb1 ED Course: 09:38 Patient arrived in ED. mg5 09:41 Patient has correct armband on for positive identification. Placed in gown. Bed in low kc6 position. Call light in reach. Side rails up X2. Adult w/ patient. Client placed on continuous cardiac and pulse oximetry monitoring. NIBP monitoring applied. alarm security or surveillance monitor on. Door closed. Noise minimized. Visitors limited. Lights dimmed. Warm blanket given. 09:44 Triage completed. ss 09:44 Arm band placed on right wrist. ss 09:53 Ingrid Tomlinson MD is Attending Physician. gb1 10:45 Brittany Randle RN is Primary Nurse. kc6 10:46 Inserted saline lock: 20 gauge in right antecubital area, using aseptic technique. kc6 Blood collected. 11:00 Paulino cath inserted, using sterile technique, 16 Fr., by in, balloon inflated, to kc6 gravity drainage, clamped. urine specimen collected. returned clear yellow urine. Patient tolerated well. 11:45 CT Stroke Brain w/o Contrast In Process Unspecified. EDMS 11:49 initiated a transfer with Nilda from the [facility]. eb 11:50 CXR XRAY In Process Unspecified. EDMS 11:[address] Ellis the neuro area development consultant for [facility] with Dr. Tomlinson for eb patient transfer consultation. 12:45 No provider procedures requiring assistance completed. Patient transferred, IV remains kc6 in place. Administered Medications: 11:55 Drug: Rocephin IV 2 grams IV at bolus once; Given slow IV push per pharmarcy kc6 instructions Route: IV; Rate: bolus; Site: right antecubital; 12:26 Follow up: Response: No adverse reaction; IV Status: Completed infusion; IV Intake: [id number] 12:20 Drug: Keppra IV 1500 mg IV at bolus once Route: IV; Rate: bolus; Site: right kc6 antecubital; 12:45 Follow up: Response: No adverse reaction; IV Status: Completed infusion; IV Intake: kc6 100ml Medication: 12:46 VIS not applicable for this client. kc6 Intake: 12:26 IV: 50ml; Total: 50ml. kc6 12:45 IV: 100ml; Total: 150ml. kc6 Outcome: 11:57 ER care complete, transfer ordered by gb1 12:45 Transferred by helicopter to [facility] [place] [place], Transfer form completed. kc6 Note: report given to ILYA Ruby \T\ ILYA Chapa with [facility] 12:45 Condition: stable 12:45 Instructed on the need for transfer, 12:46 Patient left the ED. kc6 NIH Stroke Scale - NIH Stroke Score Date: 11/03/2023 Time: 09:45 Total Score = 8 10. Dysarthria (speech clarity - read or repeat words) - 1(Mild to Moderate) 11. Extinction and Inattention (visual/tactile/auditory/spatial/personal) - 0(No abnormality) 1a. Level of Consciousness (LOC) - 0(Alert) 1b. Level of Consciousness (LOC) (Month \T\ Age) - 0(Both) 1c. LOC Commands (Open \T\ Closes Eyes/Application Architect Manager) - 0(Both) 2. Best Gaze (Lateral Gaze Paresis) - 0(Normal) 3. Visual Field Loss - 0(No visual loss) 4. Facial Palsy - 0(Normal) 5a. Left Arm: Motor (10-second hold) - 0(No drift) 5b. Right Arm: Motor (10-second hold) - 2(Drift, some effort against gravity) 6a. Left Leg: Motor (5-second hold - always test supine) - 0(No drift) 6b. Right Leg: Motor (5-second hold - always test supine) - 2(Drift, some effort against gravity) 7. Limb Ataxia (finger/nose \T\ heel/valdez - test with eyes open) - 2(Present in two limbs) 8. Sensory Loss (pinprick arms/legs/face) - 0(Normal) 9. Best Language: Aphasia (description/naming/reading) - 1(Mild to moderate aphasia) Initials: kc6 NIH Stroke Scale - NIH Stroke Score Date: 11/03/2023 Time: 18:35 Total Score = 9 10. Dysarthria (speech clarity - read or repeat words) - 1(Mild to Moderate) 11. Extinction and Inattention (visual/tactile/auditory/spatial/personal) - 0(No abnormality) 1a. Level of Consciousness (LOC) - 0(Alert) 1b. Level of Consciousness (LOC) (Month \T\ Age) - 2(Neither) 1c. LOC Commands (Open \T\ Closes Eyes/Application Architect Manager) - 0(Both) 2. Best Gaze (Lateral Gaze Paresis) - 0(Normal) 3. Visual Field Loss - 0(No visual loss) 4. Facial Palsy - 0(Normal) 5a. Left Arm: Motor (10-second hold) - 0(No drift) 5b. Right Arm: Motor (10-second hold) - 2(Drift, some effort against gravity) 6a. Left Leg: Motor (5-second hold - always test supine) - 0(No drift) 6b. Right Leg: Motor (5-second hold - always test supine) - 1(Drift) 7. Limb Ataxia (finger/nose \T\ heel/valdez - test with eyes open) - 1(Present in one limb) 8. Sensory Loss (pinprick arms/legs/face) - 1(Mild to moderate loss) 9. Best Language: Aphasia (description/naming/reading) - 1(Mild to moderate aphasia) Initials: gb1 Signatures: Dispatcher [employer] EDRocio Mcintosh RN RN ss Botello, Elizabeth eb Campbell, Kaitlyn, RN RN kc6 Pallavi Montenegro mg5 Ingrid Tomlinson MD MD gb1 Corrections: (The following items were deleted from the chart) 11:04 11:00 NIHSS Score: 8 [facility] kc6 11:56 11:05 Pulse 72bpm; Resp 16bpm; Spontaneous; Pulse Ox 99% RA; [facility] kc 11:59 11:05 BP 160 / 63; Pulse 72bpm; Resp 16bpm; Spontaneous; Pulse Ox 99% RA; [place] [id number]
--- NOTE | 2023-11-03 12:02 | RAD REPORT ---
EXAM DESCRIPTION: CT - Ct Stroke Brain Wo Cont - 11/03/2023 11:44 am CLINICAL HISTORY: Confusion/alteration of awareness Right-sided weakness COMPARISON: none TECHNIQUE: Computed axial tomography of the head was obtained. All CT scans are performed using dose optimization technique as appropriate and may include automated exposure control or mA/KV adjustment according to patient size. FINDINGS: 2.6 centimeter dense mass left parietal lobe with large amount of surrounding vasogenic ed mich. Shift of the midline structures 6 millimeters to the right. Old lacunar infarction right basal ganglia No hydrocephalus Fluid within the sinuses/ mastoids is not seen. 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 Dr Tomlinson of the emergency room was notified at 11:50 a.m. November 03, 2023
--- NOTE | 2023-11-03 12:11 | RAD REPORT ---
EXAM DESCRIPTION: Ney Single View11/03/2023 11:48 am CLINICAL HISTORY: Right-sided weakness. Confusion COMPARISON: 2020 FINDINGS: The lungs appear clear of acute infiltrate. The heart is normal size IMPRESSION: No acute abnormalities displayed
[2023-11-03] MEDS ORDERED: LEVETIRACETAM 500 MG/5 ML VIAL IV ONE (12:14)
[2023-11-03] MEDS ORDERED: NA CHLORIDE 0.9% 100 ML ONE (12:15)
[2023-11-03 13:00] VITALS: BP 167/66; TEMP 98; O2SAT 100
--- NOTE | 2023-11-04 12:58 | EKG ---
Test Date: 2023-11-03 Test Time: 10:37:26 Kiln Mechanic: ÁLVARO MEASUREMENT RESULTS: Intervals: Rate: 68 TN: 144 QRSD: 78 QT: 382 QTc: 406 Elnora: P: 62 TN: 144 QRS: 75 T: 62 INTERPRETIVE STATEMENTS: Normal sinus rhythm Normal ECG Compared to ECG 04/10/2021 05:59:05 No significant changes Electronically Signed On 11-04-23 12:55:07 CDT by Ayaan Whitmore
== END 2023-11-03 12:46 | disposition short-term general hospital (02) ==
LOC: ER 09:37
DX: D43.2 Neoplasm of uncertain behavior of brain, unspecified (principal); I10 Essential (primary) hypertension; R29.708 NIHSS score 8; Z85.038 Personal history of other malignant neoplasm of large intestine; Z85.43 Personal history of malignant neoplasm of ovary; Z85.05 Personal history of malignant neoplasm of liver; Z86.73 Personal history of transient ischemic attack (TIA), and cerebral infarction without residual deficits
CPT/HCPCS: 93005; 85025; 81001; 36415; 85610; 85730; 84484; 80053; 70450; 71045; J1953; J0696; 51702; 96365; 99285